=== PATIENT | female | born 1955 | race Caucasian/White ===

== ENCOUNTER → 2016-11-27 | Outpatient (CLI) | payer BC, OTHER ==
--- NOTE | 2016-11-27 16:07 | Diagnostic Imaging Report ---
EXAMINATION: DEXA scan. INDICATION: Osteopenia. TECHNIQUE: Bone mineral density estimated based on dual energy radiography over the lumbar spine and femoral necks, was performed. FINDINGS: The lumbar spine T-score is -0.6. This is 2.3% increased density measurement compared to 2015 exam. The left femoral neck T score is -1.4 and on the right is -1.0. This is 1.2% decreased density compared to 11/02/2014 exam. IMPRESSION: Osteopenia. Dictated by: Dictated on workstation # [id number]
--- NOTE | 2016-11-28 08:28 | Diagnostic Imaging Report ---
Bilateral screening mammogram 2D views with tomosynthesis The current study was also evaluated with a Computer Aided Detection (CAD) system. Indication: Screening. No current complaints stated on the questionnaire. COMPARISON: 11/02/14 FINDINGS: The breasts are composed of heterogeneously dense parenchyma which may decrease mammographic sensitivity. Allowing for technique and positional differences, no suspicious change is seen. IMPRESSION: Dense breasts with no definite change. ACR BI-RADS Category 2: Benign findings. Result letter will be mailed to the patient. Note: At least 10% of breast cancer is not imaged by mammography. Dictated by: Dictated on workstation # [id number]
== END ==
LOC: RAD 11:10
PROVIDERS: ATTEND Nurse Practitioner Family
DX: M85.89 Other specified disorders of bone density and structure, multiple sites (principal); Z12.31 Encounter for screening mammogram for malignant neoplasm of breast
CPT/HCPCS: 77067; 77080

== ENCOUNTER → 2017-04-16 | Outpatient (CLI) | payer OTHER ==
[2017-04-16 10:18] LABS: ABSOLUTE RETIC # 39 10e9/L (24-90); BASOPHILS # (AUTO) 0.1 10^3/uL (0.0-0.1); BASOPHILS % (AUTO) 2 % (0-10); EOSINOPHILS # (AUTO) 0.2 10^3/uL (0.0-0.3); EOSINOPHILS % (AUTO) 4 % (0-10); HEMATOCRIT 39 % (35-52); HEMOGLOBIN 12.9 G/DL (11.5-16.0); LYMPHOCYTES # (AUTO) 2.1 X 10^3 (1.0-4.0); LYMPHOCYTES % (AUTO) 46 % (12-44); MEAN CORPUSCULAR HEMOGLOBIN 31 PG (25-34); MEAN CORPUSCULAR HGB CONC 33 G/DL (32-36); MEAN CORPUSCULAR VOLUME 93 FL (80-99); MEAN PLATELET VOLUME 9.3 FL (7.4-10.4); MONOCYTES # (AUTO) 0.4 X 10^3 (0.0-1.0); MONOCYTES % (AUTO) 9 % (0-12); NEUTROPHILS # (AUTO) 1.8 X 10^3 (1.8-7.8); NEUTROPHILS % (AUTO) 40 % (42-75); PLATELET COUNT 218 10^3/uL (130-400); RED BLOOD COUNT 4.18 10^6/uL (4.35-5.85); RED CELL DISTRIBUTION WIDTH 12.9 % (10.0-14.5); RETICULOCYTE % 0.94 % (0.50-2.40); WHITE BLOOD COUNT 4.5 10^3/uL (4.3-11.0)
[2017-04-16 11:06] LABS: BAND NEUTROPHILS 0 %; LYMPHOCYTES % (MANUAL) 50 %; NEUTROPHILS % (MANUAL) 37 %
[2017-04-16 11:07] LABS: BASOPHILS % (MANUAL) 0 %; EOSINOPHILS % (MANUAL) 3 %; MONOCYTES % (MANUAL) 8 %; REACTIVE LYMPHOCYTES 2 %
[2017-04-16 11:08] LABS: ELLIPT/OVALOCYTES SLIGHT
== END ==
LOC: LAB 09:48
PROVIDERS: ATTEND Nurse Practitioner Family
DX: D72.819 Decreased white blood cell count, unspecified (principal)
CPT/HCPCS: 36415; 85007; 85027; 85045

== ENCOUNTER 2017-11-24 05:22 | Outpatient (CLI) | payer OTHER ==
[~2017-11-24] VITALS: Ht 167.6 cm; Wt 79.4 kg
== END 2017-11-24 15:50 | disposition home or self-care (01) ==
LOC: PREOP 05:22
PROVIDERS: ATTEND Internal Medicine
DX: Z01.818 Encounter for other preprocedural examination (principal); Z12.11 Encounter for screening for malignant neoplasm of colon

== ENCOUNTER → 2018-12-14 | Outpatient (CLI) | payer OTHER ==
--- NOTE | 2018-12-14 21:51 | Diagnostic Imaging Report ---
INDICATION: Screening TECHNIQUE: The current study was also evaluated with a Computer Aided Detection (CAD) system. 3-D Tomographic imaging was also performed. COMPARISONS: 12/10/2017, 11/27/2016 and 12/03/2014 FINDINGS: The fibroglandular tissues are heterogeneously dense bilaterally. Again seen is a nodular density in subareolar region of the right breast. The calcifications within this have increased in number and pleomorphicity when compared to the prior examination. There are a few other benign type calcifications. There is no other dominant mass or spiculated lesion. Skin, nipples and axillae are unremarkable. IMPRESSION: Category 0, further imaging needed needed. Nodular density in subareolar region of the left breast with calcifications which have increased in conspicuity when compared to the prior examination. Further evaluation with magnification compression views and, if warranted, ultrasound is recommended. ACR BI-RADS Category 0: Incomplete. (Needs additional imaging evaluation). Result letter will be mailed to the patient. Note: At least 10% of breast cancer is not imaged by mammography. Dictated by: Dictated on workstation # [id number]
== END ==
LOC: RAD 10:28
PROVIDERS: ATTEND Family Medicine
DX: Z12.31 Encounter for screening mammogram for malignant neoplasm of breast (principal)
CPT/HCPCS: 77067

== ENCOUNTER → 2018-12-23 | Outpatient (CLI) | payer OTHER ==
--- NOTE | 2018-12-23 13:56 | Diagnostic Imaging Report ---
INDICATION: Right breast nodule. FINDINGS: Sonographic interrogation of the retroareolar right breast was performed. There are 2 circumscribed hypoechoic nodules in the retroareolar right breast. One nodule measures approximately 7 mm x 8 mm. A second nodule adjacent to this is slightly smaller and measures 6 mm x 7 mm. This nodule does contain punctate calcifications and likely corresponds to the nodular density noted mammographically. No internal vascularity is present. No posterior acoustic shadowing is seen. IMPRESSION: BI-RADS Category 3. Circumscribed retroareolar nodules, as described, one of which contains internal calcifications and likely accounts for the mammographic nodule. These appear fairly benign and most likely represent fibroadenomas. Even so, followup right mammogram and right breast ultrasound in 6 months is recommended to confirm stability. Dictated by: Dictated on workstation # [id number]
--- NOTE | 2018-12-23 17:59 | Diagnostic Imaging Report ---
INDICATION: Right breast nodule with calcification. Patient presents for additional views. COMPARISON: Correlation is made with recent screening study from 12/14/2018 as well as prior mammograms dating back to 2013. EXAMINATION: Unilateral right 2D and 3D diagnostic mammography was performed including magnification CC and ML views as well as conventional 90 degree lateral view. FINDINGS: Additional views show persistent nodule in the retroareolar right breast with internal calcifications. In reviewing older mammograms this nodule appears to have been present dating back to 2013 but there is now more calcifications within the nodule. This may represent partially calcified cyst versus solid nodule. Further evaluation with ultrasound is recommended. No additional masses are seen. IMPRESSION: Partially calcified circumscribed nodule in retroareolar right breast. Further evaluation with ultrasound is recommended and will be performed today. ACR BI-RADS Category 0: Incomplete. (Needs additional imaging evaluation). Result letter will be mailed to the patient. Note: At least 10% of breast cancer is not imaged by mammography. Dictated by: Dictated on workstation # [id number]
== END ==
LOC: RAD 08:50
PROVIDERS: ATTEND Nurse Practitioner Family
DX: N63.10 Unspecified lump in the right breast, unspecified quadrant (principal)

== ENCOUNTER 2019-10-11 05:38 | Outpatient (RCR) | payer OTHER ==
[~2019-10-11] VITALS: Ht 157 cm; Wt 80.9 kg
[~2019-10-11 05:38] MED LIST: CHOL20003 PO; CYAN250010 PO; ESCI10TA PO; FLAX100031 PO; LEVO5TAB28 PO; MELA5CAP PO; MULT-1136 PO; VIT1CAPS44 PO
== END 2019-10-11 15:38 | disposition home or self-care (01) ==
LOC: PREOP 05:38
PROVIDERS: ATTEND Internal Medicine
DX: Z01.818 Encounter for other preprocedural examination (principal); Z11.59 Encounter for screening for other viral diseases
CPT/HCPCS: 87635

== ENCOUNTER 2019-10-14 08:33 | Day surgery (SDC) | payer OTHER ==
--- NOTE | 2019-09-30 07:52 | HISTORY AND PHYSICAL ---
DATE OF SERVICE: COLONOSCOPY HISTORY AND PHYSICAL HISTORY OF PRESENT ILLNESS: The patient is a 63-year-old white female referred for surveillance colonoscopy due to past history of colonic polyps. She had a serrated adenoma removed from the rectosigmoid junction nearly 2 years ago. At that time, she also had a hyperplastic polyp removed from the distal sigmoid colon and a hyperplastic polyp removed from the rectum. Since that time, she reports no change in bowel habit, no diarrhea or constipation. She has noted no bright red blood per rectum or melena and denies abdominal pain. PAST MEDICAL HISTORY: Significant for utilization of Voltaren gel for some mild arthritis symptoms as well as Lexapro for mild anxiety and depression. PAST SURGICAL HISTORY: She had an appendectomy at the age of 11 and has had 2 sections. FAMILY HISTORY: She is adopted and has no information on her biologic parents. 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 She has less than a 5-pack-year smoking history and quit 14 years ago. She reports occasional social alcohol intake. PHYSICAL EXAMINATION: GENERAL: Reveals a well-appearing white female in no acute distress. HEENT: Unremarkable. CHEST: Clear. CARDIOVASCULAR: Reveals a regular rate and rhythm without murmur, S3 or S4. ABDOMEN: Soft, supple without mass, organomegaly or tenderness. EXTREMITIES: Reveal no cyanosis, clubbing or edema. ASSESSMENT AND PLAN: The patient was set up for surveillance colonoscopy due to past history of colon polyps, most notably a serrated adenoma removed from the rectosigmoid junction. I thank you for the referral of this pleasant lady. Job ID: [id number] DocumentID: [id number] Dictated Date: 09/22/2019 18:13:36 Acupressure Therapist Date: 09/22/2019 18:51:02 Dictated By: JACOB YORK MD
[2019-10-14] VITALS (8 sets, daily range): BP systolic 108–133; BP diastolic 55–77
[~2019-10-14] VITALS: Ht 157 cm; Wt 80.9 kg
--- NOTE | 2019-10-14 08:15 | Pre-Op Note & Conscious Sedat ---
Pre-Operative Progress Note H&P Reviewed The H&P was reviewed, patient examined and no changes noted. Date H&P Reviewed: Oct 14, 2019 Time H&P Reviewed: 08:15 Conscious Sedation Pre-Proced ASA Score 2 For ASA 3 and 4: Consider anesthesia and medical clearance. Also, for patients with a history of failed moderate sedation consider anesthesia. Airway Lungs Heart ASA score ASA 1: a normal healthy patient ASA 2: a patient with a mild systemic disease (mid diabetes, controlled hypertension, obesity ASA 3: a patient with a severe systemic disease that limits activity (angina, COPD, prior Myocardial infarction) ASA 4: a patient with an incapacitating disease that is a constant threat to life (CHF, renal failure) ASA 5: a moribund patient not expected to survive 24 hrs. (ruptured aneurysm) ASA 6: a declared brain- patient whose organs are being harvested. For emergent operations, add the letter E after the classification Mallampati Classification Grade 2 Sedation Plan Analgesia, Amnesia, Plan communicated to team members, Discussed options with patient/fam, Discussed risks with patient/fam The patient is an appropriate candidate to undergo the planned procedure, sedation, and anesthesia. The patient immediately re-assessed prior to indication. JACOB YORK MD Oct 14, 2019 08:15
[2019-10-14] MEDS ORDERED: D5 LR IV SOLUTION 1,000 ML IV ONE (08:42)
[2019-10-14] MEDS ORDERED: D5 LR IV SOLUTION 1,000 ML IV STA (08:42)
--- OUTSIDE RECORDS SUMMARY | 2019-10-14 08:42 | XMS REPORT | CCD ---
Author Author Laquita Hoover Organization Shanti Hoover MD, [facility] Address [address] [place] [address] Phone Care Team Providers Care Apprentice Architect Name Role Phone PP Unavailable CCM Unavailable Summary Purpose Interface Exchange Insurance Providers Payer name Policy type / Coverage type Covered alliance party ID Effective Begin Date Effective End Date [place] [employer] [id number] 2018 Unknown Family history Adopted Diagnosis Age At Onset No Family Disease Entered N/A Social History Social History Element Codes Description Effective Dates Marital status Unknown M arried 09/30/2012 Number of children Unknown 2 09/30/2012 Employment Unknown Oscar [employer]auer employed via [employer] in [place] 09/30/[address]: 0493833 Quit less than 10 years ago 09/30/2012 Alcohol history Unknown occasionally drinks alcohol 09/30/2012 Has the patient ever used illegal drugs? Unknown Has never used illegal drugs 013 Allergies, Adverse Reactions, Alerts Substance Reaction Codes Entered Date Inactivated Date Status * NO KNOWN FOOD LATESHA RGIES Unknown 09/30/2012 No Inactive Date Active * NO KNOWN DRUG LATESHA RGIES Unknown 09/30/2012 No Inactive Date Active Past Medical History Illness Codes Condition Status Onset Date Resolved Date Other abnormal and i nconclusive findings on diagnostic imaging of breast ICD-9: 793.89 ICD-10: R92.8 Active 12/24/2018 Unknown Encounter for screen ing mammogram for malignant neoplasm of breast ICD-9: V76.12 ICD-10: Z12.31 Active 2017 Unknown Encounter for gyneco logical examination (general) (routine) without abnormal findings ICD-9: V72.31 ICD-10: Z01.419 Active 12/28/2012 Unknown Major depressive dis order, recurrent, mild ICD-9: 296.31 ICD-10: F33.0 Active 11/24/2018 Unknown Dysuria ICD-9: 788.1 ICD-10: R30.0 Active 11/12/2018 Unknown Acute recurrent maxi llary sinusitis ICD-9: 461.0 ICD-10: J01.01 Active 06/20/2015 Unknown Cough ICD-9: 786.2 ICD-10: R05 Active 03/12/2018 Unknown Other allergic rhinitis ICD-9: 477.8 ICD-10: J30.89 Active 04/30/2017 Unknown Cellulitis of left l ower limb ICD-9: 682.6 ICD-10: L03.116 Active 01/28/2018 Unknown Encounter for genera l adult medical examination without abnormal findings ICD-9: V70.0 ICD-10: Z00.00 Active 11/05/2016 Unknown Other acute sinusitis ICD-9: 461.8 ICD-10: J01.80 Active 04/30/2017 Unknown Allergic rhinitis du e to pollen ICD-9: 477.0 ICD-10: J30.1 Active 10/07/2015 Unknown Insect bite (nonveno mous), right knee, initial encounter ICD-9: 916.4 ICD-10: S80.261A Active 10/07/2015 Unknown Acute bronchitis, un specified ICD-9: 466.0 ICD-10: J20.9 Active 06/20/2015 Unknown Low back pain ICD-9: 724.2 ICD-10: M54.5 Active 06/14/2015 Unknown Sacroiliitis, not el sewhere classified ICD-9: 720.2 ICD-10: M46.1 Active 06/14/2015 Unknown Routine medical exam ICD-9: V70.0 Active 11/21/2013 Unknown DYSURIA ICD-9: 788.1 Active 01/18/2013 Unknow n Polyp at cervical os ICD-9: 622.7 Active 12/28/2012 Unknown Well woman exam with routine gynecological exam ICD-9: V72.31 Active 12/28/2012 Unknown Problems Condition Codes Effectiv e Dates Condition Status Other abnormal and i nconclusive findings on diagnostic imaging of breast ICD-9: 793.89 ICD-10: R92.8 12/24/2018 Active Encounter for screen ing mammogram for malignant neoplasm of breast ICD-9: V76.12 ICD-10: Z12.31 2017 Active Encounter for gyneco logical examination (general) (routine) without abnormal findings ICD-9: V72.31 ICD-10: Z01.419 12/28/2012 Active Major depressive dis order, recurrent, mild ICD-9: 296.31 ICD-10: F33.0 11/24/2018 Active Dysuria ICD-9: 788.1 ICD-10: R30.0 11/12/2018 Active Acute recurrent maxi llary sinusitis ICD-9: 461.0 ICD-10: J01.01 06/20/2015 Active Cough ICD-9: 786.2 ICD-10: R05 03/12/2018 Active Other allergic rhinitis ICD-9: 477.8 ICD-10: J30.89 04/30/2017 Active Cellulitis of left l ower limb ICD-9: 682.6 ICD-10: L03.116 01/28/2018 Active Encounter for genera l adult medical examination without abnormal findings ICD-9: V70.0 ICD-10: Z00.00 11/05/2016 Active Other acute sinusitis ICD-9: 461.8 ICD-10: J01.80 04/30/2017 Active Allergic rhinitis du e to pollen ICD-9: 477.0 ICD-10: J30.1 10/07/2015 Active Insect bite (nonveno mous), right knee, initial encounter ICD-9: 916.4 ICD-10: S80.261A 10/07/2015 Active Acute bronchitis, un specified ICD-9: 466.0 ICD-10: J20.9 06/20/2015 Active Low back pain ICD-9: 724.2 ICD-10: M54.5 06/14/2015 Active Sacroiliitis, not el sewhere classified ICD-9: 720.2 ICD-10: M46.1 06/14/2015 Active Routine medical exam ICD-9: V70.0 11/21/2013 Active DYSURIA ICD-9: 788.1 01/18/2013 Active Polyp at cervical os ICD-9: 622.7 12/28/2012 Active Well woman exam with routine gynecological exam ICD-9: V72.31 12/28/2012 Active Medications Medication Codes Instruc tions Start Date Stop Date Sta tus Fill Instructions escitalopram 10 mg t ablet RxNorm: 867407 1 Tablet(s) PO QHS 11/24/2018 06/21/2019 Active acyclovir 800 mg tablet RxNorm: 861774 1 Tablet(s) PO TID take at symptoms of c old sore, if no outbreak, take for 5 days, if breaks out, take for 10 days total 11/24/2018 02/01/2019 Ac tive Bactrim DS 800 mg-16 0 mg tablet RxNorm: 994523 1 Tablet(s) PO BID 11/16/2018 11/22/2018 Inactive dispense generic Bactrim DS 800 mg-16 0 mg tablet RxNorm: 863455 1 Tablet(s) PO BID 11/16/2018 11/15/2018 Inactive Keflex 500 mg capsule RxNorm: 793665 1 Capsule(s) PO TID 11/12/2018 11/15/2018 Inactive Augmentin 875 mg-125 mg tablet RxNorm: 833663 1 Tablet(s) PO BID 05/17/2018 05/23/2018 Inactive Kenalog 40 mg/mL guevara pension for injection RxNorm: 9685321 Milliliter(s) Inj 05/17/2018 05/17/2018 In active Augmentin 875 mg-125 mg tablet RxNorm: 831336 1 Tablet(s) PO BID 03/12/2018 03/18/2018 Inactive take a probioitic while on the abx Kenalog 40 mg/mL guevara pension for injection RxNorm: 6601922 1 Milliliter(s) Inj 03/12/2018 03/12/2018 In active doxycycline hyclate 100 mg capsule RxNorm: 3518112 1 Capsule(s) PO BID 01/28/2018 02/06/2018 In active dapsone 25 mg tablet RxNorm: 022061 2 Tablet(s) PO daily 01/28/2018 02/01/2018 Inactive diclofenac 50 mg-mis oprostol 200 mcg tablet,immed.and delayed release RxNorm: 455340 1 Tablet(s) PO BID 11/05/2017 11/23/2018 Inactive acyclovir 800 mg tablet RxNorm: 362947 1 Tablet(s) PO TID take at symptoms of c old sore, if no outbreak, take for 5 days, if breaks out, take for 10 days total 09/09/2017 10/08/2017 In active prednisone 10 mg tablet RxNorm: 780237 Tablet(s) PO 07/10/2017 11/23/2018 Inactive 6,5, 4,3,2,1 Zithromax Z-Dawson 250 mg tablet RxNorm: 711088 1 Tablet(s) PO UD 07/10/2017 07/14/2017 Inactive zpack Augmentin 875 mg-125 mg tablet RxNorm: 645647 1 Tablet(s) PO BID 05/29/2017 05/28/2017 Inactive Augmentin 875 mg-125 mg tablet RxNorm: 133374 1 Tablet(s) PO BID 05/29/2017 06/07/2017 Inactive Kenalog 40 mg/mL guevara pension for injection RxNorm: 1816980 1 Milliliter(s) Inj 04/30/2017 04/30/2017 In active Keflex 500 mg capsule RxNorm: 348025 1 Capsule(s) PO TID 04/30/2017 05/09/2017 Inactive Vitamin D3 5,000 uni t tablet RxNorm: 376605 1 Tablet(s) PO daily 12/17/2016 No Stop Date Active Jublia 10 % topical solution with applicator RxNorm: 9844280 1 Application TOP da marshall 12/12/2016 2016 Inactive Jublia 10 % topical solution with applicator RxNorm: 6261125 1 Application TOP da marshall 12/12/2016 11/23/2018 Inactive acyclovir 800 mg tablet RxNorm: 625447 1 Tablet(s) PO TID take at symptoms of c old sore, if no outbreak, take for 5 days, if breaks out, take for 10 days total 09/25/2016 10/24/2016 In active Kenalog 40 mg/mL guevara pension for injection RxNorm: 2020885 Milliliter(s) Inj 10/08/2015 10/08/2015 In active doxycycline hyclate 100 mg tablet RxNorm: 588595 1 Tablet(s) PO BID 10/08/2015 10/17/2015 Inactive cefdinir 300 mg capsule RxNorm: 346532 1 Capsule(s) PO BID 06/25/2015 07/01/2015 Inactive cefdinir 300 mg capsule RxNorm: 154788 1 Capsule(s) PO BID 06/25/2015 06/24/2015 Inactive ceftriaxone 500 mg s olution for injection RxNorm: 2543110 Inj 06/21/2015 06/21/2015 Inactive Kenalog 40 mg/mL guevara pension for injection RxNorm: 5585209 Milliliter(s) Inj 06/21/2015 06/21/2015 In active Zithromax Z-Dawson 250 mg tablet RxNorm: 020779 1 Tablet(s) PO UD 06/21/2015 06/25/2015 Inactive zpack acyclovir 800 mg tablet RxNorm: 378663 1 Tablet(s) PO TID take at symptoms of c old sore, if no outbreak, take for 5 days, if breaks out, take for 10 days total 10/31/2014 11/29/2014 In active Cipro 500 mg tablet RxNorm: 517570 1 Tablet(s) PO BID 01/18/2013 01/17/2013 Inactive Cipro 500 mg tablet RxNorm: 687603 1 Tablet(s) PO BID 01/18/2013 01/20/2013 Inactive Ocuvite oral RxNorm: 684538 oral No Start Date Active flaxseed oil oral RxNorm: 560760 oral No Start Date Active Calcium 600 + D(3) oral RxNorm: 379327 oral No Start Date Active Vitamin D3 Oral RxNorm: Oral No Start Date 12/16/2016 Inactive krill oil 1,000 mg-1 70 mg-50 mg-80 mg capsule RxNorm: 1 Capsule(s) PO daily No Start Date 11/23/2018 Inactive flaxseed oil Oral RxNorm: Oral No Start Date 11/04/2016 Inactive Medication Administered Medication Codes Instruc tions Start Date Status Kenalog 40 mg/mL suspension for injection RxNorm: 7027735 Milliliter 05/17/2018 No longer Active Kenalog 40 mg/mL suspension for injection RxNorm: 8374260 1Milliliter 03/12/2018 N o longer Active Kenalog 40 mg/mL suspension for injection RxNorm: 3344320 1Milliliter 04/30/2017 N o longer Active Kenalog 40 mg/mL suspension for injection RxNorm: 9379201 Milliliter 10/08/2015 No longer Active Kenalog 40 mg/mL suspension for injection RxNorm: 1767594 Milliliter 06/21/2015 No longer Active ceftriaxone 500 mg solution for injection RxNorm: 1088203 06/21/2015 No longer A ctive Immunizations Vaccine Codes Date Status Influenza CVX: 141 01/22 completed Influenza CVX: 141 02/17 completed Tetanus, Diptheria, Pertussis CVX: 05/20/2011 completed Tetanus/Diptheria CVX: 05/20/2011 completed Assessments Condition Codes Effectiv e Dates Other abnormal and inconclusive findings on diagnostic imaging of breast ICD-10: R92.8 ICD-9: 793.89 12/24/2018 Encounter for screening mammogram for ma lignant neoplasm of breast ICD-10: Z12.31 ICD-9: V76.12 12/15/2018 Encounter for gynecological examination (general) (routine) without abnormal findings ICD-10: Z01.419 ICD-9: V72.31 11/24/2018 Major depressive disorder, recurrent, mild ICD-10: F33.0 ICD-9: 296.31 11/24/2018 Dysuria ICD-10: R30.0 ICD-9: 788.1 11/12/2018 Cough ICD-10: R05 ICD-9: 786.2 05/17/2018 Acute recurrent maxillary sinusitis ICD-10: J01.01 ICD-9: 461.0 05/17/2018 Other allergic rhinitis ICD-10: J30. 89 ICD-9: 477.8 03/12/2018 Cellulitis of left lower limb ICD-10 : L03.116 ICD-9: 682.6 01/28/2018 Encounter for general adult medical exam ination without abnormal findings ICD-10: Z00.00 ICD-9: V70.0 11/05/2017 Other acute sinusitis ICD-10: J01.80 ICD-9: 461.8 07/10/2017 Insect bite (nonvenomous), right knee, initial encount er ICD- 10: S80.261A ICD-9: 916.4 10/08/2015 Allergic rhinitis due to pollen ICD- 10: J30.1 ICD-9: 477.0 10/08/2015 Acute bronchitis, unspecified ICD-10 : J20.9 ICD-9: 466.0 06/21/2015 Sacroiliitis, not elsewhere classified ICD-10: M46.1 ICD-9: 720.2 06/15/2015 Low back pain ICD-10: M54.5 ICD-9: 724.2 06/15/2015 Routine medical exam ICD-9: V70.0 10/31/2014 DYSURIA ICD-9: 788.1 04/2012 Polyp at cervical os ICD-9: 622.7 12/28/2012 Well woman exam with routine gynecological exam ICD-9: V72.31 12/28/2012 Reason For Visit Reason For Visit Effective Dates Notes well woman exam (40-65 years) 11/24/2018 dysuria 11/12/2018 sinus congestion 05/17/2018 sinus congestion 03/12/2018 arthropod bite 01/28/2018 joint complaint 11/05/2017 sinus congestion 07/10/2017 sinus congestion 04/30/2017 well woman exam (40-65 years) 11/05/2016 well woman exam (40-65 years) 11/01/2015 earache 10/08/2015 cough 06/21/2015 back pain 06/15/2015 well woman exam (40-65 years) 10/31/2014 ~generic 11/21/2013 foll ow up breast exam well woman exam (40-65 years) 12/28/2012 fatigue 09/30/2012 Results Observation Observation Code Item Item Code Result Date CULTURE, URINE M100 URIN E CULTURE See Note 11/15/2018 Cbc With Differential Ord2 WBC 7.35 K/ul 11/12/2018 Cbc With Differential Ord2 RBC 4.25 M/ul 11/12/2018 Cbc With Differential Ord2 HGB 13.1 g/dl 11/12/2018 Cbc With Differential Ord2 Neut% 69.1 % 11/12/2018 Cbc With Differential Ord2 HCT 40.9 % 11/12/2018 Cbc With Differential Ord2 Lymph% 21.1 % 11/12/2018 Cbc With Differential Ord2 MCV 96.2 fl 11/12/2018 Cbc With Differential Ord2 MCH 30.8 pg 11/12/2018 Cbc With Differential Ord2 Young% 8.0 % 11/12/2018 Cbc With Differential Ord2 MCHC 32.0 pg 11/12/2018 Cbc With Differential Ord2 Eos% 1.4 % 11/12/2018 Cbc With Differential Ord2 PLT 202 K/ul 11/12/2018 Cbc With Differential Ord2 Baso% 0.4 % 11/12/2018 Cbc With Differential Ord2 RDW 13.1 % 11/12/2018 Cbc With Differential Ord2 Neut ABS# 5.08 K/ul 11/12/2018 Cbc With Differential Ord2 Lymph ABS# 1.55 K/ul 11/12/2018 Cbc With Differential Ord2 Young ABS# 0.6 K/ul 11/12/2018 Cbc With Differential Ord2 Eos ABS# 0.1 K/ul 11/12/2018 Cbc With Differential Ord2 Baso ABS# 0.0 K/ul 11/12/2018 Tsh Ord6 TSH (3rd IS) 2.41 uIU/mL 11/12/2018 Lipid Ord30 CHOL 162 mg/dL 11/12/2018 Lipid Ord30 HDL 61.0 mg/dl 11/12/2018 Lipid Ord30 TRIG 84 mg/dL 11/12/2018 Lipid Ord30 LDL 84 mg/dL 11/12/2018 Lipid Ord30 C/HDL 2.7 Ratio 11/12/2018 Comp Metabolic Ivg170 NA 140 mEq/L 11/12/2018 Comp Metabolic Afa766 K 4.0 mEq/L 11/12/2018 Comp Metabolic Bxo534 CL 102 mEq/L 11/12/2018 Comp Metabolic Yoo459 CO2 31.0 mEq/L 11/12/2018 Comp Metabolic Irb666 AN ION GAP 11 11/12/2018 Comp Metabolic Iwq700 GL UCOSE 92 mg/dL 11/12/2018 Comp Metabolic Zfu493 Cr eat 0.7 mg/dL 11/12/2018 Comp Metabolic Jhv618 eG FR 98 ml/min/1.73m2 11/12 Comp Metabolic Fdb104 BUN 12 mg/dL 11/12/2018 Comp Metabolic Ptj385 B/ C Ratio 18.5 Ratio 11/12/2018 Comp Metabolic Iaj603 CA LCIUM 9.6 mg/dL 11/12/2018 Comp Metabolic Vly862 AL K PHOS 75 U/L 11/12/2018 Comp Metabolic Tcj693 T(SGOT) 16 U/L 11/12/2018 Comp Metabolic Vul831 AL T(SGPT) 16 U/L 11/12/2018 Comp Metabolic Tlh109 BI LI T 0.6 mg/dL 11/12/2018 Comp Metabolic Jzt723 AL BUMIN 4.3 g/dL 11/12/2018 Comp Metabolic Zfc415 TP RO 7.0 g/dL 11/12/2018 Comp Metabolic Uvh849 GL OB 2.7 g/dL 11/12/2018 Comp Metabolic Sen545 A/ G Ratio 1.6 Ratio 11/12/2018 Comp Metabolic Kyn042 Os mo 279 mOsmo 11/12/2018 Lipid Ord30 CHOL 161 mg/dL 11/02/2017 Lipid Ord30 HDL 62.0 mg/dl 11/02/2017 Lipid Ord30 TRIG 66 mg/dL 11/02/2017 Lipid Ord30 LDL 86 mg/dL 11/02/2017 Lipid Ord30 C/HDL 2.6 Ratio 11/02/2017 Tsh Ord6 TSH (3rd IS) 1.73 uIU/mL 11/02/2017 Cbc With Differential Ord2 WBC 3.71 K/ul 11/02/2017 Cbc With Differential Ord2 RBC 4.22 M/ul 11/02/2017 Cbc With Differential Ord2 HGB 13.2 g/dl 11/02/2017 Cbc With Differential Ord2 HCT 40.4 % 11/02/2017 Cbc With Differential Ord2 Neut% 39.6 % 11/02/2017 Cbc With Differential Ord2 MCV 95.7 fl 11/02/2017 Cbc With Differential Ord2 Lymph% 47.2 % 11/02/2017 Cbc With Differential Ord2 MCH 31.3 pg 11/02/2017 Cbc With Differential Ord2 Young% 8.9 % 11/02/2017 Cbc With Differential Ord2 MCHC 32.7 pg 11/02/2017 Cbc With Differential Ord2 Eos% 3.5 % 11/02/2017 Cbc With Differential Ord2 PLT 203 K/ul 11/02/2017 Cbc With Differential Ord2 Baso% 0.8 % 11/02/2017 Cbc With Differential Ord2 RDW 13.0 % 11/02/2017 Cbc With Differential Ord2 Neut ABS# 1.47 K/ul 11/02/2017 Cbc With Differential Ord2 Lymph ABS# 1.75 K/ul 11/02/2017 Cbc With Differential Ord2 Young ABS# 0.3 K/ul 11/02/2017 Cbc With Differential Ord2 Eos ABS# 0.1 K/ul 11/02/2017 Cbc With Differential Ord2 Baso ABS# 0.0 K/ul 11/02/2017 Comp Metabolic Qgs888 NA 141 mEq/L 11/02/2017 Comp Metabolic Wxe132 K 4.0 mEq/L 11/02/2017 Comp Metabolic Gfn013 CL 104 mEq/L 11/02/2017 Comp Metabolic Jxx341 CO2 29.0 mEq/L 11/02/2017 Comp Metabolic Oec937 AN ION GAP 12 11/02/2017 Comp Metabolic Oqj703 GL UCOSE 91 mg/dL 11/02/2017 Comp Metabolic Lsi988 Cr eat 0.7 mg/dL 11/02/2017 Comp Metabolic Pzg320 eG FR 94 ml/min/1.73m2 11/02 Comp Metabolic Cpx958 BUN 18 mg/dL 11/02/2017 Comp Metabolic Gvb218 B/ C Ratio 26.5 Ratio 11/02/2017 Comp Metabolic Ctf474 CA LCIUM 9.7 mg/dL 11/02/2017 Comp Metabolic Sws258 AL K PHOS 65 U/L 11/02/2017 Comp Metabolic Nzi855 T(SGOT) 16 U/L 11/02/2017 Comp Metabolic Pkf489 AL T(SGPT) 17 U/L 11/02/2017 Comp Metabolic Cqy301 BI LI T 0.4 mg/dL 11/02/2017 Comp Metabolic Nsp850 AL BUMIN 4.1 g/dL 11/02/2017 Comp Metabolic Blx045 TP RO 6.7 g/dL 11/02/2017 Comp Metabolic Xvz776 GL OB 2.6 g/dL 11/02/2017 Comp Metabolic Jkj387 A/ G Ratio 1.6 Ratio 11/02/2017 Comp Metabolic Tnk342 Os mo 283 mOsmo 11/02/2017 Tsh Ord6 hTSH II 2.02 uIU/mL 01/27/2017 Comp Metabolic Eos731 NA 141 mEq/L 01/27/2017 Comp Metabolic Dag715 K 4.2 mEq/L 01/27/2017 Comp Metabolic Tmj064 CL 103 mEq/L 01/27/2017 Comp Metabolic Lla801 CO2 31.0 mEq/L 01/27/2017 Comp Metabolic Qjt563 AN ION GAP 11 01/27/2017 Comp Metabolic Dyi349 GL UCOSE 90 mg/dL 01/27/2017 Comp Metabolic Rqf898 Cr eat 0.6 mg/dL 01/27/2017 Comp Metabolic Kku584 eG FR 101 ml/min/1.73m2 01/18 Comp Metabolic Uwo125 BUN 17 mg/dL 01/27/2017 Comp Metabolic Ohv239 B/ C Ratio 26.6 Ratio 01/27/2017 Comp Metabolic Ulm401 CA LCIUM 9.5 mg/dL 01/27/2017 Comp Metabolic Nxg790 AL K PHOS 73 U/L 01/27/2017 Comp Metabolic Ilo831 T(SGOT) 19 U/L 01/27/2017 Comp Metabolic Luk311 AL T(SGPT) 20 U/L 01/27/2017 Comp Metabolic Ktu064 BI LI T 0.5 mg/dL 01/27/2017 Comp Metabolic Pme960 AL BUMIN 4.3 g/dL 01/27/2017 Comp Metabolic Xxv577 TP RO 6.6 g/dL 01/27/2017 Comp Metabolic Srm205 GL OB 2.3 g/dL 01/27/2017 Comp Metabolic Giu741 A/ G Ratio 1.8 Ratio 01/27/2017 Comp Metabolic Eeu676 Os mo 282 mOsmo 01/27/2017 Lipid Ord30 CHOL 170 mg/dL 01/27/2017 Lipid Ord30 HDL 63.0 mg/dl 01/27/2017 Lipid Ord30 TRIG 57 mg/dL 01/27/2017 Lipid Ord30 LDL 96 mg/dL 01/27/2017 Lipid Ord30 C/HDL 2.7 Ratio 01/27/2017 Cbc With Differential Ord2 WBC 3.46 K/ul 01/27/2017 Cbc With Differential Ord2 RBC 4.21 M/ul 01/27/2017 Cbc With Differential Ord2 HGB 13.0 g/dl 01/27/2017 Cbc With Differential Ord2 HCT 39.4 % 01/27/2017 Cbc With Differential Ord2 Neut% 33.3 % 01/27/2017 Cbc With Differential Ord2 MCV 93.6 fl 01/27/2017 Cbc With Differential Ord2 Lymph% 49.7 % 01/27/2017 Cbc With Differential Ord2 MCH 30.9 pg 01/27/2017 Cbc With Differential Ord2 Young% 11.8 % 01/27/2017 Cbc With Differential Ord2 MCHC 33.0 pg 01/27/2017 Cbc With Differential Ord2 Eos% 4.0 % 01/27/2017 Cbc With Differential Ord2 PLT 211 K/ul 01/27/2017 Cbc With Differential Ord2 Baso% 1.2 % 01/27/2017 Cbc With Differential Ord2 RDW 13.3 % 01/27/2017 Cbc With Differential Ord2 Neut ABS# 1.15 K/ul 01/27/2017 Cbc With Differential Ord2 Lymph ABS# 1.72 K/ul 01/27/2017 Cbc With Differential Ord2 Young ABS# 0.4 K/ul 01/27/2017 Cbc With Differential Ord2 Eos ABS# 0.1 K/ul 01/27/2017 Cbc With Differential Ord2 Baso ABS# 0.0 K/ul 01/27/2017 Tsh Ord6 hTSH II 1.75 uIU/mL 01/22/2016 Lipid Ord30 CHOL 159 mg/dL 01/22/2016 Lipid Ord30 HDL 63.0 mg/dl 01/22/2016 Lipid Ord30 TRIG 55 mg/dL 01/22/2016 Lipid Ord30 LDL 85 mg/dL 01/22/2016 Lipid Ord30 C/HDL 2.5 Ratio 01/22/2016 Cbc With Differential Ord2 WBC 4.07 K/ul 01/22/2016 Cbc With Differential Ord2 RBC 4.30 M/ul 01/22/2016 Cbc With Differential Ord2 HGB 13.3 g/dl 01/22/2016 Cbc With Differential Ord2 HCT 40.6 % 01/22/2016 Cbc With Differential Ord2 Neut% 45.7 % 01/22/2016 Cbc With Differential Ord2 MCV 94.4 fl 01/22/2016 Cbc With Differential Ord2 Lymph% 40.8 % 01/22/2016 Cbc With Differential Ord2 MCH 30.9 pg 01/22/2016 Cbc With Differential Ord2 Young% 8.6 % 01/22/2016 Cbc With Differential Ord2 MCHC 32.8 pg 01/22/2016 Cbc With Differential Ord2 Eos% 3.4 % 01/22/2016 Cbc With Differential Ord2 PLT 224 K/ul 01/22/2016 Cbc With Differential Ord2 Baso% 1.5 % 01/22/2016 Cbc With Differential Ord2 RDW 13.3 % 01/22/2016 Cbc With Differential Ord2 Neut ABS# 1.86 K/ul 01/22/2016 Cbc With Differential Ord2 Lymph ABS# 1.66 K/ul 01/22/2016 Cbc With Differential Ord2 Young ABS# 0.4 K/ul 01/22/2016 Cbc With Differential Ord2 Eos ABS# 0.1 K/ul 01/22/2016 Cbc With Differential Ord2 Baso ABS# 0.1 K/ul 01/22/2016 Comp Metabolic Kkq788 NA 141 mEq/L 01/22/2016 Comp Metabolic Uds017 K 4.2 mEq/L 01/22/2016 Comp Metabolic Sbo775 CL 105 mEq/L 01/22/2016 Comp Metabolic Njl754 CO2 30.0 mEq/L 01/22/2016 Comp Metabolic Mdo168 AN ION GAP 10 01/22/2016 Comp Metabolic Ckc712 GL UCOSE 85 mg/dL 01/22/2016 Comp Metabolic Afu512 Cr eat 0.6 mg/dL 01/22/2016 Comp Metabolic Pna110 eG FR 109 ml/min/1.73m2 07/2015 Comp Metabolic Tuu850 BUN 14 mg/dL 01/22/2016 Comp Metabolic Cgs757 B/ C Ratio 23.3 Ratio 01/22/2016 Comp Metabolic Rdm015 CA LCIUM 9.1 mg/dL 01/22/2016 Comp Metabolic Exu292 AL K PHOS 69 U/L 01/22/2016 Comp Metabolic Pce630 T(SGOT) 16 U/L 01/22/2016 Comp Metabolic Pbj405 AL T(SGPT) 15 U/L 01/22/2016 Comp Metabolic Dke890 BI LI T 0.3 mg/dL 01/22/2016 Comp Metabolic Dci364 AL BUMIN 4.0 g/dL 01/22/2016 Comp Metabolic Gdh287 TP RO 6.8 g/dL 01/22/2016 Comp Metabolic Iqh434 GL OB 2.8 g/dL 01/22/2016 Comp Metabolic Wwr537 A/ G Ratio 1.5 Ratio 01/22/2016 Comp Metabolic Ilb280 Os mo 281 mOsmo 01/22/2016 Tsh Ord6 hTSH II 2.22 uIU/mL 01/17/2015 Lipid Ord30 CHOL 165 mg/dL 01/17/2015 Lipid Ord30 HDL 63.0 mg/dl 01/17/2015 Lipid Ord30 TRIG 75 mg/dL 01/17/2015 Lipid Ord30 LDL 87 mg/dL 01/17/2015 Lipid Ord30 C/HDL 2.6 Ratio 01/17/2015 Cbc With Differential Ord2 WBC 4.1 K/uL 01/17/2015 Cbc With Differential Ord2 LYM 1.8 K/uL 01/17/2015 Cbc With Differential Ord2 LYM% 43.4 % 01/17/2015 Cbc With Differential Ord2 NEUT/GRAN 2.0 K/uL 01/17/2015 Cbc With Differential Ord2 NEUT/GRAN % 48.8 % 01/17/2015 Cbc With Differential Ord2 MID 0.3 K/uL 01/17/2015 Cbc With Differential Ord2 MID% 7.8 % 01/17/2015 Cbc With Differential Ord2 RBC 4.39 M/uL 01/17/2015 Cbc With Differential Ord2 HGB 13.0 g/dL 01/17/2015 Cbc With Differential Ord2 HCT 42.1 % 01/17/2015 Cbc With Differential Ord2 MCV 96 fL 01/17/2015 Cbc With Differential Ord2 MCH 30 pg 01/17/2015 Cbc With Differential Ord2 MCHC 31 g/dL 01/17/2015 Cbc With Differential Ord2 PLT 210 K/uL 01/17/2015 Cbc With Differential Ord2 RDW 14.1 % 01/17/2015 Comp Metabolic Ghp746 NA 137 mEq/L 01/17/2015 Comp Metabolic Hpw955 K 4.1 mEq/L 01/17/2015 Comp Metabolic Deg068 CL 103 mEq/L 01/17/2015 Comp Metabolic Wfx409 CO2 35.0 mEq/L 01/17/2015 Comp Metabolic Kxj744 AN ION GAP 3 01/17/2015 Comp Metabolic Fjw550 GL UCOSE 88 mg/dL 01/17/2015 Comp Metabolic Gsy336 Cr eat 0.6 mg/dL 01/17/2015 Comp Metabolic Teo747 eG FR 107 ml/min/1.73m2 12/21 Comp Metabolic Kha859 BUN 14 mg/dL 01/17/2015 Comp Metabolic Zhi134 B/ C Ratio 23.0 Ratio 01/17/2015 Comp Metabolic Wsg472 CA LCIUM 9.4 mg/dL 01/17/2015 Comp Metabolic Duh291 AL K PHOS 71 U/L 01/17/2015 Comp Metabolic Nvh891 T(SGOT) 17 U/L 01/17/2015 Comp Metabolic Qet948 AL T(SGPT) 14 U/L 01/17/2015 Comp Metabolic Gny828 BI LI T 0.4 mg/dL 01/17/2015 Comp Metabolic Vxm805 AL BUMIN 4.3 g/dL 01/17/2015 Comp Metabolic Eaf066 TP RO 7.0 g/dL 01/17/2015 Comp Metabolic Fyz227 GL OB 2.7 g/dL 01/17/2015 Comp Metabolic Qkc686 A/ G Ratio 1.6 Ratio 01/17/2015 Comp Metabolic Nzy151 Os mo 274 mOsmo 01/17/2015 CHEM 14 2184649 AST 15 U/L 01/03/2014 CHEM 14 6131017 ALT 10 IU/L 01/03/2014 CHEM 14 4888621 BUN 12 MG/DL 01/03/2014 CHEM 14 0476281 ALBUMIN 4.4 GM/DL 01/03/2014 CHEM 14 [id number] CHLORIDE 105 MMOL/L 01/03/2014 CHEM 14 0218929 BILI TOT 0.5 MG/DL 01/03/2014 CHEM 14 8986585 ALK PHOS 69 U/L 01/03/2014 CHEM 14 [id number] SODIUM 140 MMOL/L 01/03/2014 CHEM 14 4200904 CREATINI NE 0.66 MG/DL 01/03/2014 CHEM 14 9174614 CALCIUM 9.3 MG/DL 01/03/2014 CHEM 14 2746923 POTASSIUM 3.8 MMOL/L 01/03/2014 CHEM 14 1766903 PROT TOT 7.3 GM/DL 01/03/2014 CHEM 14 7382523 GLUCOSE 89 MG/DL 01/03/2014 CHEM 14 1229023 BICARB 31 MMOL/L 01/03/2014 CHEM 14 1638196 ANION GAP 4 MEQ/L 01/03/2014 CBC 4434334 WBC 3.8 10e9/L 01/03/2014 CBC 0450994 RBC 4.16 10e12/L 01/03/2014 CBC 3227529 HGB 12.8 g/dL 01/03/2014 CBC 8649647 HCT DET 38.8 % 01/03/2014 CBC 4135276 MCV 93.3 fL 01/03/2014 CBC 0211893 MCH 30.8 pg 01/03/2014 CBC 3477549 MCHC 33.0 g/dL 01/03/2014 CBC 6552031 PLT 206 10e9/L 01/03/2014 CBC 8956873 MPV 10.1 fL 01/03/2014 CBC 4776085 CHRISTINA % 42.3 % 01/03/2014 CBC 2528152 LY % 44.0 % 01/03/2014 CBC [id number] MON % 9.5 % 01/03/2014 CBC [id number] EOS % 2.9 % 01/03/2014 CBC [id number] BASO % 1.3 % 01/03/2014 CBC [id number] RDW 12.8 % 01/03/2014 CBC [id number] ABS CHRISTINA 1.61 10e9/L 01/03/2014 CBC [id number] ABS LYMPH 1.67 10e9/L 01/03/2014 CBC [id number] ABS MONO 0.36 10e9/L 01/03/2014 CBC [id number] ABS EOS 0.11 10e9/L 01/03/2014 CBC [id number] ABS BASO 0.05 10e9/L 01/03/2014 CBC [id number] RDW-SD 42.3 fL 01/03/2014 TSH [id number] TSH 2.728 uIU/ML 01/03/2014 GFR CALC [id number] GFR AA >60 ML/MIN 01/03/2014 GFR CALC [id number] GFR NON -AA >60 ML/MIN 01/03/2014 GC/CHL PRB [id number] CHLM PROBE NEG 12/29/2012 GC/CHL PRB [id number] GC MS OBE NEG 12/29/2012 URINALYSIS NONAUTO W/O SCOPE 81258 Specific [place] 1.015 DateTime(Free Text in Aprima) URINALYSIS NONAUTO W/O SCOPE 28088 PH 6.5 DateTime(Free Luis Eduardo t in Apr) URINALYSIS NONAUTO W/O SCOPE 54207 GLUCOSE DateTime(Free Text i n Aprima) URINALYSIS NONAUTO W/O SCOPE 77451 Protein DateTime(Free Text i n Aprima) URINALYSIS NONAUTO W/O SCOPE 20767 Blood 3+ DateTime(Free Text in Aprima) URINALYSIS NONAUTO W/O SCOPE 13868 Bilirubin DateTime(Free Text i n ) URINALYSIS NONAUTO W/O SCOPE 08866 Ketones DateTime(Free Text i n Aprima) URINALYSIS NONAUTO W/O SCOPE 58449 Urobilinogen DateTime(Free Text in Aprima) URINALYSIS NONAUTO W/O SCOPE 30051 Nitrite + DateTime(Free Text in Aprima) URINALYSIS NONAUTO W/O SCOPE 11150 Leukocytes DateTime(Fr ee Text in ) Review of Systems System Result Effective Dates Constitutional No recent illness 11/24/2018 Constitutional No fatigue 11/24/2018 Constitutional No fever 11/24/2018 Eyes No blindness 2018 Eyes No vision change Ears/Nose/Throat/Neck No dental pain 11/24/2018 Ears/Nose/Throat/Neck No dizziness 11/24/2018 Ears/Nose/Throat/Neck No dysphagia 11/24/2018 Ears/Nose/Throat/Neck No headache 11/24/2018 Ears/Nose/Throat/Neck No hearing loss 11/24/2018 Ears/Nose/Throat/Neck No nasal allergies 11/24/2018 Ears/Nose/Throat/Neck No sore throat 11/24/2018 Ears/Nose/Throat/Neck No postnasal drip 11/24/2018 Ears/Nose/Throat/Neck No sinus congestion 11/24/2018 Cardiovascular No chest pain/pressure 11/24/2018 Cardiovascular No dyspnea 11/24/2018 Cardiovascular No edema 11/24/2018 Cardiovascular No exercise intolerance 11/24/2018 Cardiovascular No fatigue 11/24/2018 Cardiovascular No near-syncope/dizziness 11/24/2018 Respiratory No chest tightness 11/24/2018 Respiratory No cigarette smoking 11/24/2018 Respiratory No cough 10/2018 Respiratory No dyspnea 0 11/24/2018 Respiratory No pedal edema 11/24/2018 Respiratory No snoring 0 11/24/2018 Respiratory No wheezing 11/24/2018 Gastrointestinal No hemorrhoids 11/24/2018 Gastrointestinal No abdominal pain 11/24/2018 Gastrointestinal No constipation 11/24/2018 Gastrointestinal No diarrhea 11/24/2018 Gastrointestinal No gastroesophageal reflu x 11/24/2018 Gastrointestinal No melena 11/24/2018 Gastrointestinal No nausea 11/24/2018 Gastrointestinal No vomiting 11/24/2018 Genitourinary/Nephrology No dysuria 11/24/2018 Genitourinary/Nephrology No nocturia 11/24/2018 Genitourinary/Nephrology No urinary incontinence 11/24/2018 Musculoskeletal No stiffness 11/24/2018 Musculoskeletal No swelling 11/24/2018 Musculoskeletal No muscle weakness 11/24/2018 Musculoskeletal No myalgias 11/24/2018 Dermatologic No rash 10/2018 Dermatologic No scar 10/2018 Neurologic No dizziness 11/24/2018 Neurologic No headache 0 11/24/2018 Neurologic No neck pain 11/24/2018 Neurologic No syncope Psychiatric anxiety 0810/2018 Psychiatric depression 0 11/24/2018 Constitutional No recent illness 11/12/2018 Constitutional No chills 11/12/2018 Constitutional No diaphoresis 11/12/2018 Constitutional No fever 11/12/2018 Eyes No eye erythema Ears/Nose/Throat/Neck No nasal discharge 11/12/2018 Cardiovascular No chest pain/pressure 11/12/2018 Respiratory No cough Gastrointestinal No abdominal pain 11/12/2018 Genitourinary/Nephrology dysuria 11/12/2018 Genitourinary/Nephrology urinary urgency 11/12/2018 Genitourinary/Nephrology urinary frequency 11/12/2018 Neurologic No alteration of consciousness 11/12/2018 Neurologic No mental status change 11/12/2018 Constitutional recent illness 05/17/2018 Constitutional No anorexia 05/17/2018 Constitutional No night sweats 05/17/2018 Constitutional No chills 05/17/2018 Constitutional No diaphoresis 05/17/2018 Constitutional No fatigue 05/17/2018 Constitutional No fever 05/17/2018 Constitutional No insomnia 05/17/2018 Constitutional No malaise 05/17/2018 Constitutional No weight loss 05/17/2018 Constitutional No weight gain 05/17/2018 Eyes No eye discharge Eyes No eye erythema Ears/Nose/Throat/Neck nasal allergies 05/17/2018 Ears/Nose/Throat/Neck nasal discharge 05/17/2018 Ears/Nose/Throat/Neck headache 05/17/2018 Ears/Nose/Throat/Neck otalgia 05/17/2018 Ears/Nose/Throat/Neck sinus congestion 05/17/2018 Ears/Nose/Throat/Neck sore throat 05/17/2018 Cardiovascular No chest pain/pressure 05/17/2018 Cardiovascular No dyspnea 05/17/2018 Cardiovascular No edema 05/17/2018 Respiratory cough 2018 Gastrointestinal No vomiting 05/17/2018 Gastrointestinal No nausea 05/17/2018 Gastrointestinal No diarrhea 05/17/2018 Genitourinary/Nephrology No dysuria 05/17/2018 Musculoskeletal No joint complaint 05/17/2018 Dermatologic No rash Neurologic No alteration of consciousness 05/17/2018 Eyes No eye pain 018 Eyes No eye tearing 02/19 Eyes No eye discharge Ears/Nose/Throat/Neck facial pain 03/12/2018 Ears/Nose/Throat/Neck headache 03/12/2018 Ears/Nose/Throat/Neck postnasal drip 03/12/2018 Ears/Nose/Throat/Neck sinus congestion 03/12/2018 Ears/Nose/Throat/Neck No sore throat 03/12/2018 Respiratory cough 2017 Respiratory No chest congestion 03/12/2018 Respiratory productive sputum 03/12/2018 Constitutional fever Ears/Nose/Throat/Neck nasal discharge 03/12/2018 Ears/Nose/Throat/Neck No neck pain 03/12/2018 Ears/Nose/Throat/Neck No otalgia 03/12/2018 Constitutional recent illness 03/12/2018 Constitutional No chills 03/12/2018 Constitutional No diaphoresis 03/12/2018 Eyes No blindness 2017 Ears/Nose/Throat/Neck nasal allergies 03/12/2018 Cardiovascular No chest pain/pressure 03/12/2018 Cardiovascular No dyspnea 03/12/2018 Respiratory No dyspnea 1 05/12/2017 Gastrointestinal No abdominal pain 03/12/2018 Gastrointestinal No constipation 03/12/2018 Gastrointestinal No diarrhea 03/12/2018 Gastrointestinal No nausea 03/12/2018 Gastrointestinal No vomiting 03/12/2018 Dermatologic No rash Neurologic No alteration of consciousness 03/12/2018 Neurologic No mental status change 03/12/2018 Constitutional No recent illness 01/28/2018 Constitutional No chills 01/28/2018 Constitutional No diaphoresis 01/28/2018 Constitutional No fever 01/28/2018 Eyes No eye erythema 02/2018 Ears/Nose/Throat/Neck No nasal discharge 01/28/2018 Cardiovascular No chest pain/pressure 01/28/2018 Respiratory No dyspnea 1 Respiratory No cough 02/2018 Musculoskeletal No joint complaint 01/28/2018 Dermatologic sores 01/28 Neurologic No alteration of consciousness 01/28/2018 Neurologic No mental status change 01/28/2018 Constitutional No recent illness 11/05/2017 Constitutional No chills 11/05/2017 Constitutional No fatigue 11/05/2017 Constitutional No fever 11/05/2017 Constitutional No insomnia 11/05/2017 Constitutional No malaise 11/05/2017 Eyes No vision change Ears/Nose/Throat/Neck No dental pain 11/05/2017 Ears/Nose/Throat/Neck No dizziness 11/05/2017 Ears/Nose/Throat/Neck No dysphagia 11/05/2017 Ears/Nose/Throat/Neck No headache 11/05/2017 Ears/Nose/Throat/Neck No hearing loss 11/05/2017 Ears/Nose/Throat/Neck No nasal allergies 11/05/2017 Ears/Nose/Throat/Neck No sore throat 11/05/2017 Ears/Nose/Throat/Neck No postnasal drip 11/05/2017 Ears/Nose/Throat/Neck No sinus congestion 11/05/2017 Cardiovascular No chest pain/pressure 11/05/2017 Cardiovascular No dyspnea 11/05/2017 Cardiovascular No edema 11/05/2017 Cardiovascular No exercise intolerance 11/05/2017 Cardiovascular No fatigue 11/05/2017 Cardiovascular No near-syncope/dizziness 11/05/2017 Respiratory No chest tightness 11/05/2017 Respiratory No cough Respiratory No dyspnea 0 11/05/2017 Respiratory No pedal edema 11/05/2017 Gastrointestinal No abdominal pain 11/05/2017 Gastrointestinal No constipation 11/05/2017 Gastrointestinal No diarrhea 11/05/2017 Gastrointestinal No gastroesophageal reflu x 11/05/2017 Gastrointestinal No nausea 11/05/2017 Gastrointestinal No vomiting 11/05/2017 Genitourinary/Nephrology No dysuria 11/05/2017 Genitourinary/Nephrology No nocturia 11/05/2017 Genitourinary/Nephrology No urinary incontinence 11/05/2017 Musculoskeletal No stiffness 11/05/2017 Musculoskeletal No swelling 11/05/2017 Musculoskeletal No muscle weakness 11/05/2017 Musculoskeletal No myalgias 11/05/2017 Dermatologic No rash Dermatologic No sores Neurologic No dizziness 11/05/2017 Neurologic No headache 0 11/05/2017 Neurologic No neck pain 11/05/2017 Neurologic No syncope Psychiatric No anxiety 0 11/05/2017 Psychiatric No depression 11/05/2017 Constitutional recent illness 07/10/2017 Constitutional No chills 07/10/2017 Constitutional No diaphoresis 07/10/2017 Constitutional No fever 07/10/2017 Eyes No eye erythema Ears/Nose/Throat/Neck nasal allergies 07/10/2017 Ears/Nose/Throat/Neck nasal discharge 07/10/2017 Ears/Nose/Throat/Neck postnasal drip 07/10/2017 Ears/Nose/Throat/Neck sinus congestion 07/10/2017 Ears/Nose/Throat/Neck No sore throat 07/10/2017 Cardiovascular No chest pain/pressure 07/10/2017 Cardiovascular No dyspnea 07/10/2017 Respiratory No chest congestion 07/10/2017 Respiratory cough 2017 Respiratory No dyspnea 0 07/10/2017 Gastrointestinal No abdominal pain 07/10/2017 Gastrointestinal No constipation 07/10/2017 Gastrointestinal No diarrhea 07/10/2017 Gastrointestinal No nausea 07/10/2017 Gastrointestinal No vomiting 07/10/2017 Dermatologic No rash Neurologic No alteration of consciousness 07/10/2017 Neurologic No mental status change 07/10/2017 Constitutional recent illness 04/30/2017 Constitutional No chills 04/30/2017 Constitutional No diaphoresis 04/30/2017 Constitutional No fever 04/30/2017 Eyes No eye erythema 02/2018 Ears/Nose/Throat/Neck nasal allergies 04/30/2017 Ears/Nose/Throat/Neck nasal discharge 04/30/2017 Ears/Nose/Throat/Neck postnasal drip 04/30/2017 Ears/Nose/Throat/Neck sinus congestion 04/30/2017 Ears/Nose/Throat/Neck No sore throat 04/30/2017 Cardiovascular No chest pain/pressure 04/30/2017 Cardiovascular No dyspnea 04/30/2017 Respiratory No chest congestion 04/30/2017 Respiratory cough 2017 Respiratory No dyspnea 0 04/30/2017 Gastrointestinal No abdominal pain 04/30/2017 Gastrointestinal No constipation 04/30/2017 Gastrointestinal No diarrhea 04/30/2017 Gastrointestinal No nausea 04/30/2017 Gastrointestinal No vomiting 04/30/2017 Dermatologic No rash 02/2018 Neurologic No alteration of consciousness 04/30/2017 Neurologic No mental status change 04/30/2017 Constitutional No recent illness 11/05/2016 Constitutional No chills 11/05/2016 Constitutional No fatigue 11/05/2016 Constitutional No fever 11/05/2016 Constitutional No insomnia 11/05/2016 Constitutional No malaise 11/05/2016 Eyes No vision change Ears/Nose/Throat/Neck No dental pain 11/05/2016 Ears/Nose/Throat/Neck No dizziness 11/05/2016 Ears/Nose/Throat/Neck No dysphagia 11/05/2016 Ears/Nose/Throat/Neck No headache 11/05/2016 Ears/Nose/Throat/Neck No hearing loss 11/05/2016 Ears/Nose/Throat/Neck No nasal allergies 11/05/2016 Ears/Nose/Throat/Neck No sore throat 11/05/2016 Ears/Nose/Throat/Neck No postnasal drip 11/05/2016 Ears/Nose/Throat/Neck No sinus congestion 11/05/2016 Cardiovascular No chest pain/pressure 11/05/2016 Cardiovascular No dyspnea 11/05/2016 Cardiovascular No edema 11/05/2016 Cardiovascular No exercise intolerance 11/05/2016 Cardiovascular No fatigue 11/05/2016 Cardiovascular No near-syncope/dizziness 11/05/2016 Respiratory No chest tightness 11/05/2016 Respiratory No cough Respiratory No dyspnea 0 11/05/2016 Respiratory No pedal edema 11/05/2016 Gastrointestinal No abdominal pain 11/05/2016 Gastrointestinal No constipation 11/05/2016 Gastrointestinal No diarrhea 11/05/2016 Gastrointestinal No gastroesophageal reflu x 11/05/2016 Gastrointestinal No nausea 11/05/2016 Gastrointestinal No vomiting 11/05/2016 Genitourinary/Nephrology No dysuria 11/05/2016 Genitourinary/Nephrology No nocturia 11/05/2016 Genitourinary/Nephrology No urinary incontinence 11/05/2016 Musculoskeletal No stiffness 11/05/2016 Musculoskeletal No swelling 11/05/2016 Musculoskeletal No muscle weakness 11/05/2016 Musculoskeletal No myalgias 11/05/2016 Dermatologic No rash Dermatologic No sores Neurologic No dizziness 11/05/2016 Neurologic No headache 0 11/05/2016 Neurologic No neck pain 11/05/2016 Neurologic No syncope Psychiatric No anxiety 0 11/05/2016 Psychiatric No depression 11/05/2016 Constitutional No recent illness 11/01/2015 Constitutional No fatigue 11/01/2015 Constitutional No fever 11/01/2015 Eyes No blindness 2015 Eyes No vision change Ears/Nose/Throat/Neck No dental pain 11/01/2015 Ears/Nose/Throat/Neck No dizziness 11/01/2015 Ears/Nose/Throat/Neck No dysphagia 11/01/2015 Ears/Nose/Throat/Neck No headache 11/01/2015 Ears/Nose/Throat/Neck No hearing loss 11/01/2015 Ears/Nose/Throat/Neck No nasal allergies 11/01/2015 Ears/Nose/Throat/Neck No sore throat 11/01/2015 Ears/Nose/Throat/Neck No postnasal drip 11/01/2015 Ears/Nose/Throat/Neck No sinus congestion 11/01/2015 Cardiovascular No chest pain/pressure 11/01/2015 Cardiovascular No dyspnea 11/01/2015 Cardiovascular No edema 11/01/2015 Cardiovascular No exercise intolerance 11/01/2015 Cardiovascular No fatigue 11/01/2015 Cardiovascular No near-syncope/dizziness 11/01/2015 Respiratory No chest tightness 11/01/2015 Respiratory No cigarette smoking 11/01/2015 Respiratory No cough Respiratory No dyspnea 0 11/01/2015 Respiratory No pedal edema 11/01/2015 Respiratory No snoring 0 11/01/2015 Respiratory No wheezing 11/01/2015 Gastrointestinal No hemorrhoids 11/01/2015 Gastrointestinal No abdominal pain 11/01/2015 Gastrointestinal No constipation 11/01/2015 Gastrointestinal No diarrhea 11/01/2015 Gastrointestinal No gastroesophageal reflu x 11/01/2015 Gastrointestinal No melena 11/01/2015 Gastrointestinal No nausea 11/01/2015 Gastrointestinal No vomiting 11/01/2015 Genitourinary/Nephrology No dysuria 11/01/2015 Genitourinary/Nephrology No nocturia 11/01/2015 Genitourinary/Nephrology No urinary incontinence 11/01/2015 Musculoskeletal No stiffness 11/01/2015 Musculoskeletal No swelling 11/01/2015 Musculoskeletal No muscle weakness 11/01/2015 Musculoskeletal No myalgias 11/01/2015 Dermatologic No rash Dermatologic No scar Neurologic No dizziness 11/01/2015 Neurologic No headache 0 11/01/2015 Neurologic No neck pain 11/01/2015 Neurologic No syncope Psychiatric No anxiety 0 11/01/2015 Psychiatric No depression 11/01/2015 Constitutional No recent illness 10/08/2015 Constitutional No anorexia 10/08/2015 Constitutional No night sweats 10/08/2015 Constitutional No chills 10/08/2015 Constitutional No diaphoresis 10/08/2015 Constitutional No fatigue 10/08/2015 Constitutional No fever 10/08/2015 Constitutional No insomnia 10/08/2015 Constitutional No malaise 10/08/2015 Constitutional No weight loss 10/08/2015 Constitutional No weight gain 10/08/2015 Constitutional No obesity 10/08/2015 Ears/Nose/Throat/Neck otalgia 10/08/2015 Ears/Nose/Throat/Neck otitis media 10/08/2015 Ears/Nose/Throat/Neck No oral pain 10/08/2015 Ears/Nose/Throat/Neck postnasal drip 10/08/2015 Ears/Nose/Throat/Neck sinus congestion 10/08/2015 Ears/Nose/Throat/Neck nasal allergies 10/08/2015 Ears/Nose/Throat/Neck nasal discharge 10/08/2015 Ears/Nose/Throat/Neck headache 10/08/2015 Gastrointestinal No nausea 10/08/2015 Gastrointestinal No vomiting 10/08/2015 Gastrointestinal No abdominal pain 10/08/2015 Gastrointestinal No constipation 10/08/2015 Gastrointestinal No diarrhea 10/08/2015 Eyes No vision change Respiratory No chest congestion 10/08/2015 Respiratory cough 2015 Respiratory No cigarette smoking 10/08/2015 Respiratory No chest tightness 10/08/2015 Respiratory No dyspnea on exertion 10/08/2015 Respiratory No dyspnea 0 10/08/2015 Cardiovascular No chest pain/pressure 10/08/2015 Cardiovascular No dyspnea 10/08/2015 Cardiovascular No edema 10/08/2015 Genitourinary/Nephrology No dysuria 10/08/2015 Musculoskeletal joint complaint 10/08/2015 Musculoskeletal No myalgias 10/08/2015 Musculoskeletal No muscle weakness 10/08/2015 Dermatologic skin lesion 10/08/2015 Dermatologic No rash Dermatologic No sores Neurologic No alteration of consciousness 10/08/2015 Constitutional recent illness 06/21/2015 Constitutional No anorexia 06/21/2015 Constitutional No night sweats 06/21/2015 Constitutional No chills 06/21/2015 Constitutional No diaphoresis 06/21/2015 Constitutional fatigue 0 06/21/2015 Constitutional No fever 06/21/2015 Constitutional No insomnia 06/21/2015 Constitutional No malaise 06/21/2015 Constitutional No weight loss 06/21/2015 Constitutional No weight gain 06/21/2015 Eyes No eye discharge Eyes No eye erythema 06/2015 Ears/Nose/Throat/Neck No dizziness 06/21/2015 Ears/Nose/Throat/Neck headache 06/21/2015 Ears/Nose/Throat/Neck nasal discharge 06/21/2015 Ears/Nose/Throat/Neck No otalgia 06/21/2015 Ears/Nose/Throat/Neck sinus congestion 06/21/2015 Ears/Nose/Throat/Neck sore throat 06/21/2015 Cardiovascular No chest pain/pressure 06/21/2015 Respiratory No cough 06/2015 Respiratory chest tightness 06/21/2015 Respiratory No productive sputum 06/21/2015 Gastrointestinal No abdominal pain 06/21/2015 Genitourinary/Nephrology No dysuria 06/21/2015 Dermatologic No rash 06/2015 Musculoskeletal No joint complaint 06/21/2015 Constitutional No recent illness 06/15/2015 Constitutional No anorexia 06/15/2015 Constitutional No night sweats 06/15/2015 Constitutional No chills 06/15/2015 Constitutional No diaphoresis 06/15/2015 Constitutional No fatigue 06/15/2015 Constitutional No fever 06/15/2015 Constitutional No insomnia 06/15/2015 Constitutional No malaise 06/15/2015 Constitutional No weight loss 06/15/2015 Constitutional No weight gain 06/15/2015 Musculoskeletal back pain 06/15/2015 Musculoskeletal sciatica 06/15/2015 Constitutional No recent illness 10/31/2014 Constitutional No chills 10/31/2014 Constitutional No fatigue 10/31/2014 Constitutional No fever 10/31/2014 Constitutional No insomnia 10/31/2014 Constitutional No malaise 10/31/2014 Eyes No blindness 2014 Eyes No vision change Ears/Nose/Throat/Neck No dental pain 10/31/2014 Ears/Nose/Throat/Neck No dizziness 10/31/2014 Ears/Nose/Throat/Neck No dysphagia 10/31/2014 Ears/Nose/Throat/Neck No headache 10/31/2014 Ears/Nose/Throat/Neck No hearing loss 10/31/2014 Ears/Nose/Throat/Neck No nasal allergies 10/31/2014 Ears/Nose/Throat/Neck No sore throat 10/31/2014 Ears/Nose/Throat/Neck No postnasal drip 10/31/2014 Ears/Nose/Throat/Neck No sinus congestion 10/31/2014 Cardiovascular No chest pain/pressure 10/31/2014 Cardiovascular No dyspnea 10/31/2014 Cardiovascular No edema 10/31/2014 Cardiovascular No exercise intolerance 10/31/2014 Cardiovascular No fatigue 10/31/2014 Cardiovascular No near-syncope/dizziness 10/31/2014 Respiratory No chest tightness 10/31/2014 Respiratory No cigarette smoking 10/31/2014 Respiratory No cough Respiratory No dyspnea 0 10/31/2014 Respiratory No pedal edema 10/31/2014 Respiratory No snoring 0 10/31/2014 Respiratory No wheezing 10/31/2014 Gastrointestinal No hemorrhoids 10/31/2014 Gastrointestinal No abdominal pain 10/31/2014 Gastrointestinal No constipation 10/31/2014 Gastrointestinal No diarrhea 10/31/2014 Gastrointestinal No gastroesophageal reflu x 10/31/2014 Gastrointestinal No melena 10/31/2014 Gastrointestinal No nausea 10/31/2014 Gastrointestinal No vomiting 10/31/2014 Genitourinary/Nephrology No dysuria 10/31/2014 Genitourinary/Nephrology No nocturia 10/31/2014 Genitourinary/Nephrology No urinary incontinence 10/31/2014 Musculoskeletal No stiffness 10/31/2014 Musculoskeletal No swelling 10/31/2014 Musculoskeletal No muscle weakness 10/31/2014 Musculoskeletal No myalgias 10/31/2014 Dermatologic No rash Dermatologic No scar Neurologic No dizziness 10/31/2014 Neurologic No headache 0 10/31/2014 Neurologic No neck pain 10/31/2014 Neurologic No syncope Psychiatric No anxiety 0 10/31/2014 Psychiatric No depression 10/31/2014 Constitutional No recent illness 11/21/2013 Constitutional No chills 11/21/2013 Constitutional No fatigue 11/21/2013 Constitutional No fever 11/21/2013 Constitutional No insomnia 11/21/2013 Constitutional No malaise 11/21/2013 Cardiovascular No chest pain/pressure 11/21/2013 Cardiovascular No dyspnea 11/21/2013 Cardiovascular No edema 11/21/2013 Cardiovascular No exercise intolerance 11/21/2013 Cardiovascular No fatigue 11/21/2013 Cardiovascular No near-syncope/dizziness 11/21/2013 Respiratory No chest tightness 11/21/2013 Respiratory No cigarette smoking 11/21/2013 Respiratory No cough 07/2013 Respiratory No dyspnea 0 11/21/2013 Respiratory No pedal edema 11/21/2013 Respiratory No snoring 0 11/21/2013 Respiratory No wheezing 11/21/2013 Gastrointestinal No hemorrhoids 11/21/2013 Gastrointestinal No abdominal pain 11/21/2013 Gastrointestinal No constipation 11/21/2013 Gastrointestinal No diarrhea 11/21/2013 Gastrointestinal No gastroesophageal reflu x 11/21/2013 Gastrointestinal No melena 11/21/2013 Gastrointestinal No nausea 11/21/2013 Gastrointestinal No vomiting 11/21/2013 Genitourinary/Nephrology No dysuria 11/21/2013 Genitourinary/Nephrology No nocturia 11/21/2013 Genitourinary/Nephrology No urinary incontinence 11/21/2013 Musculoskeletal No stiffness 11/21/2013 Musculoskeletal No swelling 11/21/2013 Musculoskeletal No muscle weakness 11/21/2013 Musculoskeletal No myalgias 11/21/2013 Psychiatric No anxiety 0 11/21/2013 Psychiatric No depression 11/21/2013 Dermatologic No rash 07/2013 Dermatologic No scar 07/2013 Neurologic No dizziness 11/21/2013 Neurologic No headache 0 11/21/2013 Neurologic No neck pain 11/21/2013 Neurologic No syncope Eyes No blindness 2013 Eyes No vision change Ears/Nose/Throat/Neck No dental pain 11/21/2013 Ears/Nose/Throat/Neck No dizziness 11/21/2013 Ears/Nose/Throat/Neck No dysphagia 11/21/2013 Ears/Nose/Throat/Neck No headache 11/21/2013 Ears/Nose/Throat/Neck No hearing loss 11/21/2013 Ears/Nose/Throat/Neck No nasal allergies 11/21/2013 Ears/Nose/Throat/Neck No sore throat 11/21/2013 Ears/Nose/Throat/Neck No postnasal drip 11/21/2013 Ears/Nose/Throat/Neck No sinus congestion 11/21/2013 Eyes No blindness 2012 Eyes No vision change Ears/Nose/Throat/Neck No dental pain 12/28/2012 Ears/Nose/Throat/Neck No dizziness 12/28/2012 Ears/Nose/Throat/Neck No dysphagia 12/28/2012 Ears/Nose/Throat/Neck No headache 12/28/2012 Ears/Nose/Throat/Neck No hearing loss 12/28/2012 Ears/Nose/Throat/Neck No nasal allergies 12/28/2012 Ears/Nose/Throat/Neck No sore throat 12/28/2012 Ears/Nose/Throat/Neck No postnasal drip 12/28/2012 Ears/Nose/Throat/Neck No sinus congestion 12/28/2012 Cardiovascular No chest pain/pressure 12/28/2012 Cardiovascular No dyspnea 12/28/2012 Cardiovascular No edema 12/28/2012 Cardiovascular No exercise intolerance 12/28/2012 Cardiovascular No fatigue 12/28/2012 Cardiovascular No near-syncope/dizziness 12/28/2012 Respiratory No chest tightness 12/28/2012 Respiratory No cigarette smoking 12/28/2012 Respiratory No cough 01/2013 Respiratory No dyspnea 0 12/28/2012 Respiratory No pedal edema 12/28/2012 Respiratory No snoring 0 12/28/2012 Respiratory No wheezing 12/28/2012 Gastrointestinal No hemorrhoids 12/28/2012 Gastrointestinal No abdominal pain 12/28/2012 Gastrointestinal No constipation 12/28/2012 Gastrointestinal No diarrhea 12/28/2012 Gastrointestinal No gastroesophageal reflu x 12/28/2012 Gastrointestinal No melena 12/28/2012 Gastrointestinal No nausea 12/28/2012 Gastrointestinal No vomiting 12/28/2012 Genitourinary/Nephrology No dysuria 12/28/2012 Genitourinary/Nephrology No nocturia 12/28/2012 Genitourinary/Nephrology No urinary incontinence 12/28/2012 Musculoskeletal No stiffness 12/28/2012 Musculoskeletal No swelling 12/28/2012 Musculoskeletal No muscle weakness 12/28/2012 Musculoskeletal No myalgias 12/28/2012 Dermatologic No rash 01/2013 Dermatologic No scar 01/2013 Neurologic No dizziness 12/28/2012 Neurologic No headache 0 12/28/2012 Neurologic No neck pain 12/28/2012 Neurologic No syncope Psychiatric No anxiety 0 12/28/2012 Psychiatric No depression 12/28/2012 Constitutional No recent illness 12/28/2012 Constitutional No fatigue 12/28/2012 Constitutional No fever 12/28/2012 Eyes No blindness 2012 Eyes No vision change Ears/Nose/Throat/Neck No dental pain 09/30/2012 Ears/Nose/Throat/Neck No dizziness 09/30/2012 Ears/Nose/Throat/Neck No dysphagia 09/30/2012 Ears/Nose/Throat/Neck No headache 09/30/2012 Ears/Nose/Throat/Neck No hearing loss 09/30/2012 Ears/Nose/Throat/Neck No nasal allergies 09/30/2012 Ears/Nose/Throat/Neck No sore throat 09/30/2012 Ears/Nose/Throat/Neck No postnasal drip 09/30/2012 Ears/Nose/Throat/Neck No sinus congestion 09/30/2012 Cardiovascular No chest pain/pressure 09/30/2012 Cardiovascular No dyspnea 09/30/2012 Cardiovascular No edema 09/30/2012 Cardiovascular No exercise intolerance 09/30/2012 Cardiovascular No fatigue 09/30/2012 Cardiovascular No near-syncope/dizziness 09/30/2012 Respiratory No chest tightness 09/30/2012 Respiratory No cigarette smoking 09/30/2012 Respiratory No cough Respiratory No dyspnea 0 09/30/2012 Respiratory No pedal edema 09/30/2012 Respiratory No snoring 0 09/30/2012 Respiratory No wheezing 09/30/2012 Gastrointestinal No hemorrhoids 09/30/2012 Gastrointestinal No abdominal pain 09/30/2012 Gastrointestinal No constipation 09/30/2012 Gastrointestinal No diarrhea 09/30/2012 Gastrointestinal No gastroesophageal reflu x 09/30/2012 Gastrointestinal No melena 09/30/2012 Gastrointestinal No nausea 09/30/2012 Gastrointestinal No vomiting 09/30/2012 Genitourinary/Nephrology No dysuria 09/30/2012 Genitourinary/Nephrology No nocturia 09/30/2012 Genitourinary/Nephrology No urinary incontinence 09/30/2012 Musculoskeletal No stiffness 09/30/2012 Musculoskeletal No swelling 09/30/2012 Musculoskeletal No muscle weakness 09/30/2012 Musculoskeletal No myalgias 09/30/2012 Dermatologic No rash Dermatologic No scar Neurologic No dizziness 09/30/2012 Neurologic No headache 0 09/30/2012 Neurologic No neck pain 09/30/2012 Neurologic No syncope Psychiatric No anxiety 0 09/30/2012 Psychiatric No depression 09/30/2012 Physical Exam Exam Name System Name It em Name Status Result Effective Dates Notes Full Exam - General 1994 Constitutional general appearance Overall: well developed 11/24/2018 None Full Exam - General 1994 Constitutional general appearance Overall: in no acute distress 11/24/2018 None Full Exam - General 1994 Constitutional general appearance Overall: well nourished 11/24/2018 None Full Exam - General 1994 Eyes pupils and irises Overall: pupils equal, round, reactive to light and accomodation 11/24/2018 None Full Exam - General 1994 Ears/Nose/Throat otoscopic exam Overall: external auditory canals clear 11/24/2018 None Full Exam - General 1994 Ears/Nose/Throat otoscopic exam Overall: tympanic membranes clear 11/24/2018 None Full Exam - General 1994 Ears/Nose/Throat oral cavity/pharynx/larynx Overall: oral mucosa clear 11/24/2018 None Full Exam - General 1994 Ears/Nose/Throat oral cavity/pharynx/larynx Overall: oropharyngeal mucosa clear 11/24/2018 None Full Exam - General 1994 Ears/Nose/Throat oral cavity/pharynx/larynx Overall: no masses 11/24/2018 None Full Exam - General 1994 Neck thyroid Overall: normal size 10/2018 None Full Exam - General 1994 Neck thyroid Overall: normal consistency 11/24/2018 None Full Exam - General 1994 Neck thyroid Overall: nontender 11/24 None Full Exam - General 1994 Neck thyroid Overall: no mass lesions 11/24/2018 None Full Exam - General 1994 Respiratory auscultation Overall: breath sounds clear bilaterally 11/24/2018 None Full Exam - General 1994 Respiratory respiratory effort/rhythm Overall: no retractions 11/24/2018 None Full Exam - General 1994 Respiratory respiratory effort/rhythm Overall: normal rate 11/24/2018 None Full Exam - General 1994 Cardiovascular extremities Overall: no clubbing 11/24/2018 None Full Exam - General 1994 Cardiovascular auscultation of heart Overall: regular rate 11/24/2018 None Full Exam - General 1994 Cardiovascular auscultation of heart Overall: normal heart sounds 11/24/2018 None Full Exam - General 1994 Cardiovascular auscultation of heart Overall: no murmurs 11/24/2018 None Full Exam - General 1994 Chest/Breast breast and axillae palpation Overall: breasts non- tender 11/24/2018 None Full Exam - General 1994 Chest/Breast breast and axillae palpation Overall: axillae non- tender 11/24/2018 None Full Exam - General 1994 Chest/Breast breast and axillae palpation Overall: no nipple discharge 11/24/2018 None Full Exam - General 1994 Chest/Breast breast/chest inspection Overall: breasts to symmetric and without lesions 11/24/2018 None Full Exam - General 1994 Chest/Breast breast/chest inspection Overall: normal chest shape 11/24/2018 None Full Exam - General 1994 Abdomen abdominal exam Overall: no tenderness 11/24/2018 None Full Exam - General 1994 Abdomen abdominal exam Overall: normal bowel sounds 11/24/2018 None Full Exam - General 1994 Genitourinary uterus Overall: normal size 11/24/2018 None Full Exam - General 1994 Genitourinary cervix Inspection: friable 11/24/2018 None Full Exam - General 1994 Genitourinary labia and vagina Overall: normal hair distribution 11/24/2018 None Full Exam - General 1994 Genitourinary labia and vagina Overall: no lesions 11/24/2018 None Full Exam - General 1994 Genitourinary adnexa/parametria Overall: no tenderness 11/24/2018 None Full Exam - General 1994 Lymphatic neck nodes Overall: anterior cervical chain benign 11/24/2018 None Full Exam - General 1994 Lymphatic neck nodes Overall: posterior cervical chain benign 11/24/2018 None Full Exam - General 1994 Musculoskeletal head and neck Overall: head atraumatic 11/24/2018 None Full Exam - General 1994 Musculoskeletal head and neck Overall: cervical spine benign 11/24/2018 None Full Exam - General 1994 Neurologic cranial nerves Overall: crainial nerves 2 - 12 grossly intact 11/24/2018 None Full Exam - General 1994 Psychiatric orientation/consciousness Overall: oriented to person, place and time 11/24/2018 None Full Exam - General 1994 Psychiatric mood and affect Overall: normal mood and affect 11/24/2018 None Full Exam - General 1994 Psychiatric mood and affect Mood: happy 11/24/2018 None Full Exam - General 1994 Integument inspection of skin Overall: few scattered moles, no gross abnormalities 11/24/2018 None Full Exam - General 1994 Genitourinary cervix Overall: no discharge 11/24/2018 None Full Exam - General 1994 Genitourinary urethra Overall: no masses 11/24/2018 None Full Exam - General 1994 Genitourinary bladder Overall: no tenderness 11/24/2018 None Full Exam - General 1994 Cardiovascular extremities Other findings: varicose veins 11/24/2018 None Full Exam - General 1994 Cardiovascular extremities Other findings: spider veins 11/24/2018 None Full Exam - General 1994 Constitutional general appearance Overall: well developed 11/12/2018 None Full Exam - General 1994 Constitutional general appearance Overall: in no acute distress 11/12/2018 None Full Exam - General 1994 Constitutional general appearance Overall: well nourished 11/12/2018 None Full Exam - General 1994 Eyes conjunctiva/eyelids Overall: conjunctiva clear 11/12/2018 None Full Exam - General 1994 Eyes conjunctiva/eyelids Overall: cornea clear 11/12/2018 None Full Exam - General 1994 Eyes conjunctiva/eyelids Overall: eyelids normal 11/12/2018 None Full Exam - General 1994 Ears/Nose/Throat lips/teeth/gingiva Overall: benign lips 11/12/2018 None Full Exam - General 1994 Ears/Nose/Throat oral cavity/pharynx/larynx Overall: oral mucosa clear 11/12/2018 None Full Exam - General 1994 Respiratory respiratory effort/rhythm Overall: no retractions 11/12/2018 None Full Exam - General 1994 Respiratory respiratory effort/rhythm Overall: normal rate 11/12/2018 None Full Exam - General 1994 Musculoskeletal head and neck Overall: head atraumatic 11/12/2018 None Full Exam - General 1994 Neurologic cranial nerves Overall: crainial nerves 2 - 12 grossly intact 11/12/2018 None Full Exam - General 1994 Psychiatric orientation/consciousness Overall: oriented to person, place and time 11/12/2018 None Full Exam - General 1994 Psychiatric mood and affect Overall: normal mood and affect 11/12/2018 None Full Exam - ENT Constitutional general appearance Overall: well nourished 05/17/2018 None Full Exam - ENT Constitutional general appearance Overall: well developed 05/17/2018 None Full Exam - ENT Constitutional general appearance Overall: in no acute distress 05/17/2018 None Full Exam - ENT Ears/Nose/Throat otoscopic exam Overall: external auditory canals normal 05/17/2018 None Full Exam - ENT Ears/Nose/Throat otoscopic exam Left tympanic membrane: air-fluid le briana 05/17/2018 None Full Exam - ENT Ears/Nose/Throat otoscopic exam Right tympanic membrane: air-fluid level 05/17/2018 None Full Exam - ENT Ears/Nose/Throat nasal mucosa, septum, turbinates Drainage: clear 05/17/2018 None Full Exam - ENT Ears/Nose/Throat nasal mucosa, septum, turbinates Drainage: yellow 05/17/2018 None Full Exam - ENT Ears/Nose/Throat lips/teeth/gingiva Overall: benign lips 05/17/2018 None Full Exam - ENT Ears/Nose/Throat oropharynx Posterior Pharynx: clear post nasal drainage 05/17/2018 None Full Exam - ENT Face and Head palpation Left maxillary sinus: tender 05/17/2018 None Full Exam - ENT Face and Head palpation Right maxillary sinus: tender 05/17/2018 None Full Exam - ENT Respiratory inspection Overall: no retractions 05/17/2018 None Full Exam - ENT Respiratory inspection Overall: normal rate None Full Exam - ENT Respiratory auscultation Overall: breath sounds clear bilater ally 05/17/2018 None Full Exam - ENT Cardiovascular auscultation of heart Overall: regular rate 05/17/2018 None Full Exam - ENT Cardiovascular auscultation of heart Overall: normal heart sounds 05/17/2018 None Full Exam - ENT Lymphatic palpation of lymph nodes Overall: anterior cervical chain benign 05/17/2018 None Full Exam - ENT Lymphatic palpation of lymph nodes Overall: posterior cervical chain benign 05/17/2018 None Full Exam - ENT Neurologic mood and affect Overall: normal mood 05/17/2018 None Full Exam - ENT Neurologic mood and affect Overall: normal affect 05/17/2018 None Full Exam - ENT Neurologic orientation Overall: oriented to person, place a nd time 05/17/2018 None Full Exam - Cardiology Psychiatric orientation/consciousness Overall: oriented to person, place and time 05/17/2018 None Full Exam - Cardiology Integument inspection/palpation Overall: no rash, lesions 05/17/2018 None Full Exam - ENT Constitutional general appearance Overall: well nourished 03/12/2018 None Full Exam - ENT Constitutional general appearance Overall: well developed 03/12/2018 None Full Exam - ENT Constitutional general appearance Overall: in no acute distress 03/12/2018 None Full Exam - ENT Ears/Nose/Throat otoscopic exam Overall: external auditory canals normal 03/12/2018 None Full Exam - ENT Ears/Nose/Throat otoscopic exam Left tympanic membrane: air-fluid le briana 03/12/2018 None Full Exam - ENT Ears/Nose/Throat otoscopic exam Right tympanic membrane: air-fluid level 03/12/2018 None Full Exam - ENT Ears/Nose/Throat nasal mucosa, septum, turbinates Drainage: clear 03/12/2018 None Full Exam - ENT Ears/Nose/Throat nasal mucosa, septum, turbinates Drainage: yellow 03/12/2018 None Full Exam - ENT Ears/Nose/Throat lips/teeth/gingiva Overall: benign lips 03/12/2018 None Full Exam - ENT Ears/Nose/Throat oropharynx Posterior Pharynx: clear post nasal drainage 03/12/2018 None Full Exam - ENT Face and Head palpation Left maxillary sinus: tender 03/12/2018 None Full Exam - ENT Face and Head palpation Right maxillary sinus: tender 03/12/2018 None Full Exam - ENT Respiratory inspection Overall: no retractions 03/12/2018 None Full Exam - ENT Respiratory inspection Overall: normal rate None Full Exam - ENT Respiratory auscultation Overall: breath sounds clear bilater ally 03/12/2018 None Full Exam - ENT Cardiovascular auscultation of heart Overall: regular rate 03/12/2018 None Full Exam - ENT Cardiovascular auscultation of heart Overall: normal heart sounds 03/12/2018 None Full Exam - ENT Lymphatic palpation of lymph nodes Overall: anterior cervical chain benign 03/12/2018 None Full Exam - ENT Lymphatic palpation of lymph nodes Overall: posterior cervical chain benign 03/12/2018 None Full Exam - ENT Neurologic mood and affect Overall: normal mood 03/12/2018 None Full Exam - ENT Neurologic mood and affect Overall: normal affect 03/12/2018 None Full Exam - ENT Neurologic orientation Overall: oriented to person, place a nd time 03/12/2018 None Full Exam - ENT Integument inspection of skin Overall: no rash, lesions 03/12/2018 None Full Exam - Dermatology Constitutional general appearance Overall: well nourished 01/28/2018 None Full Exam - Dermatology Constitutional general appearance Overall: well developed 01/28/2018 None Full Exam - Dermatology Constitutional general appearance Overall: in no acute distress 01/28/2018 None Full Exam - Dermatology Eyes conjunctiva/eyelids Overall: normal eyelids 01/28/2018 None Full Exam - Dermatology Eyes conjunctiva/eyelids Overall: clear corneas 01/28/2018 None Full Exam - Dermatology Eyes conjunctiva/eyelids Overall: clear conjunctiva bilaterally 01/28/2018 None Full Exam - Dermatology Ears/Nose/Throat lips/teeth/gingiva Overall: benign lips 01/28/2018 None Full Exam - Dermatology Ears/Nose/Throat oropharynx Overall: clear oral mucosa 01/28/2018 None Full Exam - Dermatology Respiratory auscultation Overall: breath sounds clear bilaterally 01/28/2018 None Full Exam - Dermatology Respiratory respiratory effort/rhythm Overall: normal rate 01/28/2018 None Full Exam - Dermatology Respiratory respiratory effort/rhythm Overall: no retractions 01/28/2018 None Full Exam - Dermatology Musculoskeletal head and neck Overall: head atraumatic 01/28/2018 None Full Exam - Dermatology Musculoskeletal gait and station Overall: normal station 01/28/2018 None Full Exam - Dermatology Musculoskeletal gait and station Overall: normal gait 01/28/2018 None Full Exam - Dermatology Integument insp & palp - left lower extremity Color: erythematous 01/28/2018 to the left hip - with ulceration in the center - ulceration is approximately 0.5cm in diameter with minimal drainage noted - slight induration Full Exam - Dermatology Psychiatric orientation Overall: oriented to person, place and time 01/28/2018 None Full Exam - Dermatology Psychiatric mood and affect Overall: normal mood and affect 01/28/2018 None Full Exam - General 1994 Constitutional general appearance Development: well developed 11/05/2017 None Full Exam - General 1994 Constitutional general appearance Development: appears stated age 0711/05/2017 None Full Exam - General 1994 Constitutional general appearance Hygiene/Attention to Grooming: good hygiene 11/05/2017 None Full Exam - General 1994 Eyes conjunctiva/eyelids Overall: conjunctiva clear 11/05/2017 None Full Exam - General 1994 Eyes conjunctiva/eyelids Overall: cornea clear 11/05/2017 None Full Exam - General 1994 Eyes conjunctiva/eyelids Overall: eyelids normal 11/05/2017 None Full Exam - General 1994 Eyes pupils and irises Overall: pupils equal, round, reactive to light and accomodation 11/05/2017 None Full Exam - General 1994 Ears/Nose/Throat otoscopic exam Overall: external auditory canals clear 11/05/2017 None Full Exam - General 1994 Ears/Nose/Throat otoscopic exam Overall: tympanic membranes clear 11/05/2017 None Full Exam - General 1994 Ears/Nose/Throat lips/teeth/gingiva Overall: benign lips 11/05/2017 None Full Exam - General 1994 Ears/Nose/Throat lips/teeth/gingiva Overall: normal dentition 11/05/2017 None Full Exam - General 1994 Ears/Nose/Throat oral cavity/pharynx/larynx Overall: oral mucosa clear 11/05/2017 None Full Exam - General 1994 Ears/Nose/Throat oral cavity/pharynx/larynx Overall: oropharyngeal mucosa clear 11/05/2017 None Full Exam - General 1994 Ears/Nose/Throat oral cavity/pharynx/larynx Overall: hypopharynx benign 11/05/2017 None Full Exam - General 1994 Ears/Nose/Throat oral cavity/pharynx/larynx Overall: no masses 11/05/2017 None Full Exam - General 1994 Respiratory auscultation Overall: breath sounds clear bilaterally 11/05/2017 None Full Exam - General 1994 Respiratory respiratory effort/rhythm Overall: no retractions 11/05/2017 None Full Exam - General 1994 Respiratory respiratory effort/rhythm Overall: normal rate 11/05/2017 None Full Exam - General 1994 Cardiovascular extremities Overall: no clubbing 11/05/2017 None Full Exam - General 1994 Cardiovascular auscultation of heart Overall: regular rate 11/05/2017 None Full Exam - General 1994 Cardiovascular auscultation of heart Overall: normal heart sounds 11/05/2017 None Full Exam - General 1994 Abdomen abdominal exam Overall: no tenderness 11/05/2017 None Full Exam - General 1994 Abdomen abdominal exam Overall: normal bowel sounds 11/05/2017 None Full Exam - General 1994 Lymphatic neck nodes Overall: anterior cervical chain benign 11/05/2017 None Full Exam - General 1994 Lymphatic neck nodes Overall: posterior cervical chain benign 11/05/2017 None Full Exam - General 1994 Musculoskeletal spine, ribs and pelvis Overall: spine benign 11/05/2017 None Full Exam - General 1994 Musculoskeletal spine, ribs and pelvis Overall: sacroiliac joint benign 11/05/2017 None Full Exam - General 1994 Musculoskeletal spine, ribs and pelvis Overall: good posture 11/05/2017 None Full Exam - General 1994 Musculoskeletal head and neck Overall: head atraumatic 11/05/2017 None Full Exam - General 1994 Musculoskeletal head and neck Overall: cervical spine benign 11/05/2017 None Full Exam - General 1994 Integument inspection of skin Overall: few scattered moles, no gross abnormalities 11/05/2017 None Full Exam - General 1994 Neurologic deep tendon reflexes Overall: deep tendon reflexes intact 11/05/2017 None Full Exam - General 1994 Neurologic cranial nerves Overall: crainial nerves 2 - 12 grossly intact 11/05/2017 None Full Exam - General 1994 Psychiatric orientation/consciousness Overall: oriented to person, place and time 11/05/2017 None Full Exam - General 1994 Psychiatric mood and affect Overall: normal mood and affect 11/05/2017 None Full Exam - ENT Constitutional general appearance Overall: well nourished 07/10/2017 None Full Exam - ENT Constitutional general appearance Overall: well developed 07/10/2017 None Full Exam - ENT Constitutional general appearance Overall: in no acute distress 07/10/2017 None Full Exam - ENT Ears/Nose/Throat otoscopic exam Overall: external auditory canals normal 07/10/2017 None Full Exam - ENT Ears/Nose/Throat otoscopic exam Left tympanic membrane: air-fluid le briana 07/10/2017 None Full Exam - ENT Ears/Nose/Throat otoscopic exam Right tympanic membrane: air-fluid level 07/10/2017 None Full Exam - ENT Ears/Nose/Throat nasal mucosa, septum, turbinates Drainage: clear 07/10/2017 None Full Exam - ENT Ears/Nose/Throat nasal mucosa, septum, turbinates Drainage: yellow 07/10/2017 None Full Exam - ENT Ears/Nose/Throat lips/teeth/gingiva Overall: benign lips 07/10/2017 None Full Exam - ENT Ears/Nose/Throat oropharynx Posterior Pharynx: clear post nasal drainage 07/10/2017 None Full Exam - ENT Face and Head palpation Left maxillary sinus: tender 07/10/2017 None Full Exam - ENT Face and Head palpation Right maxillary sinus: tender 07/10/2017 None Full Exam - ENT Respiratory inspection Overall: no retractions 07/10/2017 None Full Exam - ENT Respiratory inspection Overall: normal rate None Full Exam - ENT Respiratory auscultation Overall: breath sounds clear bilater ally 07/10/2017 None Full Exam - ENT Cardiovascular auscultation of heart Overall: regular rate 07/10/2017 None Full Exam - ENT Cardiovascular auscultation of heart Overall: normal heart sounds 07/10/2017 None Full Exam - ENT Lymphatic palpation of lymph nodes Overall: anterior cervical chain benign 07/10/2017 None Full Exam - ENT Lymphatic palpation of lymph nodes Overall: posterior cervical chain benign 07/10/2017 None Full Exam - ENT Neurologic mood and affect Overall: normal mood 07/10/2017 None Full Exam - ENT Neurologic mood and affect Overall: normal affect 07/10/2017 None Full Exam - ENT Neurologic orientation Overall: oriented to person, place a nd time 07/10/2017 None Full Exam - ENT Constitutional general appearance Overall: well nourished 04/30/2017 None Full Exam - ENT Constitutional general appearance Overall: well developed 04/30/2017 None Full Exam - ENT Constitutional general appearance Overall: in no acute distress 04/30/2017 None Full Exam - ENT Ears/Nose/Throat otoscopic exam Overall: external auditory canals normal 04/30/2017 None Full Exam - ENT Ears/Nose/Throat otoscopic exam Left tympanic membrane: air-fluid le briana 04/30/2017 None Full Exam - ENT Ears/Nose/Throat otoscopic exam Right tympanic membrane: air-fluid level 04/30/2017 None Full Exam - ENT Ears/Nose/Throat nasal mucosa, septum, turbinates Drainage: clear 04/30/2017 None Full Exam - ENT Ears/Nose/Throat nasal mucosa, septum, turbinates Drainage: yellow 04/30/2017 None Full Exam - ENT Ears/Nose/Throat lips/teeth/gingiva Overall: benign lips 04/30/2017 None Full Exam - ENT Ears/Nose/Throat oropharynx Posterior Pharynx: clear post nasal drainage 04/30/2017 None Full Exam - ENT Face and Head palpation Left maxillary sinus: tender 04/30/2017 None Full Exam - ENT Face and Head palpation Right maxillary sinus: tender 04/30/2017 None Full Exam - ENT Respiratory inspection Overall: no retractions 04/30/2017 None Full Exam - ENT Respiratory inspection Overall: normal rate 02/2018 None Full Exam - ENT Respiratory auscultation Overall: breath sounds clear bilater ally 04/30/2017 None Full Exam - ENT Cardiovascular auscultation of heart Overall: regular rate 04/30/2017 None Full Exam - ENT Cardiovascular auscultation of heart Overall: normal heart sounds 04/30/2017 None Full Exam - ENT Lymphatic palpation of lymph nodes Overall: anterior cervical chain benign 04/30/2017 None Full Exam - ENT Lymphatic palpation of lymph nodes Overall: posterior cervical chain benign 04/30/2017 None Full Exam - ENT Neurologic mood and affect Overall: normal mood 04/30/2017 None Full Exam - ENT Neurologic mood and affect Overall: normal affect 04/30/2017 None Full Exam - ENT Neurologic orientation Overall: oriented to person, place a nd time 04/30/2017 None Full Exam - General 1994 Constitutional general appearance Development: well developed 11/05/2016 None Full Exam - General 1994 Constitutional general appearance Development: appears stated age 0711/05/2016 None Full Exam - General 1994 Constitutional general appearance Hygiene/Attention to Grooming: good hygiene 11/05/2016 None Full Exam - General 1994 Eyes conjunctiva/eyelids Overall: conjunctiva clear 11/05/2016 None Full Exam - General 1994 Eyes conjunctiva/eyelids Overall: cornea clear 11/05/2016 None Full Exam - General 1994 Eyes conjunctiva/eyelids Overall: eyelids normal 11/05/2016 None Full Exam - General 1994 Eyes pupils and irises Overall: pupils equal, round, reactive to light and accomodation 11/05/2016 None Full Exam - General 1994 Ears/Nose/Throat otoscopic exam Overall: external auditory canals clear 11/05/2016 None Full Exam - General 1994 Ears/Nose/Throat otoscopic exam Overall: tympanic membranes clear 11/05/2016 None Full Exam - General 1994 Ears/Nose/Throat lips/teeth/gingiva Overall: benign lips 11/05/2016 None Full Exam - General 1994 Ears/Nose/Throat lips/teeth/gingiva Overall: normal dentition 11/05/2016 None Full Exam - General 1994 Ears/Nose/Throat oral cavity/pharynx/larynx Overall: oral mucosa clear 11/05/2016 None Full Exam - General 1994 Ears/Nose/Throat oral cavity/pharynx/larynx Overall: oropharyngeal mucosa clear 11/05/2016 None Full Exam - General 1994 Ears/Nose/Throat oral cavity/pharynx/larynx Overall: hypopharynx benign 11/05/2016 None Full Exam - General 1994 Ears/Nose/Throat oral cavity/pharynx/larynx Overall: no masses 11/05/2016 None Full Exam - General 1994 Respiratory auscultation Overall: breath sounds clear bilaterally 11/05/2016 None Full Exam - General 1994 Respiratory respiratory effort/rhythm Overall: no retractions 11/05/2016 None Full Exam - General 1994 Respiratory respiratory effort/rhythm Overall: normal rate 11/05/2016 None Full Exam - General 1994 Cardiovascular extremities Overall: no clubbing 11/05/2016 None Full Exam - General 1994 Cardiovascular auscultation of heart Overall: regular rate 11/05/2016 None Full Exam - General 1994 Cardiovascular auscultation of heart Overall: normal heart sounds 11/05/2016 None Full Exam - General 1994 Abdomen abdominal exam Overall: no tenderness 11/05/2016 None Full Exam - General 1994 Abdomen abdominal exam Overall: normal bowel sounds 11/05/2016 None Full Exam - General 1994 Lymphatic neck nodes Overall: anterior cervical chain benign 11/05/2016 None Full Exam - General 1994 Lymphatic neck nodes Overall: posterior cervical chain benign 11/05/2016 None Full Exam - General 1994 Musculoskeletal spine, ribs and pelvis Overall: spine benign 11/05/2016 None Full Exam - General 1994 Musculoskeletal spine, ribs and pelvis Overall: sacroiliac joint benign 11/05/2016 None Full Exam - General 1994 Musculoskeletal spine, ribs and pelvis Overall: good posture 11/05/2016 None Full Exam - General 1994 Musculoskeletal head and neck Overall: head atraumatic 11/05/2016 None Full Exam - General 1994 Musculoskeletal head and neck Overall: cervical spine benign 11/05/2016 None Full Exam - General 1994 Integument inspection of skin Overall: few scattered moles, no gross abnormalities 11/05/2016 None Full Exam - General 1994 Neurologic deep tendon reflexes Overall: deep tendon reflexes intact 11/05/2016 None Full Exam - General 1994 Neurologic cranial nerves Overall: crainial nerves 2 - 12 grossly intact 11/05/2016 None Full Exam - General 1994 Psychiatric orientation/consciousness Overall: oriented to person, place and time 11/05/2016 None Full Exam - General 1994 Psychiatric mood and affect Overall: normal mood and affect 11/05/2016 None Full Exam - General 1994 Constitutional general appearance Overall: well developed 11/01/2015 None Full Exam - General 1994 Constitutional general appearance Overall: in no acute distress 11/01/2015 None Full Exam - General 1994 Constitutional general appearance Overall: well nourished 11/01/2015 None Full Exam - General 1994 Eyes pupils and irises Overall: pupils equal, round, reactive to light and accomodation 11/01/2015 None Full Exam - General 1994 Ears/Nose/Throat otoscopic exam Overall: external auditory canals clear 11/01/2015 None Full Exam - General 1994 Ears/Nose/Throat otoscopic exam Overall: tympanic membranes clear 11/01/2015 None Full Exam - General 1994 Ears/Nose/Throat oral cavity/pharynx/larynx Overall: oral mucosa clear 11/01/2015 None Full Exam - General 1994 Ears/Nose/Throat oral cavity/pharynx/larynx Overall: oropharyngeal mucosa clear 11/01/2015 None Full Exam - General 1994 Ears/Nose/Throat oral cavity/pharynx/larynx Overall: no masses 11/01/2015 None Full Exam - General 1994 Neck thyroid Overall: normal size None Full Exam - General 1994 Neck thyroid Overall: normal consistency 11/01/2015 None Full Exam - General 1994 Neck thyroid Overall: nontender 10/31 None Full Exam - General 1994 Neck thyroid Overall: no mass lesions 11/01/2015 None Full Exam - General 1994 Respiratory auscultation Overall: breath sounds clear bilaterally 11/01/2015 None Full Exam - General 1994 Respiratory respiratory effort/rhythm Overall: no retractions 11/01/2015 None Full Exam - General 1994 Respiratory respiratory effort/rhythm Overall: normal rate 11/01/2015 None Full Exam - General 1994 Cardiovascular extremities Overall: no clubbing 11/01/2015 None Full Exam - General 1994 Cardiovascular auscultation of heart Overall: regular rate 11/01/2015 None Full Exam - General 1994 Cardiovascular auscultation of heart Overall: normal heart sounds 11/01/2015 None Full Exam - General 1994 Cardiovascular auscultation of heart Overall: no murmurs 11/01/2015 None Full Exam - General 1994 Chest/Breast breast and axillae palpation Overall: breasts non- tender 11/01/2015 None Full Exam - General 1994 Chest/Breast breast and axillae palpation Overall: axillae non- tender 11/01/2015 None Full Exam - General 1994 Chest/Breast breast and axillae palpation Overall: no nipple discharge 11/01/2015 None Full Exam - General 1994 Chest/Breast breast/chest inspection Overall: breasts to symmetric and without lesions 11/01/2015 None Full Exam - General 1994 Chest/Breast breast/chest inspection Overall: normal chest shape 11/01/2015 None Full Exam - General 1994 Abdomen abdominal exam Overall: no tenderness 11/01/2015 None Full Exam - General 1994 Abdomen abdominal exam Overall: normal bowel sounds 11/01/2015 None Full Exam - General 1994 Genitourinary uterus Overall: normal size 11/01/2015 None Full Exam - General 1994 Genitourinary cervix Inspection: friable 11/01/2015 None Full Exam - General 1994 Genitourinary cervix Inspection: erythematous 11/01/2015 roughly 3 x 1 cm polyp fr om cervical os, and another lesion unable to be disassociated from the inferior aspect of cervix, friable, nabothian cysts along the edge of the cervix posteriorly/inferiorly Full Exam - General 1994 Genitourinary labia and vagina Overall: normal hair distribution 11/01/2015 None Full Exam - General 1994 Genitourinary labia and vagina Overall: no lesions 11/01/2015 None Full Exam - General 1994 Genitourinary adnexa/parametria Overall: no tenderness 11/01/2015 None Full Exam - General 1994 Lymphatic neck nodes Overall: anterior cervical chain benign 11/01/2015 None Full Exam - General 1994 Lymphatic neck nodes Overall: posterior cervical chain benign 11/01/2015 None Full Exam - General 1994 Musculoskeletal head and neck Overall: head atraumatic 11/01/2015 None Full Exam - General 1994 Musculoskeletal head and neck Overall: cervical spine benign 11/01/2015 None Full Exam - General 1994 Neurologic cranial nerves Overall: crainial nerves 2 - 12 grossly intact 11/01/2015 None Full Exam - General 1994 Psychiatric orientation/consciousness Overall: oriented to person, place and time 11/01/2015 None Full Exam - General 1994 Psychiatric mood and affect Overall: normal mood and affect 11/01/2015 None Full Exam - General 1994 Psychiatric mood and affect Mood: happy 11/01/2015 None Full Exam - General 1994 Constitutional general appearance Overall: well nourished 10/08/2015 None Full Exam - General 1994 Constitutional general appearance Overall: well developed 10/08/2015 None Full Exam - General 1994 Constitutional general appearance Overall: in no acute distress 10/08/2015 None Full Exam - General 1994 Cardiovascular extremities Overall: no clubbing 10/08/2015 None Full Exam - General 1994 Cardiovascular auscultation of heart Overall: regular rate 10/08/2015 None Full Exam - General 1994 Cardiovascular auscultation of heart Overall: normal heart sounds 10/08/2015 None Full Exam - General 1994 Cardiovascular auscultation of heart Overall: no murmurs 10/08/2015 None Full Exam - General 1994 Respiratory respiratory effort/rhythm Overall: normal rate 10/08/2015 None Full Exam - General 1994 Respiratory respiratory effort/rhythm Overall: no retractions 10/08/2015 None Full Exam - General 1994 Respiratory auscultation Overall: breath sounds clear bilaterally 10/08/2015 None Full Exam - General 1994 Ears/Nose/Throat oral cavity/pharynx/larynx Overall: oropharyngeal mucosa clear 10/08/2015 None Full Exam - General 1994 Ears/Nose/Throat oral cavity/pharynx/larynx Overall: no masses 10/08/2015 None Full Exam - General 1994 Ears/Nose/Throat oral cavity/pharynx/larynx Overall: oral mucosa clear 10/08/2015 None Full Exam - General 1994 Ears/Nose/Throat otoscopic exam Overall: external auditory canals clear 10/08/2015 None Full Exam - General 1994 Ears/Nose/Throat lips/teeth/gingiva Overall: benign gingiva 10/08/2015 None Full Exam - General 1994 Ears/Nose/Throat lips/teeth/gingiva Overall: no masses 10/08/2015 None Full Exam - General 1994 Ears/Nose/Throat lips/teeth/gingiva Overall: normal dentition 10/08/2015 None Full Exam - General 1994 Ears/Nose/Throat lips/teeth/gingiva Overall: benign lips 10/08/2015 None Full Exam - General 1994 Eyes pupils and irises Overall: pupils equal, round, reactive to light and accomodation 10/08/2015 None Full Exam - General 1994 Eyes conjunctiva/eyelids Overall: conjunctiva clear 10/08/2015 None Full Exam - General 1994 Eyes conjunctiva/eyelids Overall: eyelids normal 10/08/2015 None Full Exam - General 1994 Eyes conjunctiva/eyelids Overall: cornea clear 10/08/2015 None Full Exam - General 1994 Musculoskeletal gait and station Overall: normal station 10/08/2015 None Full Exam - General 1994 Musculoskeletal gait and station Overall: normal gait 10/08/2015 None Full Exam - General 1994 Psychiatric orientation/consciousness Overall: oriented to person, place and time 10/08/2015 None Full Exam - General 1994 Psychiatric mood and affect Overall: normal mood and affect 10/08/2015 None Full Exam - General 1994 Psychiatric appearance Overall: well-groomed, good eye contact 10/08/2015 None Full Exam - General 1994 Integument inspection of skin Rash/Lesions: papule 10/08/2015 tick bite site Full Exam - General 1994 Integument inspection of skin Pigmentation: erythematous 10/08/2015 None Full Exam - General 1994 Integument inspection of skin Location: right leg 10/08/2015 right knee Full Exam - General 1994 Ears/Nose/Throat otoscopic exam Tympanic membrane: air-fluid level 10/08/2015 None Full Exam - ENT Constitutional general appearance Overall: well nourished 06/21/2015 None Full Exam - ENT Constitutional general appearance Overall: well developed 06/21/2015 None Full Exam - ENT Constitutional general appearance Overall: in no acute distress 06/21/2015 None Full Exam - ENT Neurologic orientation Overall: oriented to person, place a nd time 06/21/2015 None Full Exam - ENT Lymphatic palpation of lymph nodes Overall: anterior cervical chain benign 06/21/2015 None Full Exam - ENT Lymphatic palpation of lymph nodes Overall: posterior cervical chain benign 06/21/2015 None Full Exam - ENT Cardiovascular auscultation of heart Overall: regular rate 06/21/2015 None Full Exam - ENT Cardiovascular auscultation of heart Overall: normal heart sounds 06/21/2015 None Full Exam - ENT Cardiovascular auscultation of heart Overall: no murmurs 06/21/2015 None Full Exam - ENT Respiratory auscultation Overall: breath sounds clear bilater ally 06/21/2015 None Full Exam - ENT Respiratory inspection Overall: no retractions 06/21/2015 None Full Exam - ENT Respiratory inspection Overall: normal rate 06/2015 None Full Exam - ENT Ears/Nose/Throat otoscopic exam Overall: external auditory canals normal 06/21/2015 None Full Exam - ENT Ears/Nose/Throat otoscopic exam Overall: tympanic membranes normal 06/21/2015 None Full Exam - ENT Ears/Nose/Throat oropharynx Overall: oral mucosa clear 06/21/2015 None Full Exam - General 1994 Constitutional general appearance Overall: well developed 06/15/2015 None Full Exam - General 1994 Constitutional general appearance Overall: in no acute distress 06/15/2015 None Full Exam - General 1994 Constitutional general appearance Overall: well nourished 06/15/2015 None Full Exam - General 1994 Psychiatric orientation/consciousness Overall: oriented to person, place and time 06/15/2015 None Full Exam - General 1994 Musculoskeletal spine, ribs and pelvis Overall: spine benign 06/15/2015 None Full Exam - General 1994 Musculoskeletal spine, ribs and pelvis Sacroiliac joints: tender left sacroiliac joint 06/15/2015 None Full Exam - General 1994 Constitutional general appearance Development: well developed 10/31/2014 None Full Exam - General 1994 Constitutional general appearance Development: appears stated age 0710/31/2014 None Full Exam - General 1994 Constitutional general appearance Hygiene/Attention to Grooming: good hygiene 10/31/2014 None Full Exam - General 1994 Eyes conjunctiva/eyelids Overall: conjunctiva clear 10/31/2014 None Full Exam - General 1994 Eyes conjunctiva/eyelids Overall: cornea clear 10/31/2014 None Full Exam - General 1994 Eyes conjunctiva/eyelids Overall: eyelids normal 10/31/2014 None Full Exam - General 1994 Eyes pupils and irises Overall: pupils equal, round, reactive to light and accomodation 10/31/2014 None Full Exam - General 1994 Ears/Nose/Throat otoscopic exam Overall: external auditory canals clear 10/31/2014 None Full Exam - General 1994 Ears/Nose/Throat otoscopic exam Overall: tympanic membranes clear 10/31/2014 None Full Exam - General 1994 Ears/Nose/Throat lips/teeth/gingiva Overall: benign lips 10/31/2014 None Full Exam - General 1994 Ears/Nose/Throat lips/teeth/gingiva Overall: normal dentition 10/31/2014 None Full Exam - General 1994 Ears/Nose/Throat oral cavity/pharynx/larynx Overall: oral mucosa clear 10/31/2014 None Full Exam - General 1994 Ears/Nose/Throat oral cavity/pharynx/larynx Overall: oropharyngeal mucosa clear 10/31/2014 None Full Exam - General 1994 Ears/Nose/Throat oral cavity/pharynx/larynx Overall: hypopharynx benign 10/31/2014 None Full Exam - General 1994 Ears/Nose/Throat oral cavity/pharynx/larynx Overall: no masses 10/31/2014 None Full Exam - General 1994 Respiratory auscultation Overall: breath sounds clear bilaterally 10/31/2014 None Full Exam - General 1994 Respiratory respiratory effort/rhythm Overall: no retractions 10/31/2014 None Full Exam - General 1994 Respiratory respiratory effort/rhythm Overall: normal rate 10/31/2014 None Full Exam - General 1994 Cardiovascular extremities Overall: no clubbing 10/31/2014 None Full Exam - General 1994 Cardiovascular auscultation of heart Overall: regular rate 10/31/2014 None Full Exam - General 1994 Cardiovascular auscultation of heart Overall: normal heart sounds 10/31/2014 None Full Exam - General 1994 Abdomen abdominal exam Overall: no tenderness 10/31/2014 None Full Exam - General 1994 Abdomen abdominal exam Overall: normal bowel sounds 10/31/2014 None Full Exam - General 1994 Integument inspection of skin Overall: few scattered moles, no gross abnormalities 10/31/2014 None Full Exam - General 1994 Neurologic deep tendon reflexes Overall: deep tendon reflexes intact 10/31/2014 None Full Exam - General 1994 Neurologic cranial nerves Overall: crainial nerves 2 - 12 grossly intact 10/31/2014 None Full Exam - General 1994 Psychiatric orientation/consciousness Overall: oriented to person, place and time 10/31/2014 None Full Exam - General 1994 Psychiatric mood and affect Overall: normal mood and affect 10/31/2014 None Full Exam - General 1994 Lymphatic neck nodes Overall: anterior cervical chain benign 10/31/2014 None Full Exam - General 1994 Lymphatic neck nodes Overall: posterior cervical chain benign 10/31/2014 None Full Exam - General 1994 Musculoskeletal head and neck Overall: cervical spine benign 10/31/2014 None Full Exam - General 1994 Musculoskeletal head and neck Overall: head atraumatic 10/31/2014 None Full Exam - General 1994 Musculoskeletal spine, ribs and pelvis Overall: good posture 10/31/2014 None Full Exam - General 1994 Musculoskeletal spine, ribs and pelvis Overall: sacroiliac joint benign 10/31/2014 None Full Exam - General 1994 Musculoskeletal spine, ribs and pelvis Overall: spine benign 10/31/2014 None Full Exam - General 1994 Constitutional general appearance Development: appears stated age 0811/21/2013 None Full Exam - General 1994 Constitutional general appearance Development: well developed 11/21/2013 None Full Exam - General 1994 Constitutional general appearance Hygiene/Attention to Grooming: good hygiene 11/21/2013 None Full Exam - General 1994 Eyes conjunctiva/eyelids Overall: conjunctiva clear 11/21/2013 None Full Exam - General 1994 Eyes conjunctiva/eyelids Overall: cornea clear 11/21/2013 None Full Exam - General 1994 Eyes conjunctiva/eyelids Overall: eyelids normal 11/21/2013 None Full Exam - General 1994 Eyes pupils and irises Overall: pupils equal, round, reactive to light and accomodation 11/21/2013 None Full Exam - General 1994 Ears/Nose/Throat otoscopic exam Overall: external auditory canals clear 11/21/2013 None Full Exam - General 1994 Ears/Nose/Throat otoscopic exam Overall: tympanic membranes clear 11/21/2013 None Full Exam - General 1994 Ears/Nose/Throat lips/teeth/gingiva Overall: benign lips 11/21/2013 None Full Exam - General 1994 Ears/Nose/Throat lips/teeth/gingiva Overall: normal dentition 11/21/2013 None Full Exam - General 1994 Ears/Nose/Throat oral cavity/pharynx/larynx Overall: hypopharynx benign 11/21/2013 None Full Exam - General 1994 Ears/Nose/Throat oral cavity/pharynx/larynx Overall: no masses 11/21/2013 None Full Exam - General 1994 Ears/Nose/Throat oral cavity/pharynx/larynx Overall: oral mucosa clear 11/21/2013 None Full Exam - General 1994 Ears/Nose/Throat oral cavity/pharynx/larynx Overall: oropharyngeal mucosa clear 11/21/2013 None Full Exam - General 1994 Respiratory auscultation Overall: breath sounds clear bilaterally 11/21/2013 None Full Exam - General 1994 Respiratory respiratory effort/rhythm Overall: no retractions 11/21/2013 None Full Exam - General 1994 Respiratory respiratory effort/rhythm Overall: normal rate 11/21/2013 None Full Exam - General 1994 Cardiovascular extremities Overall: no clubbing 11/21/2013 None Full Exam - General 1994 Cardiovascular auscultation of heart Overall: normal heart sounds 11/21/2013 None Full Exam - General 1994 Cardiovascular auscultation of heart Overall: regular rate 11/21/2013 None Full Exam - General 1995 Abdomen abdominal exam Overall: no tenderness 11/21/2013 None Full Exam - General 1995 Abdomen abdominal exam Overall: normal bowel sounds 11/21/2013 None Full Exam - General 1994 Integument inspection of skin Overall: few scattered moles, no gross abnormalities 11/21/2013 None Full Exam - General 1995 Neurologic deep tendon reflexes Overall: deep tendon reflexes intact 11/21/2013 None Full Exam - General 1994 Neurologic cranial nerves Overall: crainial nerves 2 - 12 grossly intact 11/21/2013 None Full Exam - General 1994 Psychiatric orientation/consciousness Overall: oriented to person, place and time 11/21/2013 None Full Exam - General 1994 Psychiatric mood and affect Overall: normal mood and affect 11/21/2013 None Full Exam - General 1995 Constitutional general appearance Overall: well developed 12/28/2012 None Full Exam - General 1994 Constitutional general appearance Overall: in no acute distress 12/28/2012 None Full Exam - General 1994 Constitutional general appearance Overall: well nourished 12/28/2012 None Full Exam - General 1994 Eyes pupils and irises Overall: pupils equal, round, reactive to light and accomodation 12/28/2012 None Full Exam - General 1995 Ears/Nose/Throat otoscopic exam Overall: external auditory canals clear 12/28/2012 None Full Exam - General 1995 Ears/Nose/Throat otoscopic exam Overall: tympanic membranes clear 12/28/2012 None Full Exam - General 1995 Ears/Nose/Throat oral cavity/pharynx/larynx Overall: oral mucosa clear 12/28/2012 None Full Exam - General 1995 Ears/Nose/Throat oral cavity/pharynx/larynx Overall: oropharyngeal mucosa clear 12/28/2012 None Full Exam - General 1995 Ears/Nose/Throat oral cavity/pharynx/larynx Overall: no masses 12/28/2012 None Full Exam - General 1994 Neck thyroid Overall: normal size 01/2013 None Full Exam - General 1994 Neck thyroid Overall: normal consistency 12/28/2012 None Full Exam - General 1994 Neck thyroid Overall: nontender 12/28 None Full Exam - General 1994 Neck thyroid Overall: no mass lesions 12/28/2012 None Full Exam - General 1994 Respiratory auscultation Overall: breath sounds clear bilaterally 12/28/2012 None Full Exam - General 1994 Respiratory respiratory effort/rhythm Overall: no retractions 12/28/2012 None Full Exam - General 1995 Respiratory respiratory effort/rhythm Overall: normal rate 12/28/2012 None Full Exam - General 1995 Cardiovascular extremities Overall: no clubbing 12/28/2012 None Full Exam - General 1995 Cardiovascular auscultation of heart Overall: regular rate 12/28/2012 None Full Exam - General 1995 Cardiovascular auscultation of heart Overall: normal heart sounds 12/28/2012 None Full Exam - General 1995 Cardiovascular auscultation of heart Overall: no murmurs 12/28/2012 None Full Exam - General 1995 Abdomen abdominal exam Overall: no tenderness 12/28/2012 None Full Exam - General 1995 Abdomen abdominal exam Overall: normal bowel sounds 12/28/2012 None Full Exam - General 1995 Lymphatic neck nodes Overall: anterior cervical chain benign 12/28/2012 None Full Exam - General 1995 Lymphatic neck nodes Overall: posterior cervical chain benign 12/28/2012 None Full Exam - General 1995 Musculoskeletal head and neck Overall: head atraumatic 12/28/2012 None Full Exam - General 1995 Musculoskeletal head and neck Overall: cervical spine benign 12/28/2012 None Full Exam - General 1994 Neurologic cranial nerves Overall: crainial nerves 2 - 12 grossly intact 12/28/2012 None Full Exam - General 1994 Psychiatric orientation/consciousness Overall: oriented to person, place and time 12/28/2012 None Full Exam - General 1995 Psychiatric mood and affect Overall: normal mood and affect 12/28/2012 None Full Exam - General 1995 Psychiatric mood and affect Mood: happy 12/28/2012 None Full Exam - General 1995 Chest/Breast breast and axillae palpation Overall: breasts non- tender 12/28/2012 None Full Exam - General 1995 Chest/Breast breast and axillae palpation Overall: axillae non- tender 12/28/2012 None Full Exam - General 1995 Chest/Breast breast and axillae palpation Overall: no nipple discharge 12/28/2012 None Full Exam - General 1994 Chest/Breast breast/chest inspection Overall: breasts to symmetric and without lesions 12/28/2012 None Full Exam - General 1994 Chest/Breast breast/chest inspection Overall: normal chest shape 12/28/2012 None Full Exam - General 1994 Genitourinary adnexa/parametria Overall: no tenderness 12/28/2012 None Full Exam - General 1994 Genitourinary labia and vagina Overall: normal hair distribution 12/28/2012 None Full Exam - General 1994 Genitourinary labia and vagina Overall: no lesions 12/28/2012 None Full Exam - General 1994 Genitourinary cervix Inspection: friable 12/28/2012 None Full Exam - General 1995 Genitourinary cervix Inspection: erythematous 12/28/2012 roughly 3 x 1 cm polyp fr om cervical os, and another lesion unable to be disassociated from the inferior aspect of cervix, friable, nabothian cysts along the edge of the cervix posteriorly/inferiorly Full Exam - General 1994 Genitourinary uterus Overall: normal size 12/28/2012 None Full Exam - General 1994 Eyes pupils and irises Overall: pupils equal, round, reactive to light and accomodation 09/30/2012 None Full Exam - General 1994 Constitutional general appearance Overall: well nourished 09/30/2012 None Full Exam - General 1994 Constitutional general appearance Overall: well developed 09/30/2012 None Full Exam - General 1994 Constitutional general appearance Overall: in no acute distress 09/30/2012 None Full Exam - General 1994 Ears/Nose/Throat oral cavity/pharynx/larynx Overall: oropharyngeal mucosa clear 09/30/2012 None Full Exam - General 1995 Ears/Nose/Throat oral cavity/pharynx/larynx Overall: no masses 09/30/2012 None Full Exam - General 1995 Ears/Nose/Throat oral cavity/pharynx/larynx Overall: oral mucosa clear 09/30/2012 None Full Exam - General 1995 Ears/Nose/Throat otoscopic exam Overall: tympanic membranes clear 09/30/2012 None Full Exam - General 1995 Ears/Nose/Throat otoscopic exam Overall: external auditory canals clear 09/30/2012 None Full Exam - General 1994 Neck thyroid Overall: nontender 09/30 None Full Exam - General 1994 Neck thyroid Overall: normal size None Full Exam - General 1994 Neck thyroid Overall: no mass lesions 09/30/2012 None Full Exam - General 1994 Neck thyroid Overall: normal consistency 09/30/2012 None Full Exam - General 1994 Respiratory respiratory effort/rhythm Overall: normal rate 09/30/2012 None Full Exam - General 1994 Respiratory respiratory effort/rhythm Overall: no retractions 09/30/2012 None Full Exam - General 1994 Respiratory auscultation Overall: breath sounds clear bilaterally 09/30/2012 None Full Exam - General 1994 Cardiovascular auscultation of heart Overall: regular rate 09/30/2012 None Full Exam - General 1994 Cardiovascular auscultation of heart Overall: normal heart sounds 09/30/2012 None Full Exam - General 1994 Cardiovascular auscultation of heart Overall: no murmurs 09/30/2012 None Full Exam - General 1994 Cardiovascular extremities Overall: no clubbing 09/30/2012 None Full Exam - General 1994 Abdomen abdominal exam Overall: no tenderness 09/30/2012 None Full Exam - General 1994 Abdomen abdominal exam Overall: normal bowel sounds 09/30/2012 None Full Exam - General 1994 Lymphatic neck nodes Overall: anterior cervical chain benign 09/30/2012 None Full Exam - General 1994 Lymphatic neck nodes Overall: posterior cervical chain benign 09/30/2012 None Full Exam - General 1994 Musculoskeletal head and neck Overall: cervical spine benign 09/30/2012 None Full Exam - General 1994 Musculoskeletal head and neck Overall: head atraumatic 09/30/2012 None Full Exam - General 1994 Neurologic cranial nerves Overall: crainial nerves 2 - 12 grossly intact 09/30/2012 None Full Exam - General 1994 Psychiatric mood and affect Mood: happy 09/30/2012 None Full Exam - General 1994 Psychiatric mood and affect Overall: normal mood and affect 09/30/2012 None Full Exam - General 1994 Psychiatric orientation/consciousness Overall: oriented to person, place and time 09/30/2012 None Procedures Procedure Codes Date URINALYSIS NONAUTO W /O SCOPE CPT-4: 74945 11/12/2018 TRIAMCINOLONE ACET I [place] NOS CPT-4: J3301 05/17/2018 TRIAMCINOLONE ACET I [place] NOS CPT-4: J3301 03/12/2018 THER/PROPH/DIAG INJ SC/IM CPT-4: 23116 04/30/2017 TRIAMCINOLONE ACET I [place] NOS CPT-4: J3301 04/30/2017 TRIAMCINOLONE ACET I [place] NOS CPT-4: J3301 10/08/2015 TRIAMCINOLONE ACET I [place] NOS CPT-4: J3301 06/21/2015 ROCEPHIN, PER 250 MG CPT-4: J0696 06/21/2015 URINALYSIS NONAUTO W /O SCOPE CPT-4: 89854 01/18/2013 Vital Signs Date Vital 11/24/2018 Blood Pressure 1: 124/74 Code: 8480-6 BMI: 30.0 Code: 67202-9 Heart Rate 1: 65 bpm Height: 5'4" SpO2: 98% Weight: 177 lbs 8 oz 05/17/2018 Blood Pressure 1: 132/72 Code: 8480-6 BMI: 31.1 Code: 58563-6 Heart Rate 1: 82 bpm Height: 5'4" SpO2: 95% Weight: 184 lbs 03/12/2018 Blood Pressure 1: 140/80 Code: 8480-6 BMI: 31.3 Code: 00062-1 Heart Rate 1: 75 bpm Height: 5'4" SpO2: 98% Weight: 185 lbs 01/28/2018 Blood Pressure 1: 145/80 Code: 8480-6 BMI: 31.1 Code: 12044-9 Heart Rate 1: 73 bpm Height: 5'4" SpO2: 95% Weight: 184 lbs 11/05/2017 Blood Pressure 1: 140/82 Code: 8480-6 Blood Pressure 2: 130/78 Code: 8480-6 BMI: 30.6 Code: 31702-5 Heart Rate 1: 64 bpm Height: 5'4" SpO2: 97% Weight: 180 lbs 14 o z 07/10/2017 Blood Pressure 1: 124/72 Code: 8480-6 Heart Rate 1: 73 bpm Height: 5'4" SpO2: 99% Weight: 04/30/2017 Blood Pressure 1: 142/86 Code: 8480-6 BMI: 30.4 Code: 94167-1 Heart Rate 1: 57 bpm Height: 5'4" SpO2: 98% Temperature: 36.8 (C ) / 98.3 (F) Weight: 180 lbs 11/05/2016 Blood Pressure 1: 130/80 Code: 8480-6 BMI: 31.1 Code: 67301-0 Heart Rate 1: 68 bpm Height: 5'4" SpO2: 95% Weight: 184 lbs 11/01/2015 Blood Pressure 1: 124/76 Code: 8480-6 BMI: 30.1 Code: 77760-0 Heart Rate 1: 58 bpm Height: 5'4" SpO2: 97% Weight: 178 lbs 10/08/2015 Blood Pressure 1: 120/82 Code: 8480-6 BMI: 31.1 Code: 72675-6 Heart Rate 1: 71 bpm Height: 5'4" SpO2: 98% Weight: 184 lbs 06/21/2015 Blood Pressure 1: 142/90 Code: 8480-6 BMI: 23.0 Code: 85183-3 Heart Rate 1: 72 bpm Height: 5'4" SpO2: 92% Temperature: 36.6 (C ) / 97.8 (F) Weight: 136 lbs 06/15/2015 Blood Pressure 1: 138/72 Code: 8480-6 BMI: 23.0 Code: 42624-2 Heart Rate 1: 83 bpm Height: 5'4" SpO2: 96% Weight: 136 lbs 10/31/2014 Blood Pressure 1: 138/72 Code: 8480-6 BMI: 30.4 Code: 31633-0 Heart Rate 1: 69 bpm Height: 5'4" SpO2: 96% Weight: 180 lbs 11/21/2013 Blood Pressure 1: 128/82 Code: 8480-6 BMI: 29.4 Code: 27392-0 Heart Rate 1: 64 bpm Height: 5'4" Weight: 174 lbs 12/28/2012 Blood Pressure 1: 130/88 Code: 8480-6 BMI: 30.3 Code: 29787-0 Heart Rate 1: 60 bpm Height: 5'5" Weight: 182 lbs 09/30/2012 Blood Pressure 1: 126/78 Code: 8480-6 BMI: 30.1 Code: 53990-1 Heart Rate 1: 72 bpm Height: 5'5" Weight: 181 lbs Functional Status No Functional Status data History of Present Illness Symptom Name Status Resu lt Effective Date Notes Pap Smear last normal performed on 11-01-2015 11/24/2018 None Lifestyle regular seat belt use 11/24/2018 None Lifestyle normal sleep patterns 11/24/2018 None Lifestyle normal amoun t of stress 11/24/2018 None Nutrition and Exercise overweight 11/24/2018 None Nutrition and Exercise moderate exercise 11/24/2018 None Sexual Activity experi ences sexual satisfaction 11/24/2018 None Sexual Activity is mon ogamous 11/24/2018 None Health Guidance self-b reast exam 11/24/2018 None Health Guidance regula r exercise 11/24/2018 None Health Guidance colono scopy/sigmoidoscopy 11/24/2018 last done in 2018 Quality acute 11/12/2018 None Onset and Resolution s udden in onset 11/12/2018 None Onset of Symptom 1 day s ago 11/12/2018 None Pertinent Findings Den ies fever 11/12/2018 None Onset and Resolution s udden in onset 05/17/2018 None Onset of Symptom 5 day s ago 05/17/2018 None Pertinent Findings cough 05/17/2018 None Pertinent Findings dec reased energy level 05/17/2018 None Pertinent Findings Den ies fever 05/17/2018 None Severity moderate 05/17/2018 None Frequency of Episodes increasing 05/17/2018 None Significant Medical Conditions allergic rhinitis 05/17/2018 None Triggers no known asso ciated factors 05/17/2018 None Location on both sides 05/17/2018 None Quality acute 05/17/2018 None sinus congestion Onset and Resolution sudden in onset 03/12/2018 None sinus congestion Onset of Symptom 5 days ago 03/12/2018 None earache Location both ea rs 03/12/2018 None earache Onset and Resolution sudden in onset 03/12/2018 None earache Onset of Symptom 5 days ago 03/12/2018 None earache Frequency of Episodes daily 03/12/2018 None arthropod bite Location on the left leg 01/28/2018 None arthropod bite Quality a cute 01/28/2018 None arthropod bite Onset of Symptom 1 weeks ago 01/28/2018 None arthropod bite Frequency of Episodes daily 01/28/2018 None sexual dysfunction Quality pelvic pain 11/05/2017 painful intercourse post menopausal. sexual dysfunction Onset and Resolution ongoing 11/05/2017 None sexual dysfunction Pertinent Findings Denies pelvic pain 11/05/2017 None joint complaint Quality constant 11/05/2017 None joint complaint Onset and Resolution ongoing 11/05/2017 None joint complaint Onset of Symptom _ years ago 11/05/2017 None joint complaint Pertinent Findings Denies weight change 11/05/2017 None joint complaint Pertinent Findings Denies muscle swelling 11/05/2017 None joint complaint Location diffusely 11/05/2017 bilateral hands. sinus congestion Location frontal sinuses 07/10/2017 None sinus congestion Quality fullness 07/10/2017 None sinus congestion Onset and Resolution sudden in onset 07/10/2017 None sinus congestion Onset of Symptom 1 weeks ago 07/10/2017 None sinus congestion Frequency of Episodes daily 07/10/2017 None sinus congestion Pertinent Findings cough 07/10/2017 None sinus congestion Triggers no known associated factors 07/10/2017 None sinus congestion Onset of Symptom 11 days ago 04/30/2017 None sinus congestion Onset and Resolution sudden in onset 04/30/2017 None sinus congestion Frequency of Episodes daily 04/30/2017 None sinus congestion Triggers no known associated factors 04/30/2017 None sinus congestion Pertinent Findings cough 04/30/2017 None sinus congestion Pertinent Findings facial pain 04/30/2017 None sinus congestion Pertinent Findings Denies fever 04/30/2017 None sinus congestion Location on both sides 04/30/2017 None sinus congestion Quality acute 04/30/2017 None well woman exam (40-65 years) Lifestyle regular seatbelt use 11/05/2016 None well woman exam (40-65 years) Lifestyle satisfactory work experience 11/05/2016 None well woman exam (40-65 years) Lifestyle normal sleep patterns 11/05/2016 None well woman exam (40-65 years) Lifestyle normal amount of stress 11/05/2016 None well woman exam (40-65 years) Contro l none 11/05/2016 None well woman exam (40-65 years) Nutrit ion and Exercise normal weight 11/05/2016 None well woman exam (40-65 years) Nutrit ion and Exercise balanced nutrition 11/05/2016 None well woman exam (40-65 years) Nutrit ion and Exercise regular diet 11/05/2016 None well woman exam (40-65 years) Obstet rical History 2 total pregnancies 11/05/2016 None well woman exam (40-65 years) Obstet rical History _ full term 11/05/2016 None well woman exam (40-65 years) Health Guidance self-breast exam 11/05/2016 None well woman exam (40-65 years) Sexual Activity experiences sexual satisfaction 11/05/2016 None well woman exam (40-65 years) Sexual Activity is monogamous 11/05/2016 None well woman exam (40-65 years) Pap Smear last normal performed on 12-28-12 11/01/2015 None well woman exam (40-65 years) Pap Smear normal results 11/01/2015 None well woman exam (40-65 years) 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 Complaints menopausal symptoms 11/01/2015 None well woman exam (40-65 years) Contro l none 11/01/2015 None well woman exam (40-65 years) Nutrit ion and Exercise normal weight 11/01/2015 None well woman exam (40-65 years) Nutrit ion and Exercise balanced nutrition 11/01/2015 None well woman exam (40-65 years) Nutrit ion and Exercise regular diet 11/01/2015 None well woman exam (40-65 years) Obstet rical History 2 total pregnancies 11/01/2015 None well woman exam (40-65 years) Obstet rical History _ full term 11/01/2015 None well woman exam (40-65 years) Lifestyle regular seatbelt use 11/01/2015 None well woman exam (40-65 years) Lifestyle satisfactory work experience 11/01/2015 None well woman exam (40-65 years) Lifestyle normal sleep patterns 11/01/2015 None well woman exam (40-65 years) Lifestyle normal amount of stress 11/01/2015 None well woman exam (40-65 years) Health Guidance self-breast exam 11/01/2015 None well woman exam (40-65 years) Sexual Activity experiences sexual satisfaction 11/01/2015 None well woman exam (40-65 years) Sexual Activity is monogamous 11/01/2015 None earache Location left ear 10/08/2015 None earache Onset and Resolution ongoing 10/08/2015 None earache Onset of Symptom 30 months ago 10/08/2015 None rash Quality aching 10/08/2015 None rash Color red 10/08/2015 None rash Onset of Symptom 1 week ago 10/08/2015 None rash Pertinent Findings Denies pain 10/08/2015 None rash Pertinent Findings Denies itching 10/08/2015 None cough Location in the melinda ng 06/21/2015 None cough Location in the th roat 06/21/2015 None cough Quality acute 06/21/2015 None cough Onset and Resolution ongoing 06/21/2015 None cough Onset of Symptom 5 days ago 06/21/2015 None cough Frequency of Episodes increasing 06/21/2015 None cough Limitation on Activities does not limit activities 06/21/2015 None cough Triggers no known associated factors 06/21/2015 None cough Alleviating Factors OTC medications 06/21/2015 None cough Pertinent Findings Denies chest discomfort 06/21/2015 None cough Pertinent Findings Denies dyspnea 06/21/2015 None cough Pertinent Findings Denies fever 06/21/2015 None back pain Location lumba r-sacral spine 06/15/2015 None back pain Quality consta nt 06/15/2015 None back pain Quality aching 06/15/2015 None back pain Quality radiat ing 06/15/2015 None back pain Onset and Resolution sudden in onset 06/15/2015 None back pain Onset of Symptom 1 weeks ago 06/15/2015 None back pain Frequency of Episodes daily 06/15/2015 None back pain Mechanism of injury unknown 06/15/2015 None back pain Radiating down left leg 06/15/2015 None well woman exam (40-65 years) Health Guidance self-breast exam 10/31/2014 None well woman exam (40-65 years) Pap Smear last normal performed on __-__-__ 10/31/2014 None well woman exam (40-65 years) 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 Complaints menopausal symptoms 10/31/2014 None well woman exam (40-65 years) Lifestyle no history of physical abuse 10/31/2014 None well woman exam (40-65 years) Lifestyle no history of sexual abuse 10/31/2014 None well woman exam (40-65 years) Lifestyle regular seatbelt use 10/31/2014 None well woman exam (40-65 years) Lifestyle family supportive of relationship 10/31/2014 None well woman exam (40-65 years) Lifestyle satisfactory work experience 10/31/2014 None well woman exam (40-65 years) Lifestyle normal sleep patterns 10/31/2014 None well woman exam (40-65 years) Nutrit ion and Exercise normal weight 10/31/2014 None well woman exam (40-65 years) Nutrit ion and Exercise minimal exercise 10/31/2014 None well woman exam (40-65 years) Sexual Activity experiences sexual satisfaction 10/31/2014 None well woman exam (40-65 years) Sexual Activity is monogamous 10/31/2014 None ~generic Quality chronic 11/21/2013 None ~generic Severity mild 11/21/2013 None ~generic Pertinent Findings Denies fever 11/21/2013 None well woman exam (40-65 years) Pap Smear normal results 12/28/2012 pt states that it has been between 8-10 years since her last pelvic exam, was told that she did not need to have yearly exams. well woman exam (40-65 years) Menstr ual History post menopausal bleeding 12/28/2012 pt states that she has been spotting off and on for the past month, she had not had cycles previous to the spotting well woman exam (40-65 years) Lifestyle no history of physical abuse 12/28/2012 None well woman exam (40-65 years) Lifestyle regular seatbelt use 12/28/2012 None well woman exam (40-65 years) Lifestyle satisfactory work experience 12/28/2012 None well woman exam (40-65 years) Lifestyle normal sleep patterns 12/28/2012 None well woman exam (40-65 years) Lifestyle normal amount of stress 12/28/2012 None well woman exam (40-65 years) Lifestyle satisfactory marriage/partner relationship 12/28/2012 None well woman exam (40-65 years) Contro l menopause 12/28/2012 None well woman exam (40-65 years) Nutrit ion and Exercise normal weight 12/28/2012 None well woman exam (40-65 years) Nutrit ion and Exercise minimal exercise 12/28/2012 None well woman exam (40-65 years) Nutrit ion and Exercise balanced nutrition 12/28/2012 None well woman exam (40-65 years) Health Guidance self-breast exam 12/28/2012 None well woman exam (40-65 years) Health Guidance regular exercise 12/28/2012 None well woman exam (40-65 years) Sexual Activity is monogamous 12/28/2012 None well woman exam (40-65 years) Sexual Activity experiences sexual satisfaction 12/28/2012 None fatigue Limitation on Activities does not limit activities 09/30/2012 None fatigue Triggers no know n associated factors 09/30/2012 None fatigue Quality intermit tent 09/30/2012 None fatigue Pertinent Findings Denies back pain 09/30/2012 None fatigue Pertinent Findings Denies depressed mood 09/30/2012 None fatigue Pertinent Findings Denies dizziness 09/30/2012 None fatigue Pertinent Findings Denies dyspnea 09/30/2012 None Advance Directives No Advance Directive data Encounters Encounter Performer Loca tion Codes Date ([id number]) PREV VISIT E ST AGE 40-64 Diagnosis: Encounter for gynecological examination (general) (routine) without abnormal findings[ICD10: Z01.419] [facility] CPT-4: 69225 11/24/2018 [id number] EST. PATIENT, LEVEL II Diagnosis: Dysuria[ICD10: R30.0] [facility] CPT-4: 97252 11/12/2018 ([id number]) 98685 EST. P ATIENT, LEVEL III Diagnosis: Acute recurrent maxillary sinusitis[ICD10: J01.01] Diagnosis: Cough[ICD10: R05] [facility] CPT-4: 81537 05/17/2018 ([id number]) 33488 EST. P ATIENT, LEVEL III Diagnosis: Acute recurrent maxillary sinusitis[ICD10: J01.01] Diagnosis: Other allergic rhinitis[ICD10: J30.89] Diagnosis: Cough[ICD10: R05] Criselda Hoover MD, [facility] CPT-4: 99834 03/12/2018 73471 EST. PATIENT, LEVEL III Diagnosis: Cellulitis of left lower limb[ICD10: L03.116] Minoo Hoover MD, [facility] CPT-4: 03980 01/28/2018 ([id number]) PREV VISIT E AGE 40-64 Diagnosis: Encounter for general adult medical examination without abnormal findings[ICD10: Z00.00] Shanti Hoover MD, [facility] CPT-4: 99305 11/05/2017 13894 EST. PATIENT, LEVEL IV Diagnosis: Other acute sinusitis[ICD10: J01.80] Diagnosis: Other allergic rhinitis[ICD10: J30.89] Minoo Hoover MD, [facility] CPT-4: 80617 07/10/2017 63849 EST. PATIENT, LEVEL IV Diagnosis: Other acute sinusitis[ICD10: J01.80] Diagnosis: Other allergic rhinitis[ICD10: J30.89] Minoo Hoover MD, [facility] CPT-4: 09306 04/30/2017 ([id number]) PREV VISIT E AGE 40-64 Diagnosis: Encounter for general adult medical examination without abnormal findings[ICD10: Z00.00] Shanti Hoover MD, [facility] CPT-4: 00397 11/05/2016 ([id number]) PREV VISIT E AGE 40-64 Diagnosis: Encounter for gynecological examination (general) (routine) without abnormal findings[ICD10: Z01.419] Shanti Hoover MD, [facility] CPT-4: 68248 11/01/2015 ([id number]) 07462 EST. P ATIENT, LEVEL III Diagnosis: Insect bite (nonvenomous), right knee, initial encounter[ICD10: S80.261A] Diagnosis: Allergic rhinitis due to pollen[ICD10: J30.1] Criselda Hoover MD, [facility] CPT-4: 08037 10/08/2015 ([id number]) 75442 EST. P ATIENT, LEVEL III Diagnosis: Acute recurrent maxillary sinusitis[ICD10: J01.01] Diagnosis: Acute bronchitis, unspecified[ICD10: J20.9] Criselda Hoover MD, [facility] CPT-4: 67072 06/21/2015 ([id number]) 34137 EST. P ATIENT, LEVEL III Diagnosis: Low back pain[ICD10: M54.5] Diagnosis: Sacroiliitis, not elsewhere classified[ICD10: M46.1] [facility] CPT-4: 86948 06/15/2015 ([id number]) PREV VISIT E AGE 40-64 Diagnosis: Routine medical exam[ICD9: V70.0] [facility] CPT-4: 48444 10/31/2014 ([id number]) PREV VISIT E AGE 40-64 Diagnosis: Routine medical exam[ICD9: V70.0] [facility] CPT-4: 89018 11/21/2013 ([id number]) 41186 EST. P ATIENT, LEVEL III Diagnosis: Well woman exam with routine gynecological exam[ICD9: V72.31] Diagnosis: Polyp at cervical os[ICD9: 622.7] [facility] CPT-4: 37367 12/28/2012 ([id number]) OFFICE/OUTPA TIENT VISIT NEW Diagnosis: Routine medical exam[ICD9: V70.0] Shanti Hoover MD, [facility] CPT-4: 99541 09/30/2012 Plan of Care Planned Activity Notes C odes Status Date Patient Education: Patient Medication Summary Completed 12/24/2018 Care Plan: Unilateral DIAGNOSTICMAMMOGRAPHYDIGITAL LOINC : 14096-2 Pending 12/24/2018 Patient Education: Patient Medication Summary Completed 12/15/2018 Visit Plan: Well Adult Female - exa m completed. Pap and breast exam completed. Pt will be called with results of her testing. She was advised to continue with yearly annual exams. Safe sex practices discussed jessica marley office visit today. Call if any abnormal gynecologic issues during the next year, otherwise, RTC yearly or prn. Varicose veins - discussed with pt - recommended that she needs to wear compression socks 11/24/2018 Appointment: Shanti Hoover WPtel: [facility] Well Woman 11/24/2018 Patient Education: Patient Medication Summary Completed 11/24/2018 Patient Education: Depression Completed 11/24/2018 Visit Plan: UTI - pt with positive urinalysis - culture sent if appropriate. Antibiotic electronically prescribed to pt's pharmacy of choice. Pt to call if symptoms do not improve. 11/12/2018 Appointment: Minoo Joshua WPtel: [facility]5 [facility] (30 min) Complex 11/12/2018 Patient Education: Patient Medication Summary Completed 11/12/2018 Care Plan: Urine Culture Pending 11/12/2018 Visit Plan: Sinusitis - Pt has acut e infection - pain in face, maxillary region, Pt informed to use decongestant, RX given to patient, sinus rinses also recommended. Call if symptoms do not show improvement. 05/17/2018 Appointment: Criselda Anderson WPtel: [facility]5 [facility] (30 min) Complex 05/17/2018 Patient Education: Patient Medication Summary Completed 05/17/2018 Visit Plan: Sinusitis - Pt has acut e infection - pain in face, maxillary region, Pt informed to use decongestant, RX given to patient, sinus rinses also recommended. Call if symptoms do not show improvement. 03/12/2018 Appointment: Criselda Anderson WPtel: [facility]5 [phone] (15 min) Moderate 03/12/2018 Patient Education: Patient Medication Summary Completed 03/12/2018 Visit Plan: Cellulitis - continue w ith oral antibiotics as previously directed, return to clinic as previously directed, call for acute change in symptoms, worsening redness, warmth, discharge. 01/28/2018 Visit Plan: Cellulitis - continue w ith oral antibiotics as previously directed, return to clinic as previously directed, call for acute change in symptoms, worsening redness, warmth, discharge. 01/28/2018 Appointment: Minoo Joshua WPtel: [phone] [facility] (15 min) Moderate 01/28/2018 Patient Education: Patient Medication Summary Completed 01/28/2018 Patient Education: Patient Medication Summary Completed 2017 Visit Plan: Well Adult - pt was cou nseled about diet, exercise, and encouraged to follow a heart healthy diet and increase activity level. The patient was instructed to RTC yearly for well adult exams and PRN for acute illnesses. The pt was also instructed to have yearly labs for check of cholesterol, thyroid, chem panel, CBC, and renal functioning. Hand pain - recommended patient to use muscle rub to joints RX for arthrotec. 11/05/2017 Visit Plan: Well Adult - pt was cou nseled about diet, exercise, and encouraged to follow a heart healthy diet and increase activity level. The patient was instructed to RTC yearly for well adult exams and PRN for acute illnesses. The pt was also instructed to have yearly labs for check of cholesterol, thyroid, chem panel, CBC, and renal functioning. Hand pain - recommended patient to use muscle rub to joints RX for arthrotec. 11/05/2017 Appointment: Shanti Hoover WPtel: [phone] [phone] (15 min) Moderate 11/05/2017 Patient Education: Patient Medication Summary Completed 11/05/2017 Visit Plan: Sinusitis - Pt has acut e infection - pain in face, maxillary region, Pt informed to use decongestant, RX given to patient, sinus rinses also recommended. Call if symptoms do not show improvement. Allerg ies - chronic - recommended pt to use allergy medication as prescribed. Pt has been counseled as to the appropriate use of the medication. Pt to call if allergy symptoms are not controlled with the medication. If using nasal spray, instructions as follows: Nasal spray- use twice daily, one spray per nostril twice daily, after 30 minutes, rinse out nose with saline spray.. Use opposite hand per nostril to spray in the nasal steroid allergy spray. 07/10/2017 Appointment: Minoo Joshua WPtel: [phone] [facility] (15 min) Moderate 07/10/2017 Patient Education: Patient Medication Summary Completed 07/10/2017 Visit Plan: Sinusitis - Pt has acut e infection - pain in face, maxillary region, Pt informed to use decongestant, RX given to patient, sinus rinses also recommended. Call if symptoms do not show improvement. Allerg ies - chronic - recommended pt to use allergy medication as prescribed. Pt has been counseled as to the appropriate use of the medication. Pt to call if allergy symptoms are not controlled with the medication. If using nasal spray, instructions as follows: Nasal spray- use twice daily, one spray per nostril twice daily, after 30 minutes, rinse out nose with saline spray.. Use opposite hand per nostril to spray in the nasal steroid allergy spray. 04/30/2017 Appointment: Minoo Joshua WPtel: [address] [place] [address] (15 min) Moderate 04/30/2017 Patient Education: Patient Medication Summary Completed 04/30/2017 Visit Plan: Well Adult - pt was cou nseled about diet, exercise, and encouraged to follow a heart healthy diet and increase activity level. The patient was instructed to RTC yearly for well adult exams and PRN for acute illnesses. The pt was also instructed to have yearly labs for check of cholesterol, thyroid, chem panel, CBC, and renal functioning. 11/05/2016 Appointment: Shanti Hoover WPtel: [address] [place] [address] Physical 11/05/2016 Patient Education: Patient Medication Summary Completed 11/05/2016 Patient Education: Obesity Completed 11/05/2016 Appointment: Shanti Hoover WPtel: [address] [place] [address] Well Woman 01/02/2016 Visit Plan: Well Adult Female - exa m completed. Pap and breast exam completed. Pt will be called with results of her testing. She was advised to continue with yearly annual exams. Safe sex practices discussed jessica marley office visit today. Call if any abnormal gynecologic issues during the next year, otherwise, RTC yearly or prn. 11/01/2015 Patient Education: Patient Medication Summary Completed 11/01/2015 Patient Education: Obesity Completed 11/01/2015 Care Plan: PAP Pending 11/01/2015 Visit Plan: Tick Bite - pt given sc ript for treatment of infected tick bite, call for symptoms of worsening infection or nonhealing. Allergies - chronic - recommended pt to use allergy medication as prescribed. Pt has been counseled as to the appropriate use of the medication. Pt to call if allergy symptoms are not controlled with the medication. If using nasal spray, instructions as follows: Nasal spray- use twice daily, one spray per nostril twice daily, after 30 minutes, rinse out nose with saline spray.. Use opposite hand per nostril to spray in the nasal steroid allergy spray. Kenalog injection today in the office. 10/08/2015 Appointment: Criselda Anderson WPtel: [address] [phone] (15 min) Moderate 10/08/2015 Patient Education: Patient Medication Summary Completed 10/08/2015 Patient Education: Obesity Completed 10/08/2015 Visit Plan: Sinusitis - Pt has acut e infection - pain in face, maxillary region, Pt informed to use decongestant, RX given to patient, sinus rinses also recommended. Call if symptoms do not show improvement. 06/21/2015 Appointment: Criselda Anderson WPtel: [address] [phone] (10 min) Simple 06/21/2015 Patient Education: Patient Medication Summary Completed 06/21/2015 Visit Plan: Sacroiliitis-injection today in the office- back exercises discussed with the patient, pt to continue with anti-inflammatories and exercises as directed. Pt is to call if the symptoms do not improve or if they worsen. 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 The patient was instructed to RTC yearly for well adult exams and PRN for acute illnesses. The pt was also instructed to have yearly labs for check of cholesterol, thyroid, chem panel, CBC, and renal functioning. 10/31/2014 Appointment: Shanti Hoover WPtel: [phone] [id number] Physical 10/31/2014 Patient Education: Patient Medication Summary Completed 10/31/2014 Visit Plan: Well Adult - pt was cou nseled about diet, exercise, and encouraged to follow a heart healthy diet and increase activity level. The patient was instructed to RTC yearly for well adult exams and PRN for acute illnesses. The pt was also instructed to have yearly labs for check of cholesterol, thyroid, chem panel, CBC, and renal functioning. 11/21/2013 Appointment: Shanti Hoover WPtel: [address] [place], [place] [phone] Well Woman 11/21/2013 Patient Education: Patient Medication Summary Completed 11/21/2013 Appointment: Shanti Hoover WPtel: [address] [place], [place] [id number] Lab Draw 01/18/2013 Patient Education: Patient Medication Summary Completed 01/18/2013 Visit Plan: Well Adult Female - exa m completed. Pap and gc/chlamydia and breast exam completed. Pt will be called with results of her testing. She was advised to continue with yearly annual exams. Pt referred to Dr Bolivar Sun for further evaluation of the large cervical polyp. 12/28/2012 Appointment: Shanti Hoover WPtel: [address] [place] [address] Well Woman 12/28/2012 Patient Education: Patient Medication Summary Completed 12/28/2012 Visit Plan: recommended well woman exam and labs. recommended starting multivitamin improved sleep hygeine 09/30/2012 Appointment: Shanti Hoover WPtel: [address] [place], [place] [id number] [place] New Patient 09/30/2012 Patient Education: Patient Medication Summary Completed 09/30/2012 Instructions Comment . Well Adult - pt wa s counseled about diet, exercise, and encouraged to follow a heart healthy diet and increase activity level. The patient was instructed to RTC yearly for well adult exams and PRN for acute illnesses. The pt was also instructed to have yearly labs for check of cholesterol, thyroid, chem panel, CBC, and renal functioning. Hand pain - recommended patient to use muscle rub to joints RX for arthrotec. . Tick Bite - pt giv en script for treatment of infected tick bite, call for symptoms of worsening infection or nonhealing. Allergies - chronic - recommended pt to use allergy medication as prescribed. Pt has been counseled as to the appropriate use of the medication. Pt to call if allergy symptoms are not controlled with the medication. If using nasal spray, instructions as follows: Nasal spray- use twice daily, one spray per nostril twice daily, after 30 minutes, rinse out nose with saline spray.. Use opposite hand per nostril to spray in the nasal steroid allergy spray. Kenalog injection today in the office. . Cellulitis - kelli nue with oral antibiotics as previously directed, return to clinic as previously directed, call for acute change in symptoms, worsening redness, warmth, discharge. . Well Adult - pt wa s counseled about diet, exercise, and encouraged to follow a heart healthy diet and increase activity level. The patient was instructed to RTC yearly for well adult exams and PRN for acute illnesses. The pt was also instructed to have yearly labs for check of cholesterol, thyroid, chem panel, CBC, and renal functioning. . Well Adult Female - exam completed. Pap and gc/chlamydia and breast exam completed. Pt will be called with results of her testing. She was advised to continue with yearly annual exams. Pt referred to Dr. Sun for further evaluation of the large cervical polyp. . Cellulitis - kelli nue with oral antibiotics as previously directed, return to clinic as previously directed, call for acute change in symptoms, worsening redness, warmth, discharge. extended release shukri atonin - 5mg and 10mg. Well Adult - pt was counseled about diet, exercise, and encouraged to follow a heart healthy diet and increase activity level. The patient was instructed to RTC yearly for well adult exams and PRN for acute illnesses. The pt was also instructed to have yearly labs for check of cholesterol, thyroid, chem panel, CBC, and renal functioning. . Well Adult - pt wa s counseled about diet, exercise, and encouraged to follow a heart healthy diet and increase activity level. The patient was instructed to RTC yearly for well adult exams and PRN for acute illnesses. The pt was also instructed to have yearly labs for check of cholesterol, thyroid, chem panel, CBC, and renal functioning. . recommended well w marilyn exam and labs. recommended starting multivitamin improved sleep hygeine KENALOG . Sinusitis - Pt has acute infection - pain in face, maxillary region, Pt informed to use decongestant, RX given to patient, sinus rinses also recommended. Call if symptoms do not show improvement. . Sinusitis - Pt has acute infection - pain in face, maxillary region, Pt informed to use decongestant, RX given to patient, sinus rinses also recommended. Call if symptoms do not show improvement. . Well Adult - pt wa s counseled about diet, exercise, and encouraged to follow a heart healthy diet and increase activity level. The patient was instructed to RTC yearly for well adult exams and PRN for acute illnesses. The pt was also instructed to have yearly labs for check of cholesterol, thyroid, chem panel, CBC, and renal functioning. Hand pain - recommended patient to use muscle rub to joints RX for arthrotec. . UTI - pt with posi tive urinalysis - culture sent if appropriate. Antibiotic electronically prescribed to pt's pharmacy of choice. Pt to call if symptoms do not improve. vital sox. Well Adul t Female - exam completed. Pap and breast exam completed. Pt will be called with results of her testing. She was advised to continue with yearly annual exams. Safe sex practices discussed during office visit today. Call if any abnormal gynecologic issues during the next year, otherwise, RTC yearly or prn. Varicose veins - discussed with pt - recommended that she needs to wear compression socks . Well Adult Female - exam completed. Pap and breast exam completed. Pt will be called with results of her testing. She was advised to continue with yearly annual exams. Safe sex practices discussed during office visit today. Call if any abnormal gynecologic issues during the next year, otherwise, RTC yearly or prn. . Sacroiliitis-injec tion today in the office- back exercises discussed with the patient, pt to continue with anti-inflammatories and exercises as directed. Pt is to call if the symptoms do not improve or if they worsen. . Sinusitis - Pt has acute infection - pain in face, maxillary region, Pt informed to use decongestant, RX given to patient, sinus rinses also recommended. Call if symptoms do not show improvement. Allergies - chronic - recommended pt to use allergy medication as prescribed. Pt has been counseled as to the appropriate use of the medication. Pt to call if allergy symptoms are not controlled with the medication. If using nasal spray, instructions as follows: Nasal spray- use twice daily, one spray per nostril twice daily, after 30 minutes, rinse out nose with saline spray.. Use opposite hand per nostril to spray in the nasal steroid allergy spray. kenalog . Sinusitis - Pt has acute infection - p ain in face, maxillary region, Pt informed to use decongestant, RX given to patient, sinus rinses also recommended. Call if symptoms do not show improvement. . Sinusitis - Pt has acute infection - pain in face, maxillary region, Pt informed to use decongestant, RX given to patient, sinus rinses also recommended. Call if symptoms do not show improvement. Allergies - chronic - recommended pt to use allergy medication as prescribed. Pt has been counseled as to the appropriate use of the medication. Pt to call if allergy symptoms are not controlled with the medication. If using nasal spray, instructions as follows: Nasal spray- use twice daily, one spray per nostril twice daily, after 30 minutes, rinse out nose with saline spray.. Use opposite hand per nostril to spray in the nasal steroid allergy spray.
--- OUTSIDE RECORDS SUMMARY | 2019-10-14 08:43 | XMS REPORT | CCD ---
Author Author Laquita Hoover Organization Shanti Hoover MD, [facility] Address [address] [place] [address] Phone Care Team Providers Care Cloth Folder Machine Name Role Phone PP Unavailable CCM Unavailable Summary Purpose Interface Exchange Insurance Providers Payer name Policy type / Coverage type Covered libertarian ID Effective Begin Date Effective End Date [employer] e [id number] 2018 Unknown Family history Adopted Diagnosis Age At Onset No Family Disease Entered N/A Social History Social History Element Codes Description Effective Dates Marital status Unknown M arried 09/30/2012 Number of children Unknown 2 09/30/2012 Employment Unknown Oscar bauer employed via [employer] in [place] 09/30/[address]: 0548253 Quit less than 10 years ago 09/30/2012 [...] Codes Condition Status Onset Date Resolved Date Encounter for screen ing mammogram for malignant [...] Condition Codes Effectiv e Dates Condition Status Encounter for screen ing mammogram for malignant [...] Instructions escitalopram 10 mg t ablet RxNorm: 526755 1 Tablet(s) PO QHS 11/24/2018 06/21/2019 Active acyclovir 800 mg tablet RxNorm: 959859 1 Tablet(s) PO TID take at symptoms of c old sore, if no outbreak, take for 5 days, if breaks out, take for 10 days total 11/24/2018 02/01/2019 Ac tive Bactrim DS 800 mg-16 0 mg tablet RxNorm: 370052 1 Tablet(s) PO BID 11/16/2018 11/22/2018 Inactive dispense generic Bactrim DS 800 mg-16 0 mg tablet RxNorm: 458243 1 Tablet(s) PO BID 11/16/2018 11/15/2018 Inactive Keflex 500 mg capsule RxNorm: 803232 1 Capsule(s) PO TID 11/12/2018 11/15/2018 Inactive Augmentin 875 mg-125 mg tablet RxNorm: 801968 1 Tablet(s) PO BID 05/17/2018 05/23/2018 Inactive Kenalog 40 mg/mL guevara pension for injection RxNorm: 7747441 Milliliter(s) Inj 05/17/2018 05/17/2018 In active Augmentin 875 mg-125 mg tablet RxNorm: 454883 1 Tablet(s) PO BID 03/12/2018 03/18/2018 Inactive take a probioitic while on the abx Kenalog 40 mg/mL guevara pension for injection RxNorm: 9942586 1 Milliliter(s) Inj 03/12/2018 03/12/2018 In active doxycycline hyclate 100 mg capsule RxNorm: 6265999 1 Capsule(s) PO BID 01/28/2018 02/06/2018 In active dapsone 25 mg tablet RxNorm: 335041 2 Tablet(s) PO daily 01/28/2018 02/01/2018 Inactive diclofenac 50 mg-mis oprostol 200 mcg tablet,immed.and delayed release RxNorm: 098878 1 Tablet(s) PO BID 11/05/2017 11/23/2018 Inactive acyclovir 800 mg tablet RxNorm: 191135 1 Tablet(s) PO TID take at symptoms of c old sore, if no outbreak, take for 5 days, if breaks out, take for 10 days total 09/09/2017 10/08/2017 In active prednisone 10 mg tablet RxNorm: 766526 Tablet(s) PO 07/10/2017 11/23/2018 Inactive 6,5, 4,3,2,1 Zithromax Z-Dawson 250 mg tablet RxNorm: 004418 1 Tablet(s) PO UD 07/10/2017 07/14/2017 Inactive zpack Augmentin 875 mg-125 mg tablet RxNorm: 340428 1 Tablet(s) PO BID 05/29/2017 05/28/2017 Inactive Augmentin 875 mg-125 mg tablet RxNorm: 463017 1 Tablet(s) PO BID 05/29/2017 06/07/2017 Inactive Kenalog 40 mg/mL guevara pension for injection RxNorm: 8431378 1 Milliliter(s) Inj 04/30/2017 04/30/2017 In active Keflex 500 mg capsule RxNorm: 920286 1 Capsule(s) PO TID 04/30/2017 05/09/2017 Inactive Vitamin D3 5,000 uni t tablet RxNorm: 749124 1 Tablet(s) PO daily 12/17/2016 No Stop Date Active Jublia 10 % topical solution with applicator RxNorm: 3186747 1 Application TOP da marshall 12/12/2016 2016 Inactive Jublia 10 % topical solution with applicator RxNorm: 2164378 1 Application TOP da marshall 12/12/2016 11/23/2018 Inactive acyclovir 800 mg tablet RxNorm: 195290 1 Tablet(s) PO TID take at symptoms of c old sore, if no outbreak, take for 5 days, if breaks out, take for 10 days total 09/25/2016 10/24/2016 In active Kenalog 40 mg/mL guevara pension for injection RxNorm: 2574067 Milliliter(s) Inj 10/08/2015 10/08/2015 In active doxycycline hyclate 100 mg tablet RxNorm: 850040 1 Tablet(s) PO BID 10/08/2015 10/17/2015 Inactive cefdinir 300 mg capsule RxNorm: 396303 1 Capsule(s) PO BID 06/25/2015 07/01/2015 Inactive cefdinir 300 mg capsule RxNorm: 033898 1 Capsule(s) PO BID 06/25/2015 06/24/2015 Inactive ceftriaxone 500 mg s olution for injection RxNorm: 8551543 Inj 06/21/2015 06/21/2015 Inactive Kenalog 40 mg/mL guevara pension for injection RxNorm: 8239732 Milliliter(s) Inj 06/21/2015 06/21/2015 In active Zithromax Z-Dawson 250 mg tablet RxNorm: 834748 1 Tablet(s) PO UD 06/21/2015 06/25/2015 Inactive lupe acyclovir 800 mg tablet RxNorm: 424114 1 Tablet(s) PO TID take at symptoms of c old sore, if no outbreak, take for 5 days, if breaks out, take for 10 days total 10/31/2014 11/29/2014 In active Cipro 500 mg tablet RxNorm: 914465 1 Tablet(s) PO BID 01/18/2013 01/17/2013 Inactive Cipro 500 mg tablet RxNorm: 322398 1 Tablet(s) PO BID 01/18/2013 01/20/2013 Inactive Ocuvite oral RxNorm: 061103 oral No Start Date Active flaxseed oil oral RxNorm: 108606 oral No Start Date Active Calcium 600 + D(3) oral RxNorm: 285729 oral No Start Date Active Vitamin D3 Oral RxNorm: Oral No Start Date 12/16/2016 Inactive krill oil 1,000 mg-1 70 mg-50 mg-80 mg capsule RxNorm: 1 Capsule(s) PO daily No Start Date 11/23/2018 Inactive flaxseed oil Oral RxNorm: Oral No Start Date 11/04/2016 Inactive Medication Administered Medication Codes Instruc tions Start Date Status Kenalog 40 mg/mL suspension for injection RxNorm: 7175108 Milliliter 05/17/2018 No longer Active Kenalog 40 mg/mL suspension for injection RxNorm: 6943293 1Milliliter 03/12/2018 N o longer Active Kenalog 40 mg/mL suspension for injection RxNorm: 7363743 1Milliliter 04/30/2017 N o longer Active Kenalog 40 mg/mL suspension for injection RxNorm: 6521719 Milliliter 10/08/2015 No longer Active Kenalog 40 mg/mL suspension for injection RxNorm: 6064217 Milliliter 06/21/2015 No longer Active ceftriaxone 500 mg solution for injection RxNorm: 8745032 06/21/2015 No longer A ctive Immunizations Vaccine Codes Date Status Influenza CVX: 141 01/22 completed Influenza CVX: 141 02/17 completed Tetanus, Diptheria, Pertussis CVX: 05/20/2011 completed Tetanus/Diptheria CVX: 05/20/2011 completed Assessments Condition Codes Effectiv e Dates Encounter for screening mammogram for ma lignant [...] 30.8 pg 11/12/2018 Cbc With Differential Ord2 [place]% 8.0 % 11/12/2018 Cbc With Differential Ord2 [...] 1.55 K/ul 11/12/2018 Cbc With Differential Ord2 [place] ABS# 0.6 K/ul 11/12/2018 Cbc With Differential Ord2 Eos ABS# 0.1 K/ul 11/12/2018 Cbc With Differential Ord2 Baso ABS# 0.0 K/ul 11/12/2018 Tsh Ord6 TSH (3rd IS) 2.41 uIU/mL 11/12/2018 Lipid Ord30 CHOL 162 mg/dL 11/12/2018 Lipid Ord30 HDL 61.0 mg/dl 11/12/2018 Lipid Ord30 TRIG 84 mg/dL 11/12/2018 Lipid Ord30 LDL 84 mg/dL 11/12/2018 Lipid Ord30 C/HDL 2.7 Ratio 11/12/2018 Comp Metabolic Ybb393 NA 140 mEq/L 11/12/2018 Comp Metabolic Kry152 K 4.0 mEq/L 11/12/2018 Comp Metabolic Iel905 CL 102 mEq/L 11/12/2018 Comp Metabolic Rbl187 CO2 31.0 mEq/L 11/12/2018 Comp Metabolic Anx738 AN ION GAP 11 11/12/2018 Comp Metabolic Rpi247 GL UCOSE 92 mg/dL 11/12/2018 Comp Metabolic Khi435 Cr eat 0.7 mg/dL 11/12/2018 Comp Metabolic Fvo077 eG FR 98 ml/min/1.73m2 11/12 Comp Metabolic Uda681 BUN 12 mg/dL 11/12/2018 Comp Metabolic Qkv816 B/ C Ratio 18.5 Ratio 11/12/2018 Comp Metabolic Pss650 CA LCIUM 9.6 mg/dL 11/12/2018 Comp Metabolic Pjz420 AL K PHOS 75 U/L 11/12/2018 Comp Metabolic Mvk514 T(SGOT) 16 U/L 11/12/2018 Comp Metabolic Ypw393 AL T(SGPT) 16 U/L 11/12/2018 Comp Metabolic Mpr242 BI LI T 0.6 mg/dL 11/12/2018 Comp Metabolic Lbw133 AL BUMIN 4.3 g/dL 11/12/2018 Comp Metabolic Vin490 TP RO 7.0 g/dL 11/12/2018 Comp Metabolic Dbl122 GL OB 2.7 g/dL 11/12/2018 Comp Metabolic Qru346 A/ G Ratio 1.6 Ratio 11/12/2018 Comp Metabolic Nyz817 Os mo 279 mOsmo 11/12/2018 Lipid Ord30 [...] 31.3 pg 11/02/2017 Cbc With Differential Ord2 [place]% 8.9 % 11/02/2017 Cbc With Differential Ord2 [...] 1.75 K/ul 11/02/2017 Cbc With Differential Ord2 [place] ABS# 0.3 K/ul 11/02/2017 Cbc With Differential Ord2 Eos ABS# 0.1 K/ul 11/02/2017 Cbc With Differential Ord2 Baso ABS# 0.0 K/ul 11/02/2017 Comp Metabolic Goq219 NA 141 mEq/L 11/02/2017 Comp Metabolic Iba259 K 4.0 mEq/L 11/02/2017 Comp Metabolic Wno490 CL 104 mEq/L 11/02/2017 Comp Metabolic Ian840 CO2 29.0 mEq/L 11/02/2017 Comp Metabolic Ghb337 AN ION GAP 12 11/02/2017 Comp Metabolic Ejo605 GL UCOSE 91 mg/dL 11/02/2017 Comp Metabolic Dim696 Cr eat 0.7 mg/dL 11/02/2017 Comp Metabolic Sdp323 eG FR 94 ml/min/1.73m2 11/02 Comp Metabolic Pdm700 BUN 18 mg/dL 11/02/2017 Comp Metabolic Kdc964 B/ C Ratio 26.5 Ratio 11/02/2017 Comp Metabolic Njo150 CA LCIUM 9.7 mg/dL 11/02/2017 Comp Metabolic Wzx983 AL K PHOS 65 U/L 11/02/2017 Comp Metabolic Qzr639 T(SGOT) 16 U/L 11/02/2017 Comp Metabolic Goe617 AL T(SGPT) 17 U/L 11/02/2017 Comp Metabolic Vdh454 BI LI T 0.4 mg/dL 11/02/2017 Comp Metabolic Ysy039 AL BUMIN 4.1 g/dL 11/02/2017 Comp Metabolic Tae552 TP RO 6.7 g/dL 11/02/2017 Comp Metabolic Frd284 GL OB 2.6 g/dL 11/02/2017 Comp Metabolic Eck646 A/ G Ratio 1.6 Ratio 11/02/2017 Comp Metabolic Tdh211 Os mo 283 mOsmo 11/02/2017 Tsh Ord6 hTSH II 2.02 uIU/mL 01/27/2017 Comp Metabolic Zhq145 NA 141 mEq/L 01/27/2017 Comp Metabolic Omx190 K 4.2 mEq/L 01/27/2017 Comp Metabolic Cpo483 CL 103 mEq/L 01/27/2017 Comp Metabolic Adn534 CO2 31.0 mEq/L 01/27/2017 Comp Metabolic Wtg733 AN ION GAP 11 01/27/2017 Comp Metabolic Mru429 GL UCOSE 90 mg/dL 01/27/2017 Comp Metabolic Nqs079 Cr eat 0.6 mg/dL 01/27/2017 Comp Metabolic Yvt263 eG FR 101 ml/min/1.73m2 01/18 Comp Metabolic Rwa377 BUN 17 mg/dL 01/27/2017 Comp Metabolic Jmc926 B/ C Ratio 26.6 Ratio 01/27/2017 Comp Metabolic Jmg710 CA LCIUM 9.5 mg/dL 01/27/2017 Comp Metabolic Fsc185 AL K PHOS 73 U/L 01/27/2017 Comp Metabolic Moo515 T(SGOT) 19 U/L 01/27/2017 Comp Metabolic Zpo906 AL T(SGPT) 20 U/L 01/27/2017 Comp Metabolic Emt897 BI LI T 0.5 mg/dL 01/27/2017 Comp Metabolic Cse968 AL BUMIN 4.3 g/dL 01/27/2017 Comp Metabolic Kot458 TP RO 6.6 g/dL 01/27/2017 Comp Metabolic Igx618 GL OB 2.3 g/dL 01/27/2017 Comp Metabolic Tlv224 A/ G Ratio 1.8 Ratio 01/27/2017 Comp Metabolic Frn447 Os mo 282 mOsmo 01/27/2017 Lipid Ord30 [...] 30.9 pg 01/27/2017 Cbc With Differential Ord2 [place]% 11.8 % 01/27/2017 Cbc With Differential Ord2 [...] 1.72 K/ul 01/27/2017 Cbc With Differential Ord2 [place] ABS# 0.4 K/ul 01/27/2017 Cbc With Differential [...] 30.9 pg 01/22/2016 Cbc With Differential Ord2 [place]% 8.6 % 01/22/2016 Cbc With Differential Ord2 [...] 1.66 K/ul 01/22/2016 Cbc With Differential Ord2 [place] ABS# 0.4 K/ul 01/22/2016 Cbc With Differential Ord2 Eos ABS# 0.1 K/ul 01/22/2016 Cbc With Differential Ord2 Baso ABS# 0.1 K/ul 01/22/2016 Comp Metabolic Jiw915 NA 141 mEq/L 01/22/2016 Comp Metabolic Qxr555 K 4.2 mEq/L 01/22/2016 Comp Metabolic Xxw906 CL 105 mEq/L 01/22/2016 Comp Metabolic Vjf353 CO2 30.0 mEq/L 01/22/2016 Comp Metabolic Vwr741 AN ION GAP 10 01/22/2016 Comp Metabolic Eli111 GL UCOSE 85 mg/dL 01/22/2016 Comp Metabolic Plh001 Cr eat 0.6 mg/dL 01/22/2016 Comp Metabolic Erm807 eG FR 109 ml/min/1.73m2 07/2015 Comp Metabolic Lng263 BUN 14 mg/dL 01/22/2016 Comp Metabolic Rwn527 B/ C Ratio 23.3 Ratio 01/22/2016 Comp Metabolic Ejp061 CA LCIUM 9.1 mg/dL 01/22/2016 Comp Metabolic Umt916 AL K PHOS 69 U/L 01/22/2016 Comp Metabolic Xjd144 T(SGOT) 16 U/L 01/22/2016 Comp Metabolic Coy428 AL T(SGPT) 15 U/L 01/22/2016 Comp Metabolic Nqo443 BI LI T 0.3 mg/dL 01/22/2016 Comp Metabolic Rbs156 AL BUMIN 4.0 g/dL 01/22/2016 Comp Metabolic Hkg264 TP RO 6.8 g/dL 01/22/2016 Comp Metabolic Dkp701 GL OB 2.8 g/dL 01/22/2016 Comp Metabolic Jgj342 A/ G Ratio 1.5 Ratio 01/22/2016 Comp Metabolic Ppu703 Os mo 281 mOsmo 01/22/2016 Tsh Ord6 [...] Ord2 RDW 14.1 % 01/17/2015 Comp Metabolic Cnf927 NA 137 mEq/L 01/17/2015 Comp Metabolic Thq798 K 4.1 mEq/L 01/17/2015 Comp Metabolic Blc379 CL 103 mEq/L 01/17/2015 Comp Metabolic Zsa862 CO2 35.0 mEq/L 01/17/2015 Comp Metabolic Gdq902 AN ION GAP 3 01/17/2015 Comp Metabolic Rsg006 GL UCOSE 88 mg/dL 01/17/2015 Comp Metabolic Pvg799 Cr eat 0.6 mg/dL 01/17/2015 Comp Metabolic Wcl237 eG FR 107 ml/min/1.73m2 12/21 Comp Metabolic Qda763 BUN 14 mg/dL 01/17/2015 Comp Metabolic Yvr527 B/ C Ratio 23.0 Ratio 01/17/2015 Comp Metabolic Dvz811 CA LCIUM 9.4 mg/dL 01/17/2015 Comp Metabolic Bub054 AL K PHOS 71 U/L 01/17/2015 Comp Metabolic Xhv945 T(SGOT) 17 U/L 01/17/2015 Comp Metabolic Jod461 AL T(SGPT) 14 U/L 01/17/2015 Comp Metabolic Kgv198 BI LI T 0.4 mg/dL 01/17/2015 Comp Metabolic Jyk541 AL BUMIN 4.3 g/dL 01/17/2015 Comp Metabolic Vqh367 TP RO 7.0 g/dL 01/17/2015 Comp Metabolic Hif097 GL OB 2.7 g/dL 01/17/2015 Comp Metabolic Ywl367 A/ G Ratio 1.6 Ratio 01/17/2015 Comp Metabolic Ekk177 Os mo 274 mOsmo 01/17/2015 CHEM 14 4465837 AST 15 U/L 01/03/2014 CHEM 14 7713038 ALT 10 IU/L 01/03/2014 CHEM 14 6619739 BUN 12 MG/DL 01/03/2014 CHEM 14 1660597 ALBUMIN 4.4 GM/DL 01/03/2014 CHEM 14 0434405 CHLORIDE 105 MMOL/L 01/03/2014 CHEM 14 6213609 BILI TOT 0.5 MG/DL 01/03/2014 CHEM 14 7891570 ALK PHOS 69 U/L 01/03/2014 CHEM 14 4406119 SODIUM 140 MMOL/L 01/03/2014 CHEM 14 8938559 CREATINI NE 0.66 MG/DL 01/03/2014 CHEM 14 4294293 CALCIUM 9.3 MG/DL 01/03/2014 CHEM 14 8500575 POTASSIUM 3.8 MMOL/L 01/03/2014 CHEM 14 3231435 PROT TOT 7.3 GM/DL 01/03/2014 CHEM 14 3765565 GLUCOSE 89 MG/DL 01/03/2014 CHEM 14 4267243 BICARB 31 MMOL/L 01/03/2014 CHEM 14 3654391 ANION GAP 4 MEQ/L 01/03/2014 CBC 2633448 WBC 3.8 10e9/L 01/03/2014 CBC 1282369 RBC 4.16 10e12/L 01/03/2014 CBC 2976261 HGB 12.8 g/dL 01/03/2014 CBC 6809248 HCT DET 38.8 % 01/03/2014 CBC 2921581 MCV 93.3 fL 01/03/2014 CBC 2882906 MCH 30.8 pg 01/03/2014 CBC 6269454 MCHC 33.0 g/dL 01/03/2014 CBC 2375715 PLT 206 10e9/L 01/03/2014 CBC 4412879 MPV 10.1 fL 01/03/2014 CBC 7163017 CHRISTINA % 42.3 % 01/03/2014 CBC 4239217 LY % 44.0 % 01/03/2014 CBC 6484489 MON % 9.5 % 01/03/2014 CBC 6834574 EOS % 2.9 % 01/03/2014 CBC 4035577 BASO % 1.3 % 01/03/2014 CBC 7459120 RDW 12.8 % 01/03/2014 CBC 9594763 ABS CHRISTINA 1.61 10e9/L 01/03/2014 CBC 1301461 ABS LYMPH 1.67 10e9/L 01/03/2014 CBC 3224582 ABS MONO 0.36 10e9/L 01/03/2014 CBC 4567020 ABS EOS 0.11 10e9/L 01/03/2014 CBC 4898250 ABS BASO 0.05 10e9/L 01/03/2014 CBC 0342730 RDW-SD 42.3 fL 01/03/2014 TSH 3834789 TSH 2.728 uIU/ML 01/03/2014 GFR CALC 7192510 GFR AA >60 ML/MIN 01/03/2014 GFR CALC 9658908 GFR NON -AA >60 ML/MIN 01/03/2014 GC/CHL PRB 8819960 CHLM PROBE NEG 12/29/2012 GC/CHL PRB 9045485 GC VT OBE NEG 12/29/2012 URINALYSIS NONAUTO W/O SCOPE 40769 Specific [place] 1.015 DateTime(Free Text in Aprima) URINALYSIS NONAUTO W/O SCOPE 85114 PH 6.5 DateTime(Free Luis Eduardo t in ) URINALYSIS NONAUTO W/O SCOPE 04950 GLUCOSE DateTime(Free Text i n Aprima) URINALYSIS NONAUTO W/O SCOPE 66485 Protein DateTime(Free Text i n Aprima) URINALYSIS NONAUTO W/O SCOPE 83373 Blood 3+ DateTime(Free Text in Aprima) URINALYSIS NONAUTO W/O SCOPE 53985 Bilirubin DateTime(Free Text i n Aprima) URINALYSIS NONAUTO W/O SCOPE 62215 Ketones DateTime(Free Text i n Aprima) URINALYSIS NONAUTO W/O SCOPE 48207 Urobilinogen DateTime(Free Text in Aprima) URINALYSIS NONAUTO W/O SCOPE 45894 Nitrite + DateTime(Free Text in Julima) URINALYSIS NONAUTO W/O SCOPE 75125 Leukocytes DateTime(Fr ee Text in ) Review [...] pain 11/24/2018 Neurologic No syncope Psychiatric anxiety 08/0 10/2018 Psychiatric depression 0 11/24/2018 Constitutional No recent [...] abnormalities 11/24/2018 None Full Exam - General 1995 Genitourinary cervix Overall: no discharge 11/24/2018 None Full Exam - General 1994 Genitourinary urethra Overall: no masses 11/24/2018 None Full Exam - General 1994 Genitourinary bladder Overall: no tenderness 11/24/2018 None Full Exam - General 1995 Cardiovascular extremities Other findings: varicose veins 11/24/2018 None Full Exam - General 1995 Cardiovascular extremities Other findings: spider veins 11/24/2018 [...] clear 11/21/2013 None Full Exam - General 1995 Ears/Nose/Throat [...] 11/21/2013 None Full Exam - General 1994 Abdomen abdominal exam Overall: no tenderness 11/21/2013 None Full Exam - General 1994 Abdomen abdominal exam Overall: normal bowel sounds 11/21/2013 None Full Exam - General 1994 Integument inspection of skin Overall: few scattered moles, no gross abnormalities 11/21/2013 None Full Exam - General 1994 [...] developed 12/28/2012 None Full Exam - General 1995 Constitutional general appearance Overall: in no acute distress 12/28/2012 None Full Exam - General 1995 Constitutional general appearance Overall: well nourished 12/28/2012 [...] retractions 12/28/2012 None Full Exam - General 1994 Respiratory respiratory effort/rhythm Overall: normal rate 12/28/2012 None Full Exam - General 1994 Cardiovascular extremities Overall: no clubbing 12/28/2012 None Full Exam - General 1994 Cardiovascular auscultation of heart Overall: regular rate 12/28/2012 None Full Exam - General 1994 Cardiovascular auscultation of heart Overall: normal heart sounds 12/28/2012 None Full Exam - General 1994 Cardiovascular auscultation of heart Overall: no murmurs 12/28/2012 None Full Exam - General 1994 Abdomen abdominal exam Overall: no tenderness 12/28/2012 None Full Exam - General 1994 Abdomen abdominal exam Overall: normal bowel sounds 12/28/2012 None Full Exam - General 1994 Lymphatic neck nodes Overall: anterior cervical chain benign 12/28/2012 None Full Exam - General 1995 Lymphatic neck nodes Overall: posterior cervical chain benign 12/28/2012 None Full Exam - General 1995 Musculoskeletal head and neck Overall: head atraumatic 12/28/2012 None Full Exam - General 1994 Musculoskeletal head and neck Overall: cervical spine benign 12/28/2012 None Full Exam - General 1994 Neurologic cranial nerves Overall: crainial nerves 2 - 12 grossly intact 12/28/2012 None Full Exam - General 1994 Psychiatric orientation/consciousness Overall: oriented to person, place and time 12/28/2012 None Full Exam - General 1994 Psychiatric mood and affect Overall: normal mood and affect 12/28/2012 None Full Exam - General 1994 Psychiatric mood and affect Mood: happy 12/28/2012 None Full Exam - General 1994 Chest/Breast breast and axillae palpation Overall: breasts non- tender 12/28/2012 None Full Exam - General 1994 Chest/Breast breast and axillae palpation Overall: axillae non- tender 12/28/2012 None Full Exam - General 1994 [...] friable 12/28/2012 None Full Exam - General 1994 Genitourinary cervix Inspection: erythematous 12/28/2012 roughly 3 [...] distress 09/30/2012 None Full Exam - General 1995 [...] Date URINALYSIS NONAUTO W /O SCOPE CPT-4: 77242 11/12/2018 TRIAMCINOLONE ACET I [place] NOS CPT-4: J3301 05/17/2018 TRIAMCINOLONE ACET I [place] NOS CPT-4: J3301 03/12/2018 THER/PROPH/DIAG INJ SC/IM CPT-4: 41973 04/30/2017 TRIAMCINOLONE ACET I [place] NOS CPT-4: J3301 04/30/2017 TRIAMCINOLONE ACET I [place] NOS CPT-4: J3301 10/08/2015 TRIAMCINOLONE ACET I [place] NOS CPT-4: J3301 06/21/2015 ROCEPHIN, PER 250 MG CPT-4: J0696 06/21/2015 URINALYSIS NONAUTO W /O SCOPE CPT-4: 89870 01/18/2013 Vital Signs Date Vital 11/24/2018 Blood Pressure 1: 124/74 Code: 8480-6 BMI: 30.0 Code: 48726-9 Heart Rate 1: 65 bpm Height: 5'4" SpO2: 98% Weight: 177 lbs 8 oz 05/17/2018 Blood Pressure 1: 132/72 Code: 8480-6 BMI: 31.1 Code: 27025-5 Heart Rate 1: 82 bpm Height: 5'4" SpO2: 95% Weight: 184 lbs 03/12/2018 Blood Pressure 1: 140/80 Code: 8480-6 BMI: 31.3 Code: 00120-5 Heart Rate 1: 75 bpm Height: 5'4" SpO2: 98% Weight: 185 lbs 01/28/2018 Blood Pressure 1: 145/80 Code: 8480-6 BMI: 31.1 Code: 92997-3 Heart Rate 1: 73 bpm Height: 5'4" SpO2: 95% Weight: 184 lbs 11/05/2017 Blood Pressure 1: 140/82 Code: 8480-6 Blood Pressure 2: 130/78 Code: 8480-6 BMI: 30.6 Code: 65078-7 Heart Rate 1: 64 bpm Height: 5'4" SpO2: 97% Weight: 180 lbs 14 o z 07/10/2017 Blood Pressure 1: 124/72 Code: 8480-6 Heart Rate 1: 73 bpm Height: 5'4" SpO2: 99% Weight: 04/30/2017 Blood Pressure 1: 142/86 Code: 8480-6 BMI: 30.4 Code: 96324-0 Heart Rate 1: 57 bpm Height: 5'4" SpO2: 98% Temperature: 36.8 (C ) / 98.3 (F) Weight: 180 lbs 11/05/2016 Blood Pressure 1: 130/80 Code: 8480-6 BMI: 31.1 Code: 44809-6 Heart Rate 1: 68 bpm Height: 5'4" SpO2: 95% Weight: 184 lbs 11/01/2015 Blood Pressure 1: 124/76 Code: 8480-6 BMI: 30.1 Code: 24464-0 Heart Rate 1: 58 bpm Height: 5'4" SpO2: 97% Weight: 178 lbs 10/08/2015 Blood Pressure 1: 120/82 Code: 8480-6 BMI: 31.1 Code: 38880-9 Heart Rate 1: 71 bpm Height: 5'4" SpO2: 98% Weight: 184 lbs 06/21/2015 Blood Pressure 1: 142/90 Code: 8480-6 BMI: 23.0 Code: 93909-8 Heart Rate 1: 72 bpm Height: 5'4" SpO2: 92% Temperature: 36.6 (C ) / 97.8 (F) Weight: 136 lbs 06/15/2015 Blood Pressure 1: 138/72 Code: 8480-6 BMI: 23.0 Code: 23980-9 Heart Rate 1: 83 bpm Height: 5'4" SpO2: 96% Weight: 136 lbs 10/31/2014 Blood Pressure 1: 138/72 Code: 8480-6 BMI: 30.4 Code: 55893-8 Heart Rate 1: 69 bpm Height: 5'4" SpO2: 96% Weight: 180 lbs 11/21/2013 Blood Pressure 1: 128/82 Code: 8480-6 BMI: 29.4 Code: 70201-8 Heart Rate 1: 64 bpm Height: 5'4" Weight: 174 lbs 12/28/2012 Blood Pressure 1: 130/88 Code: 8480-6 BMI: 30.3 Code: 14265-9 Heart Rate 1: 60 bpm Height: 5'5" Weight: 182 lbs 09/30/2012 Blood Pressure 1: 126/78 Code: 8480-6 BMI: 30.1 Code: 90389-7 Heart Rate 1: 72 bpm Height: 5'5" [...] None well woman 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 PATIENT, LEVEL II Diagnosis: Dysuria[ICD10: R30.0] [facility] CPT-4: 18442 11/12/2018 ([id number]) 23075 EST. P ATIENT, LEVEL III Diagnosis: Acute recurrent maxillary sinusitis[ICD10: J01.01] Diagnosis: Cough[ICD10: R05] [facility] CPT-4: 04061 05/17/2018 ([id number]) 45711 EST. P ATIENT, LEVEL III Diagnosis: Acute recurrent maxillary sinusitis[ICD10: J01.01] Diagnosis: Other allergic rhinitis[ICD10: J30.89] Diagnosis: Cough[ICD10: R05] [facility] CPT-4: 02995 03/12/2018 [id number] EST. PATIENT, LEVEL III Diagnosis: Cellulitis of left lower limb[ICD10: L03.116] [facility] CPT-4: 35403 01/28/2018 ([id number]) PREV VISIT E AGE 40-64 Diagnosis: Encounter for general adult medical examination without abnormal findings[ICD10: Z00.00] Shanti Hoover MD, [facility] CPT-4: 35881 11/05/2017 [id number] EST. PATIENT, LEVEL IV Diagnosis: Other acute sinusitis[ICD10: J01.80] Diagnosis: Other allergic rhinitis[ICD10: J30.89] Minoo Hoover MD, [facility] CPT-4: 44167 07/10/2017 [id number] EST. PATIENT, LEVEL IV Diagnosis: Other acute sinusitis[ICD10: J01.80] Diagnosis: Other allergic rhinitis[ICD10: J30.89] Minoo Hoover MD, [facility] CPT-4: 25754 04/30/2017 ([id number]) PREV VISIT E AGE 40-64 Diagnosis: Encounter for general adult medical examination without abnormal findings[ICD10: Z00.00] Shanti Hoover MD, [facility] CPT-4: 84120 11/05/2016 ([id number]) PREV VISIT E AGE 40-64 Diagnosis: Encounter for gynecological examination (general) (routine) without abnormal findings[ICD10: Z01.419] Shanti Hoover MD, [facility] CPT-4: 21372 11/01/2015 ([id number]) 31551 EST. P ATIENT, LEVEL III Diagnosis: Insect bite (nonvenomous), right knee, initial encounter[ICD10: S80.261A] Diagnosis: Allergic rhinitis due to pollen[ICD10: J30.1] Criselda Hoover MD, [facility] CPT-4: 79428 10/08/2015 ([id number]) [id number] EST. P ATIENT, LEVEL III Diagnosis: Acute recurrent maxillary sinusitis[ICD10: J01.01] Diagnosis: Acute bronchitis, unspecified[ICD10: J20.9] [facility] CPT-4: 78061 06/21/2015 ([id number]) 18015 EST. P ATIENT, LEVEL III Diagnosis: Low back pain[ICD10: M54.5] Diagnosis: Sacroiliitis, not elsewhere classified[ICD10: M46.1] Criselda Hoover MD, [facility] CPT-4: 86184 06/15/2015 ([id number]) PREV VISIT E ST AGE 40-64 Diagnosis: Routine medical exam[ICD9: V70.0] [facility] CPT-4: 46960 10/31/2014 ([id number]) PREV VISIT E ST AGE 40-64 Diagnosis: Routine medical exam[ICD9: V70.0] Shanti Hoover MD, [facility] CPT-4: 05020 11/21/2013 ([id number]) [id number] EST. 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 Antibiotic electronically prescribed to pt's pharmacy of choice. Pt to call if symptoms do not improve. 11/12/2018 Appointment: Minoo Joshua WPtel: [phone] [phone] (30 min) Complex 11/12/2018 Patient Education: Patient Medication Summary Completed 11/12/2018 Care Plan: Urine Culture Pending 11/12/2018 Visit Plan: Sinusitis - Pt has acut e infection - pain in face, maxillary region, Pt informed to use decongestant, RX given to patient, sinus rinses also recommended. Call if symptoms do not show improvement. 05/17/2018 Appointment: Criselda Anderson WPtel: [phone] [phone] (30 min) Complex 05/17/2018 Patient Education: Patient Medication Summary Completed 05/17/2018 Visit Plan: Sinusitis - Pt has acut e infection - pain in face, maxillary region, Pt informed to use decongestant, RX given to patient, sinus rinses also recommended. Call if symptoms do not show improvement. 03/12/2018 Appointment: Criselda Anderson WPtel: [phone] [phone] (15 min) Moderate 03/12/2018 Patient Education: [...] warmth, discharge. 01/28/2018 Appointment: Minoo Joshua WPtel: [facility]5 [facility] (15 min) Moderate 01/28/2018 Patient Education: [...] for arthrotec. 11/05/2017 Appointment: Shanti Hoover WPtel: [phone] [facility] (15 min) Moderate 11/05/2017 Patient Education: Patient [...] allergy spray. 07/10/2017 Appointment: Minoo Joshua WPtel: [facility]4 [facility] (15 min) Moderate 07/10/2017 Patient Education: [...] allergy spray. 04/30/2017 Appointment: Minoo Joshua WPtel: [phone] [facility] (15 min) Moderate 04/30/2017 Patient Education: Patient [...] renal functioning. 11/05/2016 Appointment: Shanti Hoover WPtel: [facility] Physical 11/05/2016 Patient Education: Patient Medication Summary Completed 11/05/2016 Patient Education: Obesity Completed 11/05/2016 Appointment: Shanti Hoover WPtel: [facility] Well Woman 01/02/2016 Visit Plan: Well Adult [...] the office. 10/08/2015 Appointment: Criselda Anderson WPtel: [phone] (15 min) Moderate 10/08/2015 Patient Education: Patient Medication Summary Completed 10/08/2015 Patient Education: Obesity Completed 10/08/2015 Visit Plan: Sinusitis - Pt has acut e infection - pain in face, maxillary region, Pt informed to use decongestant, RX given to patient, sinus rinses also recommended. Call if symptoms do not show improvement. 06/21/2015 Appointment: Criselda Anderson WPtel: [phone] (10 min) Simple 06/21/2015 Patient Education: [...] Completed 06/15/2015 Care Plan: SCREENINGMAMMOGRAPHYDIGITAL LOINC : 61084-7 Ordered 11/19/2014 Visit Plan: Well Adult - [...] renal functioning. 10/31/2014 Appointment: Sh[facility] Hoover [facility]Ptel[facility] [facility] 10/31/2014 Patient Education: Patient Medication Summary [...] renal functioning. 11/21/2013 [facility]ment: [phone] [facility] 11/21/2013 Patient Education: Patient Medication Summary Completed 11/21/2013 Appointment: Shanti Hoover WPtel: [phone] [facility] Lab Draw 01/18/2013 Patient Education: Patient Medication Summary Completed 01/18/2013 Visit Plan: Well Adult Female - exa m completed. Pap and gc/chlamydia and breast exam completed. Pt will be called with results of her testing. She was advised to continue with yearly annual exams. Pt referred to Dr Bolivar Sun for further evaluation of the large cervical polyp. 12/28/2012 Appointment: Shanti Hoover WPtel: [facility] Well Woman 12/28/2012 Patient Education: Patient Medication Summary Completed 12/28/2012 Visit Plan: recommended well woman exam and labs. recommended starting multivitamin improved sleep hygeine 09/30/2012 Appointment: Shanti Hoover WPtel[facility] New Patient 09/30/2012 Patient Education: Patient Medication [...] rub to joints RX for arthrotec. . Well Adult - pt wa s [...] rub to joints RX for arthrotec. . Sinusitis - Pt has acute infection - pain in face, maxillary region, Pt informed to use decongestant, RX given to patient, sinus rinses also recommended. Call if symptoms do not show improvement. KENALOG . Sinusitis - Pt has acute infection - pain in face, maxillary region, Pt informed to use decongestant, RX given to patient, sinus rinses also recommended. Call if symptoms do not show improvement. . recommended well w marilyn exam and labs. recommended starting multivitamin improved sleep hygeine . Tick Bite - pt giv en [...] Kenalog injection today in the office. . Well Adult - pt wa s counseled about diet, exercise, and encouraged to follow a heart healthy diet and increase activity level. The patient was instructed to RTC yearly for well adult exams and PRN for acute illnesses. The pt was also instructed to have yearly labs for check of cholesterol, thyroid, chem panel, CBC, and renal functioning. extended release shukri atonin - 5mg and [...] chem panel, CBC, and renal functioning. . Cellulitis - kelli nue with oral antibiotics as previously directed, return to clinic as previously directed, call for acute change in symptoms, worsening redness, warmth, discharge. . Cellulitis - kelli nue with oral antibiotics as previously directed, return to clinic as previously directed, call for acute change in symptoms, worsening redness, warmth, discharge. . Well Adult Female - exam completed. Pap and gc/chlamydia and breast exam completed. Pt will be called with results of her testing. She was advised to continue with yearly annual exams. Pt referred to Dr. Sun for further evaluation of the large cervical polyp. . Sinusitis - Pt has acute infection [...] spray in the nasal steroid allergy spray. . Sacroiliitis-injec tion today in the office- back exercises discussed with the patient, pt to continue with anti-inflammatories and exercises as directed. Pt is to call if the symptoms do not improve or if they worsen. . Well Adult Female - exam completed. Pap and breast exam completed. Pt will be called with results of her testing. She was advised to continue with yearly annual exams. Safe sex practices discussed during office visit today. Call if any abnormal gynecologic issues during the next year, otherwise, RTC yearly or prn. vital sox. Well Adul t Female - [...] to wear compression socks . Well Adult - pt wa s counseled about diet, exercise, and encouraged to follow a heart healthy diet and increase activity level. The patient was instructed to RTC yearly for well adult exams and PRN for acute illnesses. The pt was also instructed to have yearly labs for check of cholesterol, thyroid, chem panel, CBC, and renal functioning. . UTI - pt with posi tive urinalysis - culture sent if appropriate. Antibiotic electronically prescribed to pt's pharmacy of choice. Pt to call if symptoms do not improve.
--- OUTSIDE RECORDS SUMMARY | 2019-10-14 08:44 | XMS REPORT | CCD ---
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 Role Phone PP Unavailable CCM Unavailable Summary Purpose Interface Exchange Insurance Providers Payer name Policy type / Coverage type Covered libertarian ID Effective Begin Date Effective End Date [place] [employer] [id number] 2018 Unknown Family history Adopted Diagnosis Age At Onset No Family Disease Entered N/A Social History Social History Element Codes Description Effective Dates Marital status Unknown M arried 09/30/2012 Number of children Unknown 2 09/30/2012 Employment Unknown Oscar bauer employed via [employer] in [employer] 09/30/[address]: 3146981 Quit less than 10 years ago 09/30/2012 [...] Status Onset Date Resolved Date Encounter for gyneco logical examination (general) (routine) [...] ICD-10: L03.116 Active 01/28/2018 Unknown Encounter for screen ing mammogram for malignant neoplasm of breast ICD-9: V76.12 ICD-10: Z12.31 Active 2017 Unknown Encounter for genera l adult medical [...] Effectiv e Dates Condition Status Encounter for gyneco logical examination (general) (routine) [...] 682.6 ICD-10: L03.116 01/28/2018 Active Encounter for screen ing mammogram for malignant neoplasm of breast ICD-9: V76.12 ICD-10: Z12.31 2017 Active Encounter for genera l adult medical [...] Instructions escitalopram 10 mg t ablet RxNorm: 101951 1 Tablet(s) PO QHS 11/24/2018 06/21/2019 Active acyclovir 800 mg tablet RxNorm: 653353 1 Tablet(s) PO TID take at symptoms of c old sore, if no outbreak, take for 5 days, if breaks out, take for 10 days total 11/24/2018 02/01/2019 Ac tive Bactrim DS 800 mg-16 0 mg tablet RxNorm: 003971 1 Tablet(s) PO BID 11/16/2018 11/22/2018 Inactive dispense generic Bactrim DS 800 mg-16 0 mg tablet RxNorm: 798171 1 Tablet(s) PO BID 11/16/2018 11/15/2018 Inactive Keflex 500 mg capsule RxNorm: 752030 1 Capsule(s) PO TID 11/12/2018 11/15/2018 Inactive Augmentin 875 mg-125 mg tablet RxNorm: 770024 1 Tablet(s) PO BID 05/17/2018 05/23/2018 Inactive Kenalog 40 mg/mL gue[employer]a pension for injection RxNorm: 0014137 Milliliter(s) Inj 05/17/2018 05/17/2018 In active Augmentin 875 mg-125 mg tablet RxNorm: 291789 1 Tablet(s) PO BID 03/12/2018 03/18/2018 Inactive take a probioitic while on the abx Kenalog 40 mg/mL gue[employer] pension for injection RxNorm: 0726099 1 Milliliter(s) Inj 03/12/2018 03/12/2018 In active doxycycline hyclate 100 mg capsule RxNorm: 3297245 1 Capsule(s) PO BID 01/28/2018 02/06/2018 In active dapsone 25 mg tablet RxNorm: 710831 2 Tablet(s) PO daily 01/28/2018 02/01/2018 Inactive diclofenac 50 mg-mis oprostol 200 mcg tablet,immed.and delayed release RxNorm: 989554 1 Tablet(s) PO BID 11/05/2017 11/23/2018 Inactive acyclovir 800 mg tablet RxNorm: 991198 1 Tablet(s) PO TID take at symptoms of c old sore, if no outbreak, take for 5 days, if breaks out, take for 10 days total 09/09/2017 10/08/2017 In active prednisone 10 mg tablet RxNorm: 943070 Tablet(s) PO 07/10/2017 11/23/2018 Inactive 6,5, 4,3,2,1 Zithromax Z-Dawson 250 mg tablet RxNorm: 070759 1 Tablet(s) PO UD 07/10/2017 07/14/2017 Inactive zpack Augmentin 875 mg-125 mg tablet RxNorm: 308624 1 Tablet(s) PO BID 05/29/2017 05/28/2017 Inactive Augmentin 875 mg-125 mg tablet RxNorm: 876296 1 Tablet(s) PO BID 05/29/2017 06/07/2017 Inactive Kenalog 40 mg/mL gue[employer]a pension for injection RxNorm: 0719884 1 Milliliter(s) Inj 04/30/2017 04/30/2017 In active Keflex 500 mg capsule RxNorm: 640372 1 Capsule(s) PO TID 04/30/2017 05/09/2017 Inactive Vitamin D3 5,000 uni t tablet RxNorm: 673448 1 Tablet(s) PO daily 12/17/2016 No Stop Date Active Jublia 10 % topical solution with applicator RxNorm: 5341498 1 Application TOP da marshall 12/12/2016 2016 Inactive Jublia 10 % topical solution with applicator RxNorm: 0121722 1 Application TOP da marshall 12/12/2016 11/23/2018 Inactive acyclovir 800 mg tablet RxNorm: 821355 1 Tablet(s) PO TID take at symptoms of c old sore, if no outbreak, take for 5 days, if breaks out, take for 10 days total 09/25/2016 10/24/2016 In active Kenalog 40 mg/mL gue[employer]a pension for injection RxNorm: 0331229 Milliliter(s) Inj 10/08/2015 10/08/2015 In active doxycycline hyclate 100 mg tablet RxNorm: 793103 1 Tablet(s) PO BID 10/08/2015 10/17/2015 Inactive cefdinir 300 mg capsule RxNorm: 900717 1 Capsule(s) PO BID 06/25/2015 07/01/2015 Inactive cefdinir 300 mg capsule RxNorm: 534317 1 Capsule(s) PO BID 06/25/2015 06/24/2015 Inactive ceftriaxone 500 mg s olution for injection RxNorm: 3592624 Inj 06/21/2015 06/21/2015 Inactive Kenalog 40 mg/mL gue[employer]a pension for injection RxNorm: 9857930 Milliliter(s) Inj 06/21/2015 06/21/2015 In active Zithromax Z-Dawson 250 mg tablet RxNorm: 624401 1 Tablet(s) PO UD 06/21/2015 06/25/2015 Inactive lupe acyclovir 800 mg tablet RxNorm: 665351 1 Tablet(s) PO TID take at symptoms of c old sore, if no outbreak, take for 5 days, if breaks out, take for 10 days total 10/31/2014 11/29/2014 In active Cipro 500 mg tablet RxNorm: 353692 1 Tablet(s) PO BID 01/18/2013 01/17/2013 Inactive Cipro 500 mg tablet RxNorm: 234575 1 Tablet(s) PO BID 01/18/2013 01/20/2013 Inactive Ocuvite oral RxNorm: 749626 oral No Start Date Active flaxseed oil oral RxNorm: 852237 oral No Start Date Active Calcium 600 + D(3) oral RxNorm: 094985 oral No Start Date Active Vitamin D3 Oral RxNorm: Oral No Start Date 12/16/2016 Inactive krill oil 1,000 mg-1 70 mg-50 mg-80 mg capsule RxNorm: 1 Capsule(s) PO daily No Start Date 11/23/2018 Inactive flaxseed oil Oral RxNorm: Oral No Start Date 11/04/2016 Inactive Medication Administered Medication Codes Instruc tions Start Date Status Kenalog 40 mg/mL suspension for injection RxNorm: 7271936 Milliliter 05/17/2018 No longer Active Kenalog 40 mg/mL suspension for injection RxNorm: 0513033 1Milliliter 03/12/2018 N o longer Active Kenalog 40 mg/mL suspension for injection RxNorm: 1736635 1Milliliter 04/30/2017 N o longer Active Kenalog 40 mg/mL suspension for injection RxNorm: 6430102 Milliliter 10/08/2015 No longer Active Kenalog 40 mg/mL suspension for injection RxNorm: 0128489 Milliliter 06/21/2015 No longer Active ceftriaxone 500 mg solution for injection RxNorm: 0719884 06/21/2015 No longer A ctive Immunizations Vaccine Codes Date Status Influenza CVX: 141 01/22 completed Influenza CVX: 141 02/17 completed Tetanus, Diptheria, Pertussis CVX: 113 05/20/2011 completed Tetanus/Diptheria CVX: 113 05/20/2011 completed Assessments Condition Codes Effectiv e Dates Encounter for gynecological examination (general) (routine) without [...] : L03.116 ICD-9: 682.6 01/28/2018 Encounter for screening mammogram for ma lignant neoplasm of breast ICD-10: Z12.31 ICD-9: V76.12 2017 Encounter for general adult medical exam ination [...] 30.8 pg 11/12/2018 Cbc With Differential Ord2 [place]% 8.0 % 11/12/2018 Cbc With Differential Ord2 [...] 1.55 K/ul 11/12/2018 Cbc With Differential Ord2 [place] ABS# 0.6 K/ul 11/12/2018 Cbc With Differential Ord2 Eos ABS# 0.1 K/ul 11/12/2018 Cbc With Differential Ord2 Baso ABS# 0.0 K/ul 11/12/2018 Tsh Ord6 TSH (3rd IS) 2.41 uIU/mL 11/12/2018 Lipid Ord30 CHOL 162 mg/dL 11/12/2018 Lipid Ord30 HDL 61.0 mg/dl 11/12/2018 Lipid Ord30 TRIG 84 mg/dL 11/12/2018 Lipid Ord30 LDL 84 mg/dL 11/12/2018 Lipid Ord30 C/HDL 2.7 Ratio 11/12/2018 Comp Metabolic Chp201 NA 140 mEq/L 11/12/2018 Comp Metabolic Usq309 K 4.0 mEq/L 11/12/2018 Comp Metabolic Oms246 CL 102 mEq/L 11/12/2018 Comp Metabolic Zxn724 CO2 31.0 mEq/L 11/12/2018 Comp Metabolic Roq136 AN ION GAP 11 11/12/2018 Comp Metabolic Ssu919 GL UCOSE 92 mg/dL 11/12/2018 Comp Metabolic Ilm507 Cr eat 0.7 mg/dL 11/12/2018 Comp Metabolic Myw782 eG FR 98 ml/min/1.73m2 11/12 Comp Metabolic Aeg621 BUN 12 mg/dL 11/12/2018 Comp Metabolic Nft308 B/ C Ratio 18.5 Ratio 11/12/2018 Comp Metabolic Jii878 CA LCIUM 9.6 mg/dL 11/12/2018 Comp Metabolic Vau963 AL K PHOS 75 U/L 11/12/2018 Comp Metabolic Dqu994 T(SGOT) 16 U/L 11/12/2018 Comp Metabolic Cbe139 AL T(SGPT) 16 U/L 11/12/2018 Comp Metabolic Kvc888 BI LI T 0.6 mg/dL 11/12/2018 Comp Metabolic Wge533 AL BUMIN 4.3 g/dL 11/12/2018 Comp Metabolic Ezz408 TP RO 7.0 g/dL 11/12/2018 Comp Metabolic Sga401 GL OB 2.7 g/dL 11/12/2018 Comp Metabolic Zml769 A/ G Ratio 1.6 Ratio 11/12/2018 Comp Metabolic Amf648 Os mo 279 mOsmo 11/12/2018 Lipid Ord30 [...] 31.3 pg 11/02/2017 Cbc With Differential Ord2 [place]% 8.9 % 11/02/2017 Cbc With Differential Ord2 [...] 1.75 K/ul 11/02/2017 Cbc With Differential Ord2 [place] ABS# 0.3 K/ul 11/02/2017 Cbc With Differential Ord2 Eos ABS# 0.1 K/ul 11/02/2017 Cbc With Differential Ord2 Baso ABS# 0.0 K/ul 11/02/2017 Comp Metabolic Pey524 NA 141 mEq/L 11/02/2017 Comp Metabolic Usv817 K 4.0 mEq/L 11/02/2017 Comp Metabolic Dsq939 CL 104 mEq/L 11/02/2017 Comp Metabolic Ybx621 CO2 29.0 mEq/L 11/02/2017 Comp Metabolic Det761 AN ION GAP 12 11/02/2017 Comp Metabolic Myf169 GL UCOSE 91 mg/dL 11/02/2017 Comp Metabolic Sef936 Cr eat 0.7 mg/dL 11/02/2017 Comp Metabolic Olk173 eG FR 94 ml/min/1.73m2 11/02 Comp Metabolic Leh799 BUN 18 mg/dL 11/02/2017 Comp Metabolic Lxa458 B/ C Ratio 26.5 Ratio 11/02/2017 Comp Metabolic Edj681 CA LCIUM 9.7 mg/dL 11/02/2017 Comp Metabolic Evp091 AL K PHOS 65 U/L 11/02/2017 Comp Metabolic Ese806 T(SGOT) 16 U/L 11/02/2017 Comp Metabolic Szp263 AL T(SGPT) 17 U/L 11/02/2017 Comp Metabolic Dff472 BI LI T 0.4 mg/dL 11/02/2017 Comp Metabolic Uyq778 AL BUMIN 4.1 g/dL 11/02/2017 Comp Metabolic Vpy213 TP RO 6.7 g/dL 11/02/2017 Comp Metabolic Emv827 GL OB 2.6 g/dL 11/02/2017 Comp Metabolic Kaw801 A/ G Ratio 1.6 Ratio 11/02/2017 Comp Metabolic Mxq623 Os mo 283 mOsmo 11/02/2017 Tsh Ord6 hTSH II 2.02 uIU/mL 01/27/2017 Comp Metabolic Hpn763 NA 141 mEq/L 01/27/2017 Comp Metabolic Quz248 K 4.2 mEq/L 01/27/2017 Comp Metabolic Pig706 CL 103 mEq/L 01/27/2017 Comp Metabolic Mxf090 CO2 31.0 mEq/L 01/27/2017 Comp Metabolic Lod615 AN ION GAP 11 01/27/2017 Comp Metabolic Yxw767 GL UCOSE 90 mg/dL 01/27/2017 Comp Metabolic Osw258 Cr eat 0.6 mg/dL 01/27/2017 Comp Metabolic Ofa769 eG FR 101 ml/min/1.73m2 01/18 Comp Metabolic Xih461 BUN 17 mg/dL 01/27/2017 Comp Metabolic Qej533 B/ C Ratio 26.6 Ratio 01/27/2017 Comp Metabolic Tji364 CA LCIUM 9.5 mg/dL 01/27/2017 Comp Metabolic Nts701 AL K PHOS 73 U/L 01/27/2017 Comp Metabolic Zuq052 T(SGOT) 19 U/L 01/27/2017 Comp Metabolic Exx331 AL T(SGPT) 20 U/L 01/27/2017 Comp Metabolic Whb187 BI LI T 0.5 mg/dL 01/27/2017 Comp Metabolic Yjk457 AL BUMIN 4.3 g/dL 01/27/2017 Comp Metabolic Kyl821 TP RO 6.6 g/dL 01/27/2017 Comp Metabolic Gul796 GL OB 2.3 g/dL 01/27/2017 Comp Metabolic Xdf709 A/ G Ratio 1.8 Ratio 01/27/2017 Comp Metabolic Sjl399 Os mo 282 mOsmo 01/27/2017 Lipid Ord30 [...] 30.9 pg 01/27/2017 Cbc With Differential Ord2 [place]% 11.8 % 01/27/2017 Cbc With Differential Ord2 [...] 1.72 K/ul 01/27/2017 Cbc With Differential Ord2 [place] ABS# 0.4 K/ul 01/27/2017 Cbc With Differential [...] 30.9 pg 01/22/2016 Cbc With Differential Ord2 [place]% 8.6 % 01/22/2016 Cbc With Differential Ord2 [...] 1.66 K/ul 01/22/2016 Cbc With Differential Ord2 [place] ABS# 0.4 K/ul 01/22/2016 Cbc With Differential Ord2 Eos ABS# 0.1 K/ul 01/22/2016 Cbc With Differential Ord2 Baso ABS# 0.1 K/ul 01/22/2016 Comp Metabolic Igw576 NA 141 mEq/L 01/22/2016 Comp Metabolic Piz092 K 4.2 mEq/L 01/22/2016 Comp Metabolic Ygb393 CL 105 mEq/L 01/22/2016 Comp Metabolic Oqd110 CO2 30.0 mEq/L 01/22/2016 Comp Metabolic Ega143 AN ION GAP 10 01/22/2016 Comp Metabolic Ene661 GL UCOSE 85 mg/dL 01/22/2016 Comp Metabolic Tkh983 Cr eat 0.6 mg/dL 01/22/2016 Comp Metabolic Afe442 eG FR 109 ml/min/1.73m2 07/2015 Comp Metabolic Out499 BUN 14 mg/dL 01/22/2016 Comp Metabolic Jqv277 B/ C Ratio 23.3 Ratio 01/22/2016 Comp Metabolic Ybk300 CA LCIUM 9.1 mg/dL 01/22/2016 Comp Metabolic Kxv411 AL K PHOS 69 U/L 01/22/2016 Comp Metabolic Orx657 T(SGOT) 16 U/L 01/22/2016 Comp Metabolic Ysx663 AL T(SGPT) 15 U/L 01/22/2016 Comp Metabolic Vqx028 BI LI T 0.3 mg/dL 01/22/2016 Comp Metabolic Lox082 AL BUMIN 4.0 g/dL 01/22/2016 Comp Metabolic Cez421 TP RO 6.8 g/dL 01/22/2016 Comp Metabolic Pof029 GL OB 2.8 g/dL 01/22/2016 Comp Metabolic Ywy778 A/ G Ratio 1.5 Ratio 01/22/2016 Comp Metabolic Zws836 Os mo 281 mOsmo 01/22/2016 Tsh Ord6 [...] Ord2 RDW 14.1 % 01/17/2015 Comp Metabolic Xfe931 NA 137 mEq/L 01/17/2015 Comp Metabolic Yfz236 K 4.1 mEq/L 01/17/2015 Comp Metabolic Mnu651 CL 103 mEq/L 01/17/2015 Comp Metabolic Adm483 CO2 35.0 mEq/L 01/17/2015 Comp Metabolic Ect592 AN ION GAP 3 01/17/2015 Comp Metabolic Oks563 GL UCOSE 88 mg/dL 01/17/2015 Comp Metabolic Xym553 Cr eat 0.6 mg/dL 01/17/2015 Comp Metabolic Srm820 eG FR 107 ml/min/1.73m2 12/21 Comp Metabolic Vda781 BUN 14 mg/dL 01/17/2015 Comp Metabolic Mnb062 B/ C Ratio 23.0 Ratio 01/17/2015 Comp Metabolic Els533 CA LCIUM 9.4 mg/dL 01/17/2015 Comp Metabolic Jzb176 AL K PHOS 71 U/L 01/17/2015 Comp Metabolic Pbq753 T(SGOT) 17 U/L 01/17/2015 Comp Metabolic Vhb581 AL T(SGPT) 14 U/L 01/17/2015 Comp Metabolic Kaq476 BI LI T 0.4 mg/dL 01/17/2015 Comp Metabolic Pkb505 AL BUMIN 4.3 g/dL 01/17/2015 Comp Metabolic Ytf842 TP RO 7.0 g/dL 01/17/2015 Comp Metabolic Kki593 GL OB 2.7 g/dL 01/17/2015 Comp Metabolic Ghu786 A/ G Ratio 1.6 Ratio 01/17/2015 Comp Metabolic Uer945 Os mo 274 mOsmo 01/17/2015 CHEM 14 4337057 AST 15 U/L 01/03/2014 CHEM 14 8758814 ALT 10 IU/L 01/03/2014 CHEM 14 7321972 BUN 12 MG/DL 01/03/2014 CHEM 14 1231890 ALBUMIN 4.4 GM/DL 01/03/2014 CHEM 14 3207160 CHLORIDE 105 MMOL/L 01/03/2014 CHEM 14 2387206 BILI TOT 0.5 MG/DL 01/03/2014 CHEM 14 5940141 ALK PHOS 69 U/L 01/03/2014 CHEM 14 1025735 SODIUM 140 MMOL/L 01/03/2014 CHEM 14 3496258 CREATINI NE 0.66 MG/DL 01/03/2014 CHEM 14 4847214 CALCIUM 9.3 MG/DL 01/03/2014 CHEM 14 8455332 POTASSIUM 3.8 MMOL/L 01/03/2014 CHEM 14 3878800 PROT TOT 7.3 GM/DL 01/03/2014 CHEM 14 0630032 GLUCOSE 89 MG/DL 01/03/2014 CHEM 14 6235947 BICARB 31 MMOL/L 01/03/2014 CHEM 14 2966842 ANION GAP 4 MEQ/L 01/03/2014 CBC 2000668 WBC 3.8 10e9/L 01/03/2014 CBC 1240630 RBC 4.16 10e12/L 01/03/2014 CBC 7869478 HGB 12.8 g/dL 01/03/2014 CBC 9546171 HCT DET 38.8 % 01/03/2014 CBC 7707217 MCV 93.3 fL 01/03/2014 CBC 8223553 MCH 30.8 pg 01/03/2014 CBC 0437803 MCHC 33.0 g/dL 01/03/2014 CBC 5879565 PLT 206 10e9/L 01/03/2014 CBC 9126394 MPV 10.1 fL 01/03/2014 CBC 5502857 CHRISTINA % 42.3 % 01/03/2014 CBC 2071834 LY % 44.0 % 01/03/2014 CBC 1717033 MON % 9.5 % 01/03/2014 CBC 7518647 EOS % 2.9 % 01/03/2014 CBC 9024772 BASO % 1.3 % 01/03/2014 CBC 5135101 RDW 12.8 % 01/03/2014 CBC 1884960 ABS CHRISTINA 1.61 10e9/L 01/03/2014 CBC 9961834 ABS LYMPH 1.67 10e9/L 01/03/2014 CBC 4639733 ABS MONO 0.36 10e9/L 01/03/2014 CBC 9655171 ABS EOS 0.11 10e9/L 01/03/2014 CBC 0452149 ABS BASO 0.05 10e9/L 01/03/2014 CBC 5012623 RDW-SD 42.3 fL 01/03/2014 TSH 7915810 TSH 2.728 uIU/ML 01/03/2014 GFR CALC 5204989 GFR AA >60 ML/MIN 01/03/2014 GFR CALC 8822074 GFR NON -AA >60 ML/MIN 01/03/2014 GC/CHL PRB 5368624 CHLM PROBE NEG 12/29/2012 GC/CHL PRB 0167625 GC TX OBE NEG 12/29/2012 URINALYSIS NONAUTO W/O SCOPE 16316 Specific [place] 1.015 DateTime(Free Text in Aprima) URINALYSIS NONAUTO W/O SCOPE 51767 PH 6.5 DateTime(Free Luis Eduardo t in ) URINALYSIS NONAUTO W/O SCOPE 79521 GLUCOSE DateTime(Free Text i n Aprima) URINALYSIS NONAUTO W/O SCOPE 64727 Protein DateTime(Free Text i n Aprima) URINALYSIS NONAUTO W/O SCOPE 52128 Blood 3+ DateTime(Free Text in Aprima) URINALYSIS NONAUTO W/O SCOPE 77243 Bilirubin DateTime(Free Text i n Aprima) URINALYSIS NONAUTO W/O SCOPE 25338 Ketones DateTime(Free Text i n Aprima) URINALYSIS NONAUTO W/O SCOPE 51229 Urobilinogen DateTime(Free Text in Aprima) URINALYSIS NONAUTO W/O SCOPE 48586 Nitrite + DateTime(Free Text in Julima) URINALYSIS NONAUTO W/O SCOPE 59671 Leukocytes DateTime(Fr ee Text in ) Review [...] Date URINALYSIS NONAUTO W /O SCOPE CPT-4: 27185 11/12/2018 TRIAMCINOLONE ACET I [place] NOS CPT-4: J3301 05/17/2018 TRIAMCINOLONE ACET I [place] NOS CPT-4: J3301 03/12/2018 THER/PROPH/DIAG INJ SC/IM CPT-4: 98589 04/30/2017 TRIAMCINOLONE ACET I [place] NOS CPT-4: J3301 04/30/2017 TRIAMCINOLONE ACET I [place] NOS CPT-4: J3301 10/08/2015 TRIAMCINOLONE ACET I [place] NOS CPT-4: J3301 06/21/2015 ROCEPHIN, PER 250 MG CPT-4: J0696 06/21/2015 URINALYSIS NONAUTO W /O SCOPE CPT-4: 77465 01/18/2013 Vital Signs Date Vital 11/24/2018 Blood Pressure 1: 124/74 Code: 8480-6 BMI: 30.0 Code: 37427-4 Heart Rate 1: 65 bpm Height: 5'4" SpO2: 98% Weight: 177 lbs 8 oz 05/17/2018 Blood Pressure 1: 132/72 Code: 8480-6 BMI: 31.1 Code: 67069-0 Heart Rate 1: 82 bpm Height: 5'4" SpO2: 95% Weight: 184 lbs 03/12/2018 Blood Pressure 1: 140/80 Code: 8480-6 BMI: 31.3 Code: 00115-0 Heart Rate 1: 75 bpm Height: 5'4" SpO2: 98% Weight: 185 lbs 01/28/2018 Blood Pressure 1: 145/80 Code: 8480-6 BMI: 31.1 Code: 59834-1 Heart Rate 1: 73 bpm Height: 5'4" SpO2: 95% Weight: 184 lbs 11/05/2017 Blood Pressure 1: 140/82 Code: 8480-6 Blood Pressure 2: 130/78 Code: 8480-6 BMI: 30.6 Code: 12510-2 Heart Rate 1: 64 bpm Height: 5'4" SpO2: 97% Weight: 180 lbs 14 o z 07/10/2017 Blood Pressure 1: 124/72 Code: 8480-6 Heart Rate 1: 73 bpm Height: 5'4" SpO2: 99% Weight: 04/30/2017 Blood Pressure 1: 142/86 Code: 8480-6 BMI: 30.4 Code: 46165-0 Heart Rate 1: 57 bpm Height: 5'4" SpO2: 98% Temperature: 36.8 (C ) / 98.3 (F) Weight: 180 lbs 11/05/2016 Blood Pressure 1: 130/80 Code: 8480-6 BMI: 31.1 Code: 11039-1 Heart Rate 1: 68 bpm Height: 5'4" SpO2: 95% Weight: 184 lbs 11/01/2015 Blood Pressure 1: 124/76 Code: 8480-6 BMI: 30.1 Code: 86828-4 Heart Rate 1: 58 bpm Height: 5'4" SpO2: 97% Weight: 178 lbs 10/08/2015 Blood Pressure 1: 120/82 Code: 8480-6 BMI: 31.1 Code: 34072-0 Heart Rate 1: 71 bpm Height: 5'4" SpO2: 98% Weight: 184 lbs 06/21/2015 Blood Pressure 1: 142/90 Code: 8480-6 BMI: 23.0 Code: 32696-3 Heart Rate 1: 72 bpm Height: 5'4" SpO2: 92% Temperature: 36.6 (C ) / 97.8 (F) Weight: 136 lbs 06/15/2015 Blood Pressure 1: 138/72 Code: 8480-6 BMI: 23.0 Code: 45943-2 Heart Rate 1: 83 bpm Height: 5'4" SpO2: 96% Weight: 136 lbs 10/31/2014 Blood Pressure 1: 138/72 Code: 8480-6 BMI: 30.4 Code: 06220-6 Heart Rate 1: 69 bpm Height: 5'4" SpO2: 96% Weight: 180 lbs 11/21/2013 Blood Pressure 1: 128/82 Code: 8480-6 BMI: 29.4 Code: 58421-5 Heart Rate 1: 64 bpm Height: 5'4" Weight: 174 lbs 12/28/2012 Blood Pressure 1: 130/88 Code: 8480-6 BMI: 30.3 Code: 21160-0 Heart Rate 1: 60 bpm Height: 5'5" Weight: 182 lbs 09/30/2012 Blood Pressure 1: 126/78 Code: 8480-6 BMI: 30.1 Code: 89976-7 Heart Rate 1: 72 bpm Height: 5'5" [...] None well woman exam (40-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 PATIENT, LEVEL II Diagnosis: Dysuria[ICD10: R30.0] [facility] CPT-4: 49336 11/12/2018 ([id number]) 92856 EST. P ATIENT, LEVEL III Diagnosis: Acute recurrent maxillary sinusitis[ICD10: J01.01] Diagnosis: Cough[ICD10: R05] [facility] CPT-4: 64412 05/17/2018 ([id number]) 63581 EST. P ATIENT, LEVEL III Diagnosis: Acute recurrent maxillary sinusitis[ICD10: J01.01] Diagnosis: Other allergic rhinitis[ICD10: J30.89] Diagnosis: Cough[ICD10: R05] [facility] CPT-4: 35471 03/12/2018 [id number] EST. PATIENT, LEVEL III Diagnosis: Cellulitis of left lower limb[ICD10: L03.116] [facility] CPT-4: 79276 01/28/2018 ([id number]) PREV VISIT E AGE 40-64 Diagnosis: Encounter for general adult medical examination without abnormal findings[ICD10: Z00.00] Shanti Hoover MD, [facility] CPT-4: 93719 11/05/2017 [id number] EST. PATIENT, LEVEL IV Diagnosis: Other acute sinusitis[ICD10: J01.80] Diagnosis: Other allergic rhinitis[ICD10: J30.89] Minoo Hoover MD, [facility] CPT-4: 79719 07/10/2017 [id number] EST. PATIENT, LEVEL IV Diagnosis: Other acute sinusitis[ICD10: J01.80] Diagnosis: Other allergic rhinitis[ICD10: J30.89] Minoo Hoover MD, [facility] CPT-4: 77267 04/30/2017 ([id number]) PREV VISIT E AGE 40-64 Diagnosis: Encounter for general adult medical examination without abnormal findings[ICD10: Z00.00] Shanti Hoover MD, [facility] CPT-4: 40345 11/05/2016 ([id number]) PREV VISIT E AGE 40-64 Diagnosis: Encounter for gynecological examination (general) (routine) without abnormal findings[ICD10: Z01.419] Shanti Hoover MD, [facility] CPT-4: 43810 11/01/2015 ([id number]) 29885 EST. P ATIENT, LEVEL III Diagnosis: Insect bite (nonvenomous), right knee, initial encounter[ICD10: S80.261A] Diagnosis: Allergic rhinitis due to pollen[ICD10: J30.1] Criselda Hoover MD, [facility] CPT-4: 53096 10/08/2015 ([id number]) 90563 EST. P ATIENT, LEVEL III Diagnosis: Acute recurrent maxillary sinusitis[ICD10: J01.01] Diagnosis: Acute bronchitis, unspecified[ICD10: J20.9] [facility] CPT-4: 85310 06/21/2015 ([id number]) 88744 EST. P ATIENT, LEVEL III Diagnosis: Low back pain[ICD10: M54.5] Diagnosis: Sacroiliitis, not elsewhere classified[ICD10: M46.1] Criselda Hoover MD, [facility] CPT-4: 00561 06/15/2015 ([id number]) PREV VISIT E ST AGE 40-64 Diagnosis: Routine medical exam[ICD9: V70.0] [facility] CPT-4: 74227 10/31/2014 ([id number]) PREV VISIT E ST AGE 40-64 Diagnosis: Routine medical exam[ICD9: V70.0] Shanti Hoover MD, [facility] CPT-4: 38108 11/21/2013 ([id number]) 37215 EST. P ATIENT, LEVEL III Diagnosis: Well woman exam with routine gynecological exam[ICD9: V72.31] Diagnosis: Polyp at cervical os[ICD9: 622.7] [facility] CPT-4: 90115 12/28/2012 ([id number]) OFFICE/OUTPA TIENT VISIT NEW Diagnosis: Routine medical exam[ICD9: V70.0] Shanti Hoover MD, [facility] CPT-4: 29195 09/30/2012 Plan of Care Planned Activity Notes C odes Status Date Visit Plan: Well Adult Female - exa [...] she needs to wear compression socks 11/24/2018 Patient Education: Patient Medication Summary Completed 11/24/2018 Patient Education: Depression Completed 11/24/2018 Care Plan: PAP 2 Pending 11/24/2018 Visit Plan: UTI - pt with positive urinalysis - culture sent if appropriate. Antibiotic electronically prescribed to pt's pharmacy of choice. Pt to call if symptoms do not improve. 11/12/2018 Appointment: Minoo Joshua WPtel: [address] [place], [place] [phone] (30 min) Complex 11/12/2018 Patient Education: Patient Medication Summary Completed 11/12/2018 Care Plan: Urine Culture Pending 11/12/2018 Visit Plan: Sinusitis - Pt has acut e infection - pain in face, maxillary region, Pt informed to use decongestant, RX given to patient, sinus rinses also recommended. Call if symptoms do not show improvement. 05/17/2018 Appointment: Criselda Anderson WPtel: [phone] (30 min) Complex 05/17/2018 Patient Education: Patient Medication Summary Completed 05/17/2018 Visit Plan: Sinusitis - Pt has acut e infection - pain in face, maxillary region, Pt informed to use decongestant, RX given to patient, sinus rinses also recommended. Call if symptoms do not show improvement. 03/12/2018 Appointment: Criselda Anderson WPtel: [facility] [place] [phone] (15 min) Moderate 03/12/2018 Patient Education: Patient [...] warmth, discharge. 01/28/2018 Appointment: Minoo Joshua WPtel: [facility] (15 min) Moderate 01/28/2018 Patient Education: Patient [...] for arthrotec. 11/05/2017 Appointment: Shanti Hoover WPtel: [facility] (15 min) Moderate 11/05/2017 Patient Education: Patient [...] allergy spray. 07/10/2017 Appointment: Minoo Joshua WPtel: [facility] [address] (15 min) Moderate 07/10/2017 Patient Education: Patient [...] allergy spray. 04/30/2017 Appointment: Minoo Joshua WPtel: [facility]1 [id number] (15 min) Moderate 04/30/2017 Patient Education: Patient [...] renal functioning. 11/05/2016 Appointment: Shanti Hoover WPtel: [facility]8 [facility] Physical 11/05/2016 Patient Education: Patient Medication Summary Completed 11/05/2016 Patient Education: Obesity Completed 11/05/2016 Appointment: Shanti Hoover WPtel: [facility] [address] Well Woman 01/02/2016 Visit Plan: Well Adult [...] the office. 10/08/2015 Appointment: Criselda Anderson WPtel: [phone] (15 min) Moderate 10/08/2015 Patient Education: Patient Medication Summary Completed 10/08/2015 Patient Education: Obesity Completed 10/08/2015 Visit Plan: Sinusitis - Pt has acut e infection - pain in face, maxillary region, Pt informed to use decongestant, RX given to patient, sinus rinses also recommended. Call if symptoms do not show improvement. 06/21/2015 Appointment: Criselda Anderson WPtel: [facility]3 [phone] [place] [address] (10 min) Simple 06/21/2015 Patient Education: Patient Medication Summary Completed 06/21/2015 Visit Plan: Sacroiliitis-injection today in the office- back exercises discussed with the patient, pt to continue with anti-inflammatories and exercises as directed. Pt is to call if the symptoms do not improve or if they worsen. 06/15/2015 Appointment: (30 min) Complex 06/15/2015 Patient Education: Patient Medication Summary Completed 06/15/2015 Care Plan: [employer] : [id number] Ordered 11/19/2014 Visit Plan: Well Adult - [...] renal functioning. 10/31/2014 Appointment: Shanti Hoover WPtel: [address] [place], [place] [id number] Physical 10/31/2014 Patient Education: Patient Medication Summary [...] renal functioning. 11/21/2013 Appointment: Shanti Hoover WPtel: [facility] Well Woman 11/21/2013 Patient Education: Patient Medication Summary Completed 11/21/2013 [facility]ment[phone] [facility] 01/18/2013 Patient Education: Patient Medication Summary Completed 01/18/2013 Visit Plan: Well Adult Female - exa m completed. Pap and gc/chlamydia and breast exam completed. Pt will be called with results of her testing. She was advised to continue with yearly annual exams. Pt referred to Dr Bolivar Sun for further evaluation of the large cervical polyp. 12/28/2012 Appointment: Shanti Hoover WPtel: [phone] [id number] Well Woman 12/28/2012 Patient Education: Patient Medication Summary Completed 12/28/2012 Visit Plan: recommended well woman exam and labs. recommended starting multivitamin improved sleep hygeine 09/30/2012 Appointment: Shanti Hoover WPtel: [phone] [facility] New Patient 09/30/2012 Patient Education: Patient Medication [...]
[2019-10-14] MEDS ORDERED: MIDAZOLAM 5 MG/5 ML (VERSED) VIAL IV PRN (08:45)
[2019-10-14] MEDS ORDERED: LIDOCAINE JELLY 2% 6 ML SYRINGE MM PRN (08:45)
[2019-10-14] MEDS ORDERED: fentaNYL INJECTION 100 MCG/2 ML AMP IVP ONE (08:45)
--- OUTSIDE RECORDS SUMMARY | 2019-10-14 08:45 | XMS REPORT | CCD ---
Author Author Laquita Hoover Organization Shanti Hoover MD, [facility] Address [address] [place] [address] Phone Care Team Providers Care General Internist And Physician Leader Name Role Phone PP Unavailable CCM Unavailable Summary Purpose Interface Exchange Insurance Providers Payer name Policy type / Coverage type Covered alliance party ID Effective Begin Date Effective End Date [employer] RenewData Insuranc e [id number] Unknown Family history Adopted Diagnosis Age At Onset No Family Disease Entered N/A Social History Social History Element Codes Description Effective Dates Marital status Unknown M arried 09/30/2012 Number of children Unknown 2 09/30/2012 Employment Unknown Oscar bauer employed via [employer] in [place] 09/30/[address]: 4527685 Quit less than 10 years ago 09/30/2012 [...] Codes Condition Status Onset Date Resolved Date Dysuria ICD-9: 788.1 ICD-10: R30.0 Active 11/12/2018 [...] ICD-9: 461.8 ICD-10: J01.80 Active 04/30/2017 Unknown Encounter for gyneco logical examination (general) (routine) without abnormal findings ICD-9: V72.31 ICD-10: Z01.419 Active 12/28/2012 Unknown Allergic rhinitis du e to pollen [...] Condition Codes Effectiv e Dates Condition Status Dysuria ICD-9: 788.1 ICD-10: R30.0 11/12/2018 Active [...] sinusitis ICD-9: 461.8 ICD-10: J01.80 04/30/2017 Active Encounter for gyneco logical examination (general) (routine) without abnormal findings ICD-9: V72.31 ICD-10: Z01.419 12/28/2012 Active Allergic rhinitis du e to pollen [...] Date Stop Date Sta tus Fill Instructions Bactrim DS 800 mg-16 0 mg tablet RxNorm: 121955 1 Tablet(s) PO BID 11/16/2018 11/22/2018 Active dispense generic Bactrim DS 800 mg-16 0 mg tablet RxNorm: 449984 1 Tablet(s) PO BID 11/16/2018 11/15/2018 Inactive Keflex 500 mg capsule RxNorm: 481510 1 Capsule(s) PO TID 11/12/2018 11/15/2018 Inactive Augmentin 875 mg-125 mg tablet RxNorm: 412747 1 Tablet(s) PO BID 05/17/2018 05/23/2018 Inactive Kenalog 40 mg/mL guevara pension for injection RxNorm: 8263936 Milliliter(s) Inj 05/17/2018 05/17/2018 In active Augmentin 875 mg-125 mg tablet RxNorm: 415975 1 Tablet(s) PO BID 03/12/2018 03/18/2018 Inactive take a probioitic while on the abx Kenalog 40 mg/mL guevara pension for injection RxNorm: 2265553 1 Milliliter(s) Inj 03/12/2018 03/12/2018 In active doxycycline hyclate 100 mg capsule RxNorm: 8119455 1 Capsule(s) PO BID 01/28/2018 02/06/2018 In active dapsone 25 mg tablet RxNorm: 908578 2 Tablet(s) PO daily 01/28/2018 02/01/2018 Inactive diclofenac 50 mg-mis oprostol 200 mcg tablet,immed.and delayed release RxNorm: 254320 1 Tablet(s) PO BID 11/05/2017 03/04/2018 Inactive acyclovir 800 mg tablet RxNorm: 255442 1 Tablet(s) PO TID take at symptoms of c old sore, if no outbreak, take for 5 days, if breaks out, take for 10 days total 09/09/2017 10/08/2017 In active prednisone 10 mg tablet RxNorm: 971546 Tablet(s) PO 07/10/2017 No Stop Date Active 6,5, 4,3,2,1 Zithromax Z-Dawson 250 mg tablet RxNorm: 998220 1 Tablet(s) PO UD 07/10/2017 07/14/2017 Inactive zpack Augmentin 875 mg-125 mg tablet RxNorm: 039226 1 Tablet(s) PO BID 05/29/2017 05/28/2017 Inactive Augmentin 875 mg-125 mg tablet RxNorm: 158787 1 Tablet(s) PO BID 05/29/2017 06/07/2017 Inactive Kenalog 40 mg/mL guevara pension for injection RxNorm: 8536109 1 Milliliter(s) Inj 04/30/2017 04/30/2017 In active Keflex 500 mg capsule RxNorm: 043158 1 Capsule(s) PO TID 04/30/2017 05/09/2017 Inactive Vitamin D3 5,000 uni t tablet RxNorm: 146526 1 Tablet(s) PO daily 12/17/2016 No Stop Date Active Jublia 10 % topical solution with applicator RxNorm: 1034346 1 Application TOP da marshall 12/12/2016 06/09/2017 Inactive Jublia 10 % topical solution with applicator RxNorm: 5428408 1 Application TOP da marshall 12/12/2016 2016 Inactive acyclovir 800 mg tablet RxNorm: 632099 1 Tablet(s) PO TID take at symptoms of c old sore, if no outbreak, take for 5 days, if breaks out, take for 10 days total 09/25/2016 10/24/2016 In active Kenalog 40 mg/mL guevara pension for injection RxNorm: 9880300 Milliliter(s) Inj 10/08/2015 10/08/2015 In active doxycycline hyclate 100 mg tablet RxNorm: 312846 1 Tablet(s) PO BID 10/08/2015 10/17/2015 Inactive cefdinir 300 mg capsule RxNorm: 345699 1 Capsule(s) PO BID 06/25/2015 07/01/2015 Inactive cefdinir 300 mg capsule RxNorm: 496904 1 Capsule(s) PO BID 06/25/2015 06/24/2015 Inactive ceftriaxone 500 mg s olution for injection RxNorm: 8907350 Inj 06/21/2015 06/21/2015 Inactive Kenalog 40 mg/mL guevara pension for injection RxNorm: 7760837 Milliliter(s) Inj 06/21/2015 06/21/2015 In active Zithromax Z-Dawson 250 mg tablet RxNorm: 211058 1 Tablet(s) PO UD 06/21/2015 06/25/2015 Inactive zpack acyclovir 800 mg tablet RxNorm: 518362 1 Tablet(s) PO TID take at symptoms of c old sore, if no outbreak, take for 5 days, if breaks out, take for 10 days total 10/31/2014 11/29/2014 In active Cipro 500 mg tablet RxNorm: 217915 1 Tablet(s) PO BID 01/18/2013 01/17/2013 Inactive Cipro 500 mg tablet RxNorm: 936238 1 Tablet(s) PO BID 01/18/2013 01/20/2013 Inactive Ocuvite oral RxNorm: 832627 oral No Start Date Active krill oil 1,000 mg-1 70 mg-50 mg-80 mg capsule RxNorm: 1 Capsule(s) PO daily No Start Date Active Calcium 600 + D(3) oral RxNorm: 994451 oral No Start Date Active Vitamin D3 Oral RxNorm: Oral No Start Date 12/16/2016 Inactive flaxseed oil Oral RxNorm: Oral No Start Date 11/04/2016 Inactive Medication Administered Medication Codes Instruc tions Start Date Status Kenalog 40 mg/mL suspension for injection RxNorm: 1583071 Milliliter 05/17/2018 No longer Active Kenalog 40 mg/mL suspension for injection RxNorm: 3961515 1Milliliter 03/12/2018 N o longer Active Kenalog 40 mg/mL suspension for injection RxNorm: 1495673 1Milliliter 04/30/2017 N o longer Active Kenalog 40 mg/mL suspension for injection RxNorm: 7241587 Milliliter 10/08/2015 No longer Active Kenalog 40 mg/mL suspension for injection RxNorm: 9207397 Milliliter 06/21/2015 No longer Active ceftriaxone 500 mg solution for injection RxNorm: 5308895 06/21/2015 No longer A ctive Immunizations Vaccine Codes Date Status Influenza CVX: 141 01/22 completed Influenza CVX: 141 02/17 completed Tetanus, Diptheria, Pertussis CVX: 113 05/20/2011 completed Tetanus/Diptheria CVX: 113 05/20/2011 completed Assessments Condition Codes Effectiv e Dates Dysuria ICD-10: R30.0 ICD-9: 788.1 11/12/2018 Cough [...] acute sinusitis ICD-10: J01.80 ICD-9: 461.8 07/10/2017 Encounter for gynecological examination (general) (routine) without abnormal findings ICD-10: Z01.419 ICD-9: V72.31 11/01/2015 Insect bite (nonvenomous), right knee, initial encount [...] Visit Reason For Visit Effective Dates Notes dysuria 11/12/2018 sinus congestion 05/17/2018 sinus congestion [...] 30.8 pg 11/12/2018 Cbc With Differential Ord2 [place]% 8.0 % 11/12/2018 Cbc With Differential Ord2 [...] 1.55 K/ul 11/12/2018 Cbc With Differential Ord2 [place] ABS# 0.6 K/ul 11/12/2018 Cbc With Differential Ord2 Eos ABS# 0.1 K/ul 11/12/2018 Cbc With Differential Ord2 Baso ABS# 0.0 K/ul 11/12/2018 Tsh Ord6 TSH (3rd IS) 2.41 uIU/mL 11/12/2018 Lipid Ord30 CHOL 162 mg/dL 11/12/2018 Lipid Ord30 HDL 61.0 mg/dl 11/12/2018 Lipid Ord30 TRIG 84 mg/dL 11/12/2018 Lipid Ord30 LDL 84 mg/dL 11/12/2018 Lipid Ord30 C/HDL 2.7 Ratio 11/12/2018 Comp Metabolic Ett501 NA 140 mEq/L 11/12/2018 Comp Metabolic Uws621 K 4.0 mEq/L 11/12/2018 Comp Metabolic Vhk461 CL 102 mEq/L 11/12/2018 Comp Metabolic Ijm861 CO2 31.0 mEq/L 11/12/2018 Comp Metabolic Ccy625 AN ION GAP 11 11/12/2018 Comp Metabolic Gge763 GL UCOSE 92 mg/dL 11/12/2018 Comp Metabolic Guf703 Cr eat 0.7 mg/dL 11/12/2018 Comp Metabolic Xjq117 eG FR 98 ml/min/1.73m2 11/12 Comp Metabolic Vqd745 BUN 12 mg/dL 11/12/2018 Comp Metabolic Jjx806 B/ C Ratio 18.5 Ratio 11/12/2018 Comp Metabolic Qfm165 CA LCIUM 9.6 mg/dL 11/12/2018 Comp Metabolic Zvj235 AL K PHOS 75 U/L 11/12/2018 Comp Metabolic Hqb272 T(SGOT) 16 U/L 11/12/2018 Comp Metabolic Pno915 AL T(SGPT) 16 U/L 11/12/2018 Comp Metabolic Vli999 BI LI T 0.6 mg/dL 11/12/2018 Comp Metabolic Zkj200 AL BUMIN 4.3 g/dL 11/12/2018 Comp Metabolic Vhr446 TP RO 7.0 g/dL 11/12/2018 Comp Metabolic Teh892 GL OB 2.7 g/dL 11/12/2018 Comp Metabolic Xit832 A/ G Ratio 1.6 Ratio 11/12/2018 Comp Metabolic Lgz132 Os mo 279 mOsmo 11/12/2018 Lipid Ord30 [...] 31.3 pg 11/02/2017 Cbc With Differential Ord2 [place]% 8.9 % 11/02/2017 Cbc With Differential Ord2 [...] 1.75 K/ul 11/02/2017 Cbc With Differential Ord2 [place] ABS# 0.3 K/ul 11/02/2017 Cbc With Differential Ord2 Eos ABS# 0.1 K/ul 11/02/2017 Cbc With Differential Ord2 Baso ABS# 0.0 K/ul 11/02/2017 Comp Metabolic Xtd339 NA 141 mEq/L 11/02/2017 Comp Metabolic Yqg643 K 4.0 mEq/L 11/02/2017 Comp Metabolic Uqi733 CL 104 mEq/L 11/02/2017 Comp Metabolic Hbl839 CO2 29.0 mEq/L 11/02/2017 Comp Metabolic Fkw077 AN ION GAP 12 11/02/2017 Comp Metabolic Kzx995 GL UCOSE 91 mg/dL 11/02/2017 Comp Metabolic Dkl039 Cr eat 0.7 mg/dL 11/02/2017 Comp Metabolic Qcv570 eG FR 94 ml/min/1.73m2 11/02 Comp Metabolic Cxl909 BUN 18 mg/dL 11/02/2017 Comp Metabolic Xch510 B/ C Ratio 26.5 Ratio 11/02/2017 Comp Metabolic Ufc907 CA LCIUM 9.7 mg/dL 11/02/2017 Comp Metabolic Ucd223 AL K PHOS 65 U/L 11/02/2017 Comp Metabolic Rfl109 T(SGOT) 16 U/L 11/02/2017 Comp Metabolic Atq379 AL T(SGPT) 17 U/L 11/02/2017 Comp Metabolic Vmb416 BI LI T 0.4 mg/dL 11/02/2017 Comp Metabolic Hke541 AL BUMIN 4.1 g/dL 11/02/2017 Comp Metabolic Hcm028 TP RO 6.7 g/dL 11/02/2017 Comp Metabolic Xlv368 GL OB 2.6 g/dL 11/02/2017 Comp Metabolic Ywn324 A/ G Ratio 1.6 Ratio 11/02/2017 Comp Metabolic Nbe272 Os mo 283 mOsmo 11/02/2017 Tsh Ord6 hTSH II 2.02 uIU/mL 01/27/2017 Comp Metabolic Uch248 NA 141 mEq/L 01/27/2017 Comp Metabolic Lcq588 K 4.2 mEq/L 01/27/2017 Comp Metabolic Zvq973 CL 103 mEq/L 01/27/2017 Comp Metabolic Aep931 CO2 31.0 mEq/L 01/27/2017 Comp Metabolic Xae453 AN ION GAP 11 01/27/2017 Comp Metabolic Qwj874 GL UCOSE 90 mg/dL 01/27/2017 Comp Metabolic Hbe587 Cr eat 0.6 mg/dL 01/27/2017 Comp Metabolic Goe714 eG FR 101 ml/min/1.73m2 01/18 Comp Metabolic Qjr902 BUN 17 mg/dL 01/27/2017 Comp Metabolic Hzj508 B/ C Ratio 26.6 Ratio 01/27/2017 Comp Metabolic Hyx303 CA LCIUM 9.5 mg/dL 01/27/2017 Comp Metabolic Htr246 AL K PHOS 73 U/L 01/27/2017 Comp Metabolic Uif766 T(SGOT) 19 U/L 01/27/2017 Comp Metabolic Qmd374 AL T(SGPT) 20 U/L 01/27/2017 Comp Metabolic Lah310 BI LI T 0.5 mg/dL 01/27/2017 Comp Metabolic Sul442 AL BUMIN 4.3 g/dL 01/27/2017 Comp Metabolic Gwf816 TP RO 6.6 g/dL 01/27/2017 Comp Metabolic Hna494 GL OB 2.3 g/dL 01/27/2017 Comp Metabolic Vlz507 A/ G Ratio 1.8 Ratio 01/27/2017 Comp Metabolic Phl209 Os mo 282 mOsmo 01/27/2017 Lipid Ord30 [...] 30.9 pg 01/27/2017 Cbc With Differential Ord2 [place]% 11.8 % 01/27/2017 Cbc With Differential Ord2 [...] 1.72 K/ul 01/27/2017 Cbc With Differential Ord2 [place] ABS# 0.4 K/ul 01/27/2017 Cbc With Differential [...] 30.9 pg 01/22/2016 Cbc With Differential Ord2 [place]% 8.6 % 01/22/2016 Cbc With Differential Ord2 [...] 1.66 K/ul 01/22/2016 Cbc With Differential Ord2 [place] ABS# 0.4 K/ul 01/22/2016 Cbc With Differential Ord2 Eos ABS# 0.1 K/ul 01/22/2016 Cbc With Differential Ord2 Baso ABS# 0.1 K/ul 01/22/2016 Comp Metabolic Ddl663 NA 141 mEq/L 01/22/2016 Comp Metabolic Cos605 K 4.2 mEq/L 01/22/2016 Comp Metabolic Piy001 CL 105 mEq/L 01/22/2016 Comp Metabolic Ina931 CO2 30.0 mEq/L 01/22/2016 Comp Metabolic Bvu658 AN ION GAP 10 01/22/2016 Comp Metabolic Twm941 GL UCOSE 85 mg/dL 01/22/2016 Comp Metabolic Fne668 Cr eat 0.6 mg/dL 01/22/2016 Comp Metabolic Czr555 eG FR 109 ml/min/1.73m2 07/2015 Comp Metabolic Tzq999 BUN 14 mg/dL 01/22/2016 Comp Metabolic Asm132 B/ C Ratio 23.3 Ratio 01/22/2016 Comp Metabolic Dtg195 CA LCIUM 9.1 mg/dL 01/22/2016 Comp Metabolic Esi386 AL K PHOS 69 U/L 01/22/2016 Comp Metabolic Ubh659 T(SGOT) 16 U/L 01/22/2016 Comp Metabolic Bwc527 AL T(SGPT) 15 U/L 01/22/2016 Comp Metabolic Wyh163 BI LI T 0.3 mg/dL 01/22/2016 Comp Metabolic Dzo196 AL BUMIN 4.0 g/dL 01/22/2016 Comp Metabolic Aye102 TP RO 6.8 g/dL 01/22/2016 Comp Metabolic Aoq688 GL OB 2.8 g/dL 01/22/2016 Comp Metabolic Dzx478 A/ G Ratio 1.5 Ratio 01/22/2016 Comp Metabolic Pni264 Os mo 281 mOsmo 01/22/2016 Tsh Ord6 [...] Ord2 RDW 14.1 % 01/17/2015 Comp Metabolic Pzj506 NA 137 mEq/L 01/17/2015 Comp Metabolic Xjs691 K 4.1 mEq/L 01/17/2015 Comp Metabolic Bmm574 CL 103 mEq/L 01/17/2015 Comp Metabolic Ign510 CO2 35.0 mEq/L 01/17/2015 Comp Metabolic Iwp681 AN ION GAP 3 01/17/2015 Comp Metabolic Qzq404 GL UCOSE 88 mg/dL 01/17/2015 Comp Metabolic Ttu257 Cr eat 0.6 mg/dL 01/17/2015 Comp Metabolic Ecn408 eG FR 107 ml/min/1.73m2 12/21 Comp Metabolic Grr480 BUN 14 mg/dL 01/17/2015 Comp Metabolic Uzg172 B/ C Ratio 23.0 Ratio 01/17/2015 Comp Metabolic Wiy483 CA LCIUM 9.4 mg/dL 01/17/2015 Comp Metabolic Yym203 AL K PHOS 71 U/L 01/17/2015 Comp Metabolic Pwq625 T(SGOT) 17 U/L 01/17/2015 Comp Metabolic Tdq343 AL T(SGPT) 14 U/L 01/17/2015 Comp Metabolic Gkn036 BI LI T 0.4 mg/dL 01/17/2015 Comp Metabolic Tfp528 AL BUMIN 4.3 g/dL 01/17/2015 Comp Metabolic Xnq493 TP RO 7.0 g/dL 01/17/2015 Comp Metabolic Twr660 GL OB 2.7 g/dL 01/17/2015 Comp Metabolic Jas709 A/ G Ratio 1.6 Ratio 01/17/2015 Comp Metabolic Omq251 Os mo 274 mOsmo 01/17/2015 CHEM 14 8989606 AST 15 U/L 01/03/2014 CHEM 14 2337271 ALT 10 IU/L 01/03/2014 CHEM 14 0861512 BUN 12 MG/DL 01/03/2014 CHEM 14 7263668 ALBUMIN 4.4 GM/DL 01/03/2014 CHEM 14 5559415 CHLORIDE 105 MMOL/L 01/03/2014 CHEM 14 1657475 BILI TOT 0.5 MG/DL 01/03/2014 CHEM 14 6546523 ALK PHOS 69 U/L 01/03/2014 CHEM 14 9871851 SODIUM 140 MMOL/L 01/03/2014 CHEM 14 8197966 CREATINI NE 0.66 MG/DL 01/03/2014 CHEM 14 7634556 CALCIUM 9.3 MG/DL 01/03/2014 CHEM 14 9461671 POTASSIUM 3.8 MMOL/L 01/03/2014 CHEM 14 5747823 PROT TOT 7.3 GM/DL 01/03/2014 CHEM 14 8600115 GLUCOSE 89 MG/DL 01/03/2014 CHEM 14 9044924 BICARB 31 MMOL/L 01/03/2014 CHEM 14 6531674 ANION GAP 4 MEQ/L 01/03/2014 CBC 7237949 WBC 3.8 10e9/L 01/03/2014 CBC 9158491 RBC 4.16 10e12/L 01/03/2014 CBC 1331583 HGB 12.8 g/dL 01/03/2014 CBC 7577218 HCT DET 38.8 % 01/03/2014 CBC 0072738 MCV 93.3 fL 01/03/2014 CBC 1461468 MCH 30.8 pg 01/03/2014 CBC 2591521 MCHC 33.0 g/dL 01/03/2014 CBC 2652623 PLT 206 10e9/L 01/03/2014 CBC 0150073 MPV 10.1 fL 01/03/2014 CBC 4283711 CHRISTINA % 42.3 % 01/03/2014 CBC 8445887 LY % 44.0 % 01/03/2014 CBC 7985660 MON % 9.5 % 01/03/2014 CBC 6374036 EOS % 2.9 % 01/03/2014 CBC 8888017 BASO % 1.3 % 01/03/2014 CBC 6975492 RDW 12.8 % 01/03/2014 CBC 0199612 ABS CHRISTINA 1.61 10e9/L 01/03/2014 CBC 3582166 ABS LYMPH 1.67 10e9/L 01/03/2014 CBC 9960007 ABS MONO 0.36 10e9/L 01/03/2014 CBC 8605240 ABS EOS 0.11 10e9/L 01/03/2014 CBC 6451141 ABS BASO 0.05 10e9/L 01/03/2014 CBC 5417530 RDW-SD 42.3 fL 01/03/2014 TSH 6258974 TSH 2.728 uIU/ML 01/03/2014 GFR CALC 7292642 GFR AA >60 ML/MIN 01/03/2014 GFR CALC 6704494 GFR NON -AA >60 ML/MIN 01/03/2014 GC/CHL PRB 0229954 CHLM PROBE NEG 12/29/2012 GC/CHL PRB 9841056 GC ND OBE NEG 12/29/2012 URINALYSIS NONAUTO W/O SCOPE 13829 Specific [place] 1.015 DateTime(Free Text in Aprima) URINALYSIS NONAUTO W/O SCOPE 09796 PH 6.5 DateTime(Free Luis Eduardo t in Julima) URINALYSIS NONAUTO W/O SCOPE 56765 GLUCOSE DateTime(Free Text i n Aprima) URINALYSIS NONAUTO W/O SCOPE 12463 Protein DateTime(Free Text i n Aprima) URINALYSIS NONAUTO W/O SCOPE 72993 Blood 3+ DateTime(Free Text in Aprima) URINALYSIS NONAUTO W/O SCOPE 35092 Bilirubin DateTime(Free Text i n Aprima) URINALYSIS NONAUTO W/O SCOPE 92672 Ketones DateTime(Free Text i n Aprima) URINALYSIS NONAUTO W/O SCOPE 41804 Urobilinogen DateTime(Free Text in Aprima) URINALYSIS NONAUTO W/O SCOPE 55696 Nitrite + DateTime(Free Text in Aprima) URINALYSIS NONAUTO W/O SCOPE 09896 Leukocytes DateTime(Fr ee Text in Aprima) Review of Systems System Result Effective Dates Constitutional No recent illness 11/12/2018 Constitutional No [...] affect 11/21/2013 None Full Exam - General 1994 Constitutional general appearance Overall: well developed 12/28/2012 None Full Exam - General 1994 Constitutional general appearance Overall: in no acute distress 12/28/2012 None Full Exam - General 1994 Constitutional general appearance Overall: well nourished 12/28/2012 None Full Exam - General 1994 Eyes pupils and irises Overall: pupils equal, round, reactive to light and accomodation 12/28/2012 None Full Exam - General 1994 Ears/Nose/Throat otoscopic exam Overall: external auditory canals clear 12/28/2012 None Full Exam - General 1994 Ears/Nose/Throat otoscopic exam Overall: tympanic membranes clear 12/28/2012 None Full Exam - General 1994 Ears/Nose/Throat oral cavity/pharynx/larynx Overall: oral mucosa clear 12/28/2012 None Full Exam - General 1994 Ears/Nose/Throat oral cavity/pharynx/larynx Overall: oropharyngeal mucosa clear 12/28/2012 None Full Exam - General 1995 Ears/Nose/Throat oral cavity/pharynx/larynx Overall: no masses 12/28/2012 None Full Exam - General 1995 Neck thyroid Overall: normal size 01/2013 None Full Exam - General 1995 Neck thyroid Overall: normal consistency 12/28/2012 None Full Exam - General 1995 Neck thyroid Overall: nontender 12/28 None Full Exam - General 1995 Neck thyroid Overall: no mass lesions 12/28/2012 None Full Exam - General 1995 Respiratory auscultation Overall: breath sounds clear bilaterally 12/28/2012 None Full Exam - General 1995 Respiratory respiratory effort/rhythm Overall: no retractions 12/28/2012 [...] discharge 12/28/2012 None Full Exam - General 1995 Chest/Breast breast/chest inspection Overall: breasts to symmetric and without lesions 12/28/2012 None Full Exam - General 1995 Chest/Breast breast/chest inspection Overall: normal chest shape 12/28/2012 None Full Exam - General 1995 Genitourinary adnexa/parametria Overall: no tenderness 12/28/2012 None Full Exam - General 1995 Genitourinary labia and vagina Overall: normal hair distribution 12/28/2012 None Full Exam - General 1995 Genitourinary labia and vagina Overall: no lesions 12/28/2012 None Full Exam - General 1995 Genitourinary cervix Inspection: friable 12/28/2012 None Full [...] nontender 09/30 None Full Exam - General 1995 Neck thyroid Overall: normal size None Full [...] Date URINALYSIS NONAUTO W /O SCOPE CPT-4: 58534 11/12/2018 TRIAMCINOLONE ACET I [place] NOS CPT-4: J3301 05/17/2018 TRIAMCINOLONE ACET I [place] NOS CPT-4: J3301 03/12/2018 THER/PROPH/DIAG INJ SC/IM CPT-4: 35451 04/30/2017 TRIAMCINOLONE ACET I [place] NOS CPT-4: J3301 04/30/2017 TRIAMCINOLONE ACET I [place] NOS CPT-4: J3301 10/08/2015 TRIAMCINOLONE ACET I [place] NOS CPT-4: J3301 06/21/2015 ROCEPHIN, PER 250 MG CPT-4: J0696 06/21/2015 URINALYSIS NONAUTO W /O SCOPE CPT-4: 08872 01/18/2013 Vital Signs Date Vital 05/17/2018 Blood Pressure 1: 132/72 Code: 8480-6 BMI: 31.1 Code: 62879-0 Heart Rate 1: 82 bpm Height: 5'4" SpO2: 95% Weight: 184 lbs 03/12/2018 Blood Pressure 1: 140/80 Code: 8480-6 BMI: 31.3 Code: 60578-8 Heart Rate 1: 75 bpm Height: 5'4" SpO2: 98% Weight: 185 lbs 01/28/2018 Blood Pressure 1: 145/80 Code: 8480-6 BMI: 31.1 Code: 20031-5 Heart Rate 1: 73 bpm Height: 5'4" SpO2: 95% Weight: 184 lbs 11/05/2017 Blood Pressure 1: 140/82 Code: 8480-6 Blood Pressure 2: 130/78 Code: 8480-6 BMI: 30.6 Code: 34919-5 Heart Rate 1: 64 bpm Height: 5'4" SpO2: 97% Weight: 180 lbs 14 o z 07/10/2017 Blood Pressure 1: 124/72 Code: 8480-6 Heart Rate 1: 73 bpm Height: 5'4" SpO2: 99% Weight: 04/30/2017 Blood Pressure 1: 142/86 Code: 8480-6 BMI: 30.4 Code: 64365-3 Heart Rate 1: 57 bpm Height: 5'4" SpO2: 98% Temperature: 36.8 (C ) / 98.3 (F) Weight: 180 lbs 11/05/2016 Blood Pressure 1: 130/80 Code: 8480-6 BMI: 31.1 Code: 07884-0 Heart Rate 1: 68 bpm Height: 5'4" SpO2: 95% Weight: 184 lbs 11/01/2015 Blood Pressure 1: 124/76 Code: 8480-6 BMI: 30.1 Code: 99386-7 Heart Rate 1: 58 bpm Height: 5'4" SpO2: 97% Weight: 178 lbs 10/08/2015 Blood Pressure 1: 120/82 Code: 8480-6 BMI: 31.1 Code: 69000-7 Heart Rate 1: 71 bpm Height: 5'4" SpO2: 98% Weight: 184 lbs 06/21/2015 Blood Pressure 1: 142/90 Code: 8480-6 BMI: 23.0 Code: 92540-8 Heart Rate 1: 72 bpm Height: 5'4" SpO2: 92% Temperature: 36.6 (C ) / 97.8 (F) Weight: 136 lbs 06/15/2015 Blood Pressure 1: 138/72 Code: 8480-6 BMI: 23.0 Code: 52621-0 Heart Rate 1: 83 bpm Height: 5'4" SpO2: 96% Weight: 136 lbs 10/31/2014 Blood Pressure 1: 138/72 Code: 8480-6 BMI: 30.4 Code: 88832-0 Heart Rate 1: 69 bpm Height: 5'4" SpO2: 96% Weight: 180 lbs 11/21/2013 Blood Pressure 1: 128/82 Code: 8480-6 BMI: 29.4 Code: 09701-9 Heart Rate 1: 64 bpm Height: 5'4" Weight: 174 lbs 12/28/2012 Blood Pressure 1: 130/88 Code: 8480-6 BMI: 30.3 Code: 36400-6 Heart Rate 1: 60 bpm Height: 5'5" Weight: 182 lbs 09/30/2012 Blood Pressure 1: 126/78 Code: 8480-6 BMI: 30.1 Code: 02503-6 Heart Rate 1: 72 bpm Height: 5'5" Weight: 181 lbs Functional Status No Functional Status data History of Present Illness Symptom Name Status Resu lt Effective Date Notes Quality acute 11/12/2018 None Onset and Resolution [...] None well woman exam (40-65 years) 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 PATIENT, LEVEL II Diagnosis: Dysuria[ICD10: R30.0] [facility] CPT-4: 88600 11/12/2018 ([id number]) 21208 EST. P ATIENT, LEVEL III Diagnosis: Acute recurrent maxillary sinusitis[ICD10: J01.01] Diagnosis: Cough[ICD10: R05] Criselda Hoover MD, [facility] CPT-4: 67862 05/17/2018 ([id number]) 50762 EST. P ATIENT, LEVEL III Diagnosis: Acute recurrent maxillary sinusitis[ICD10: J01.01] Diagnosis: Other allergic rhinitis[ICD10: J30.89] Diagnosis: Cough[ICD10: R05] [facility] CPT-4: 35790 03/12/2018 29455 EST. PATIENT, LEVEL III Diagnosis: Cellulitis of left lower limb[ICD10: L03.116] [facility] CPT-4: 82744 01/28/2018 ([id number]) PREV VISIT E AGE 40-64 Diagnosis: Encounter for general adult medical examination without abnormal findings[ICD10: Z00.00] Shanti Hoover MD, [facility] CPT-4: 17496 11/05/2017 83316 EST. PATIENT, LEVEL IV Diagnosis: Other acute sinusitis[ICD10: J01.80] Diagnosis: Other allergic rhinitis[ICD10: J30.89] Minoo Hoover MD, [facility] CPT-4: 36373 07/10/2017 92981 EST. PATIENT, LEVEL IV Diagnosis: Other acute sinusitis[ICD10: J01.80] Diagnosis: Other allergic rhinitis[ICD10: J30.89] Minoo Hoover MD, [facility] CPT-4: 10773 04/30/2017 ([id number]) PREV VISIT E AGE 40-64 Diagnosis: Encounter for general adult medical examination without abnormal findings[ICD10: Z00.00] Shanti Hoover MD, [facility] CPT-4: 15104 11/05/2016 ([id number]) PREV VISIT E AGE 40-64 Diagnosis: Encounter for gynecological examination (general) (routine) without abnormal findings[ICD10: Z01.419] Shanti Hoover MD, [facility] CPT-4: 91502 11/01/2015 ([id number]) 86524 EST. P ATIENT, LEVEL III Diagnosis: Insect bite (nonvenomous), right knee, initial encounter[ICD10: S80.261A] Diagnosis: Allergic rhinitis due to pollen[ICD10: J30.1] [facility] CPT-4: 66222 10/08/2015 ([id number]) [id number] EST. P ATIENT, LEVEL III Diagnosis: Acute recurrent maxillary sinusitis[ICD10: J01.01] Diagnosis: Acute bronchitis, unspecified[ICD10: J20.9] [facility] CPT-4: 65379 06/21/2015 ([id number]) [id number] EST. P ATIENT, LEVEL III Diagnosis: Low back pain[ICD10: M54.5] Diagnosis: Sacroiliitis, not elsewhere classified[ICD10: M46.1] [facility] CPT-4: 78395 06/15/2015 ([id number]) PREV VISIT E ST AGE 40-64 Diagnosis: Routine medical exam[ICD9: V70.0] [facility] CPT-4: 29093 10/31/2014 ([id number]) PREV VISIT E ST AGE 40-64 Diagnosis: Routine medical exam[ICD9: V70.0] [facility] CPT-4: 15891 11/21/2013 ([id number]) [id number] EST. P ATIENT, LEVEL III Diagnosis: Well woman exam with routine gynecological exam[ICD9: V72.31] Diagnosis: Polyp at cervical os[ICD9: 622.7] [facility] CPT-4: 39943 12/28/2012 ([id number]) OFFICE/OUTPA TIENT VISIT NEW Diagnosis: Routine medical exam[ICD9: V70.0] [facility] CPT-4: 41294 09/30/2012 Plan of Care Planned Activity Notes C odes Status Date Visit Plan: UTI - pt with positive urinalysis - culture sent if appropriate. Antibiotic electronically prescribed to pt's pharmacy of choice. Pt to call if symptoms do not improve. 11/12/2018 Appointment: Minoo Joshua WPtel: [facility] (30 min) Complex 11/12/2018 Patient Education: Patient Medication Summary Completed 11/12/2018 Care Plan: Urine Culture Pending 11/12/2018 Visit Plan: Sinusitis - Pt has acut e infection - pain in face, maxillary region, Pt informed to use decongestant, RX given to patient, sinus rinses also recommended. Call if symptoms do not show improvement. 05/17/2018 Appointment: Criselda Anderson WPtel: [phone] (30 min) Complex 05/17/2018 Patient Education: Patient Medication Summary Completed 05/17/2018 Visit Plan: Sinusitis - Pt has acut e infection - pain in face, maxillary region, Pt informed to use decongestant, RX given to patient, sinus rinses also recommended. Call if symptoms do not show improvement. 03/12/2018 Appointment: Criselda Anderson WPtel: [address] [phone] [place] (15 min) Moderate 03/12/2018 Patient Education: Patient [...] warmth, discharge. 01/28/2018 Appointment: Minoo Joshua WPtel: [address] [facility] (15 min) Moderate 01/28/2018 Patient Education: [...] arthrotec. 11/05/2017 Appointment: Shanti Hoover WPtel: [address] [facility] (15 min) Moderate 11/05/2017 Patient Education: Patient [...] allergy spray. 07/10/2017 Appointment: Minoo Joshua WPtel: [facility] [address] (15 min) Moderate 07/10/2017 Patient Education: [...] allergy spray. 04/30/2017 Appointment: Minoo Joshua WPtel: [address] [place] [address] (15 min) Moderate 04/30/2017 Patient Education: Patient [...] renal functioning. 11/05/2016 Appointment: Shanti Hoover WPtel: [facility] [address] Physical 11/05/2016 Patient Education: Patient Medication Summary Completed 11/05/2016 Patient Education: Obesity Completed 11/05/2016 Appointment: Shanti Hoover WPtel: [facility] Well Woman 01/02/2016 Visit Plan: Well Adult [...] the office. 10/08/2015 Appointment: Criselda Anderson WPtel: [phone] (15 min) Moderate 10/08/2015 Patient Education: Patient Medication Summary Completed 10/08/2015 Patient Education: Obesity Completed 10/08/2015 Visit Plan: Sinusitis - Pt has acut e infection - pain in face, maxillary region, Pt informed to use decongestant, RX given to patient, sinus rinses also recommended. Call if symptoms do not show improvement. 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 10/31/2014 Appointment: Shanti Hoover WPtel: [address] [place], [place] [phone] Physical 10/31/2014 Patient Education: Patient Medication Summary [...] renal functioning. 11/21/2013 Appointment: Shanti Hoover WPtel: [address] [place], [place] [phone] Well Woman 11/21/2013 Patient Education: Patient Medication Summary Completed 11/21/2013 Appointment: Shanti Hoover WPtel: [address] [place], [place] [phone] [place] Lab Draw 01/18/2013 Patient Education: Patient Medication Summary Completed 01/18/2013 Visit Plan: Well Adult Female - exa m completed. Pap and gc/chlamydia and breast exam completed. Pt will be called with results of her testing. She was advised to continue with yearly annual exams. Pt referred to Dr Bolivar Sun for further evaluation of the large cervical polyp. 12/28/2012 Appointment: Shanti Hoover WPtel: [address] [place] [address] Well Woman 12/28/2012 Patient Education: Patient Medication Summary Completed 12/28/2012 Visit Plan: recommended well woman exam and labs. recommended starting multivitamin improved sleep hygeine 09/30/2012 [facility]ment[facility] [place] New Patient 09/30/2012 Patient Education: Patient [...] worsening redness, warmth, discharge. . Cellulitis - kelil nue with oral antibiotics as previously directed, [...] year, otherwise, RTC yearly or prn. . Well Adult - pt wa s [...]
--- OUTSIDE RECORDS SUMMARY | 2019-10-14 08:46 | XMS REPORT | CCD ---
Author Author Laquita Hoover Organization Shanti Hoover MD, [facility] Address [address] [place] [address] Phone Care Team Providers Care Marketing Financial Analyst Name Role Phone PP Unavailable CCM Unavailable Summary Purpose Interface Exchange Insurance Providers Payer name Policy type / Coverage type Covered green party ID Effective Begin Date Effective End Date [place] appweevr Insuranc e [id number] Unknown Family history Adopted Diagnosis Age At Onset No Family Disease Entered N/A Social History Social History Element Codes Description Effective Dates Marital status Unknown M arried 09/30/2012 Number of children Unknown 2 09/30/2012 Employment Unknown Oscar bauer employed via [employer] in [place] 09/30/[address]: 6853641 Quit less than 10 years ago 09/30/2012 [...] DS 800 mg-16 0 mg tablet RxNorm: 531562 1 Tablet(s) PO BID 11/16/2018 11/22/2018 Active dispense generic Bactrim DS 800 mg-16 0 mg tablet RxNorm: 110629 1 Tablet(s) PO BID 11/16/2018 11/15/2018 Inactive Keflex 500 mg capsule RxNorm: 416559 1 Capsule(s) PO TID 11/12/2018 11/15/2018 Inactive Augmentin 875 mg-125 mg tablet RxNorm: 188272 1 Tablet(s) PO BID 05/17/2018 05/23/2018 Inactive Kenalog 40 mg/mL guevara pension for injection RxNorm: 2381688 Milliliter(s) Inj 05/17/2018 05/17/2018 In active Augmentin 875 mg-125 mg tablet RxNorm: 000180 1 Tablet(s) PO BID 03/12/2018 03/18/2018 Inactive take a probioitic while on the abx Kenalog 40 mg/mL guevara pension for injection RxNorm: 5566408 1 Milliliter(s) Inj 03/12/2018 03/12/2018 In active doxycycline hyclate 100 mg capsule RxNorm: 0696589 1 Capsule(s) PO BID 01/28/2018 02/06/2018 In active dapsone 25 mg tablet RxNorm: 399347 2 Tablet(s) PO daily 01/28/2018 02/01/2018 Inactive diclofenac 50 mg-mis oprostol 200 mcg tablet,immed.and delayed release RxNorm: 853449 1 Tablet(s) PO BID 11/05/2017 03/04/2018 Inactive acyclovir 800 mg tablet RxNorm: 703386 1 Tablet(s) PO TID take at symptoms of c old sore, if no outbreak, take for 5 days, if breaks out, take for 10 days total 09/09/2017 10/08/2017 In active prednisone 10 mg tablet RxNorm: 165044 Tablet(s) PO 07/10/2017 No Stop Date Active 6,5, 4,3,2,1 Zithromax Z-Dawson 250 mg tablet RxNorm: 940330 1 Tablet(s) PO UD 07/10/2017 07/14/2017 Inactive zpack Augmentin 875 mg-125 mg tablet RxNorm: 283046 1 Tablet(s) PO BID 05/29/2017 05/28/2017 Inactive Augmentin 875 mg-125 mg tablet RxNorm: 826813 1 Tablet(s) PO BID 05/29/2017 06/07/2017 Inactive Kenalog 40 mg/mL guevara pension for injection RxNorm: 9493242 1 Milliliter(s) Inj 04/30/2017 04/30/2017 In active Keflex 500 mg capsule RxNorm: 759052 1 Capsule(s) PO TID 04/30/2017 05/09/2017 Inactive Vitamin D3 5,000 uni t tablet RxNorm: 220052 1 Tablet(s) PO daily 12/17/2016 No Stop Date Active Jublia 10 % topical solution with applicator RxNorm: 3831636 1 Application TOP da marshall 12/12/2016 06/09/2017 Inactive Jublia 10 % topical solution with applicator RxNorm: 6097460 1 Application TOP da marshall 12/12/2016 2016 Inactive acyclovir 800 mg tablet RxNorm: 031249 1 Tablet(s) PO TID take at symptoms of c old sore, if no outbreak, take for 5 days, if breaks out, take for 10 days total 09/25/2016 10/24/2016 In active Kenalog 40 mg/mL guevara pension for injection RxNorm: 9484911 Milliliter(s) Inj 10/08/2015 10/08/2015 In active doxycycline hyclate 100 mg tablet RxNorm: 811894 1 Tablet(s) PO BID 10/08/2015 10/17/2015 Inactive cefdinir 300 mg capsule RxNorm: 741267 1 Capsule(s) PO BID 06/25/2015 07/01/2015 Inactive cefdinir 300 mg capsule RxNorm: 905114 1 Capsule(s) PO BID 06/25/2015 06/24/2015 Inactive ceftriaxone 500 mg s olution for injection RxNorm: 5541893 Inj 06/21/2015 06/21/2015 Inactive Kenalog 40 mg/mL guevara pension for injection RxNorm: 8063499 Milliliter(s) Inj 06/21/2015 06/21/2015 In active Zithromax Z-Dawson 250 mg tablet RxNorm: 483543 1 Tablet(s) PO UD 06/21/2015 06/25/2015 Inactive zpack acyclovir 800 mg tablet RxNorm: 582128 1 Tablet(s) PO TID take at symptoms of c old sore, if no outbreak, take for 5 days, if breaks out, take for 10 days total 10/31/2014 11/29/2014 In active Cipro 500 mg tablet RxNorm: 940453 1 Tablet(s) PO BID 01/18/2013 01/17/2013 Inactive Cipro 500 mg tablet RxNorm: 450417 1 Tablet(s) PO BID 01/18/2013 01/20/2013 Inactive Ocuvite oral RxNorm: 306515 oral No Start Date Active krill oil 1,000 mg-1 70 mg-50 mg-80 mg capsule RxNorm: 1 Capsule(s) PO daily No Start Date Active Calcium 600 + D(3) oral RxNorm: 915580 oral No Start Date Active Vitamin D3 Oral RxNorm: Oral No Start Date 12/16/2016 Inactive flaxseed oil Oral RxNorm: Oral No Start Date 11/04/2016 Inactive Medication Administered Medication Codes Instruc tions Start Date Status Kenalog 40 mg/mL suspension for injection RxNorm: 7672458 Milliliter 05/17/2018 No longer Active Kenalog 40 mg/mL suspension for injection RxNorm: 6380287 1Milliliter 03/12/2018 N o longer Active Kenalog 40 mg/mL suspension for injection RxNorm: 3124900 1Milliliter 04/30/2017 N o longer Active Kenalog 40 mg/mL suspension for injection RxNorm: 7188374 Milliliter 10/08/2015 No longer Active Kenalog 40 mg/mL suspension for injection RxNorm: 9235897 Milliliter 06/21/2015 No longer Active ceftriaxone 500 mg solution for injection RxNorm: 3676032 06/21/2015 No longer A ctive Immunizations Vaccine [...] 96.2 fl 11/12/2018 Cbc With Differential Ord2 [place]% 8.0 % 11/12/2018 Cbc With Differential Ord2 MCH 30.8 pg 11/12/2018 Cbc With Differential Ord2 Eos% 1.4 % 11/12/2018 Cbc With Differential Ord2 MCHC 32.0 pg 11/12/2018 Cbc With Differential Ord2 Baso% 0.4 % 11/12/2018 Cbc With Differential Ord2 PLT 202 K/ul 11/12/2018 Cbc With Differential Ord2 RDW 13.1 % 11/12/2018 Cbc With Differential Ord2 Neut ABS# 5.08 K/ul 11/12/2018 Cbc With Differential Ord2 Lymph ABS# 1.55 K/ul 11/12/2018 Cbc With Differential Ord2 [place] ABS# 0.6 K/ul 11/12/2018 Cbc With Differential Ord2 Eos ABS# 0.1 K/ul 11/12/2018 Cbc With Differential Ord2 Baso ABS# 0.0 K/ul 11/12/2018 Tsh Ord6 TSH (3rd IS) 2.41 uIU/mL 11/12/2018 Lipid Ord30 CHOL 162 mg/dL 11/12/2018 Lipid Ord30 HDL 61.0 mg/dl 11/12/2018 Lipid Ord30 TRIG 84 mg/dL 11/12/2018 Lipid Ord30 LDL 84 mg/dL 11/12/2018 Lipid Ord30 C/HDL 2.7 Ratio 11/12/2018 Comp Metabolic Epk246 NA 140 mEq/L 11/12/2018 Comp Metabolic Sqk334 K 4.0 mEq/L 11/12/2018 Comp Metabolic Sti730 CL 102 mEq/L 11/12/2018 Comp Metabolic Yuy365 CO2 31.0 mEq/L 11/12/2018 Comp Metabolic Uev536 AN ION GAP 11 11/12/2018 Comp Metabolic Rxl780 GL UCOSE 92 mg/dL 11/12/2018 Comp Metabolic Irm034 Cr eat 0.7 mg/dL 11/12/2018 Comp Metabolic Zvk443 eG FR 98 ml/min/1.73m2 11/12 Comp Metabolic Dfm060 BUN 12 mg/dL 11/12/2018 Comp Metabolic Ujf534 B/ C Ratio 18.5 Ratio 11/12/2018 Comp Metabolic Fke537 CA LCIUM 9.6 mg/dL 11/12/2018 Comp Metabolic Lsy592 AL K PHOS 75 U/L 11/12/2018 Comp Metabolic Klo356 T(SGOT) 16 U/L 11/12/2018 Comp Metabolic Ivb422 AL T(SGPT) 16 U/L 11/12/2018 Comp Metabolic Eai974 BI LI T 0.6 mg/dL 11/12/2018 Comp Metabolic Kvj250 AL BUMIN 4.3 g/dL 11/12/2018 Comp Metabolic Dsi292 TP RO 7.0 g/dL 11/12/2018 Comp Metabolic Wsa125 GL OB 2.7 g/dL 11/12/2018 Comp Metabolic Dnc895 A/ G Ratio 1.6 Ratio 11/12/2018 Comp Metabolic Bqn237 Os mo 279 mOsmo 11/12/2018 Lipid Ord30 [...] 31.3 pg 11/02/2017 Cbc With Differential Ord2 [place]% 8.9 % 11/02/2017 Cbc With Differential Ord2 [...] 1.75 K/ul 11/02/2017 Cbc With Differential Ord2 [place] ABS# 0.3 K/ul 11/02/2017 Cbc With Differential Ord2 Eos ABS# 0.1 K/ul 11/02/2017 Cbc With Differential Ord2 Baso ABS# 0.0 K/ul 11/02/2017 Comp Metabolic Emo115 NA 141 mEq/L 11/02/2017 Comp Metabolic Hgu658 K 4.0 mEq/L 11/02/2017 Comp Metabolic Gjv240 CL 104 mEq/L 11/02/2017 Comp Metabolic Byh675 CO2 29.0 mEq/L 11/02/2017 Comp Metabolic Ate612 AN ION GAP 12 11/02/2017 Comp Metabolic Ogr912 GL UCOSE 91 mg/dL 11/02/2017 Comp Metabolic Yuh044 Cr eat 0.7 mg/dL 11/02/2017 Comp Metabolic Jhr574 eG FR 94 ml/min/1.73m2 11/02 Comp Metabolic Htb714 BUN 18 mg/dL 11/02/2017 Comp Metabolic Nyx556 B/ C Ratio 26.5 Ratio 11/02/2017 Comp Metabolic Rqb329 CA LCIUM 9.7 mg/dL 11/02/2017 Comp Metabolic Jdm722 AL K PHOS 65 U/L 11/02/2017 Comp Metabolic Swj322 T(SGOT) 16 U/L 11/02/2017 Comp Metabolic Quf555 AL T(SGPT) 17 U/L 11/02/2017 Comp Metabolic Kqv175 BI LI T 0.4 mg/dL 11/02/2017 Comp Metabolic Xhv568 AL BUMIN 4.1 g/dL 11/02/2017 Comp Metabolic Rwk766 TP RO 6.7 g/dL 11/02/2017 Comp Metabolic Rxd102 GL OB 2.6 g/dL 11/02/2017 Comp Metabolic Cko219 A/ G Ratio 1.6 Ratio 11/02/2017 Comp Metabolic Pxh219 Os mo 283 mOsmo 11/02/2017 Tsh Ord6 hTSH II 2.02 uIU/mL 01/27/2017 Comp Metabolic Ltg007 NA 141 mEq/L 01/27/2017 Comp Metabolic Lmx014 K 4.2 mEq/L 01/27/2017 Comp Metabolic Meg943 CL 103 mEq/L 01/27/2017 Comp Metabolic Gry249 CO2 31.0 mEq/L 01/27/2017 Comp Metabolic Sqg569 AN ION GAP 11 01/27/2017 Comp Metabolic Zpg574 GL UCOSE 90 mg/dL 01/27/2017 Comp Metabolic Hlz831 Cr eat 0.6 mg/dL 01/27/2017 Comp Metabolic Eld500 eG FR 101 ml/min/1.73m2 01/18 Comp Metabolic Wzk173 BUN 17 mg/dL 01/27/2017 Comp Metabolic Dof577 B/ C Ratio 26.6 Ratio 01/27/2017 Comp Metabolic Ifv544 CA LCIUM 9.5 mg/dL 01/27/2017 Comp Metabolic Egi969 AL K PHOS 73 U/L 01/27/2017 Comp Metabolic Azn241 T(SGOT) 19 U/L 01/27/2017 Comp Metabolic Wvl967 AL T(SGPT) 20 U/L 01/27/2017 Comp Metabolic Onw151 BI LI T 0.5 mg/dL 01/27/2017 Comp Metabolic Ebl153 AL BUMIN 4.3 g/dL 01/27/2017 Comp Metabolic Pdr455 TP RO 6.6 g/dL 01/27/2017 Comp Metabolic Kek759 GL OB 2.3 g/dL 01/27/2017 Comp Metabolic Gdq811 A/ G Ratio 1.8 Ratio 01/27/2017 Comp Metabolic Fxq039 Os mo 282 mOsmo 01/27/2017 Lipid Ord30 [...] 30.9 pg 01/27/2017 Cbc With Differential Ord2 [place]% 11.8 % 01/27/2017 Cbc With Differential Ord2 [...] 1.72 K/ul 01/27/2017 Cbc With Differential Ord2 [place] ABS# 0.4 K/ul 01/27/2017 Cbc With Differential [...] 30.9 pg 01/22/2016 Cbc With Differential Ord2 [place]% 8.6 % 01/22/2016 Cbc With Differential Ord2 [...] 1.66 K/ul 01/22/2016 Cbc With Differential Ord2 [place] ABS# 0.4 K/ul 01/22/2016 Cbc With Differential Ord2 Eos ABS# 0.1 K/ul 01/22/2016 Cbc With Differential Ord2 Baso ABS# 0.1 K/ul 01/22/2016 Comp Metabolic Aef377 NA 141 mEq/L 01/22/2016 Comp Metabolic Kse568 K 4.2 mEq/L 01/22/2016 Comp Metabolic Yfb964 CL 105 mEq/L 01/22/2016 Comp Metabolic Qhq262 CO2 30.0 mEq/L 01/22/2016 Comp Metabolic Kua264 AN ION GAP 10 01/22/2016 Comp Metabolic Dtx705 GL UCOSE 85 mg/dL 01/22/2016 Comp Metabolic Vuf132 Cr eat 0.6 mg/dL 01/22/2016 Comp Metabolic Lgh951 eG FR 109 ml/min/1.73m2 07/2015 Comp Metabolic Acq269 BUN 14 mg/dL 01/22/2016 Comp Metabolic Fzf557 B/ C Ratio 23.3 Ratio 01/22/2016 Comp Metabolic Jhg860 CA LCIUM 9.1 mg/dL 01/22/2016 Comp Metabolic Mik952 AL K PHOS 69 U/L 01/22/2016 Comp Metabolic Qrq289 T(SGOT) 16 U/L 01/22/2016 Comp Metabolic Iqz632 AL T(SGPT) 15 U/L 01/22/2016 Comp Metabolic Nuw614 BI LI T 0.3 mg/dL 01/22/2016 Comp Metabolic Xss224 AL BUMIN 4.0 g/dL 01/22/2016 Comp Metabolic Zki418 TP RO 6.8 g/dL 01/22/2016 Comp Metabolic Jga224 GL OB 2.8 g/dL 01/22/2016 Comp Metabolic Nvp017 A/ G Ratio 1.5 Ratio 01/22/2016 Comp Metabolic Vxg077 Os mo 281 mOsmo 01/22/2016 Tsh Ord6 [...] Ord2 RDW 14.1 % 01/17/2015 Comp Metabolic Aqj818 NA 137 mEq/L 01/17/2015 Comp Metabolic Qyg790 K 4.1 mEq/L 01/17/2015 Comp Metabolic Kor036 CL 103 mEq/L 01/17/2015 Comp Metabolic Tsf682 CO2 35.0 mEq/L 01/17/2015 Comp Metabolic Zgq291 AN ION GAP 3 01/17/2015 Comp Metabolic Zfb073 GL UCOSE 88 mg/dL 01/17/2015 Comp Metabolic Xdu977 Cr eat 0.6 mg/dL 01/17/2015 Comp Metabolic Yew171 eG FR 107 ml/min/1.73m2 12/21 Comp Metabolic Whq459 BUN 14 mg/dL 01/17/2015 Comp Metabolic Xir009 B/ C Ratio 23.0 Ratio 01/17/2015 Comp Metabolic Grt044 CA LCIUM 9.4 mg/dL 01/17/2015 Comp Metabolic Dod179 AL K PHOS 71 U/L 01/17/2015 Comp Metabolic Owb997 T(SGOT) 17 U/L 01/17/2015 Comp Metabolic Qdc366 AL T(SGPT) 14 U/L 01/17/2015 Comp Metabolic Olk566 BI LI T 0.4 mg/dL 01/17/2015 Comp Metabolic Ugm580 AL BUMIN 4.3 g/dL 01/17/2015 Comp Metabolic Quw018 TP RO 7.0 g/dL 01/17/2015 Comp Metabolic Qtz138 GL OB 2.7 g/dL 01/17/2015 Comp Metabolic Dmx417 A/ G Ratio 1.6 Ratio 01/17/2015 Comp Metabolic Rdd872 Os mo 274 mOsmo 01/17/2015 CHEM 14 8404958 AST 15 U/L 01/03/2014 CHEM 14 7932101 ALT 10 IU/L 01/03/2014 CHEM 14 2502570 BUN 12 MG/DL 01/03/2014 CHEM 14 7040148 ALBUMIN 4.4 GM/DL 01/03/2014 CHEM 14 5716451 CHLORIDE 105 MMOL/L 01/03/2014 CHEM 14 3059507 BILI TOT 0.5 MG/DL 01/03/2014 CHEM 14 4792842 ALK PHOS 69 U/L 01/03/2014 CHEM 14 6143805 SODIUM 140 MMOL/L 01/03/2014 CHEM 14 0087419 CREATINI NE 0.66 MG/DL 01/03/2014 CHEM 14 1475061 CALCIUM 9.3 MG/DL 01/03/2014 CHEM 14 0752086 POTASSIUM 3.8 MMOL/L 01/03/2014 CHEM 14 6112052 PROT TOT 7.3 GM/DL 01/03/2014 CHEM 14 5854897 GLUCOSE 89 MG/DL 01/03/2014 CHEM 14 1394567 BICARB 31 MMOL/L 01/03/2014 CHEM 14 3434352 ANION GAP 4 MEQ/L 01/03/2014 CBC 5013372 WBC 3.8 10e9/L 01/03/2014 CBC 9451473 RBC 4.16 10e12/L 01/03/2014 CBC 5758823 HGB 12.8 g/dL 01/03/2014 CBC 1662886 HCT DET 38.8 % 01/03/2014 CBC 6442394 MCV 93.3 fL 01/03/2014 CBC 0229446 MCH 30.8 pg 01/03/2014 CBC 0247259 MCHC 33.0 g/dL 01/03/2014 CBC 1738026 PLT 206 10e9/L 01/03/2014 CBC 5286082 MPV 10.1 fL 01/03/2014 CBC 1719001 CHRISTINA % 42.3 % 01/03/2014 CBC 7228440 LY % 44.0 % 01/03/2014 CBC 6415276 MON % 9.5 % 01/03/2014 CBC 8569997 EOS % 2.9 % 01/03/2014 CBC 7757087 BASO % 1.3 % 01/03/2014 CBC 5196333 RDW 12.8 % 01/03/2014 CBC 8496373 ABS CHRISTINA 1.61 10e9/L 01/03/2014 CBC 8561406 ABS LYMPH 1.67 10e9/L 01/03/2014 CBC 3420914 ABS MONO 0.36 10e9/L 01/03/2014 CBC 5491579 ABS EOS 0.11 10e9/L 01/03/2014 CBC 2969965 ABS BASO 0.05 10e9/L 01/03/2014 CBC 5783238 RDW-SD 42.3 fL 01/03/2014 TSH 7598333 TSH 2.728 uIU/ML 01/03/2014 GFR CALC 1209595 GFR AA >60 ML/MIN 01/03/2014 GFR CALC 3073536 GFR NON -AA >60 ML/MIN 01/03/2014 GC/CHL PRB 4153524 CHLM PROBE NEG 12/29/2012 GC/CHL PRB 9651137 GC RI OBE NEG 12/29/2012 URINALYSIS NONAUTO W/O SCOPE 02513 Specific [place] 1.015 DateTime(Free Text in Aprima) URINALYSIS NONAUTO W/O SCOPE 21611 PH 6.5 DateTime(Free Luis Eduardo t in Julima) URINALYSIS NONAUTO W/O SCOPE 32582 GLUCOSE DateTime(Free Text i n Aprima) URINALYSIS NONAUTO W/O SCOPE 34940 Protein DateTime(Free Text i n Aprima) URINALYSIS NONAUTO W/O SCOPE 16839 Blood 3+ DateTime(Free Text in Aprima) URINALYSIS NONAUTO W/O SCOPE 54994 Bilirubin DateTime(Free Text i n Aprima) URINALYSIS NONAUTO W/O SCOPE 04921 Ketones DateTime(Free Text i n Aprima) URINALYSIS NONAUTO W/O SCOPE 07453 Urobilinogen DateTime(Free Text in Aprima) URINALYSIS NONAUTO W/O SCOPE 75996 Nitrite + DateTime(Free Text in Aprima) URINALYSIS NONAUTO W/O SCOPE 69319 Leukocytes DateTime(Fr ee Text in Aprima) Review [...] Date URINALYSIS NONAUTO W /O SCOPE CPT-4: 95263 11/12/2018 TRIAMCINOLONE ACET I [place] NOS CPT-4: J3301 05/17/2018 TRIAMCINOLONE ACET I [place] NOS CPT-4: J3301 03/12/2018 THER/PROPH/DIAG INJ SC/IM CPT-4: 32701 04/30/2017 TRIAMCINOLONE ACET I [place] NOS CPT-4: J3301 04/30/2017 TRIAMCINOLONE ACET I [place] NOS CPT-4: J3301 10/08/2015 TRIAMCINOLONE ACET I [place] NOS CPT-4: J3301 06/21/2015 ROCEPHIN, PER 250 MG CPT-4: J0696 06/21/2015 URINALYSIS NONAUTO W /O SCOPE CPT-4: 85768 01/18/2013 Vital Signs Date Vital 05/17/2018 Blood Pressure 1: 132/72 Code: 8480-6 BMI: 31.1 Code: 93953-1 Heart Rate 1: 82 bpm Height: 5'4" SpO2: 95% Weight: 184 lbs 03/12/2018 Blood Pressure 1: 140/80 Code: 8480-6 BMI: 31.3 Code: 95090-1 Heart Rate 1: 75 bpm Height: 5'4" SpO2: 98% Weight: 185 lbs 01/28/2018 Blood Pressure 1: 145/80 Code: 8480-6 BMI: 31.1 Code: 59439-5 Heart Rate 1: 73 bpm Height: 5'4" SpO2: 95% Weight: 184 lbs 11/05/2017 Blood Pressure 1: 140/82 Code: 8480-6 Blood Pressure 2: 130/78 Code: 8480-6 BMI: 30.6 Code: 55393-7 Heart Rate 1: 64 bpm Height: 5'4" SpO2: 97% Weight: 180 lbs 14 o z 07/10/2017 Blood Pressure 1: 124/72 Code: 8480-6 Heart Rate 1: 73 bpm Height: 5'4" SpO2: 99% Weight: 04/30/2017 Blood Pressure 1: 142/86 Code: 8480-6 BMI: 30.4 Code: 39178-1 Heart Rate 1: 57 bpm Height: 5'4" SpO2: 98% Temperature: 36.8 (C ) / 98.3 (F) Weight: 180 lbs 11/05/2016 Blood Pressure 1: 130/80 Code: 8480-6 BMI: 31.1 Code: 23920-1 Heart Rate 1: 68 bpm Height: 5'4" SpO2: 95% Weight: 184 lbs 11/01/2015 Blood Pressure 1: 124/76 Code: 8480-6 BMI: 30.1 Code: 41411-0 Heart Rate 1: 58 bpm Height: 5'4" SpO2: 97% Weight: 178 lbs 10/08/2015 Blood Pressure 1: 120/82 Code: 8480-6 BMI: 31.1 Code: 93499-6 Heart Rate 1: 71 bpm Height: 5'4" SpO2: 98% Weight: 184 lbs 06/21/2015 Blood Pressure 1: 142/90 Code: 8480-6 BMI: 23.0 Code: 24907-6 Heart Rate 1: 72 bpm Height: 5'4" SpO2: 92% Temperature: 36.6 (C ) / 97.8 (F) Weight: 136 lbs 06/15/2015 Blood Pressure 1: 138/72 Code: 8480-6 BMI: 23.0 Code: 02961-5 Heart Rate 1: 83 bpm Height: 5'4" SpO2: 96% Weight: 136 lbs 10/31/2014 Blood Pressure 1: 138/72 Code: 8480-6 BMI: 30.4 Code: 25249-7 Heart Rate 1: 69 bpm Height: 5'4" SpO2: 96% Weight: 180 lbs 11/21/2013 Blood Pressure 1: 128/82 Code: 8480-6 BMI: 29.4 Code: 65839-6 Heart Rate 1: 64 bpm Height: 5'4" Weight: 174 lbs 12/28/2012 Blood Pressure 1: 130/88 Code: 8480-6 BMI: 30.3 Code: 15918-9 Heart Rate 1: 60 bpm Height: 5'5" Weight: 182 lbs 09/30/2012 Blood Pressure 1: 126/78 Code: 8480-6 BMI: 30.1 Code: 74271-5 Heart Rate 1: 72 bpm Height: 5'5" [...] None well woman exam (40-65 years) 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 PATIENT, LEVEL II Diagnosis: Dysuria[ICD10: R30.0] [facility] CPT-4: 00904 11/12/2018 ([id number]) 27921 EST. P ATIENT, LEVEL III Diagnosis: Acute recurrent maxillary sinusitis[ICD10: J01.01] Diagnosis: Cough[ICD10: R05] Criselda Hoover MD, [facility] CPT-4: 55960 05/17/2018 ([id number]) 93909 EST. P ATIENT, LEVEL III Diagnosis: Acute recurrent maxillary sinusitis[ICD10: J01.01] Diagnosis: Other allergic rhinitis[ICD10: J30.89] Diagnosis: Cough[ICD10: R05] [facility] CPT-4: 61820 03/12/2018 16330 EST. PATIENT, LEVEL III Diagnosis: Cellulitis of left lower limb[ICD10: L03.116] [facility] CPT-4: 74898 01/28/2018 ([id number]) PREV VISIT E AGE 40-64 Diagnosis: Encounter for general adult medical examination without abnormal findings[ICD10: Z00.00] Shanti Hoover MD, [facility] CPT-4: 56688 11/05/2017 22741 EST. PATIENT, LEVEL IV Diagnosis: Other acute sinusitis[ICD10: J01.80] Diagnosis: Other allergic rhinitis[ICD10: J30.89] Minoo Hoover MD, [facility] CPT-4: 13068 07/10/2017 63655 EST. PATIENT, LEVEL IV Diagnosis: Other acute sinusitis[ICD10: J01.80] Diagnosis: Other allergic rhinitis[ICD10: J30.89] Minoo Hoover MD, [facility] CPT-4: 19242 04/30/2017 ([id number]) PREV VISIT E AGE 40-64 Diagnosis: Encounter for general adult medical examination without abnormal findings[ICD10: Z00.00] Shanti Hoover MD, [facility] CPT-4: 08376 11/05/2016 ([id number]) PREV VISIT E AGE 40-64 Diagnosis: Encounter for gynecological examination (general) (routine) without abnormal findings[ICD10: Z01.419] Shanti Hoover MD, [facility] CPT-4: 09691 11/01/2015 ([id number]) 43660 EST. P ATIENT, LEVEL III Diagnosis: Insect bite (nonvenomous), right knee, initial encounter[ICD10: S80.261A] Diagnosis: Allergic rhinitis due to pollen[ICD10: J30.1] [facility] CPT-4: 27763 10/08/2015 ([id number]) 77250 EST. P ATIENT, LEVEL III Diagnosis: Acute recurrent maxillary sinusitis[ICD10: J01.01] Diagnosis: Acute bronchitis, unspecified[ICD10: J20.9] [facility] CPT-4: 88524 06/21/2015 ([id number]) 57063 EST. P ATIENT, LEVEL III Diagnosis: Low back pain[ICD10: M54.5] Diagnosis: Sacroiliitis, not elsewhere classified[ICD10: M46.1] [facility] CPT-4: 92336 06/15/2015 ([id number]) PREV VISIT E ST AGE 40-64 Diagnosis: Routine medical exam[ICD9: V70.0] [facility] CPT-4: 54099 10/31/2014 ([id number]) PREV VISIT E ST AGE 40-64 Diagnosis: Routine medical exam[ICD9: V70.0] [facility] CPT-4: 41474 11/21/2013 ([id number]) 43346 EST. P ATIENT, LEVEL III Diagnosis: Well woman exam with routine gynecological exam[ICD9: V72.31] Diagnosis: Polyp at cervical os[ICD9: 622.7] [facility] CPT-4: 84283 12/28/2012 ([id number]) OFFICE/OUTPA TIENT VISIT NEW Diagnosis: Routine medical exam[ICD9: V70.0] [facility] CPT-4: 00646 09/30/2012 Plan of Care Planned Activity Notes C odes Status Date Visit Plan: UTI - pt with positive urinalysis - culture sent if appropriate. Antibiotic electronically prescribed to pt's pharmacy of choice. Pt to call if symptoms do not improve. 11/12/2018 Appointment: Minoo Joshua WPtel: [facility] (30 min) Complex 11/12/2018 Patient Education: Patient Medication Summary Completed 11/12/2018 Care Plan: Urine Culture Pending 11/12/2018 Visit Plan: Sinusitis - Pt has acut e infection - pain in face, maxillary region, Pt informed to use decongestant, RX given to patient, sinus rinses also recommended. Call if symptoms do not show improvement. 05/17/2018 Appointment: Criselda Anderson WPtel: [phone] (30 min) Complex 05/17/2018 Patient Education: Patient Medication Summary Completed 05/17/2018 Visit Plan: Sinusitis - Pt has acut e infection - pain in face, maxillary region, Pt informed to use decongestant, RX given to patient, sinus rinses also recommended. Call if symptoms do not show improvement. 03/12/2018 Appointment: Criselda Anderson WPtel: [phone] [phone] [place] (15 min) Moderate 03/12/2018 Patient [...] warmth, discharge. 01/28/2018 Appointment: Minoo Joshua WPtel: [phone] [facility] (15 min) Moderate 01/28/2018 Patient Education: [...] for arthrotec. 11/05/2017 Appointment: Shanti Hoover WPtel: [phone] [facility] (15 min) Moderate 11/05/2017 Patient Education: Patient [...] allergy spray. 07/10/2017 Appointment: Minoo Joshua WPtel: [facility] [address] (15 min) Moderate 07/10/2017 Patient Education: [...] allergy spray. 04/30/2017 Appointment: Minoo Joshua WPtel: [address] [place] [address] (15 min) Moderate 04/30/2017 Patient Education: Patient [...] panel, CBC, and renal functioning. 11/05/2016 Appointment: Shatni Hoover WPtel: [facility] [address] Physical 11/05/2016 Patient Education: Patient Medication Summary Completed 11/05/2016 Patient Education: Obesity Completed 11/05/2016 Appointment: Shanti Hoover WPtel: [id number] Well Woman 01/02/2016 Visit Plan: Well Adult [...] the office. 10/08/2015 Appointment: Criselda Anderson WPtel: [phone] (15 min) Moderate 10/08/2015 Patient Education: Patient Medication Summary Completed 10/08/2015 Patient Education: Obesity Completed 10/08/2015 Visit Plan: Sinusitis - Pt has acut e infection - pain in face, maxillary region, Pt informed to use decongestant, RX given to patient, sinus rinses also recommended. Call if symptoms do not show improvement. 06/21/2015 Appointment: Criselda Anderson WPtel: [phone] (10 min) Simple 06/21/2015 Patient Education: [...] Completed 06/15/2015 Care Plan: SCREENINGMAMMOGRAPHYDIGITAL LOINC : 14486-2 Ordered 11/19/2014 Visit Plan: Well Adult - [...] renal functioning. 10/31/2014 Appointment: Shanti Hoover WPtel: [address] [place], [place] [phone] Physical 10/31/2014 Patient Education: Patient Medication Summary [...] renal functioning. 11/21/2013 Appointment: Shanti Hoover WPtel: [address] [place], [place] [phone] Well Woman 11/21/2013 Patient Education: Patient Medication Summary Completed 11/21/2013 Appointment: Shanti Hoover WPtel: [address] [place], [place] [phone] US Lab Draw 01/18/2013 Patient Education: Patient [...] cervical polyp. 12/28/2012 Appointment: Shanti Hoover WPtel: [address] [place] [place] [address] Well Woman 12/28/2012 Patient Education: Patient Medication Summary Completed 12/28/2012 Visit Plan: recommended well woman exam and labs. recommended starting multivitamin improved sleep hygeine 09/30/2012 Appointment: Shanti Hoover [phone] [id number] [place] New Patient 09/30/2012 Patient Education: Patient Medication Summary Completed 09/30/2012 Instructions Comment . Well Adult Female - exam completed. [...] chem panel, CBC, and renal functioning. . Tick Bite - pt giv en [...] Kenalog injection today in the office. . recommended well w marilyn exam and [...] to call if symptoms do not improve. . Well Adult - pt wa s [...]
--- OUTSIDE RECORDS SUMMARY | 2019-10-14 08:47 | XMS REPORT | CCD ---
Author Author Laquita Hoover Organization Shanti Hoover MD, [facility] Address [address] [place] [address] Phone Care Team Providers Care Material Loader Name Role Phone PP Unavailable CCM Unavailable Summary Purpose Interface Exchange Insurance Providers Payer name Policy type / Coverage type Covered republican ID Effective Begin Date Effective End Date [employer] e [id number] Unknown Family history Adopted Diagnosis Age At Onset No Family Disease Entered N/A Social History Social History Element Codes Description Effective Dates Marital status Unknown M arried 09/30/2012 Number of children Unknown 2 09/30/2012 Employment Unknown Oscar bauer employed via [employer] in [employer] 09/30/[address]: 2116580 Quit less than 10 years ago 09/30/2012 [...] Date Stop Date Sta tus Fill Instructions Keflex 500 mg capsule RxNorm: 855811 1 Capsule(s) PO TID 11/12/2018 11/21/2018 Active Augmentin 875 mg-125 mg tablet RxNorm: 539205 1 Tablet(s) PO BID 05/17/2018 05/23/2018 Inactive Kenalog 40 mg/mL gue[employer] pension for injection RxNorm: 6068219 Milliliter(s) Inj 05/17/2018 05/17/2018 In active Augmentin 875 mg-125 mg tablet RxNorm: 221807 1 Tablet(s) PO BID 03/12/2018 03/18/2018 Inactive take a probioitic while on the abx Kenalog 40 mg/mL gue[employer] pension for injection RxNorm: 1327737 1 Milliliter(s) Inj 03/12/2018 03/12/2018 In active doxycycline hyclate 100 mg capsule RxNorm: 0915846 1 Capsule(s) PO BID 01/28/2018 02/06/2018 In active dapsone 25 mg tablet RxNorm: 260138 2 Tablet(s) PO daily 01/28/2018 02/01/2018 Inactive diclofenac 50 mg-mis oprostol 200 mcg tablet,immed.and delayed release RxNorm: 152583 1 Tablet(s) PO BID 11/05/2017 03/04/2018 Inactive acyclovir 800 mg tablet RxNorm: 744107 1 Tablet(s) PO TID take at symptoms of c old sore, if no outbreak, take for 5 days, if breaks out, take for 10 days total 09/09/2017 10/08/2017 In active prednisone 10 mg tablet RxNorm: 113809 Tablet(s) PO 07/10/2017 No Stop Date Active 6,5, 4,3,2,1 Zithromax Z-Dawson 250 mg tablet RxNorm: 902483 1 Tablet(s) PO UD 07/10/2017 07/14/2017 Inactive zpack Augmentin 875 mg-125 mg tablet RxNorm: 314512 1 Tablet(s) PO BID 05/29/2017 05/28/2017 Inactive Augmentin 875 mg-125 mg tablet RxNorm: 668347 1 Tablet(s) PO BID 05/29/2017 06/07/2017 Inactive Kenalog 40 mg/mL gue[employer]a pension for injection RxNorm: 1215949 1 Milliliter(s) Inj 04/30/2017 04/30/2017 In active Keflex 500 mg capsule RxNorm: 947602 1 Capsule(s) PO TID 04/30/2017 05/09/2017 Inactive Vitamin D3 5,000 uni t tablet RxNorm: 361278 1 Tablet(s) PO daily 12/17/2016 No Stop Date Active Jublia 10 % topical solution with applicator RxNorm: 7885523 1 Application TOP da marshall 12/12/2016 06/09/2017 Inactive Jublia 10 % topical solution with applicator RxNorm: 5612435 1 Application TOP da marshall 12/12/2016 2016 Inactive acyclovir 800 mg tablet RxNorm: 177441 1 Tablet(s) PO TID take at symptoms of c old sore, if no outbreak, take for 5 days, if breaks out, take for 10 days total 09/25/2016 10/24/2016 In active Kenalog 40 mg/mL gue[employer]a pension for injection RxNorm: 7678581 Milliliter(s) Inj 10/08/2015 10/08/2015 In active doxycycline hyclate 100 mg tablet RxNorm: 734181 1 Tablet(s) PO BID 10/08/2015 10/17/2015 Inactive cefdinir 300 mg capsule RxNorm: 104429 1 Capsule(s) PO BID 06/25/2015 07/01/2015 Inactive cefdinir 300 mg capsule RxNorm: 873249 1 Capsule(s) PO BID 06/25/2015 06/24/2015 Inactive ceftriaxone 500 mg s olution for injection RxNorm: 0767978 Inj 06/21/2015 06/21/2015 Inactive Kenalog 40 mg/mL gue[employer]a pension for injection RxNorm: 4369374 Milliliter(s) Inj 06/21/2015 06/21/2015 In active Zithromax Z-Dawson 250 mg tablet RxNorm: 664762 1 Tablet(s) PO UD 06/21/2015 06/25/2015 Inactive zpack acyclovir 800 mg tablet RxNorm: 619644 1 Tablet(s) PO TID take at symptoms of c old sore, if no outbreak, take for 5 days, if breaks out, take for 10 days total 10/31/2014 11/29/2014 In active Cipro 500 mg tablet RxNorm: 094048 1 Tablet(s) PO BID 01/18/2013 01/17/2013 Inactive Cipro 500 mg tablet RxNorm: 536625 1 Tablet(s) PO BID 01/18/2013 01/20/2013 Inactive Ocuvite oral RxNorm: 553644 oral No Start Date Active krill oil 1,000 mg-1 70 mg-50 mg-80 mg capsule RxNorm: 1 Capsule(s) PO daily No Start Date Active Calcium 600 + D(3) oral RxNorm: 478802 oral No Start Date Active Vitamin D3 Oral RxNorm: Oral No Start Date 12/16/2016 Inactive flaxseed oil Oral RxNorm: Oral No Start Date 11/04/2016 Inactive Medication Administered Medication Codes Instruc tions Start Date Status Kenalog 40 mg/mL suspension for injection RxNorm: 1485069 Milliliter 05/17/2018 No longer Active Kenalog 40 mg/mL suspension for injection RxNorm: 2119202 1Milliliter 03/12/2018 N o longer Active Kenalog 40 mg/mL suspension for injection RxNorm: 9065350 1Milliliter 04/30/2017 N o longer Active Kenalog 40 mg/mL suspension for injection RxNorm: 3022439 Milliliter 10/08/2015 No longer Active Kenalog 40 mg/mL suspension for injection RxNorm: 0793908 Milliliter 06/21/2015 No longer Active ceftriaxone 500 mg solution for injection RxNorm: 8926938 06/21/2015 No longer A ctive Immunizations Vaccine [...] Observation Code Item Item Code Result Date Lipid Ord30 CHOL 161 mg/dL 11/02/2017 Lipid [...] 31.3 pg 11/02/2017 Cbc With Differential Ord2 Morgan% 8.9 % 11/02/2017 Cbc With Differential Ord2 [...] 1.75 K/ul 11/02/2017 Cbc With Differential Ord2 Morgan ABS# 0.3 K/ul 11/02/2017 Cbc With Differential Ord2 Eos ABS# 0.1 K/ul 11/02/2017 Cbc With Differential Ord2 Baso ABS# 0.0 K/ul 11/02/2017 Comp Metabolic Kog226 NA 141 mEq/L 11/02/2017 Comp Metabolic Wzz750 K 4.0 mEq/L 11/02/2017 Comp Metabolic Fsd989 CL 104 mEq/L 11/02/2017 Comp Metabolic Bae888 CO2 29.0 mEq/L 11/02/2017 Comp Metabolic Bem399 AN ION GAP 12 11/02/2017 Comp Metabolic Mjk726 GL UCOSE 91 mg/dL 11/02/2017 Comp Metabolic Jyw206 Cr eat 0.7 mg/dL 11/02/2017 Comp Metabolic Mbu427 eG FR 94 ml/min/1.73m2 11/02 Comp Metabolic Xdw848 BUN 18 mg/dL 11/02/2017 Comp Metabolic Axq011 B/ C Ratio 26.5 Ratio 11/02/2017 Comp Metabolic Mke322 CA LCIUM 9.7 mg/dL 11/02/2017 Comp Metabolic Ouq676 AL K PHOS 65 U/L 11/02/2017 Comp Metabolic Sfk469 T(SGOT) 16 U/L 11/02/2017 Comp Metabolic Eaa724 AL T(SGPT) 17 U/L 11/02/2017 Comp Metabolic Nrh388 BI LI T 0.4 mg/dL 11/02/2017 Comp Metabolic Uww093 AL BUMIN 4.1 g/dL 11/02/2017 Comp Metabolic Fyi406 TP RO 6.7 g/dL 11/02/2017 Comp Metabolic Qqt139 GL OB 2.6 g/dL 11/02/2017 Comp Metabolic Yxv704 A/ G Ratio 1.6 Ratio 11/02/2017 Comp Metabolic Kwq721 Os mo 283 mOsmo 11/02/2017 Tsh Ord6 hTSH II 2.02 uIU/mL 01/27/2017 Comp Metabolic Fhn598 NA 141 mEq/L 01/27/2017 Comp Metabolic Icu769 K 4.2 mEq/L 01/27/2017 Comp Metabolic Nbu854 CL 103 mEq/L 01/27/2017 Comp Metabolic Qwn156 CO2 31.0 mEq/L 01/27/2017 Comp Metabolic Huc753 AN ION GAP 11 01/27/2017 Comp Metabolic Bwx195 GL UCOSE 90 mg/dL 01/27/2017 Comp Metabolic Pnn472 Cr eat 0.6 mg/dL 01/27/2017 Comp Metabolic Wuf101 eG FR 101 ml/min/1.73m2 01/18 Comp Metabolic Rpq423 BUN 17 mg/dL 01/27/2017 Comp Metabolic Rby004 B/ C Ratio 26.6 Ratio 01/27/2017 Comp Metabolic Zcn207 CA LCIUM 9.5 mg/dL 01/27/2017 Comp Metabolic Nci042 AL K PHOS 73 U/L 01/27/2017 Comp Metabolic Nhj540 T(SGOT) 19 U/L 01/27/2017 Comp Metabolic Nja445 AL T(SGPT) 20 U/L 01/27/2017 Comp Metabolic Ytu003 BI LI T 0.5 mg/dL 01/27/2017 Comp Metabolic Ipl019 AL BUMIN 4.3 g/dL 01/27/2017 Comp Metabolic Hwa004 TP RO 6.6 g/dL 01/27/2017 Comp Metabolic Gop361 GL OB 2.3 g/dL 01/27/2017 Comp Metabolic Ifn629 A/ G Ratio 1.8 Ratio 01/27/2017 Comp Metabolic Zfq311 Os mo 282 mOsmo 01/27/2017 Lipid Ord30 [...] 30.9 pg 01/27/2017 Cbc With Differential Ord2 Morgan% 11.8 % 01/27/2017 Cbc With Differential Ord2 [...] 1.72 K/ul 01/27/2017 Cbc With Differential Ord2 Morgan ABS# 0.4 K/ul 01/27/2017 Cbc With Differential [...] 30.9 pg 01/22/2016 Cbc With Differential Ord2 Morgan% 8.6 % 01/22/2016 Cbc With Differential Ord2 [...] 1.66 K/ul 01/22/2016 Cbc With Differential Ord2 Morgan ABS# 0.4 K/ul 01/22/2016 Cbc With Differential Ord2 Eos ABS# 0.1 K/ul 01/22/2016 Cbc With Differential Ord2 Baso ABS# 0.1 K/ul 01/22/2016 Comp Metabolic Sfa925 NA 141 mEq/L 01/22/2016 Comp Metabolic Trs157 K 4.2 mEq/L 01/22/2016 Comp Metabolic Wbf918 CL 105 mEq/L 01/22/2016 Comp Metabolic Hob750 CO2 30.0 mEq/L 01/22/2016 Comp Metabolic Edg023 AN ION GAP 10 01/22/2016 Comp Metabolic Qqn619 GL UCOSE 85 mg/dL 01/22/2016 Comp Metabolic Hdi791 Cr eat 0.6 mg/dL 01/22/2016 Comp Metabolic Ter859 eG FR 109 ml/min/1.73m2 07/2015 Comp Metabolic Oke772 BUN 14 mg/dL 01/22/2016 Comp Metabolic Ipc793 B/ C Ratio 23.3 Ratio 01/22/2016 Comp Metabolic Boa194 CA LCIUM 9.1 mg/dL 01/22/2016 Comp Metabolic Wcr488 AL K PHOS 69 U/L 01/22/2016 Comp Metabolic Zjp162 T(SGOT) 16 U/L 01/22/2016 Comp Metabolic Jjt173 AL T(SGPT) 15 U/L 01/22/2016 Comp Metabolic Vkk967 BI LI T 0.3 mg/dL 01/22/2016 Comp Metabolic Abp349 AL BUMIN 4.0 g/dL 01/22/2016 Comp Metabolic Hzk594 TP RO 6.8 g/dL 01/22/2016 Comp Metabolic Jtb106 GL OB 2.8 g/dL 01/22/2016 Comp Metabolic Aur731 A/ G Ratio 1.5 Ratio 01/22/2016 Comp Metabolic Bya149 Os mo 281 mOsmo 01/22/2016 Tsh Ord6 [...] Ord2 RDW 14.1 % 01/17/2015 Comp Metabolic Fnh087 NA 137 mEq/L 01/17/2015 Comp Metabolic Tpu594 K 4.1 mEq/L 01/17/2015 Comp Metabolic Iha297 CL 103 mEq/L 01/17/2015 Comp Metabolic Sbr451 CO2 35.0 mEq/L 01/17/2015 Comp Metabolic Hbo547 AN ION GAP 3 01/17/2015 Comp Metabolic Cfr079 GL UCOSE 88 mg/dL 01/17/2015 Comp Metabolic Tbe557 Cr eat 0.6 mg/dL 01/17/2015 Comp Metabolic Hfj094 eG FR 107 ml/min/1.73m2 12/21 Comp Metabolic Nxv688 BUN 14 mg/dL 01/17/2015 Comp Metabolic Xxo294 B/ C Ratio 23.0 Ratio 01/17/2015 Comp Metabolic Dxa004 CA LCIUM 9.4 mg/dL 01/17/2015 Comp Metabolic Iob189 AL K PHOS 71 U/L 01/17/2015 Comp Metabolic Xiv504 T(SGOT) 17 U/L 01/17/2015 Comp Metabolic Uqy782 AL T(SGPT) 14 U/L 01/17/2015 Comp Metabolic Qof979 BI LI T 0.4 mg/dL 01/17/2015 Comp Metabolic Gum868 AL BUMIN 4.3 g/dL 01/17/2015 Comp Metabolic Fou448 TP RO 7.0 g/dL 01/17/2015 Comp Metabolic Dzy286 GL OB 2.7 g/dL 01/17/2015 Comp Metabolic Jom219 A/ G Ratio 1.6 Ratio 01/17/2015 Comp Metabolic Yvb700 Os mo 274 mOsmo 01/17/2015 CHEM 14 6306781 AST 15 U/L 01/03/2014 CHEM 14 0531667 ALT 10 IU/L 01/03/2014 CHEM 14 0037610 BUN 12 MG/DL 01/03/2014 CHEM 14 8724448 ALBUMIN 4.4 GM/DL 01/03/2014 CHEM 14 8173977 CHLORIDE 105 MMOL/L 01/03/2014 CHEM 14 7881110 BILI TOT 0.5 MG/DL 01/03/2014 CHEM 14 3667869 ALK PHOS 69 U/L 01/03/2014 CHEM 14 3196720 SODIUM 140 MMOL/L 01/03/2014 CHEM 14 4061939 CREATINI NE 0.66 MG/DL 01/03/2014 CHEM 14 2639088 CALCIUM 9.3 MG/DL 01/03/2014 CHEM 14 1856321 POTASSIUM 3.8 MMOL/L 01/03/2014 CHEM 14 4917295 PROT TOT 7.3 GM/DL 01/03/2014 CHEM 14 5024107 GLUCOSE 89 MG/DL 01/03/2014 CHEM 14 7903161 BICARB 31 MMOL/L 01/03/2014 CHEM 14 2907051 ANION GAP 4 MEQ/L 01/03/2014 CBC 8358285 WBC 3.8 10e9/L 01/03/2014 CBC 4559778 RBC 4.16 10e12/L 01/03/2014 CBC 8745047 HGB 12.8 g/dL 01/03/2014 CBC 7438484 HCT DET 38.8 % 01/03/2014 CBC 8828459 MCV 93.3 fL 01/03/2014 CBC 7563017 MCH 30.8 pg 01/03/2014 CBC 8877088 MCHC 33.0 g/dL 01/03/2014 CBC 1672108 PLT 206 10e9/L 01/03/2014 CBC 9082227 MPV 10.1 fL 01/03/2014 CBC 3247144 CHRISTINA % 42.3 % 01/03/2014 CBC 1639263 LY % 44.0 % 01/03/2014 CBC 4588023 MON % 9.5 % 01/03/2014 CBC 9187126 EOS % 2.9 % 01/03/2014 CBC 8944407 BASO % 1.3 % 01/03/2014 CBC 5649740 RDW 12.8 % 01/03/2014 CBC 8039111 ABS CHRISTINA 1.61 10e9/L 01/03/2014 CBC 2127909 ABS LYMPH 1.67 10e9/L 01/03/2014 CBC 2293121 ABS MONO 0.36 10e9/L 01/03/2014 CBC 2400200 ABS EOS 0.11 10e9/L 01/03/2014 CBC 4168228 ABS BASO 0.05 10e9/L 01/03/2014 CBC 2735603 RDW-SD 42.3 fL 01/03/2014 TSH 1573152 TSH 2.728 uIU/ML 01/03/2014 GFR CALC 4631612 GFR AA >60 ML/MIN 01/03/2014 GFR CALC 8368694 GFR NON -AA >60 ML/MIN 01/03/2014 GC/CHL PRB 6119002 CHLM PROBE NEG 12/29/2012 GC/CHL PRB 8478350 GC SC OBE NEG 12/29/2012 URINALYSIS NONAUTO W/O SCOPE 32137 Specific [place] 1.015 DateTime(Free Text in Aprima) URINALYSIS NONAUTO W/O SCOPE 30864 PH 6.5 DateTime(Free Luis Eduardo t in Apr) URINALYSIS NONAUTO W/O SCOPE 87025 GLUCOSE DateTime(Free Text i n Aprima) URINALYSIS NONAUTO W/O SCOPE 18104 Protein DateTime(Free Text i n Apr) URINALYSIS NONAUTO W/O SCOPE 85050 Blood 3+ DateTime(Free Text in ) URINALYSIS NONAUTO W/O SCOPE 16842 Bilirubin DateTime(Free Text i n ) URINALYSIS NONAUTO W/O SCOPE 43534 Ketones DateTime(Free Text i n Apr) URINALYSIS NONAUTO W/O SCOPE 68550 Urobilinogen DateTime(Free Text in Apr) URINALYSIS NONAUTO W/O SCOPE 82911 Nitrite + DateTime(Free Text in Apr) URINALYSIS NONAUTO W/O SCOPE 09833 Leukocytes DateTime(Fr ee Text in ) Review [...] nourished 11/12/2018 None Full Exam - General 1995 Eyes conjunctiva/eyelids Overall: conjunctiva clear 11/12/2018 None [...] 12/28/2012 None Full Exam - General 1995 Neurologic cranial nerves Overall: crainial nerves 2 - 12 grossly intact 12/28/2012 None Full Exam - General 1995 Psychiatric orientation/consciousness Overall: oriented to person, place [...] 1994 Ears/Nose/Throat oral cavity/pharynx/larynx Overall: no masses 09/30/2012 None Full Exam - General 1994 [...] Date URINALYSIS NONAUTO W /O SCOPE CPT-4: 40770 11/12/2018 TRIAMCINOLONE ACET I [place] NOS CPT-4: J3301 05/17/2018 TRIAMCINOLONE ACET I [place] NOS CPT-4: J3301 03/12/2018 THER/PROPH/DIAG INJ SC/IM CPT-4: 08978 04/30/2017 TRIAMCINOLONE ACET I [place] NOS CPT-4: J3301 04/30/2017 TRIAMCINOLONE ACET I [place] NOS CPT-4: J3301 10/08/2015 TRIAMCINOLONE ACET I [place] NOS CPT-4: J3301 06/21/2015 ROCEPHIN, PER 250 MG CPT-4: J0696 06/21/2015 URINALYSIS NONAUTO W /O SCOPE CPT-4: 58593 01/18/2013 Vital Signs Date Vital 05/17/2018 Blood Pressure 1: 132/72 Code: 8480-6 BMI: 31.1 Code: 01201-1 Heart Rate 1: 82 bpm Height: 5'4" SpO2: 95% Weight: 184 lbs 03/12/2018 Blood Pressure 1: 140/80 Code: 8480-6 BMI: 31.3 Code: 26188-4 Heart Rate 1: 75 bpm Height: 5'4" SpO2: 98% Weight: 185 lbs 01/28/2018 Blood Pressure 1: 145/80 Code: 8480-6 BMI: 31.1 Code: 88071-8 Heart Rate 1: 73 bpm Height: 5'4" SpO2: 95% Weight: 184 lbs 11/05/2017 Blood Pressure 1: 140/82 Code: 8480-6 Blood Pressure 2: 130/78 Code: 8480-6 BMI: 30.6 Code: 85008-3 Heart Rate 1: 64 bpm Height: 5'4" SpO2: 97% Weight: 180 lbs 14 o z 07/10/2017 Blood Pressure 1: 124/72 Code: 8480-6 Heart Rate 1: 73 bpm Height: 5'4" SpO2: 99% Weight: 04/30/2017 Blood Pressure 1: 142/86 Code: 8480-6 BMI: 30.4 Code: 74884-6 Heart Rate 1: 57 bpm Height: 5'4" SpO2: 98% Temperature: 36.8 (C ) / 98.3 (F) Weight: 180 lbs 11/05/2016 Blood Pressure 1: 130/80 Code: 8480-6 BMI: 31.1 Code: 05269-0 Heart Rate 1: 68 bpm Height: 5'4" SpO2: 95% Weight: 184 lbs 11/01/2015 Blood Pressure 1: 124/76 Code: 8480-6 BMI: 30.1 Code: 79941-8 Heart Rate 1: 58 bpm Height: 5'4" SpO2: 97% Weight: 178 lbs 10/08/2015 Blood Pressure 1: 120/82 Code: 8480-6 BMI: 31.1 Code: 12340-6 Heart Rate 1: 71 bpm Height: 5'4" SpO2: 98% Weight: 184 lbs 06/21/2015 Blood Pressure 1: 142/90 Code: 8480-6 BMI: 23.0 Code: 82464-0 Heart Rate 1: 72 bpm Height: 5'4" SpO2: 92% Temperature: 36.6 (C ) / 97.8 (F) Weight: 136 lbs 06/15/2015 Blood Pressure 1: 138/72 Code: 8480-6 BMI: 23.0 Code: 10102-6 Heart Rate 1: 83 bpm Height: 5'4" SpO2: 96% Weight: 136 lbs 10/31/2014 Blood Pressure 1: 138/72 Code: 8480-6 BMI: 30.4 Code: 04219-6 Heart Rate 1: 69 bpm Height: 5'4" SpO2: 96% Weight: 180 lbs 11/21/2013 Blood Pressure 1: 128/82 Code: 8480-6 BMI: 29.4 Code: 79122-1 Heart Rate 1: 64 bpm Height: 5'4" Weight: 174 lbs 12/28/2012 Blood Pressure 1: 130/88 Code: 8480-6 BMI: 30.3 Code: 68502-0 Heart Rate 1: 60 bpm Height: 5'5" Weight: 182 lbs 09/30/2012 Blood Pressure 1: 126/78 Code: 8480-6 BMI: 30.1 Code: 13720-5 Heart Rate 1: 72 bpm Height: 5'5" [...] None well woman exam (40-65 years) 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 PATIENT, LEVEL II Diagnosis: Dysuria[ICD10: R30.0] [facility] CPT-4: 10229 11/12/2018 [id number]) 30969 EST. P ATIENT, LEVEL III Diagnosis: Acute recurrent maxillary sinusitis[ICD10: J01.01] Diagnosis: Cough[ICD10: R05] Criselda Hoover MD, [facility] CPT-4: 26106 05/17/2018 ([id number]) 62497 EST. P ATIENT, LEVEL III Diagnosis: Acute recurrent maxillary sinusitis[ICD10: J01.01] Diagnosis: Other allergic rhinitis[ICD10: J30.89] Diagnosis: Cough[ICD10: R05] Criselda Hoover MD, [facility] CPT-4: 79460 03/12/2018 45572 EST. PATIENT, LEVEL III Diagnosis: Cellulitis of left lower limb[ICD10: L03.116] Minoo Hoover MD, [facility] CPT-4: 40063 01/28/2018 ([id number]) PREV VISIT E AGE 40-64 Diagnosis: Encounter for general adult medical examination without abnormal findings[ICD10: Z00.00] Shanti Hoover MD, [facility] CPT-4: 31942 11/05/2017 56342 EST. PATIENT, LEVEL IV Diagnosis: Other acute sinusitis[ICD10: J01.80] Diagnosis: Other allergic rhinitis[ICD10: J30.89] Minoo Hoover MD, [facility] CPT-4: 38676 07/10/2017 96754 EST. PATIENT, LEVEL IV Diagnosis: Other acute sinusitis[ICD10: J01.80] Diagnosis: Other allergic rhinitis[ICD10: J30.89] Minoo Hoover MD, [facility] CPT-4: 89944 04/30/2017 ([id number]) PREV VISIT E AGE 40-64 Diagnosis: Encounter for general adult medical examination without abnormal findings[ICD10: Z00.00] [facility] CPT-4: 24062 11/05/2016 ([id number]) PREV VISIT E AGE 40-64 Diagnosis: Encounter for gynecological examination (general) (routine) without abnormal findings[ICD10: Z01.419] [facility] CPT-4: 97060 11/01/2015 ([id number]) 40586 EST. P ATIENT, LEVEL III Diagnosis: Insect bite (nonvenomous), right knee, initial encounter[ICD10: S80.261A] Diagnosis: Allergic rhinitis due to pollen[ICD10: J30.1] Criselda Hoover MD, [facility] CPT-4: 77068 10/08/2015 ([id number]) 00395 EST. P ATIENT, LEVEL III Diagnosis: Acute recurrent maxillary sinusitis[ICD10: J01.01] Diagnosis: Acute bronchitis, unspecified[ICD10: J20.9] Criselda Hoover MD, [facility] CPT-4: 07426 06/21/2015 ([id number]) 71778 EST. P ATIENT, LEVEL III Diagnosis: Low back pain[ICD10: M54.5] Diagnosis: Sacroiliitis, not elsewhere classified[ICD10: M46.1] Criselda Hoover MD, [facility] CPT-4: 33165 06/15/2015 ([id number]) PREV VISIT E AGE 40-64 Diagnosis: Routine medical exam[ICD9: V70.0] Shanti Hoover MD, [facility] CPT-4: 11000 10/31/2014 ([id number]) PREV VISIT E AGE 40-64 Diagnosis: Routine medical exam[ICD9: V70.0] [facility] CPT-4: 69532 11/21/2013 ([id number]) 15045 EST. P ATIENT, LEVEL III Diagnosis: Well woman exam with routine gynecological exam[ICD9: V72.31] Diagnosis: Polyp at cervical os[ICD9: 622.7] [facility] CPT-4: 55899 12/28/2012 ([id number]) OFFICE/OUTPA TIENT VISIT NEW Diagnosis: Routine medical exam[ICD9: V70.0] [facility] CPT-4: 96422 09/30/2012 Plan of Care Planned Activity Notes C odes Status Date Visit Plan: UTI - pt with positive urinalysis - culture sent if appropriate. Antibiotic electronically prescribed to pt's pharmacy of choice. Pt to call if symptoms do not improve. 11/12/2018 Patient Education: Patient Medication Summary Completed 11/12/2018 Care Plan: Urine Culture Pending 11/12/2018 Care Plan: Cbc With Differential Pending 11/12/2018 Care Plan: Comp Metabolic Pending 11/12/2018 Care Plan: Tsh Pending 11/12/2018 Care Plan: Lipid Pending 11/12/2018 Visit Plan: Sinusitis - Pt has acut e infection - pain in face, maxillary region, Pt informed to use decongestant, RX given to patient, sinus rinses also recommended. Call if symptoms do not show improvement. 05/17/2018 Appointment: Criselda Anderson WPtel: [phone] [phone] (30 min) Complex 05/17/2018 Patient Education: Patient Medication Summary Completed 05/17/2018 Visit Plan: Sinusitis - Pt has acut e infection - pain in face, maxillary region, Pt informed to use decongestant, RX given to patient, sinus rinses also recommended. Call if symptoms do not show improvement. 03/12/2018 Appointment: Criselda Anderson WPtel: [phone] [phone] (15 min) Moderate 03/12/2018 Patient Education: [...] discharge. 01/28/2018 [phone] (15 min) Moderate 01/28/2018 Patient Education: Patient [...] for arthrotec. 11/05/2017 Appointment: Shanti Hoover WPtel: [address] [place] [address] (15 min) Moderate 11/05/2017 Patient Education: Patient [...] allergy spray. 07/10/2017 Appointment: Minoo Joshua WPtel: [address] [place] [address] (15 min) Moderate 07/10/2017 Patient Education: Patient [...] allergy spray. 04/30/2017 Appointment: Minoo Joshua WPtel: [facility] (15 min) Moderate 04/30/2017 Patient Education: [...] renal functioning. 11/05/2016 Appointment: Shanti Hoover WPtel: [address] [place], [place] [phone] Physical 11/05/2016 Patient Education: Patient Medication Summary Completed 11/05/2016 Patient Education: Obesity Completed 11/05/2016 Appointment: Shanti Hoover WPtel: [address] [place], [place] [phone] Well Woman 01/02/2016 Visit Plan: Well Adult [...] the office. 10/08/2015 Appointment: Criselda Anderson WPtel: [phone] (15 min) Moderate 10/08/2015 Patient Education: Patient Medication Summary Completed 10/08/2015 Patient Education: Obesity Completed 10/08/2015 Visit Plan: Sinusitis - Pt has acut e infection - pain in face, maxillary region, Pt informed to use decongestant, RX given to patient, sinus rinses also recommended. Call if symptoms do not show improvement. 06/21/2015 Appointment: Criselda Anderson WPtel: [phone] (10 min) Simple 06/21/2015 Patient Education: [...] Medication Summary Completed 06/15/2015 Care Plan: [facility] Ordered 11/19/2014 Visit Plan: Well Adult - [...] renal functioning. 10/31/2014 Appointment: Shanti Hoover WPtel: [facility]4 [facility] Physical 10/31/2014 Patient Education: Patient Medication Summary [...] renal functioning. 11/21/2013 Appointment: Shanti Hoover WPtel: [facility] Well Woman 11/21/2013 Patient Education: Patient Medication Summary Completed 11/21/2013 Appointment: Shanti Hoover WPtel: [phone] [facility] Lab Draw 01/18/2013 Patient Education: Patient Medication Summary Completed 01/18/2013 Visit Plan: Well Adult Female - exa m completed. Pap and gc/chlamydia and breast exam completed. Pt will be called with results of her testing. She was advised to continue with yearly annual exams. Pt referred to Dr Bolivar Sun for further evaluation of the large cervical polyp. 12/28/2012 Appointment: Shanti Hoover WPtel: [phone] [facility] Well Woman 12/28/2012 Patient Education: Patient Medication Summary Completed 12/28/2012 Visit Plan: recommended well woman exam and labs. recommended starting multivitamin improved sleep hygeine 09/30/2012 Appointment: Shanti Hoover WPtel: [facility] New Patient 09/30/2012 Patient Education: Patient Medication [...]
--- OUTSIDE RECORDS SUMMARY | 2019-10-14 08:48 | XMS REPORT | CCD ---
Author Author Laquita Hoover Organization Shanti Hoover MD, [facility] Address [address] [place] [address] Phone Care Team Providers Care Automated Teller Manager Name Role Phone PP Unavailable CCM Unavailable Summary Purpose Interface Exchange Insurance Providers Payer name Policy type / Coverage type Covered republican ID Effective Begin Date Effective End Date Blue Cross Blue [facility] e Cross/Blue Shield [id number] 2015 Un known Family history Adopted Diagnosis Age At Onset No Family Disease Entered N/A Social History Social History Element Codes Description Effective Dates Marital status Unknown M arried 09/30/2012 Number of children Unknown 2 09/30/2012 Employment Unknown 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 Unknown Has never used illegal drugs 013 Allergies, Adverse Reactions, Alerts Allergies, Adverse Reactions, Alerts data not found Past Medical History Illness Codes Condition Status Onset Date Resolved Date Encounter for racquel l adult medical examination without abnormal findings ICD-9: V70.0 ICD-10: Z00.00 Active 11/05/2016 Unknown Encounter for gyneco logical examination (general) (routine) without abnormal findings ICD-9: V72.31 ICD-10: Z01.419 Active 12/28/2012 Unknown Allergic rhinitis du e to pollen ICD-9: 477.0 ICD-10: J30.1 Active 10/07/2015 Unknown Insect bite (nonveno mous), right knee, initial encounter ICD-9: 916.4 ICD-10: S80.261A Active 10/07/2015 Unknown Acute bronchitis, un specified ICD-9: 466.0 ICD-10: J20.9 Active 06/20/2015 Unknown Acute recurrent maxi llary sinusitis ICD-9: 461.0 ICD-10: J01.01 Active 06/20/2015 Unknown Low back pain ICD-9: [...] Effectiv e Dates Condition Status Encounter for genera l adult medical examination without abnormal findings ICD-9: V70.0 ICD-10: Z00.00 11/05/2016 Active Encounter for gyneco logical examination (general) (routine) without abnormal findings ICD-9: V72.31 ICD-10: Z01.419 12/28/2012 Active Allergic rhinitis du e to pollen ICD-9: 477.0 ICD-10: J30.1 10/07/2015 Active Insect bite (nonveno mous), right knee, initial encounter ICD-9: 916.4 ICD-10: S80.261A 10/07/2015 Active Acute bronchitis, un specified ICD-9: 466.0 ICD-10: J20.9 06/20/2015 Active Acute recurrent maxi llary sinusitis ICD-9: 461.0 ICD-10: J01.01 06/20/2015 Active Low back pain ICD-9: 724.2 [...] Date Stop Date Sta tus Fill Instructions acyclovir 800 mg tablet RxNorm: 174146 1 Tablet(s) PO TID take at symptoms of c old sore, if no outbreak, take for 5 days, if breaks out, take for 10 days total 09/25/2016 10/24/2016 In active Kenalog 40 mg/mL guevara pension for injection RxNorm: 8216771 Milliliter(s) Inj 10/08/2015 10/08/2015 In active doxycycline hyclate 100 mg tablet RxNorm: 058952 1 Tablet(s) PO BID 10/08/2015 10/17/2015 Inactive cefdinir 300 mg capsule RxNorm: 885526 1 Capsule(s) PO BID 06/25/2015 07/01/2015 Inactive cefdinir 300 mg capsule RxNorm: 873499 1 Capsule(s) PO BID 06/25/2015 06/24/2015 Inactive ceftriaxone 500 mg s olution for injection RxNorm: 9002948 Inj 06/21/2015 06/21/2015 Inactive Kenalog 40 mg/mL guevara pension for injection RxNorm: 0276763 Milliliter(s) Inj 06/21/2015 06/21/2015 In active Zithromax Z-Dawson 250 mg tablet RxNorm: 885166 1 Tablet(s) PO UD 06/21/2015 06/25/2015 Inactive zpack acyclovir 800 mg tablet RxNorm: 968733 1 Tablet(s) PO TID take at symptoms of c old sore, if no outbreak, take for 5 days, if breaks out, take for 10 days total 10/31/2014 11/29/2014 In active Cipro 500 mg tablet RxNorm: 357613 1 Tablet(s) PO BID 01/18/2013 01/17/2013 Inactive Cipro 500 mg tablet RxNorm: 060025 1 Tablet(s) PO BID 01/18/2013 01/20/2013 Inactive Vitamin D3 Oral RxNorm: Oral No Start Date Active Ocuvite oral RxNorm: 125761 oral No Start Date Active krill oil 1,000 mg-1 70 mg-50 mg-80 mg capsule RxNorm: 1 Capsule(s) PO daily No Start Date Active flaxseed oil Oral RxNorm: Oral No Start Date 11/04/2016 Inactive Medication Administered Medication Codes Instruc tions Start Date Status Kenalog 40 mg/mL suspension for injection RxNorm: 8728049 Milliliter 10/08/2015 No longer Active Kenalog 40 mg/mL suspension for injection RxNorm: 5448019 Milliliter 06/21/2015 No longer Active ceftriaxone 500 mg solution for injection RxNorm: 3573208 06/21/2015 No longer A ctive Immunizations Vaccine Codes Date Status Influenza CVX: 141 02/17 completed Tetanus/Diptheria CVX: 113 05/20/2011 completed Assessments Condition Codes Effectiv e Dates Encounter for general adult medical exam ination without abnormal findings ICD-10: Z00.00 ICD-9: V70.0 11/05/2016 Encounter for gynecological examination (general) (routine) without abnormal findings ICD-10: Z01.419 ICD-9: V72.31 11/01/2015 Insect bite (nonvenomous), right knee, initial encount er ICD- 10: S80.261A ICD-9: 916.4 10/08/2015 Allergic rhinitis due to pollen ICD- 10: J30.1 ICD-9: 477.0 10/08/2015 Acute recurrent maxillary sinusitis ICD-10: J01.01 ICD-9: 461.0 06/21/2015 Acute bronchitis, unspecified ICD-10 : J20.9 ICD-9: [...] Dates Notes well woman exam (40-65 years) 11/05/2016 well woman exam (40-65 years) 11/01/2015 earache 10/08/2015 cough 06/21/2015 back pain 06/15/2015 well woman exam (40-65 years) 10/31/2014 ~generic 11/21/2013 foll ow up breast exam well woman exam (40-65 years) 12/28/2012 fatigue 09/30/2012 Results Observation Observation Code Item Item Code Result Date Tsh Ord6 hTSH II 1.75 uIU/mL 01/22/2016 [...] 13.3 g/dl 01/22/2016 Cbc With Differential Ord2 Neut% 45.7 % 01/22/2016 Cbc With Differential Ord2 HCT 40.6 % 01/22/2016 Cbc With Differential Ord2 MCV 94.4 fl 01/22/2016 Cbc With Differential Ord2 Lymph% 40.8 % 01/22/2016 Cbc With Differential Ord2 MCH 30.9 pg 01/22/2016 Cbc With Differential Ord2 [place]% 8.6 % 01/22/2016 Cbc With Differential Ord2 [...] 1.66 K/ul 01/22/2016 Cbc With Differential Ord2 [place] ABS# 0.4 K/ul 01/22/2016 Cbc With Differential Ord2 Eos ABS# 0.1 K/ul 01/22/2016 Cbc With Differential Ord2 Baso ABS# 0.1 K/ul 01/22/2016 Comp Metabolic Pkt428 NA 141 mEq/L 01/22/2016 Comp Metabolic Wbx364 K 4.2 mEq/L 01/22/2016 Comp Metabolic Jnm156 CL 105 mEq/L 01/22/2016 Comp Metabolic Mdq922 CO2 30.0 mEq/L 01/22/2016 Comp Metabolic Ybo413 AN ION GAP 10 01/22/2016 Comp Metabolic Vel226 GL UCOSE 85 mg/dL 01/22/2016 Comp Metabolic Qjg480 Cr eat 0.6 mg/dL 01/22/2016 Comp Metabolic Dbr987 eG FR 109 ml/min/1.73m2 07/2015 Comp Metabolic Ptt458 BUN 14 mg/dL 01/22/2016 Comp Metabolic Mnu857 B/ C Ratio 23.3 Ratio 01/22/2016 Comp Metabolic Xlg460 CA LCIUM 9.1 mg/dL 01/22/2016 Comp Metabolic Fdu294 AL K PHOS 69 U/L 01/22/2016 Comp Metabolic Csv195 T(SGOT) 16 U/L 01/22/2016 Comp Metabolic Fnw679 AL T(SGPT) 15 U/L 01/22/2016 Comp Metabolic Nln778 BI LI T 0.3 mg/dL 01/22/2016 Comp Metabolic Nls899 AL BUMIN 4.0 g/dL 01/22/2016 Comp Metabolic Iel317 TP RO 6.8 g/dL 01/22/2016 Comp Metabolic Abk048 GL OB 2.8 g/dL 01/22/2016 Comp Metabolic Pcv026 A/ G Ratio 1.5 Ratio 01/22/2016 Comp Metabolic Xwy594 Os mo 281 mOsmo 01/22/2016 Tsh Ord6 [...] Ord2 RDW 14.1 % 01/17/2015 Comp Metabolic Wsr692 NA 137 mEq/L 01/17/2015 Comp Metabolic Nis067 K 4.1 mEq/L 01/17/2015 Comp Metabolic Uqg297 CL 103 mEq/L 01/17/2015 Comp Metabolic Cva773 CO2 35.0 mEq/L 01/17/2015 Comp Metabolic Wnn883 AN ION GAP 3 01/17/2015 Comp Metabolic Etm709 GL UCOSE 88 mg/dL 01/17/2015 Comp Metabolic Gtw025 Cr eat 0.6 mg/dL 01/17/2015 Comp Metabolic Ndh526 eG FR 107 ml/min/1.73m2 12/21 Comp Metabolic Ool156 BUN 14 mg/dL 01/17/2015 Comp Metabolic Lvx889 B/ C Ratio 23.0 Ratio 01/17/2015 Comp Metabolic Vqk163 CA LCIUM 9.4 mg/dL 01/17/2015 Comp Metabolic Ols653 AL K PHOS 71 U/L 01/17/2015 Comp Metabolic Brj784 T(SGOT) 17 U/L 01/17/2015 Comp Metabolic Rzu358 AL T(SGPT) 14 U/L 01/17/2015 Comp Metabolic Olb963 BI LI T 0.4 mg/dL 01/17/2015 Comp Metabolic Nlg416 AL BUMIN 4.3 g/dL 01/17/2015 Comp Metabolic Qyh684 TP RO 7.0 g/dL 01/17/2015 Comp Metabolic Opd885 GL OB 2.7 g/dL 01/17/2015 Comp Metabolic Bff218 A/ G Ratio 1.6 Ratio 01/17/2015 Comp Metabolic Vuq279 Os mo 274 mOsmo 01/17/2015 CHEM 14 3895489 AST 15 U/L 01/03/2014 CHEM 14 0935721 ALT 10 IU/L 01/03/2014 CHEM 14 7579287 BUN 12 MG/DL 01/03/2014 CHEM 14 7177388 ALBUMIN 4.4 GM/DL 01/03/2014 CHEM 14 3905401 CHLORIDE 105 MMOL/L 01/03/2014 CHEM 14 6324185 BILI TOT 0.5 MG/DL 01/03/2014 CHEM 14 1117029 ALK PHOS 69 U/L 01/03/2014 CHEM 14 5273740 SODIUM 140 MMOL/L 01/03/2014 CHEM 14 0582184 CREATINI NE 0.66 MG/DL 01/03/2014 CHEM 14 4654551 CALCIUM 9.3 MG/DL 01/03/2014 CHEM 14 4316540 POTASSIUM 3.8 MMOL/L 01/03/2014 CHEM 14 2721032 PROT TOT 7.3 GM/DL 01/03/2014 CHEM 14 8732725 GLUCOSE 89 MG/DL 01/03/2014 CHEM 14 2955859 BICARB 31 MMOL/L 01/03/2014 CHEM 14 7055834 ANION GAP 4 MEQ/L 01/03/2014 CBC 1128260 WBC 3.8 10e9/L 01/03/2014 CBC 1935657 RBC 4.16 10e12/L 01/03/2014 CBC 2286593 HGB 12.8 g/dL 01/03/2014 CBC 1371752 HCT DET 38.8 % 01/03/2014 CBC 0613100 MCV 93.3 fL 01/03/2014 CBC 0407644 MCH 30.8 pg 01/03/2014 CBC 6148105 MCHC 33.0 g/dL 01/03/2014 CBC 4769990 PLT 206 10e9/L 01/03/2014 CBC 6341048 MPV 10.1 fL 01/03/2014 CBC 1369135 CHRISTINA % 42.3 % 01/03/2014 CBC 1880763 LY % 44.0 % 01/03/2014 CBC 3049584 MON % 9.5 % 01/03/2014 CBC 9846479 EOS % 2.9 % 01/03/2014 CBC 2416132 BASO % 1.3 % 01/03/2014 CBC 0093738 RDW 12.8 % 01/03/2014 CBC 8100838 ABS CHRISTINA 1.61 10e9/L 01/03/2014 CBC 8739277 ABS LYMPH 1.67 10e9/L 01/03/2014 CBC 2853051 ABS MONO 0.36 10e9/L 01/03/2014 CBC 9164891 ABS EOS 0.11 10e9/L 01/03/2014 CBC 8564271 ABS BASO 0.05 10e9/L 01/03/2014 CBC 5802748 RDW-SD 42.3 fL 01/03/2014 TSH 7494584 TSH 2.728 uIU/ML 01/03/2014 GFR CALC 7585818 GFR AA >60 ML/MIN 01/03/2014 GFR CALC 6131872 GFR NON -AA >60 ML/MIN 01/03/2014 GC/CHL PRB 4493353 CHLM PROBE NEG 12/29/2012 GC/CHL PRB 7497116 GC AZ OBE NEG 12/29/2012 URINALYSIS NONAUTO W/O SCOPE 20111 Specific [place] 1.015 DateTime(Free Text in Aprima) URINALYSIS NONAUTO W/O SCOPE 95640 PH 6.5 DateTime(Free Luis Eduardo t in Julima) URINALYSIS NONAUTO W/O SCOPE 93411 GLUCOSE DateTime(Free Text i n Julima) URINALYSIS NONAUTO W/O SCOPE 16502 Protein DateTime(Free Text i n Aprima) URINALYSIS NONAUTO W/O SCOPE 27746 Blood 3+ DateTime(Free Text in Julima) URINALYSIS NONAUTO W/O SCOPE 86888 Bilirubin DateTime(Free Text i n Aprima) URINALYSIS NONAUTO W/O SCOPE 52232 Ketones DateTime(Free Text i n Aprima) URINALYSIS NONAUTO W/O SCOPE 94563 Urobilinogen DateTime(Free Text in Aprima) URINALYSIS NONAUTO W/O SCOPE 26231 Nitrite + DateTime(Free Text in Julima) URINALYSIS NONAUTO W/O SCOPE 61260 Leukocytes DateTime(Fr ee Text in ) Review of Systems System Result Effective Dates Constitutional No recent illness 11/05/2016 Constitutional No [...] 1994 Ears/Nose/Throat oral cavity/pharynx/larynx Overall: no masses 12/28/2012 [...] time 09/30/2012 None Procedures Procedure Codes Date TRIAMCINOLONE ACET I [place] NOS CPT-4: S0245Gioegsl 10/08/2015 TRIAMCINOLONE ACET I [place] NOS CPT-4: D4860Ykctlzg 06/21/2015 ROCEPHIN, PER 250 MG CPT-4: G9891Lfvvrek 06/21/2015 URINALYSIS NONAUTO W /O SCOPE CPT-4: 83561Vaijnlt 01/18/2013 Vital Signs Date Vital 11/05/2016 Blood Pressure 1: 130/80 Code: 8480-6 BMI: 31.1 Code: 23638-3 Heart Rate 1: 68 bpm Height: 5'4" SpO2: 95% Weight: 184 lbs 11/01/2015 Blood Pressure 1: 124/76 Code: 8480-6 BMI: 30.1 Code: 70275-0 Heart Rate 1: 58 bpm Height: 5'4" SpO2: 97% Weight: 178 lbs 10/08/2015 Blood Pressure 1: 120/82 Code: 8480-6 BMI: 31.1 Code: 22066-0 Heart Rate 1: 71 bpm Height: 5'4" SpO2: 98% Weight: 184 lbs 06/21/2015 Blood Pressure 1: 142/90 Code: 8480-6 BMI: 23.0 Code: 47465-1 Heart Rate 1: 72 bpm Height: 5'4" SpO2: 92% Temperature: 36.6 (C ) / 97.8 (F) Weight: 136 lbs 06/15/2015 Blood Pressure 1: 138/72 Code: 8480-6 BMI: 23.0 Code: 94589-6 Heart Rate 1: 83 bpm Height: 5'4" SpO2: 96% Weight: 136 lbs 10/31/2014 Blood Pressure 1: 138/72 Code: 8480-6 BMI: 30.4 Code: 42490-8 Heart Rate 1: 69 bpm Height: 5'4" SpO2: 96% Weight: 180 lbs 11/21/2013 Blood Pressure 1: 128/82 Code: 8480-6 BMI: 29.4 Code: 94701-8 Heart Rate 1: 64 bpm Height: 5'4" Weight: 174 lbs 12/28/2012 Blood Pressure 1: 130/88 Code: 8480-6 BMI: 30.3 Code: 71752-9 Heart Rate 1: 60 bpm Height: 5'5" Weight: 182 lbs 09/30/2012 Blood Pressure 1: 126/78 Code: 8480-6 BMI: 30.1 Code: 61117-1 Heart Rate 1: 72 bpm Height: 5'5" Weight: 181 lbs Functional Status No Functional Status data History of Present Illness Symptom Name Status Resu lt Effective Date Notes well woman exam (40-65 years) Lifestyle regular [...] None well woman exam (40-65 years) Breast /[place] Complaints menopausal symptoms 11/01/2015 None well woman [...] None well woman exam (40-65 years) Breast /[place] Complaints menopausal symptoms 10/31/2014 None well woman [...] Encounters Encounter Performer Loca tion Codes Date (40982) PREV VISIT E ST AGE 40-64 Diagnosis: Encounter for general adult medical examination without abnormal findings[ICD10: Z00.00] [facility] CPT-4: 42406 11/05/2016 ([id number]) PREV VISIT E ST AGE 40-64 Diagnosis: Encounter for gynecological examination (general) (routine) without abnormal findings[ICD10: Z01.419] [facility] CPT-4: 03443 11/01/2015 ([id number]) 71036 EST. P ATIENT, LEVEL III Diagnosis: Insect bite (nonvenomous), right knee, initial encounter[ICD10: S80.261A] Diagnosis: Allergic rhinitis due to pollen[ICD10: J30.1] [facility] CPT-4: 68980 10/08/2015 ([id number]) 75071 EST. P ATIENT, LEVEL III Diagnosis: Acute recurrent maxillary sinusitis[ICD10: J01.01] Diagnosis: Acute bronchitis, unspecified[ICD10: J20.9] [facility] CPT-4: 23335 06/21/2015 ([id number]) 45396 EST. P ATIENT, LEVEL III Diagnosis: Low back pain[ICD10: M54.5] Diagnosis: Sacroiliitis, not elsewhere classified[ICD10: M46.1] Criselda Hoover MD, [facility] CPT-4: 19413 06/15/2015 ([id number]) PREV VISIT E ST AGE 40-64 Diagnosis: Routine medical exam[ICD9: V70.0] [facility] CPT-4: 61592 10/31/2014 ([id number]) PREV VISIT E AGE 40-64 Diagnosis: Routine medical exam[ICD9: V70.0] [facility] CPT-4: 18742 11/21/2013 ([id number]) 61784 EST. P ATIENT, LEVEL III Diagnosis: Well woman exam with routine gynecological exam[ICD9: V72.31] Diagnosis: Polyp at cervical os[ICD9: 622.7] Shanti Hoover MD, [facility] CPT-4: 57336 12/28/2012 ([id number]) OFFICE/OUTPA TIENT VISIT NEW Diagnosis: Routine medical exam[ICD9: V70.0] [facility] CPT-4: 52674 09/30/2012 Plan of Care Planned Activity Notes C odes Status Date Visit Plan: Well Adult - pt was counsele d about diet, exercise, and encouraged to follow a heart healthy diet and increase activity level. The patient was instructed to RTC yearly for well adult exams and PRN for acute illnesses. The pt was also instructed to have yearly labs for check of cholesterol, thyroid, chem panel, CBC, and renal functioning. 11/05/2016 Patient Education: Patient Medication Summary Completed 11/05/2016 Patient Education: Obesity Completed 11/05/2016 Appointment: Shanti Hoover WPtel: [address] [place], [place] [id number] Well Woman 01/02/2016 Care Plan: SCREENINGMAMMOGRAPHYDIGITAL LOINC : 97933-0 Pending 12/03/2015 Visit Plan: Well Adult Female - exam co mpleted. Pap and breast exam completed. Pt will [...] Visit Plan: Tick Bite - pt given script for treatment of infected tick bite, call for symptoms of worsening infection or nonhealing.Allergies - chronic - recommended pt to use allergy medication as prescribed. Pt has been counseled as to the appropriate use of the medication. Pt to call if allergy symptoms are not controlled with the medication.If using nasal spray, instructions as follows: Nasal spray- use twice daily, one spray per nostril twice daily, after 30 minutes, rinse out nose with saline spray.. Use opposite hand per nostril to spray in the nasal steroid allergy spray.Kenalog injection today in the office. 10/08/2015 Appointment: [facility] [phone] [phone] (15 min) Moderate 10/08/2015 Patient Education: Patient Medication Summary Completed 10/08/2015 Patient Education: Obesity Completed 10/08/2015 Visit Plan: Sinusitis - Pt has acute inf ection - pain in face, maxillary region, Pt informed to use decongestant, RX given to patient, sinus rinses also recommended. Call if symptoms do not show improvement. 06/21/2015 Appointment: Criselda Anderson WPtel: [phone] (10 min) Simple 06/21/2015 Patient Education: Patient Medication Summary Completed 06/21/2015 Visit Plan: Sacroiliitis-injection today in the office- back exercises discussed with the patient, pt to continue with anti-inflammatories and exercises as directed. Pt is to call if the symptoms do not improve or if they worsen. 2015 Appointment: (30 min) Complex 06/15/2015 Patient Education: Patient Medication Summary Completed 06/15/2015 Care Plan: SCREENINGMAMMOGRAPHYDIGITAL LOINC : 91392-4 Ordered 11/19/2014 Visit Plan: Well Adult - pt was counsele d about diet, exercise, and encouraged to follow a heart healthy diet and increase activity level. The patient was instructed to RTC yearly for well adult exams and PRN for acute illnesses. The pt was also instructed to have yearly labs for check of cholesterol, thyroid, chem panel, CBC, and renal functioning. 10/31/2014 Appointment: Shanti Hoover WPtel: [facility] Physical 10/31/2014 Patient Education: Patient Medication Summary Completed 10/31/2014 Visit Plan: Well Adult - pt was counsele d about diet, exercise, and encouraged to follow a heart healthy diet and increase activity level. The patient was instructed to RTC yearly for well adult exams and PRN for acute illnesses. The pt was also instructed to have yearly labs for check of cholesterol, thyroid, chem panel, CBC, and renal functioning. 11/21/2013 Appointment: Shanti Hoover WPtel: [address] [place], [place] [id number] Well Woman 11/21/2013 Patient Education: Patient Medication Summary Completed 11/21/2013 Appointment: Shanti Hoover WPtel: [facility] Lab Draw 01/18/2013 Patient Education: Patient Medication Summary Completed 01/18/2013 Visit Plan: Well Adult Female - exam co mpleted. Pap and gc/chlamydia and breast exam completed. Pt will be called with results of her testing. She was advised to continue with yearly annual exams. Pt referred to Dr. Sun for further evaluation of the large cervical polyp. 12/28/2012 Appointment: Shanti Hoover WPtel: [facility] Well Woman 12/28/2012 Patient Education: Patient Medication Summary Completed 12/28/2012 Visit Plan: recommended well woman exam and labs.recommended starting multivitaminimproved sleep hygeine 09/30/2012 Appointment: Shanti Hoover WPtel: [facility] New Patient 09/30/2012 Patient Education: Patient Medication Summary Completed 09/30/2012 Instructions Comment . Sinusitis - Pt has acute infection [...] evaluation of the large cervical polyp. . Sacroiliitis-injec tion today in the office- [...]
--- OUTSIDE RECORDS SUMMARY | 2019-10-14 08:49 | XMS REPORT | CCD ---
Author Author Laquita Hoover Organization Shanti Hoover MD, [facility] Address [address] [place] [address] Phone Care Team Providers Care Gerontology Aide Name Role Phone PP Unavailable CCM Unavailable Summary Purpose Interface Exchange Insurance Providers Payer name Policy type / Coverage type Covered republican ID Effective Begin Date Effective End Date Blue Cross 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/30/[address]: 0264788 Quit less than 10 years ago 09/30/2012 [...] Codes Instruc tions Start Date Stop Date Fill Instructions acyclovir 800 mg tablet RxNorm: 868711 1 Tablet(s) PO TID take at symptoms of c old sore, if no outbreak, take for 5 days, if breaks out, take for 10 days total 09/25/2016 10/24/2016 Ac tive Kenalog 40 mg/mL guevara pension for injection RxNorm: 5090498 Milliliter(s) Inj 10/08/2015 10/08/2015 In active doxycycline hyclate 100 mg tablet RxNorm: 038369 1 Tablet(s) PO BID 10/08/2015 10/17/2015 Inactive cefdinir 300 mg capsule RxNorm: 110605 1 Capsule(s) PO BID 06/25/2015 07/01/2015 Inactive cefdinir 300 mg capsule RxNorm: 571385 1 Capsule(s) PO BID 06/25/2015 06/24/2015 Inactive ceftriaxone 500 mg s olution for injection RxNorm: 1901869 Inj 06/21/2015 06/21/2015 Inactive Kenalog 40 mg/mL guevara pension for injection RxNorm: 7670565 Milliliter(s) Inj 06/21/2015 06/21/2015 In active Zithromax Z-Dawson 250 mg tablet RxNorm: 034345 1 Tablet(s) PO UD 06/21/2015 06/25/2015 Inactive zpack acyclovir 800 mg tablet RxNorm: 677567 1 Tablet(s) PO TID take at symptoms of c old sore, if no outbreak, take for 5 days, if breaks out, take for 10 days total 10/31/2014 11/29/2014 In active Cipro 500 mg tablet RxNorm: 451298 1 Tablet(s) PO BID 01/18/2013 01/17/2013 Inactive Cipro 500 mg tablet RxNorm: 278634 1 Tablet(s) PO BID 01/18/2013 01/20/2013 Inactive Vitamin D3 Oral RxNorm: Oral No Start Date Active Ocuvite oral RxNorm: 163736 oral No Start Date Active flaxseed oil Oral RxNorm: Oral No Start Date Active Medication Administered Medication Codes Instruc tions Start Date Status Kenalog 40 mg/mL suspension for injection RxNorm: 5805333 Milliliter 10/08/2015 No longer Active Kenalog 40 mg/mL suspension for injection RxNorm: 6237922 Milliliter 06/21/2015 No longer Active ceftriaxone 500 mg solution for injection RxNorm: 3403466 06/21/2015 No longer A ctive Immunizations Vaccine [...] Dates Notes well woman exam (40-65 years) 11/01/2015 earache [...] 30.9 pg 01/22/2016 Cbc With Differential Ord2 Dougherty% 8.6 % 01/22/2016 Cbc With Differential Ord2 [...] 1.66 K/ul 01/22/2016 Cbc With Differential Ord2 Dougherty ABS# 0.4 K/ul 01/22/2016 Cbc With Differential Ord2 Eos ABS# 0.1 K/ul 01/22/2016 Cbc With Differential Ord2 Baso ABS# 0.1 K/ul 01/22/2016 Comp Metabolic Eks643 NA 141 mEq/L 01/22/2016 Comp Metabolic Yzv012 K 4.2 mEq/L 01/22/2016 Comp Metabolic Pgr530 CL 105 mEq/L 01/22/2016 Comp Metabolic Uxa223 CO2 30.0 mEq/L 01/22/2016 Comp Metabolic Mpn991 AN ION GAP 10 01/22/2016 Comp Metabolic Ctd038 GL UCOSE 85 mg/dL 01/22/2016 Comp Metabolic Tcu676 Cr eat 0.6 mg/dL 01/22/2016 Comp Metabolic Gcv274 eG FR 109 ml/min/1.73m2 07/2015 Comp Metabolic Tbc150 BUN 14 mg/dL 01/22/2016 Comp Metabolic Pvp255 B/ C Ratio 23.3 Ratio 01/22/2016 Comp Metabolic Ugh412 CA LCIUM 9.1 mg/dL 01/22/2016 Comp Metabolic Wps693 AL K PHOS 69 U/L 01/22/2016 Comp Metabolic Ivf088 T(SGOT) 16 U/L 01/22/2016 Comp Metabolic Oae137 AL T(SGPT) 15 U/L 01/22/2016 Comp Metabolic Yyu076 BI LI T 0.3 mg/dL 01/22/2016 Comp Metabolic Ljq877 AL BUMIN 4.0 g/dL 01/22/2016 Comp Metabolic Zrm520 TP RO 6.8 g/dL 01/22/2016 Comp Metabolic Xte426 GL OB 2.8 g/dL 01/22/2016 Comp Metabolic Ipr902 A/ G Ratio 1.5 Ratio 01/22/2016 Comp Metabolic Nsj850 Os mo 281 mOsmo 01/22/2016 Tsh Ord6 [...] Ord2 RDW 14.1 % 01/17/2015 Comp Metabolic Xmg355 NA 137 mEq/L 01/17/2015 Comp Metabolic Iqe394 K 4.1 mEq/L 01/17/2015 Comp Metabolic Eil865 CL 103 mEq/L 01/17/2015 Comp Metabolic Fel311 CO2 35.0 mEq/L 01/17/2015 Comp Metabolic Ctp555 AN ION GAP 3 01/17/2015 Comp Metabolic Rsz141 GL UCOSE 88 mg/dL 01/17/2015 Comp Metabolic Ktc934 Cr eat 0.6 mg/dL 01/17/2015 Comp Metabolic Uhn670 eG FR 107 ml/min/1.73m2 12/21 Comp Metabolic Hrm860 BUN 14 mg/dL 01/17/2015 Comp Metabolic Cfo098 B/ C Ratio 23.0 Ratio 01/17/2015 Comp Metabolic Ihm125 CA LCIUM 9.4 mg/dL 01/17/2015 Comp Metabolic Mzh265 AL K PHOS 71 U/L 01/17/2015 Comp Metabolic Ypz257 T(SGOT) 17 U/L 01/17/2015 Comp Metabolic Cyg639 AL T(SGPT) 14 U/L 01/17/2015 Comp Metabolic Rve099 BI LI T 0.4 mg/dL 01/17/2015 Comp Metabolic Fyn844 AL BUMIN 4.3 g/dL 01/17/2015 Comp Metabolic Vhs536 TP RO 7.0 g/dL 01/17/2015 Comp Metabolic Dms787 GL OB 2.7 g/dL 01/17/2015 Comp Metabolic Sgq884 A/ G Ratio 1.6 Ratio 01/17/2015 Comp Metabolic Txm223 Os mo 274 mOsmo 01/17/2015 CHEM 14 4865304 AST 15 U/L 01/03/2014 CHEM 14 2076158 ALT 10 IU/L 01/03/2014 CHEM 14 8973303 BUN 12 MG/DL 01/03/2014 CHEM 14 9873003 ALBUMIN 4.4 GM/DL 01/03/2014 CHEM 14 6149663 CHLORIDE 105 MMOL/L 01/03/2014 CHEM 14 4992284 BILI TOT 0.5 MG/DL 01/03/2014 CHEM 14 4367171 ALK PHOS 69 U/L 01/03/2014 CHEM 14 9301615 SODIUM 140 MMOL/L 01/03/2014 CHEM 14 5402260 CREATINI NE 0.66 MG/DL 01/03/2014 CHEM 14 0117321 CALCIUM 9.3 MG/DL 01/03/2014 CHEM 14 3919031 POTASSIUM 3.8 MMOL/L 01/03/2014 CHEM 14 3569916 PROT TOT 7.3 GM/DL 01/03/2014 CHEM 14 1499672 GLUCOSE 89 MG/DL 01/03/2014 CHEM 14 0579066 BICARB 31 MMOL/L 01/03/2014 CHEM 14 8511765 ANION GAP 4 MEQ/L 01/03/2014 CBC 0147255 WBC 3.8 10e9/L 01/03/2014 CBC 9224759 RBC 4.16 10e12/L 01/03/2014 CBC 8993223 HGB 12.8 g/dL 01/03/2014 CBC 7307434 HCT DET 38.8 % 01/03/2014 CBC 6717628 MCV 93.3 fL 01/03/2014 CBC 6903849 MCH 30.8 pg 01/03/2014 CBC 3462284 MCHC 33.0 g/dL 01/03/2014 CBC 6138949 PLT 206 10e9/L 01/03/2014 CBC 2110968 MPV 10.1 fL 01/03/2014 CBC 9621954 CHRISTINA % 42.3 % 01/03/2014 CBC 9781869 LY % 44.0 % 01/03/2014 CBC 1803709 MON % 9.5 % 01/03/2014 CBC 0886802 EOS % 2.9 % 01/03/2014 CBC 0435884 BASO % 1.3 % 01/03/2014 CBC 0968265 RDW 12.8 % 01/03/2014 CBC 9820071 ABS CHRISTINA 1.61 10e9/L 01/03/2014 CBC 9641458 ABS LYMPH 1.67 10e9/L 01/03/2014 CBC 2620823 ABS MONO 0.36 10e9/L 01/03/2014 CBC 4705565 ABS EOS 0.11 10e9/L 01/03/2014 CBC 2891800 ABS BASO 0.05 10e9/L 01/03/2014 CBC 2343157 RDW-SD 42.3 fL 01/03/2014 TSH 5168055 TSH 2.728 uIU/ML 01/03/2014 GFR CALC 3592709 GFR AA >60 ML/MIN 01/03/2014 GFR CALC 6557332 GFR NON -AA >60 ML/MIN 01/03/2014 GC/CHL PRB 8090473 CHLM PROBE NEG 12/29/2012 GC/CHL PRB 2687011 GC CO OBE NEG 12/29/2012 URINALYSIS NONAUTO W/O SCOPE 03489 Specific Hitchcock 1.015 DateTime(Free Text in Aprima) URINALYSIS NONAUTO W/O SCOPE 60144 PH 6.5 DateTime(Free Luis Eduardo t in ) URINALYSIS NONAUTO W/O SCOPE 77769 GLUCOSE DateTime(Free Text i n Aprima) URINALYSIS NONAUTO W/O SCOPE 16877 Protein DateTime(Free Text i n Aprima) URINALYSIS NONAUTO W/O SCOPE 10473 Blood 3+ DateTime(Free Text in Aprima) URINALYSIS NONAUTO W/O SCOPE 99799 Bilirubin DateTime(Free Text i n ) URINALYSIS NONAUTO W/O SCOPE 88662 Ketones DateTime(Free Text i n Apr) URINALYSIS NONAUTO W/O SCOPE 36691 Urobilinogen DateTime(Free Text in Apr) URINALYSIS NONAUTO W/O SCOPE 01885 Nitrite + DateTime(Free Text in Apr) URINALYSIS NONAUTO W/O SCOPE 02972 Leukocytes DateTime(Fr ee Text in ) Review of Systems System Result Effective Dates Constitutional No recent illness 11/01/2015 Constitutional No [...] 09/30/2012 None Full Exam - General 1995 Neck thyroid Overall: nontender 09/30 None Full Exam - General 1994 Neck thyroid Overall: normal size None Full Exam - General 1994 Neck thyroid Overall: no mass lesions 09/30/2012 None Full Exam - General 1994 Neck thyroid Overall: normal consistency 09/30/2012 None Full Exam - General 1995 Respiratory respiratory effort/rhythm Overall: normal rate 09/30/2012 [...] Date TRIAMCINOLONE ACET I [place] NOS CPT-4: [id number] 10/08/2015 TRIAMCINOLONE ACET I [place] NOS CPT-4: [id number] 06/21/2015 ROCEPHIN, PER 250 MG CPT-4: W7192Jydovdn 06/21/2015 URINALYSIS NONAUTO W /O SCOPE CPT-4: 58027Pypnvwo 01/18/2013 Vital Signs Date Vital 11/01/2015 Blood Pressure 1: 124/76 Code: 8480-6 BMI: 30.1 Code: 29016-1 Heart Rate 1: 58 bpm Height: 5'4" SpO2: 97% Weight: 178 lbs 10/08/2015 Blood Pressure 1: 120/82 Code: 8480-6 BMI: 31.1 Code: 43988-1 Heart Rate 1: 71 bpm Height: 5'4" SpO2: 98% Weight: 184 lbs 06/21/2015 Blood Pressure 1: 142/90 Code: 8480-6 BMI: 23.0 Code: 25970-4 Heart Rate 1: 72 bpm Height: 5'4" SpO2: 92% Temperature: 36.6 (C ) / 97.8 (F) Weight: 136 lbs 06/15/2015 Blood Pressure 1: 138/72 Code: 8480-6 BMI: 23.0 Code: 25991-4 Heart Rate 1: 83 bpm Height: 5'4" SpO2: 96% Weight: 136 lbs 10/31/2014 Blood Pressure 1: 138/72 Code: 8480-6 BMI: 30.4 Code: 25947-7 Heart Rate 1: 69 bpm Height: 5'4" SpO2: 96% Weight: 180 lbs 11/21/2013 Blood Pressure 1: 128/82 Code: 8480-6 BMI: 29.4 Code: 60824-1 Heart Rate 1: 64 bpm Height: 5'4" Weight: 174 lbs 12/28/2012 Blood Pressure 1: 130/88 Code: 8480-6 BMI: 30.3 Code: 74938-3 Heart Rate 1: 60 bpm Height: 5'5" Weight: 182 lbs 09/30/2012 Blood Pressure 1: 126/78 Code: 8480-6 BMI: 30.1 Code: 89042-4 Heart Rate 1: 72 bpm Height: 5'5" Weight: 181 lbs Functional Status No Functional Status data History of Present Illness Symptom Name Status Resu lt Effective Date Notes well woman exam (40-65 years) Pap Smear last normal performed on 12-28-12 11/01/2015 None well woman exam (40-65 years) Pap Smear normal results 11/01/2015 None well woman exam (40-65 years) 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 P ATIENT, LEVEL III Diagnosis: Insect bite (nonvenomous), right knee, initial encounter[ICD10: S80.261A] Diagnosis: Allergic rhinitis due to pollen[ICD10: J30.1] [facility] CPT-4: 84516 10/08/2015 ([id number]) 64179 EST. P ATIENT, LEVEL III Diagnosis: Acute recurrent maxillary sinusitis[ICD10: J01.01] Diagnosis: Acute bronchitis, unspecified[ICD10: J20.9] [facility] CPT-4: 24734 06/21/2015 ([id number]) 76892 EST. P ATIENT, LEVEL III Diagnosis: Low back pain[ICD10: M54.5] Diagnosis: Sacroiliitis, not elsewhere classified[ICD10: M46.1] [facility] CPT-4: 30084 06/15/2015 ([id number]) PREV VISIT E ST AGE 40-64 Diagnosis: Routine medical exam[ICD9: V70.0] [facility] CPT-4: 94974 10/31/2014 ([id number]) PREV VISIT E ST AGE 40-64 Diagnosis: Routine medical exam[ICD9: V70.0] [facility] CPT-4: 00200 11/21/2013 ([id number]) 40926 EST. P ATIENT, LEVEL III Diagnosis: Well woman exam with routine gynecological exam[ICD9: V72.31] Diagnosis: Polyp at cervical os[ICD9: 622.7] [facility] CPT-4: 26790 12/28/2012 ([id number]) OFFICE/OUTPA TIENT VISIT NEW Diagnosis: Routine medical exam[ICD9: V70.0] [facility] CPT-4: 10406 09/30/2012 Plan of Care Planned Activity Notes C odes Status Date Appointment: Shanti Hoover WPtel: [address] [place], [place] [id number] Well Woman 01/02/2016 Care Plan: [facility] : 62408-2 Pending 12/03/2015 Visit Plan: Well Adult Female [...] the office. 10/08/2015 Appointment: Criselda Anderson WPtel: [facility] [address] (15 min) Moderate 10/08/2015 Patient Education: Patient Medication Summary Completed 10/08/2015 Patient Education: Obesity Completed 10/08/2015 Visit Plan: Sinusitis - Pt has acute inf ection - pain in face, maxillary region, Pt informed to use decongestant, RX given to patient, sinus rinses also recommended. Call if symptoms do not show improvement. 06/21/2015 Appointment: Criselda Anderson WPtel: [phone] (10 min) Simple 06/21/2015 Patient Education: Patient Medication Summary Completed 06/21/2015 Visit Plan: Sacroiliitis-injection today in the office- back exercises discussed with the patient, pt to continue with anti-inflammatories and exercises as directed. Pt is to call if the symptoms do not improve or if they worsen. 02/26/ 2016 Appointment: (30 min) Complex 06/15/2015 Patient Education: Patient Medication Summary Completed 06/15/2015 Care Plan: [facility] : 62836-5 Ordered 11/19/2014 Visit Plan: Well Adult - pt was counsele maria c about diet, exercise, and encouraged to follow a heart healthy diet and increase activity level. The patient was instructed to RTC yearly for well adult exams and PRN for acute illnesses. The pt was also instructed to have yearly labs for check of cholesterol, thyroid, chem panel, CBC, and renal functioning. 10/31/2014 Appointment: Shanti Hoover WPtel: [facility] [place] [phone] Physical 10/31/2014 Patient Education: Patient Medication Summary Completed 10/31/2014 Visit Plan: Well Adult - pt was counsele maria c about diet, exercise, and encouraged to follow a heart healthy diet and increase activity level. The patient was instructed to RTC yearly for well adult exams and PRN for acute illnesses. The pt was also instructed to have yearly labs for check of cholesterol, thyroid, chem panel, CBC, and renal functioning. 11/21/2013 Appointment: Shanti Hoover WPtel: [address] [place] [address] Well Woman 11/21/2013 Patient Education: Patient Medication Summary Completed 11/21/2013 Appointment: Shanti Hoover WPtel: [address] [place], [place] [phone] Lab Draw 01/18/2013 Patient Education: Patient Medication Summary Completed 01/18/2013 Visit Plan: Well Adult Female - exam co mpleted. Pap and gc/chlamydia and breast exam completed. Pt will be called with results of her testing. She was advised to continue with yearly annual exams. Pt referred to Dr. Sun for further evaluation of the large cervical polyp. 12/28/2012 Appointment: Shanti Hoover WPtel: [facility] [place] [phone] Well Woman 12/28/2012 Patient Education: Patient Medication Summary Completed 12/28/2012 Visit Plan: recommended well woman exam and labs.recommended starting multivitaminimproved sleep hygeine 09/30/2012 Appointment: [facility] [phone] [id number] [place] New Patient 09/30/2012 Patient Education: Patient [...]
--- OUTSIDE RECORDS SUMMARY | 2019-10-14 08:50 | XMS REPORT | CCD ---
Author Author Laquita Hoover Organization Shanti Hoover MD, 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 Name Role Phone PP Unavailable CCM Unavailable Summary Purpose Interface Exchange Insurance Providers Payer name Policy type / Coverage type Covered libertarian ID Effective Begin Date Effective End Date [employer] Advisor Insuranc e [id number] Unknown Family history Adopted Diagnosis Age At Onset No Family Disease Entered N/A Social History Social History Element Codes Description Effective Dates Marital status Unknown M arried 09/30/2012 Number of children Unknown 2 09/30/2012 Employment Unknown Oscar bauer employed via [employer] in [employer] 09/30/[address]: 5708880 Quit less than 10 years ago 09/30/2012 [...] Codes Condition Status Onset Date Resolved Date Acute recurrent maxi llary sinusitis ICD-9: 461.0 [...] Condition Codes Effectiv e Dates Condition Status Acute recurrent maxi llary sinusitis ICD-9: 461.0 [...] Date Stop Date Sta tus Fill Instructions Augmentin 875 mg-125 mg tablet RxNorm: 868009 1 Tablet(s) PO BID 05/17/2018 05/23/2018 Active Kenalog 40 mg/mL guevara pension for injection RxNorm: 4521130 Milliliter(s) Inj 05/17/2018 05/17/2018 In active Augmentin 875 mg-125 mg tablet RxNorm: 182297 1 Tablet(s) PO BID 03/12/2018 03/18/2018 Inactive take a probioitic while on the abx Kenalog 40 mg/mL guevara pension for injection RxNorm: 8776478 1 Milliliter(s) Inj 03/12/2018 03/12/2018 In active doxycycline hyclate 100 mg capsule RxNorm: 4304597 1 Capsule(s) PO BID 01/28/2018 02/06/2018 In active dapsone 25 mg tablet RxNorm: 782606 2 Tablet(s) PO daily 01/28/2018 02/01/2018 Inactive diclofenac 50 mg-mis oprostol 200 mcg tablet,immed.and delayed release RxNorm: 993373 1 Tablet(s) PO BID 11/05/2017 03/04/2018 Inactive acyclovir 800 mg tablet RxNorm: 890936 1 Tablet(s) PO TID take at symptoms of c old sore, if no outbreak, take for 5 days, if breaks out, take for 10 days total 09/09/2017 10/08/2017 In active prednisone 10 mg tablet RxNorm: 780432 Tablet(s) PO 07/10/2017 No Stop Date Active 6,5, 4,3,2,1 Zithromax Z-Dawson 250 mg tablet RxNorm: 388335 1 Tablet(s) PO UD 07/10/2017 07/14/2017 Inactive zpack Augmentin 875 mg-125 mg tablet RxNorm: 368192 1 Tablet(s) PO BID 05/29/2017 05/28/2017 Inactive Augmentin 875 mg-125 mg tablet RxNorm: 770834 1 Tablet(s) PO BID 05/29/2017 06/07/2017 Inactive Kenalog 40 mg/mL guevara pension for injection RxNorm: 6714937 1 Milliliter(s) Inj 04/30/2017 04/30/2017 In active Keflex 500 mg capsule RxNorm: 385453 1 Capsule(s) PO TID 04/30/2017 05/09/2017 Inactive Vitamin D3 5,000 uni t tablet RxNorm: 198803 1 Tablet(s) PO daily 12/17/2016 No Stop Date Active Jublia 10 % topical solution with applicator RxNorm: 8069492 1 Application TOP da marshall 12/12/2016 06/09/2017 Inactive Jublia 10 % topical solution with applicator RxNorm: 1534869 1 Application TOP da marshall 12/12/2016 2016 Inactive acyclovir 800 mg tablet RxNorm: 398135 1 Tablet(s) PO TID take at symptoms of c old sore, if no outbreak, take for 5 days, if breaks out, take for 10 days total 09/25/2016 10/24/2016 In active Kenalog 40 mg/mL guevara pension for injection RxNorm: 1843808 Milliliter(s) Inj 10/08/2015 10/08/2015 In active doxycycline hyclate 100 mg tablet RxNorm: 720178 1 Tablet(s) PO BID 10/08/2015 10/17/2015 Inactive cefdinir 300 mg capsule RxNorm: 948885 1 Capsule(s) PO BID 06/25/2015 07/01/2015 Inactive cefdinir 300 mg capsule RxNorm: 931892 1 Capsule(s) PO BID 06/25/2015 06/24/2015 Inactive ceftriaxone 500 mg s olution for injection RxNorm: 8423347 Inj 06/21/2015 06/21/2015 Inactive Kenalog 40 mg/mL guevara pension for injection RxNorm: 9350110 Milliliter(s) Inj 06/21/2015 06/21/2015 In active Zithromax Z-Dawson 250 mg tablet RxNorm: 960928 1 Tablet(s) PO UD 06/21/2015 06/25/2015 Inactive zpack acyclovir 800 mg tablet RxNorm: 789232 1 Tablet(s) PO TID take at symptoms of c old sore, if no outbreak, take for 5 days, if breaks out, take for 10 days total 10/31/2014 11/29/2014 In active Cipro 500 mg tablet RxNorm: 899962 1 Tablet(s) PO BID 01/18/2013 01/17/2013 Inactive Cipro 500 mg tablet RxNorm: 108454 1 Tablet(s) PO BID 01/18/2013 01/20/2013 Inactive Ocuvite oral RxNorm: 447969 oral No Start Date Active krill oil 1,000 mg-1 70 mg-50 mg-80 mg capsule RxNorm: 1 Capsule(s) PO daily No Start Date Active Calcium 600 + D(3) oral RxNorm: 277099 oral No Start Date Active Vitamin D3 Oral RxNorm: Oral No Start Date 12/16/2016 Inactive flaxseed oil Oral RxNorm: Oral No Start Date 11/04/2016 Inactive Medication Administered Medication Codes Instruc tions Start Date Status Kenalog 40 mg/mL suspension for injection RxNorm: 6995895 Milliliter 05/17/2018 Ac tive Kenalog 40 mg/mL suspension for injection RxNorm: 1916852 1Milliliter 03/12/2018 N o longer Active Kenalog 40 mg/mL suspension for injection RxNorm: 4189975 1Milliliter 04/30/2017 N o longer Active Kenalog 40 mg/mL suspension for injection RxNorm: 3221054 Milliliter 10/08/2015 No longer Active ceftriaxone 500 mg solution for injection RxNorm: 2147424 06/21/2015 No longer A ctive Kenalog 40 mg/mL suspension for injection RxNorm: 9936108 Milliliter 06/21/2015 No longer Active Immunizations Vaccine Codes Date Status Influenza CVX: 141 01/22 completed Influenza CVX: 141 02/17 completed Tetanus, Diptheria, Pertussis CVX: 113 05/20/2011 completed Tetanus/Diptheria CVX: 113 05/20/2011 completed Assessments Condition Codes Effectiv e Dates Cough ICD-10: R05 ICD-9: 786.2 05/17/2018 Acute [...] Visit Reason For Visit Effective Dates Notes sinus congestion 05/17/2018 sinus congestion 03/12/2018 arthropod [...] 13.2 g/dl 11/02/2017 Cbc With Differential Ord2 Neut% 39.6 % 11/02/2017 Cbc With Differential Ord2 HCT 40.4 % 11/02/2017 Cbc With Differential Ord2 Lymph% 47.2 % 11/02/2017 Cbc With Differential Ord2 MCV 95.7 fl 11/02/2017 Cbc With Differential Ord2 MCH 31.3 pg 11/02/2017 Cbc With Differential Ord2 [place]% 8.9 % 11/02/2017 Cbc With Differential Ord2 [...] 1.75 K/ul 11/02/2017 Cbc With Differential Ord2 [place] ABS# 0.3 K/ul 11/02/2017 Cbc With Differential Ord2 Eos ABS# 0.1 K/ul 11/02/2017 Cbc With Differential Ord2 Baso ABS# 0.0 K/ul 11/02/2017 Comp Metabolic Ffr887 NA 141 mEq/L 11/02/2017 Comp Metabolic Psr292 K 4.0 mEq/L 11/02/2017 Comp Metabolic Vvn839 CL 104 mEq/L 11/02/2017 Comp Metabolic Vvw123 CO2 29.0 mEq/L 11/02/2017 Comp Metabolic Dkv985 AN ION GAP 12 11/02/2017 Comp Metabolic Zgc834 GL UCOSE 91 mg/dL 11/02/2017 Comp Metabolic Lnp401 Cr eat 0.7 mg/dL 11/02/2017 Comp Metabolic Ggr213 eG FR 94 ml/min/1.73m2 11/02 Comp Metabolic Ryt801 BUN 18 mg/dL 11/02/2017 Comp Metabolic Ocl114 B/ C Ratio 26.5 Ratio 11/02/2017 Comp Metabolic Rmg941 CA LCIUM 9.7 mg/dL 11/02/2017 Comp Metabolic Lge506 AL K PHOS 65 U/L 11/02/2017 Comp Metabolic Dxa922 T(SGOT) 16 U/L 11/02/2017 Comp Metabolic Qos292 AL T(SGPT) 17 U/L 11/02/2017 Comp Metabolic Oia090 BI LI T 0.4 mg/dL 11/02/2017 Comp Metabolic Lgs135 AL BUMIN 4.1 g/dL 11/02/2017 Comp Metabolic Ssx032 TP RO 6.7 g/dL 11/02/2017 Comp Metabolic Kpt010 GL OB 2.6 g/dL 11/02/2017 Comp Metabolic Bxd525 A/ G Ratio 1.6 Ratio 11/02/2017 Comp Metabolic Wdt560 Os mo 283 mOsmo 11/02/2017 Tsh Ord6 hTSH II 2.02 uIU/mL 01/27/2017 Comp Metabolic Aui383 NA 141 mEq/L 01/27/2017 Comp Metabolic Wqh095 K 4.2 mEq/L 01/27/2017 Comp Metabolic Izi441 CL 103 mEq/L 01/27/2017 Comp Metabolic Dpl992 CO2 31.0 mEq/L 01/27/2017 Comp Metabolic Bxw090 AN ION GAP 11 01/27/2017 Comp Metabolic Qbh077 GL UCOSE 90 mg/dL 01/27/2017 Comp Metabolic Zza552 Cr eat 0.6 mg/dL 01/27/2017 Comp Metabolic Gsm093 eG FR 101 ml/min/1.73m2 01/18 Comp Metabolic Oin498 BUN 17 mg/dL 01/27/2017 Comp Metabolic Two502 B/ C Ratio 26.6 Ratio 01/27/2017 Comp Metabolic Nzl808 CA LCIUM 9.5 mg/dL 01/27/2017 Comp Metabolic Dow238 AL K PHOS 73 U/L 01/27/2017 Comp Metabolic Fys756 T(SGOT) 19 U/L 01/27/2017 Comp Metabolic Svg375 AL T(SGPT) 20 U/L 01/27/2017 Comp Metabolic Qxa563 BI LI T 0.5 mg/dL 01/27/2017 Comp Metabolic Ncw473 AL BUMIN 4.3 g/dL 01/27/2017 Comp Metabolic Lpt737 TP RO 6.6 g/dL 01/27/2017 Comp Metabolic Gjk104 GL OB 2.3 g/dL 01/27/2017 Comp Metabolic Vpi149 A/ G Ratio 1.8 Ratio 01/27/2017 Comp Metabolic Vng437 Os mo 282 mOsmo 01/27/2017 Lipid Ord30 [...] 30.9 pg 01/27/2017 Cbc With Differential Ord2 [place]% 11.8 % 01/27/2017 Cbc With Differential Ord2 [...] 1.72 K/ul 01/27/2017 Cbc With Differential Ord2 [place] ABS# 0.4 K/ul 01/27/2017 Cbc With Differential [...] 40.8 % 01/22/2016 Cbc With Differential Ord2 [place]% 8.6 % 01/22/2016 Cbc With Differential Ord2 MCH 30.9 pg 01/22/2016 Cbc With Differential Ord2 Eos% 3.4 % 01/22/2016 Cbc With Differential Ord2 MCHC 32.8 pg 01/22/2016 Cbc With Differential Ord2 PLT 224 K/ul 01/22/2016 Cbc With Differential Ord2 Baso% 1.5 % 01/22/2016 Cbc With Differential Ord2 Neut ABS# 1.86 K/ul 01/22/2016 Cbc With Differential Ord2 RDW 13.3 % 01/22/2016 Cbc With Differential Ord2 Lymph ABS# 1.66 K/ul 01/22/2016 Cbc With Differential Ord2 [place] ABS# 0.4 K/ul 01/22/2016 Cbc With Differential Ord2 Eos ABS# 0.1 K/ul 01/22/2016 Cbc With Differential Ord2 Baso ABS# 0.1 K/ul 01/22/2016 Comp Metabolic Umt846 NA 141 mEq/L 01/22/2016 Comp Metabolic Kpw547 K 4.2 mEq/L 01/22/2016 Comp Metabolic Sdu301 CL 105 mEq/L 01/22/2016 Comp Metabolic Dfd992 CO2 30.0 mEq/L 01/22/2016 Comp Metabolic Zrz024 AN ION GAP 10 01/22/2016 Comp Metabolic Ptb079 GL UCOSE 85 mg/dL 01/22/2016 Comp Metabolic Qyk107 Cr eat 0.6 mg/dL 01/22/2016 Comp Metabolic Obg088 eG FR 109 ml/min/1.73m2 07/2015 Comp Metabolic Fzu561 BUN 14 mg/dL 01/22/2016 Comp Metabolic Bwg102 B/ C Ratio 23.3 Ratio 01/22/2016 Comp Metabolic Nhk781 CA LCIUM 9.1 mg/dL 01/22/2016 Comp Metabolic Ccw842 AL K PHOS 69 U/L 01/22/2016 Comp Metabolic Cvg307 T(SGOT) 16 U/L 01/22/2016 Comp Metabolic Kem373 AL T(SGPT) 15 U/L 01/22/2016 Comp Metabolic Qop372 BI LI T 0.3 mg/dL 01/22/2016 Comp Metabolic Hjj222 AL BUMIN 4.0 g/dL 01/22/2016 Comp Metabolic Cqb674 TP RO 6.8 g/dL 01/22/2016 Comp Metabolic Jmd354 GL OB 2.8 g/dL 01/22/2016 Comp Metabolic Gkz527 A/ G Ratio 1.5 Ratio 01/22/2016 Comp Metabolic Dwh644 Os mo 281 mOsmo 01/22/2016 Tsh Ord6 [...] Ord2 RDW 14.1 % 01/17/2015 Comp Metabolic Gqe314 NA 137 mEq/L 01/17/2015 Comp Metabolic Lch760 K 4.1 mEq/L 01/17/2015 Comp Metabolic Nqy555 CL 103 mEq/L 01/17/2015 Comp Metabolic Syk616 CO2 35.0 mEq/L 01/17/2015 Comp Metabolic Ngw353 AN ION GAP 3 01/17/2015 Comp Metabolic Yce403 GL UCOSE 88 mg/dL 01/17/2015 Comp Metabolic Sho714 Cr eat 0.6 mg/dL 01/17/2015 Comp Metabolic Mdr625 eG FR 107 ml/min/1.73m2 12/21 Comp Metabolic Iua239 BUN 14 mg/dL 01/17/2015 Comp Metabolic Cot798 B/ C Ratio 23.0 Ratio 01/17/2015 Comp Metabolic Egk038 CA LCIUM 9.4 mg/dL 01/17/2015 Comp Metabolic Cdj107 AL K PHOS 71 U/L 01/17/2015 Comp Metabolic Pyy593 T(SGOT) 17 U/L 01/17/2015 Comp Metabolic Sob150 AL T(SGPT) 14 U/L 01/17/2015 Comp Metabolic Osb231 BI LI T 0.4 mg/dL 01/17/2015 Comp Metabolic Ufi841 AL BUMIN 4.3 g/dL 01/17/2015 Comp Metabolic Lxw096 TP RO 7.0 g/dL 01/17/2015 Comp Metabolic Rhm334 GL OB 2.7 g/dL 01/17/2015 Comp Metabolic Sst647 A/ G Ratio 1.6 Ratio 01/17/2015 Comp Metabolic Vok202 Os mo 274 mOsmo 01/17/2015 CHEM 14 1671313 AST 15 U/L 01/03/2014 CHEM 14 1794534 ALT 10 IU/L 01/03/2014 CHEM 14 3422033 BUN 12 MG/DL 01/03/2014 CHEM 14 6693827 ALBUMIN 4.4 GM/DL 01/03/2014 CHEM 14 6652381 CHLORIDE 105 MMOL/L 01/03/2014 CHEM 14 2250365 BILI TOT 0.5 MG/DL 01/03/2014 CHEM 14 1702162 ALK PHOS 69 U/L 01/03/2014 CHEM 14 0471798 SODIUM 140 MMOL/L 01/03/2014 CHEM 14 4953457 CREATINI NE 0.66 MG/DL 01/03/2014 CHEM 14 8158518 CALCIUM 9.3 MG/DL 01/03/2014 CHEM 14 8578556 POTASSIUM 3.8 MMOL/L 01/03/2014 CHEM 14 0442864 PROT TOT 7.3 GM/DL 01/03/2014 CHEM 14 6134453 GLUCOSE 89 MG/DL 01/03/2014 CHEM 14 0331339 BICARB 31 MMOL/L 01/03/2014 CHEM 14 0431022 ANION GAP 4 MEQ/L 01/03/2014 CBC 6601573 WBC 3.8 10e9/L 01/03/2014 CBC 4799206 RBC 4.16 10e12/L 01/03/2014 CBC 1660574 HGB 12.8 g/dL 01/03/2014 CBC 1154072 HCT DET 38.8 % 01/03/2014 CBC 5705743 MCV 93.3 fL 01/03/2014 CBC 5056331 MCH 30.8 pg 01/03/2014 CBC 8284080 MCHC 33.0 g/dL 01/03/2014 CBC 8569247 PLT 206 10e9/L 01/03/2014 CBC 2213504 MPV 10.1 fL 01/03/2014 CBC 8998611 CHRISTINA % 42.3 % 01/03/2014 CBC 6055274 LY % 44.0 % 01/03/2014 CBC 8962027 MON % 9.5 % 01/03/2014 CBC 0711694 EOS % 2.9 % 01/03/2014 CBC 3335950 BASO % 1.3 % 01/03/2014 CBC 0856965 RDW 12.8 % 01/03/2014 CBC 4574062 ABS CHRISTINA 1.61 10e9/L 01/03/2014 CBC 6246874 ABS LYMPH 1.67 10e9/L 01/03/2014 CBC 1603228 ABS MONO 0.36 10e9/L 01/03/2014 CBC 1685419 ABS EOS 0.11 10e9/L 01/03/2014 CBC 3588210 ABS BASO 0.05 10e9/L 01/03/2014 CBC 9347883 RDW-SD 42.3 fL 01/03/2014 TSH 4863750 TSH 2.728 uIU/ML 01/03/2014 GFR CALC 6664960 GFR AA >60 ML/MIN 01/03/2014 GFR CALC 4772485 GFR NON -AA >60 ML/MIN 01/03/2014 GC/CHL PRB 1039741 CHLM PROBE NEG 12/29/2012 GC/CHL PRB 5584700 GC AZ OBE NEG 12/29/2012 URINALYSIS NONAUTO W/O SCOPE 76360 Specific [place] 1.015 DateTime(Free Text in ) URINALYSIS NONAUTO W/O SCOPE 49457 PH 6.5 DateTime(Free Luis Eduardo t in ) URINALYSIS NONAUTO W/O SCOPE 30851 GLUCOSE DateTime(Free Text i n Apr) URINALYSIS NONAUTO W/O SCOPE 50150 Protein DateTime(Free Text i n Apr) URINALYSIS NONAUTO W/O SCOPE 34453 Blood 3+ DateTime(Free Text in Apr) URINALYSIS NONAUTO W/O SCOPE 83396 Bilirubin DateTime(Free Text i n Apr) URINALYSIS NONAUTO W/O SCOPE 14330 Ketones DateTime(Free Text i n Apr) URINALYSIS NONAUTO W/O SCOPE 52624 Urobilinogen DateTime(Free Text in ) URINALYSIS NONAUTO W/O SCOPE 41813 Nitrite + DateTime(Free Text in ) URINALYSIS NONAUTO W/O SCOPE 01074 Leukocytes DateTime(Fr ee Text in ) Review of Systems System Result Effective Dates Constitutional recent illness 05/17/2018 Constitutional No anorexia [...] Result Effective Dates Notes Full Exam - ENT Constitutional general appearance [...] masses 11/21/2013 None Full Exam - General 1995 [...] Date TRIAMCINOLONE ACET I [place] NOS CPT-4: J3301 05/17/2018 TRIAMCINOLONE ACET I [place] NOS CPT-4: J3301 03/12/2018 THER/PROPH/DIAG INJ SC/IM CPT-4: 53478 04/30/2017 TRIAMCINOLONE ACET I [place] NOS CPT-4: J3301 04/30/2017 TRIAMCINOLONE ACET I [place] NOS CPT-4: J3301 10/08/2015 TRIAMCINOLONE ACET I [place] NOS CPT-4: J3301 06/21/2015 ROCEPHIN, PER 250 MG CPT-4: J0696 06/21/2015 URINALYSIS NONAUTO W /O SCOPE CPT-4: 77585 01/18/2013 Vital Signs Date Vital 05/17/2018 Blood Pressure 1: 132/72 Code: 8480-6 BMI: 31.1 Code: 55424-9 Heart Rate 1: 82 bpm Height: 5'4" SpO2: 95% Weight: 184 lbs 03/12/2018 Blood Pressure 1: 140/80 Code: 8480-6 BMI: 31.3 Code: 26644-1 Heart Rate 1: 75 bpm Height: 5'4" SpO2: 98% Weight: 185 lbs 01/28/2018 Blood Pressure 1: 145/80 Code: 8480-6 BMI: 31.1 Code: 04749-8 Heart Rate 1: 73 bpm Height: 5'4" SpO2: 95% Weight: 184 lbs 11/05/2017 Blood Pressure 1: 140/82 Code: 8480-6 Blood Pressure 2: 130/78 Code: 8480-6 BMI: 30.6 Code: 13376-9 Heart Rate 1: 64 bpm Height: 5'4" SpO2: 97% Weight: 180 lbs 14 o z 07/10/2017 Blood Pressure 1: 124/72 Code: 8480-6 Heart Rate 1: 73 bpm Height: 5'4" SpO2: 99% Weight: 04/30/2017 Blood Pressure 1: 142/86 Code: 8480-6 BMI: 30.4 Code: 24166-7 Heart Rate 1: 57 bpm Height: 5'4" SpO2: 98% Temperature: 36.8 (C ) / 98.3 (F) Weight: 180 lbs 11/05/2016 Blood Pressure 1: 130/80 Code: 8480-6 BMI: 31.1 Code: 71766-7 Heart Rate 1: 68 bpm Height: 5'4" SpO2: 95% Weight: 184 lbs 11/01/2015 Blood Pressure 1: 124/76 Code: 8480-6 BMI: 30.1 Code: 35661-5 Heart Rate 1: 58 bpm Height: 5'4" SpO2: 97% Weight: 178 lbs 10/08/2015 Blood Pressure 1: 120/82 Code: 8480-6 BMI: 31.1 Code: 86793-6 Heart Rate 1: 71 bpm Height: 5'4" SpO2: 98% Weight: 184 lbs 06/21/2015 Blood Pressure 1: 142/90 Code: 8480-6 BMI: 23.0 Code: 06964-0 Heart Rate 1: 72 bpm Height: 5'4" SpO2: 92% Temperature: 36.6 (C ) / 97.8 (F) Weight: 136 lbs 06/15/2015 Blood Pressure 1: 138/72 Code: 8480-6 BMI: 23.0 Code: 20641-6 Heart Rate 1: 83 bpm Height: 5'4" SpO2: 96% Weight: 136 lbs 10/31/2014 Blood Pressure 1: 138/72 Code: 8480-6 BMI: 30.4 Code: 56141-7 Heart Rate 1: 69 bpm Height: 5'4" SpO2: 96% Weight: 180 lbs 11/21/2013 Blood Pressure 1: 128/82 Code: 8480-6 BMI: 29.4 Code: 66223-4 Heart Rate 1: 64 bpm Height: 5'4" Weight: 174 lbs 12/28/2012 Blood Pressure 1: 130/88 Code: 8480-6 BMI: 30.3 Code: 77106-3 Heart Rate 1: 60 bpm Height: 5'5" Weight: 182 lbs 09/30/2012 Blood Pressure 1: 126/78 Code: 8480-6 BMI: 30.1 Code: 18978-0 Heart Rate 1: 72 bpm Height: 5'5" Weight: 181 lbs Functional Status No Functional Status data History of Present Illness Symptom Name Status Resu lt Effective Date Notes Onset and Resolution s udden in onset [...] None well woman exam (40-65 years) 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 P ATIENT, LEVEL III Diagnosis: Acute recurrent maxillary sinusitis[ICD10: J01.01] Diagnosis: Cough[ICD10: R05] [facility] CPT-4: 03640 05/17/2018 ([id number] 90084 EST. P ATIENT, LEVEL III Diagnosis: Acute recurrent maxillary sinusitis[ICD10: J01.01] Diagnosis: Other allergic rhinitis[ICD10: J30.89] Diagnosis: Cough[ICD10: R05] [facility] CPT-4: 17225 03/12/2018 [id number] EST. PATIENT, LEVEL III Diagnosis: Cellulitis of left lower limb[ICD10: L03.116] [facility] CPT-4: 73646 01/28/2018 ([id number]) PREV VISIT E ST AGE 40-64 Diagnosis: Encounter for general adult medical examination without abnormal findings[ICD10: Z00.00] [facility] CPT-4: 14138 11/05/2017 [id number] EST. PATIENT, LEVEL IV Diagnosis: Other acute sinusitis[ICD10: J01.80] Diagnosis: Other allergic rhinitis[ICD10: J30.89] [facility] CPT-4: 77274 07/10/2017 26331 EST. PATIENT, LEVEL IV Diagnosis: Other acute sinusitis[ICD10: J01.80] Diagnosis: Other allergic rhinitis[ICD10: J30.89] [facility] CPT-4: 17879 04/30/2017 ([id number]) PREV VISIT E ST AGE 40-64 Diagnosis: Encounter for general adult medical examination without abnormal findings[ICD10: Z00.00] [facility] CPT-4: 36164 11/05/2016 ([id number]) PREV VISIT E ST AGE 40-64 Diagnosis: Encounter for gynecological examination (general) (routine) without abnormal findings[ICD10: Z01.419] [facility] CPT-4: 84673 11/01/2015 ([id number]) 07310 EST. P ATIENT, LEVEL III Diagnosis: Insect bite (nonvenomous), right knee, initial encounter[ICD10: S80.261A] Diagnosis: Allergic rhinitis due to pollen[ICD10: J30.1] [facility] CPT-4: 98337 10/08/2015 ([id number]) 11672 EST. P ATIENT, LEVEL III Diagnosis: Acute recurrent maxillary sinusitis[ICD10: J01.01] Diagnosis: Acute bronchitis, unspecified[ICD10: J20.9] [facility] CPT-4: 45402 06/21/2015 ([id number]) 51962 EST. P ATIENT, LEVEL III Diagnosis: Low back pain[ICD10: M54.5] Diagnosis: Sacroiliitis, not elsewhere classified[ICD10: M46.1] [facility] CPT-4: 11172 06/15/2015 ([id number]) PREV VISIT E ST AGE 40-64 Diagnosis: Routine medical exam[ICD9: V70.0] [facility] CPT-4: 30752 10/31/2014 ([id number]) PREV VISIT E ST AGE 40-64 Diagnosis: Routine medical exam[ICD9: V70.0] [facility] CPT-4: 59088 11/21/2013 ([id number]) 53635 EST. P ATIENT, LEVEL III Diagnosis: Well woman exam with routine gynecological exam[ICD9: V72.31] Diagnosis: Polyp at cervical os[ICD9: 622.7] [facility] CPT-4: 77672 12/28/2012 ([id number]) OFFICE/OUTPA TIENT VISIT NEW Diagnosis: Routine medical exam[ICD9: V70.0] [facility] CPT-4: 04552 09/30/2012 Plan of Care Planned Activity Notes C odes Status Date Visit Plan: Sinusitis - Pt has acut e infection - pain in face, maxillary region, Pt informed to use decongestant, RX given to patient, sinus rinses also recommended. Call if symptoms do not show improvement. 05/17/2018 Patient Education: Patient Medication Summary Completed 05/17/2018 Visit Plan: Sinusitis - Pt has acut e infection - pain in face, maxillary region, Pt informed to use decongestant, RX given to patient, sinus rinses also recommended. Call if symptoms do not show improvement. 03/12/2018 Appointment: Criselda Anderson WPtel: [address] [place], [place] [phone] (15 min) Moderate 03/12/2018 Patient Education: Patient [...] discharge. 01/28/2018 Appointment: Minoo Joshua WPtel: [phone] [facility] (15 min) Moderate 01/28/2018 Patient Education: [...] for arthrotec. 11/05/2017 Appointment: Shanti Hoover WPtel: [phone] [facility] (15 min) Moderate 11/05/2017 Patient Education: Patient [...] spray. 07/10/2017 Appointment: Minoo Joshua WPtel: [phone] [facility] (15 min) Moderate 07/10/2017 Patient Education: [...] allergy spray. 04/30/2017 Appointment: Minoo Joshua WPtel: [address] [place] [address] (15 min) Moderate 04/30/2017 Patient Education: Patient [...] renal functioning. 11/05/2016 Appointment: Shanti Hoover WPtel: [facility] Physical 11/05/2016 Patient Education: Patient Medication Summary Completed 11/05/2016 Patient Education: Obesity Completed 11/05/2016 Appointment: Shanti Hoover WPtel: [address] [place] [address] Well Woman 01/02/2016 Visit Plan: Well Adult [...] the office. 10/08/2015 Appointment[facility] Anderson [phone] (15 min) Moderate 10/08/2015 Patient Education: Patient Medication Summary Completed 10/08/2015 Patient Education: Obesity Completed 10/08/2015 Visit Plan: Sinusitis - Pt has acut e infection - pain in face, maxillary region, Pt informed to use decongestant, RX given to patient, sinus rinses also recommended. Call if symptoms do not show improvement. 06/21/2015 Appointment: [facility] Anderson [phone] (10 min) Simple 06/21/2015 Patient Education: Patient [...] Completed 06/15/2015 Care Plan: SCREENINGMAMMOGRAPHYDIGITAL LOINC : 83454-2 Ordered 11/19/2014 Visit Plan: Well Adult - [...] renal functioning. 10/31/2014 Appointment: Shanti Hoover WPtel: [facility] Physical 10/31/2014 Patient Education: Patient Medication Summary [...] renal functioning. 11/21/2013 Appointment: Shanti Hoover WPtel: [address] [place], [place] [phone] Well Woman 11/21/2013 Patient Education: Patient Medication Summary Completed 11/21/2013 Appointment: Shanti Hoover WPtel: [address] [place], [place] [phone] Lab Draw 01/18/2013 Patient Education: Patient Medication Summary Completed 01/18/2013 Visit Plan: Well Adult Female - exa m completed. Pap and gc/chlamydia and breast exam completed. Pt will be called with results of her testing. She was advised to continue with yearly annual exams. Pt referred to Dr Bolivar Sun for further evaluation of the large cervical polyp. 12/28/2012 Appointment: Shanti Hoover WPtel: [address] [place], [place] [phone] Well Woman 12/28/2012 Patient Education: Patient Medication Summary Completed 12/28/2012 Visit Plan: recommended well woman exam and labs. recommended starting multivitamin improved sleep hygeine 09/30/2012 Appointment: Shanti Hoover WPtel: [facility] [place] New Patient 09/30/2012 Patient Education: Patient [...]
--- OUTSIDE RECORDS SUMMARY | 2019-10-14 08:50 | XMS REPORT | CCD ---
Author Author Laquita Hoover Organization Shanti Hoover MD, [facility] Address [address] [place] [address] Phone Care Team Providers Care Green Chainer Name Role Phone PP Unavailable CCM Unavailable Summary Purpose Interface Exchange Insurance Providers Payer name Policy type / Coverage type Covered green party ID Effective Begin Date Effective End Date [place] [employer] e [id number] Unknown Family history Adopted Diagnosis Age At Onset No Family Disease Entered N/A Social History Social History Element Codes Description Effective Dates Marital status Unknown M arried 09/30/2012 Number of children Unknown 2 09/30/2012 Employment Unknown Oscar bauer employed via [employer] in [employer] 09/30/[address]: 6689757 Quit less than 10 years ago 09/30/2012 [...] Instructions Augmentin 875 mg-125 mg tablet RxNorm: 318798 1 Tablet(s) PO BID 05/17/2018 05/23/2018 Active Kenalog 40 mg/mL guevara pension for injection RxNorm: 6707071 Milliliter(s) Inj 05/17/2018 05/17/2018 In active Augmentin 875 mg-125 mg tablet RxNorm: 188388 1 Tablet(s) PO BID 03/12/2018 03/18/2018 Inactive take a probioitic while on the abx Kenalog 40 mg/mL guevara pension for injection RxNorm: 0541149 1 Milliliter(s) Inj 03/12/2018 03/12/2018 In active doxycycline hyclate 100 mg capsule RxNorm: 7604416 1 Capsule(s) PO BID 01/28/2018 02/06/2018 In active dapsone 25 mg tablet RxNorm: 008292 2 Tablet(s) PO daily 01/28/2018 02/01/2018 Inactive diclofenac 50 mg-mis oprostol 200 mcg tablet,immed.and delayed release RxNorm: 547313 1 Tablet(s) PO BID 11/05/2017 03/04/2018 Inactive acyclovir 800 mg tablet RxNorm: 047662 1 Tablet(s) PO TID take at symptoms of c old sore, if no outbreak, take for 5 days, if breaks out, take for 10 days total 09/09/2017 10/08/2017 In active prednisone 10 mg tablet RxNorm: 376082 Tablet(s) PO 07/10/2017 No Stop Date Active 6,5, 4,3,2,1 Zithromax Z-Dawson 250 mg tablet RxNorm: 820267 1 Tablet(s) PO UD 07/10/2017 07/14/2017 Inactive zpack Augmentin 875 mg-125 mg tablet RxNorm: 020928 1 Tablet(s) PO BID 05/29/2017 05/28/2017 Inactive Augmentin 875 mg-125 mg tablet RxNorm: 452977 1 Tablet(s) PO BID 05/29/2017 06/07/2017 Inactive Kenalog 40 mg/mL guevara pension for injection RxNorm: 1637453 1 Milliliter(s) Inj 04/30/2017 04/30/2017 In active Keflex 500 mg capsule RxNorm: 352190 1 Capsule(s) PO TID 04/30/2017 05/09/2017 Inactive Vitamin D3 5,000 uni t tablet RxNorm: 318314 1 Tablet(s) PO daily 12/17/2016 No Stop Date Active Jublia 10 % topical solution with applicator RxNorm: 3136447 1 Application TOP da marshall 12/12/2016 06/09/2017 Inactive Jublia 10 % topical solution with applicator RxNorm: 4791936 1 Application TOP da marshall 12/12/2016 2016 Inactive acyclovir 800 mg tablet RxNorm: 916363 1 Tablet(s) PO TID take at symptoms of c old sore, if no outbreak, take for 5 days, if breaks out, take for 10 days total 09/25/2016 10/24/2016 In active Kenalog 40 mg/mL guevara pension for injection RxNorm: 2505565 Milliliter(s) Inj 10/08/2015 10/08/2015 In active doxycycline hyclate 100 mg tablet RxNorm: 240192 1 Tablet(s) PO BID 10/08/2015 10/17/2015 Inactive cefdinir 300 mg capsule RxNorm: 158691 1 Capsule(s) PO BID 06/25/2015 07/01/2015 Inactive cefdinir 300 mg capsule RxNorm: 028069 1 Capsule(s) PO BID 06/25/2015 06/24/2015 Inactive ceftriaxone 500 mg s olution for injection RxNorm: 1748829 Inj 06/21/2015 06/21/2015 Inactive Kenalog 40 mg/mL guevara pension for injection RxNorm: 4771854 Milliliter(s) Inj 06/21/2015 06/21/2015 In active Zithromax Z-Dawson 250 mg tablet RxNorm: 269885 1 Tablet(s) PO UD 06/21/2015 06/25/2015 Inactive zpack acyclovir 800 mg tablet RxNorm: 161775 1 Tablet(s) PO TID take at symptoms of c old sore, if no outbreak, take for 5 days, if breaks out, take for 10 days total 10/31/2014 11/29/2014 In active Cipro 500 mg tablet RxNorm: 137371 1 Tablet(s) PO BID 01/18/2013 01/17/2013 Inactive Cipro 500 mg tablet RxNorm: 412442 1 Tablet(s) PO BID 01/18/2013 01/20/2013 Inactive Ocuvite oral RxNorm: 526986 oral No Start Date Active krill oil 1,000 mg-1 70 mg-50 mg-80 mg capsule RxNorm: 1 Capsule(s) PO daily No Start Date Active Calcium 600 + D(3) oral RxNorm: 606072 oral No Start Date Active Vitamin D3 Oral RxNorm: Oral No Start Date 12/16/2016 Inactive flaxseed oil Oral RxNorm: Oral No Start Date 11/04/2016 Inactive Medication Administered Medication Codes Instruc tions Start Date Status Kenalog 40 mg/mL suspension for injection RxNorm: 4518503 Milliliter 05/17/2018 Ac tive Kenalog 40 mg/mL suspension for injection RxNorm: 9872622 1Milliliter 03/12/2018 N o longer Active Kenalog 40 mg/mL suspension for injection RxNorm: 2965483 1Milliliter 04/30/2017 N o longer Active Kenalog 40 mg/mL suspension for injection RxNorm: 4234998 Milliliter 10/08/2015 No longer Active ceftriaxone 500 mg solution for injection RxNorm: 8245819 06/21/2015 No longer A ctive Kenalog 40 mg/mL suspension for injection RxNorm: 6226721 Milliliter 06/21/2015 No longer Active Immunizations Vaccine [...] 31.3 pg 11/02/2017 Cbc With Differential Ord2 Gaines% 8.9 % 11/02/2017 Cbc With Differential Ord2 [...] 1.75 K/ul 11/02/2017 Cbc With Differential Ord2 Gaines ABS# 0.3 K/ul 11/02/2017 Cbc With Differential Ord2 Eos ABS# 0.1 K/ul 11/02/2017 Cbc With Differential Ord2 Baso ABS# 0.0 K/ul 11/02/2017 Comp Metabolic Lzl762 NA 141 mEq/L 11/02/2017 Comp Metabolic Jmg328 K 4.0 mEq/L 11/02/2017 Comp Metabolic Zcg994 CL 104 mEq/L 11/02/2017 Comp Metabolic Ciw902 CO2 29.0 mEq/L 11/02/2017 Comp Metabolic Gqo025 AN ION GAP 12 11/02/2017 Comp Metabolic Ysx046 GL UCOSE 91 mg/dL 11/02/2017 Comp Metabolic Kzo136 Cr eat 0.7 mg/dL 11/02/2017 Comp Metabolic Upv006 eG FR 94 ml/min/1.73m2 11/02 Comp Metabolic Wfd891 BUN 18 mg/dL 11/02/2017 Comp Metabolic Hni990 B/ C Ratio 26.5 Ratio 11/02/2017 Comp Metabolic Vgt844 CA LCIUM 9.7 mg/dL 11/02/2017 Comp Metabolic Hue158 AL K PHOS 65 U/L 11/02/2017 Comp Metabolic Fco151 T(SGOT) 16 U/L 11/02/2017 Comp Metabolic Pjw849 AL T(SGPT) 17 U/L 11/02/2017 Comp Metabolic Dza488 BI LI T 0.4 mg/dL 11/02/2017 Comp Metabolic Xbt461 AL BUMIN 4.1 g/dL 11/02/2017 Comp Metabolic Gea129 TP RO 6.7 g/dL 11/02/2017 Comp Metabolic Tct506 GL OB 2.6 g/dL 11/02/2017 Comp Metabolic Ldl783 A/ G Ratio 1.6 Ratio 11/02/2017 Comp Metabolic Pjc932 Os mo 283 mOsmo 11/02/2017 Tsh Ord6 hTSH II 2.02 uIU/mL 01/27/2017 Comp Metabolic Wgp452 NA 141 mEq/L 01/27/2017 Comp Metabolic Bwm455 K 4.2 mEq/L 01/27/2017 Comp Metabolic Iow510 CL 103 mEq/L 01/27/2017 Comp Metabolic Ofj525 CO2 31.0 mEq/L 01/27/2017 Comp Metabolic Vug469 AN ION GAP 11 01/27/2017 Comp Metabolic Qju997 GL UCOSE 90 mg/dL 01/27/2017 Comp Metabolic Kiz906 Cr eat 0.6 mg/dL 01/27/2017 Comp Metabolic Jfl660 eG FR 101 ml/min/1.73m2 01/18 Comp Metabolic Yyh716 BUN 17 mg/dL 01/27/2017 Comp Metabolic Rpz424 B/ C Ratio 26.6 Ratio 01/27/2017 Comp Metabolic Dnu379 CA LCIUM 9.5 mg/dL 01/27/2017 Comp Metabolic Tvd123 AL K PHOS 73 U/L 01/27/2017 Comp Metabolic Vcd643 T(SGOT) 19 U/L 01/27/2017 Comp Metabolic Mhv641 AL T(SGPT) 20 U/L 01/27/2017 Comp Metabolic Yks803 BI LI T 0.5 mg/dL 01/27/2017 Comp Metabolic Qgt323 AL BUMIN 4.3 g/dL 01/27/2017 Comp Metabolic Laq599 TP RO 6.6 g/dL 01/27/2017 Comp Metabolic Wtk134 GL OB 2.3 g/dL 01/27/2017 Comp Metabolic Gfu241 A/ G Ratio 1.8 Ratio 01/27/2017 Comp Metabolic Gct127 Os mo 282 mOsmo 01/27/2017 Lipid Ord30 [...] 30.9 pg 01/27/2017 Cbc With Differential Ord2 Gaines% 11.8 % 01/27/2017 Cbc With Differential Ord2 [...] 1.72 K/ul 01/27/2017 Cbc With Differential Ord2 Gaines ABS# 0.4 K/ul 01/27/2017 Cbc With Differential [...] 40.8 % 01/22/2016 Cbc With Differential Ord2 Gaines% 8.6 % 01/22/2016 Cbc With Differential Ord2 [...] 1.66 K/ul 01/22/2016 Cbc With Differential Ord2 Gaines ABS# 0.4 K/ul 01/22/2016 Cbc With Differential Ord2 Eos ABS# 0.1 K/ul 01/22/2016 Cbc With Differential Ord2 Baso ABS# 0.1 K/ul 01/22/2016 Comp Metabolic Vos807 NA 141 mEq/L 01/22/2016 Comp Metabolic Yim466 K 4.2 mEq/L 01/22/2016 Comp Metabolic Ksz804 CL 105 mEq/L 01/22/2016 Comp Metabolic Tfm321 CO2 30.0 mEq/L 01/22/2016 Comp Metabolic Ycb954 AN ION GAP 10 01/22/2016 Comp Metabolic Vgf929 GL UCOSE 85 mg/dL 01/22/2016 Comp Metabolic Bpp329 Cr eat 0.6 mg/dL 01/22/2016 Comp Metabolic Skt863 eG FR 109 ml/min/1.73m2 07/2015 Comp Metabolic Xzy066 BUN 14 mg/dL 01/22/2016 Comp Metabolic Ghq241 B/ C Ratio 23.3 Ratio 01/22/2016 Comp Metabolic Jjx128 CA LCIUM 9.1 mg/dL 01/22/2016 Comp Metabolic Qly601 AL K PHOS 69 U/L 01/22/2016 Comp Metabolic Ggj242 T(SGOT) 16 U/L 01/22/2016 Comp Metabolic Brg309 AL T(SGPT) 15 U/L 01/22/2016 Comp Metabolic Dvp686 BI LI T 0.3 mg/dL 01/22/2016 Comp Metabolic Wds827 AL BUMIN 4.0 g/dL 01/22/2016 Comp Metabolic Gfz150 TP RO 6.8 g/dL 01/22/2016 Comp Metabolic Yrv491 GL OB 2.8 g/dL 01/22/2016 Comp Metabolic Twb812 A/ G Ratio 1.5 Ratio 01/22/2016 Comp Metabolic Gwg818 Os mo 281 mOsmo 01/22/2016 Tsh Ord6 [...] Ord2 RDW 14.1 % 01/17/2015 Comp Metabolic Sia137 NA 137 mEq/L 01/17/2015 Comp Metabolic Ifl452 K 4.1 mEq/L 01/17/2015 Comp Metabolic Enw643 CL 103 mEq/L 01/17/2015 Comp Metabolic Swo849 CO2 35.0 mEq/L 01/17/2015 Comp Metabolic Qtj722 AN ION GAP 3 01/17/2015 Comp Metabolic Zhv630 GL UCOSE 88 mg/dL 01/17/2015 Comp Metabolic Noe209 Cr eat 0.6 mg/dL 01/17/2015 Comp Metabolic Hta827 eG FR 107 ml/min/1.73m2 12/21 Comp Metabolic Nzm830 BUN 14 mg/dL 01/17/2015 Comp Metabolic Jkt663 B/ C Ratio 23.0 Ratio 01/17/2015 Comp Metabolic Gwk344 CA LCIUM 9.4 mg/dL 01/17/2015 Comp Metabolic Erk510 AL K PHOS 71 U/L 01/17/2015 Comp Metabolic Sqj234 T(SGOT) 17 U/L 01/17/2015 Comp Metabolic Dov900 AL T(SGPT) 14 U/L 01/17/2015 Comp Metabolic Gzr681 BI LI T 0.4 mg/dL 01/17/2015 Comp Metabolic Ize914 AL BUMIN 4.3 g/dL 01/17/2015 Comp Metabolic Ivi043 TP RO 7.0 g/dL 01/17/2015 Comp Metabolic Ceg053 GL OB 2.7 g/dL 01/17/2015 Comp Metabolic Jjy256 A/ G Ratio 1.6 Ratio 01/17/2015 Comp Metabolic Wqs244 Os mo 274 mOsmo 01/17/2015 CHEM 14 0878382 AST 15 U/L 01/03/2014 CHEM 14 8569472 ALT 10 IU/L 01/03/2014 CHEM 14 3004549 BUN 12 MG/DL 01/03/2014 CHEM 14 4262714 ALBUMIN 4.4 GM/DL 01/03/2014 CHEM 14 0319040 CHLORIDE 105 MMOL/L 01/03/2014 CHEM 14 0397242 BILI TOT 0.5 MG/DL 01/03/2014 CHEM 14 9866996 ALK PHOS 69 U/L 01/03/2014 CHEM 14 0027031 SODIUM 140 MMOL/L 01/03/2014 CHEM 14 0339807 CREATINI NE 0.66 MG/DL 01/03/2014 CHEM 14 1961100 CALCIUM 9.3 MG/DL 01/03/2014 CHEM 14 2489212 POTASSIUM 3.8 MMOL/L 01/03/2014 CHEM 14 9219740 PROT TOT 7.3 GM/DL 01/03/2014 CHEM 14 6632888 GLUCOSE 89 MG/DL 01/03/2014 CHEM 14 4546934 BICARB 31 MMOL/L 01/03/2014 CHEM 14 0985059 ANION GAP 4 MEQ/L 01/03/2014 CBC 3620313 WBC 3.8 10e9/L 01/03/2014 CBC 8039487 RBC 4.16 10e12/L 01/03/2014 CBC 6969006 HGB 12.8 g/dL 01/03/2014 CBC 0581122 HCT DET 38.8 % 01/03/2014 CBC 3911165 MCV 93.3 fL 01/03/2014 CBC 8467023 MCH 30.8 pg 01/03/2014 CBC 7477660 MCHC 33.0 g/dL 01/03/2014 CBC 1637498 PLT 206 10e9/L 01/03/2014 CBC 0949100 MPV 10.1 fL 01/03/2014 CBC 4004311 CHRISTINA % 42.3 % 01/03/2014 CBC 7843927 LY % 44.0 % 01/03/2014 CBC 0345621 MON % 9.5 % 01/03/2014 CBC 5234578 EOS % 2.9 % 01/03/2014 CBC 2364327 BASO % 1.3 % 01/03/2014 CBC 5679605 RDW 12.8 % 01/03/2014 CBC 4246834 ABS CHRISTINA 1.61 10e9/L 01/03/2014 CBC 2179637 ABS LYMPH 1.67 10e9/L 01/03/2014 CBC 0257184 ABS MONO 0.36 10e9/L 01/03/2014 CBC 0523261 ABS EOS 0.11 10e9/L 01/03/2014 CBC 1081436 ABS BASO 0.05 10e9/L 01/03/2014 CBC 2140597 RDW-SD 42.3 fL 01/03/2014 TSH 4037614 TSH 2.728 uIU/ML 01/03/2014 GFR CALC 2615594 GFR AA >60 ML/MIN 01/03/2014 GFR CALC 8610490 GFR NON -AA >60 ML/MIN 01/03/2014 GC/CHL PRB 2803476 CHLM PROBE NEG 12/29/2012 GC/CHL PRB 0678932 GC PA OBE NEG 12/29/2012 URINALYSIS NONAUTO W/O SCOPE 30186 Specific [place] 1.015 DateTime(Free Text in ) URINALYSIS NONAUTO W/O SCOPE 01516 PH 6.5 DateTime(Free Luis Eduardo t in ) URINALYSIS NONAUTO W/O SCOPE 73723 GLUCOSE DateTime(Free Text i n Apr) URINALYSIS NONAUTO W/O SCOPE 80005 Protein DateTime(Free Text i n Apr) URINALYSIS NONAUTO W/O SCOPE 20244 Blood 3+ DateTime(Free Text in Apr) URINALYSIS NONAUTO W/O SCOPE 73763 Bilirubin DateTime(Free Text i n Apr) URINALYSIS NONAUTO W/O SCOPE 84567 Ketones DateTime(Free Text i n Apr) URINALYSIS NONAUTO W/O SCOPE 67023 Urobilinogen DateTime(Free Text in ) URINALYSIS NONAUTO W/O SCOPE 88356 Nitrite + DateTime(Free Text in ) URINALYSIS NONAUTO W/O SCOPE 76557 Leukocytes DateTime(Fr ee Text in ) Review [...] CPT-4: J3301 03/12/2018 THER/PROPH/DIAG INJ SC/IM CPT-4: 21327 04/30/2017 TRIAMCINOLONE ACET I [place] NOS CPT-4: J3301 04/30/2017 TRIAMCINOLONE ACET I [place] NOS CPT-4: J3301 10/08/2015 TRIAMCINOLONE ACET I [place] NOS CPT-4: J3301 06/21/2015 ROCEPHIN, PER 250 MG CPT-4: J0696 06/21/2015 URINALYSIS NONAUTO W /O SCOPE CPT-4: 23824 01/18/2013 Vital Signs Date Vital 05/17/2018 Blood Pressure 1: 132/72 Code: 8480-6 BMI: 31.1 Code: 27460-2 Heart Rate 1: 82 bpm Height: 5'4" SpO2: 95% Weight: 184 lbs 03/12/2018 Blood Pressure 1: 140/80 Code: 8480-6 BMI: 31.3 Code: 43974-3 Heart Rate 1: 75 bpm Height: 5'4" SpO2: 98% Weight: 185 lbs 01/28/2018 Blood Pressure 1: 145/80 Code: 8480-6 BMI: 31.1 Code: 27037-9 Heart Rate 1: 73 bpm Height: 5'4" SpO2: 95% Weight: 184 lbs 11/05/2017 Blood Pressure 1: 140/82 Code: 8480-6 Blood Pressure 2: 130/78 Code: 8480-6 BMI: 30.6 Code: 39599-8 Heart Rate 1: 64 bpm Height: 5'4" SpO2: 97% Weight: 180 lbs 14 o z 07/10/2017 Blood Pressure 1: 124/72 Code: 8480-6 Heart Rate 1: 73 bpm Height: 5'4" SpO2: 99% Weight: 04/30/2017 Blood Pressure 1: 142/86 Code: 8480-6 BMI: 30.4 Code: 48317-3 Heart Rate 1: 57 bpm Height: 5'4" SpO2: 98% Temperature: 36.8 (C ) / 98.3 (F) Weight: 180 lbs 11/05/2016 Blood Pressure 1: 130/80 Code: 8480-6 BMI: 31.1 Code: 61897-4 Heart Rate 1: 68 bpm Height: 5'4" SpO2: 95% Weight: 184 lbs 11/01/2015 Blood Pressure 1: 124/76 Code: 8480-6 BMI: 30.1 Code: 33408-0 Heart Rate 1: 58 bpm Height: 5'4" SpO2: 97% Weight: 178 lbs 10/08/2015 Blood Pressure 1: 120/82 Code: 8480-6 BMI: 31.1 Code: 79817-8 Heart Rate 1: 71 bpm Height: 5'4" SpO2: 98% Weight: 184 lbs 06/21/2015 Blood Pressure 1: 142/90 Code: 8480-6 BMI: 23.0 Code: 76466-7 Heart Rate 1: 72 bpm Height: 5'4" SpO2: 92% Temperature: 36.6 (C ) / 97.8 (F) Weight: 136 lbs 06/15/2015 Blood Pressure 1: 138/72 Code: 8480-6 BMI: 23.0 Code: 05540-6 Heart Rate 1: 83 bpm Height: 5'4" SpO2: 96% Weight: 136 lbs 10/31/2014 Blood Pressure 1: 138/72 Code: 8480-6 BMI: 30.4 Code: 17047-2 Heart Rate 1: 69 bpm Height: 5'4" SpO2: 96% Weight: 180 lbs 11/21/2013 Blood Pressure 1: 128/82 Code: 8480-6 BMI: 29.4 Code: 39736-5 Heart Rate 1: 64 bpm Height: 5'4" Weight: 174 lbs 12/28/2012 Blood Pressure 1: 130/88 Code: 8480-6 BMI: 30.3 Code: 46419-2 Heart Rate 1: 60 bpm Height: 5'5" Weight: 182 lbs 09/30/2012 Blood Pressure 1: 126/78 Code: 8480-6 BMI: 30.1 Code: 74293-2 Heart Rate 1: 72 bpm Height: 5'5" [...] None well woman exam (40-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 P ATIENT, LEVEL III Diagnosis: Acute recurrent maxillary sinusitis[ICD10: J01.01] Diagnosis: Cough[ICD10: R05] [facility] CPT-4: 47503 05/17/2018 ([id number] 86916 EST. P ATIENT, LEVEL III Diagnosis: Acute recurrent maxillary sinusitis[ICD10: J01.01] Diagnosis: Other allergic rhinitis[ICD10: J30.89] Diagnosis: Cough[ICD10: R05] [facility] CPT-4: 21773 03/12/2018 53706 EST. PATIENT, LEVEL III Diagnosis: Cellulitis of left lower limb[ICD10: L03.116] [facility] CPT-4: 66315 01/28/2018 ([id number]) PREV VISIT E ST AGE 40-64 Diagnosis: Encounter for general adult medical examination without abnormal findings[ICD10: Z00.00] [facility] CPT-4: 93422 11/05/2017 88640 EST. PATIENT, LEVEL IV Diagnosis: Other acute sinusitis[ICD10: J01.80] Diagnosis: Other allergic rhinitis[ICD10: J30.89] [facility] CPT-4: 91135 07/10/2017 25755 EST. PATIENT, LEVEL IV Diagnosis: Other acute sinusitis[ICD10: J01.80] Diagnosis: Other allergic rhinitis[ICD10: J30.89] [facility] CPT-4: 71974 04/30/2017 ([id number]) PREV VISIT E ST AGE 40-64 Diagnosis: Encounter for general adult medical examination without abnormal findings[ICD10: Z00.00] [facility] CPT-4: 12360 11/05/2016 ([id number]) PREV VISIT E ST AGE 40-64 Diagnosis: Encounter for gynecological examination (general) (routine) without abnormal findings[ICD10: Z01.419] [facility] CPT-4: 21849 11/01/2015 ([id number]) 80596 EST. P ATIENT, LEVEL III Diagnosis: Insect bite (nonvenomous), right knee, initial encounter[ICD10: S80.261A] Diagnosis: Allergic rhinitis due to pollen[ICD10: J30.1] [facility] CPT-4: 09936 10/08/2015 ([id number]) 44738 EST. P ATIENT, LEVEL III Diagnosis: Acute recurrent maxillary sinusitis[ICD10: J01.01] Diagnosis: Acute bronchitis, unspecified[ICD10: J20.9] [facility] CPT-4: 79416 06/21/2015 ([id number]) 91411 EST. P ATIENT, LEVEL III Diagnosis: Low back pain[ICD10: M54.5] Diagnosis: Sacroiliitis, not elsewhere classified[ICD10: M46.1] [facility] CPT-4: 26929 06/15/2015 ([id number]) PREV VISIT E ST AGE 40-64 Diagnosis: Routine medical exam[ICD9: V70.0] [facility] CPT-4: 70206 10/31/2014 ([id number]) PREV VISIT E ST AGE 40-64 Diagnosis: Routine medical exam[ICD9: V70.0] [facility] CPT-4: 60867 11/21/2013 ([id number]) 56261 EST. P ATIENT, LEVEL III Diagnosis: Well woman exam with routine gynecological exam[ICD9: V72.31] Diagnosis: Polyp at cervical os[ICD9: 622.7] [facility] CPT-4: 85831 12/28/2012 ([id number]) OFFICE/OUTPA TIENT VISIT NEW Diagnosis: Routine medical exam[ICD9: V70.0] [facility] CPT-4: 48843 09/30/2012 Plan of Care Planned Activity Notes [...] show improvement. 03/12/2018 Appointment: Criselda Anderson WPtel: [address] [place], [place] [phone] (15 min) Moderate 03/12/2018 Patient Education: Patient [...] discharge. 01/28/2018 Appointment: Minoo Joshua WPtel: [phone] [facility] (15 min) Moderate 01/28/2018 Patient Education: Patient [...] for arthrotec. 11/05/2017 Appointment: Shanti Hoover WPtel: [phone] [facility] (15 min) Moderate 11/05/2017 Patient Education: Patient [...] spray. 07/10/2017 Appointment: Minoo Joshua WPtel: [phone] [facility] (15 min) Moderate 07/10/2017 Patient Education: Patient [...] allergy spray. 04/30/2017 Appointment: Minoo Joshua WPtel: [address] [place] [address] (15 min) Moderate 04/30/2017 Patient Education: Patient [...] renal functioning. 11/05/2016 Appointment: Shanti Hoover WPtel: [facility] Physical 11/05/2016 Patient Education: Patient Medication Summary Completed 11/05/2016 Patient Education: Obesity Completed 11/05/2016 Appointment: Shanti Hoover WPtel: [address] [place] [address] Well Woman 01/02/2016 Visit Plan: Well Adult [...] the office. 10/08/2015 Appointment: [facility] Anderson [facility]el[phone] (15 min) Moderate 10/08/2015 Patient Education: Patient Medication Summary Completed 10/08/2015 Patient Education: Obesity Completed 10/08/2015 Visit Plan: Sinusitis - Pt has acut e infection - pain in face, maxillary region, Pt informed to use decongestant, RX given to patient, sinus rinses also recommended. Call if symptoms do not show improvement. 06/21/2015 Appointment: Criselda Anderson [facility]Ptel[phone] (10 min) Simple 06/21/2015 Patient Education: [...] Completed 06/15/2015 Care Plan: SCREENINGMAMMOGRAPHYDIGITAL LOINC : 76127-5 Ordered 11/19/2014 Visit Plan: Well Adult - [...] renal functioning. 10/31/2014 Appointment: Shanti Hoover WPtel: [facility]2 [facility] Physical 10/31/2014 Patient Education: Patient Medication [...] renal functioning. 11/21/2013 Appointment: Shanti Hoover WPtel: [address] [place], [place] [phone] Well Woman 11/21/2013 Patient Education: Patient Medication Summary Completed 11/21/2013 Appointment: Shanti Hoover WPtel: [address] [place], [place] [phone] Lab Draw 01/18/2013 Patient Education: Patient Medication Summary Completed 01/18/2013 Visit Plan: Well Adult Female - exa m completed. Pap and gc/chlamydia and breast exam completed. Pt will be called with results of her testing. She was advised to continue with yearly annual exams. Pt referred to Dr Bolivar Sun for further evaluation of the large cervical polyp. 12/28/2012 Appointment: Shanti Hoover WPtel: [address] [place], [place] [phone] Well Woman 12/28/2012 Patient Education: Patient Medication Summary Completed 12/28/2012 Visit Plan: recommended well woman exam and labs. recommended starting multivitamin improved sleep hygeine 09/30/2012 Appointment: Shanti Hoover WPtel: [facility] [place] New Patient 09/30/2012 Patient Education: Patient [...]
--- OUTSIDE RECORDS SUMMARY | 2019-10-14 08:51 | XMS REPORT | CCD ---
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 Name Role Phone PP Unavailable CCM Unavailable Summary Purpose Interface Exchange Insurance Providers Payer name Policy type / Coverage type Covered democrat ID Effective Begin Date Effective End Date Blue Cross Blue Shield [facility] e Cross/Blue Shield [id number] 2015 Un known Family history Adopted Diagnosis Age At Onset No Family Disease Entered N/A Social History Social History Element Codes Description Effective Dates Marital status Unknown M arried 09/30/2012 Number of children Unknown 2 09/30/2012 Employment 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/30/[address]: 4658329 Quit less than 10 years ago 09/30/2012 [...] Instructions Augmentin 875 mg-125 mg tablet RxNorm: 944374 1 Tablet(s) PO BID 03/12/2018 03/18/2018 Active take a probioitic while on the abx Kenalog 40 mg/mL guevara pension for injection RxNorm: 0254309 1 Milliliter(s) Inj 03/12/2018 03/12/2018 In active doxycycline hyclate 100 mg capsule RxNorm: 1850162 1 Capsule(s) PO BID 01/28/2018 02/06/2018 In active dapsone 25 mg tablet RxNorm: 524311 2 Tablet(s) PO daily 01/28/2018 02/01/2018 Inactive diclofenac 50 mg-mis oprostol 200 mcg tablet,immed.and delayed release RxNorm: 823287 1 Tablet(s) PO BID 11/05/2017 03/04/2018 Inactive acyclovir 800 mg tablet RxNorm: 975616 1 Tablet(s) PO TID take at symptoms of c old sore, if no outbreak, take for 5 days, if breaks out, take for 10 days total 09/09/2017 10/08/2017 In active prednisone 10 mg tablet RxNorm: 012282 Tablet(s) PO 07/10/2017 No Stop Date Active 6,5, 4,3,2,1 Zithromax Z-Dawson 250 mg tablet RxNorm: 970352 1 Tablet(s) PO UD 07/10/2017 07/14/2017 Inactive zpack Augmentin 875 mg-125 mg tablet RxNorm: 820329 1 Tablet(s) PO BID 05/29/2017 05/28/2017 Inactive Augmentin 875 mg-125 mg tablet RxNorm: 945034 1 Tablet(s) PO BID 05/29/2017 06/07/2017 Inactive Kenalog 40 mg/mL guevara pension for injection RxNorm: 0553348 1 Milliliter(s) Inj 04/30/2017 04/30/2017 In active Keflex 500 mg capsule RxNorm: 926673 1 Capsule(s) PO TID 04/30/2017 05/09/2017 Inactive Vitamin D3 5,000 uni t tablet RxNorm: 306229 1 Tablet(s) PO daily 12/17/2016 No Stop Date Active Jublia 10 % topical solution with applicator RxNorm: 8763227 1 Application TOP da marshall 12/12/2016 06/09/2017 Inactive Jublia 10 % topical solution with applicator RxNorm: 7112128 1 Application TOP da marshall 12/12/2016 2016 Inactive acyclovir 800 mg tablet RxNorm: 794913 1 Tablet(s) PO TID take at symptoms of c old sore, if no outbreak, take for 5 days, if breaks out, take for 10 days total 09/25/2016 10/24/2016 In active Kenalog 40 mg/mL guevara pension for injection RxNorm: 8217113 Milliliter(s) Inj 10/08/2015 10/08/2015 In active doxycycline hyclate 100 mg tablet RxNorm: 734610 1 Tablet(s) PO BID 10/08/2015 10/17/2015 Inactive cefdinir 300 mg capsule RxNorm: 478079 1 Capsule(s) PO BID 06/25/2015 07/01/2015 Inactive cefdinir 300 mg capsule RxNorm: 925202 1 Capsule(s) PO BID 06/25/2015 06/24/2015 Inactive ceftriaxone 500 mg s olution for injection RxNorm: 2619001 Inj 06/21/2015 06/21/2015 Inactive Kenalog 40 mg/mL guevara pension for injection RxNorm: 9573384 Milliliter(s) Inj 06/21/2015 06/21/2015 In active Zithromax Z-Dawson 250 mg tablet RxNorm: 430699 1 Tablet(s) PO UD 06/21/2015 06/25/2015 Inactive zpack acyclovir 800 mg tablet RxNorm: 516553 1 Tablet(s) PO TID take at symptoms of c old sore, if no outbreak, take for 5 days, if breaks out, take for 10 days total 10/31/2014 11/29/2014 In active Cipro 500 mg tablet RxNorm: 175609 1 Tablet(s) PO BID 01/18/2013 01/17/2013 Inactive Cipro 500 mg tablet RxNorm: 201647 1 Tablet(s) PO BID 01/18/2013 01/20/2013 Inactive Ocuvite oral RxNorm: 430931 oral No Start Date Active krill oil 1,000 mg-1 70 mg-50 mg-80 mg capsule RxNorm: 1 Capsule(s) PO daily No Start Date Active Calcium 600 + D(3) oral RxNorm: 872196 oral No Start Date Active Vitamin D3 Oral RxNorm: Oral No Start Date 12/16/2016 Inactive flaxseed oil Oral RxNorm: Oral No Start Date 11/04/2016 Inactive Medication Administered Medication Codes Instruc tions Start Date Status Kenalog 40 mg/mL suspension for injection RxNorm: 9425839 1Milliliter 03/12/2018 N o longer Active Kenalog 40 mg/mL suspension for injection RxNorm: 4642944 1Milliliter 04/30/2017 N o longer Active Kenalog 40 mg/mL suspension for injection RxNorm: 0754243 Milliliter 10/08/2015 No longer Active Kenalog 40 mg/mL suspension for injection RxNorm: 1157421 Milliliter 06/21/2015 No longer Active ceftriaxone 500 mg solution for injection RxNorm: 1366133 06/21/2015 No longer A ctive Immunizations Vaccine Codes Date Status Influenza CVX: 141 01/22 completed Influenza CVX: 141 02/17 completed Tetanus, Diptheria, Pertussis CVX: 113 05/20/2011 completed Tetanus/Diptheria CVX: 113 05/20/2011 completed Assessments Condition Codes Effectiv e Dates Other allergic rhinitis ICD-10: J30. 89 ICD-9: 477.8 03/12/2018 Cough ICD-10: R05 ICD-9: 786.2 03/12/2018 Acute recurrent maxillary sinusitis ICD-10: J01.01 ICD-9: 461.0 03/12/2018 Cellulitis of left lower limb ICD-10 [...] For Visit Effective Dates Notes sinus congestion 03/12/2018 arthropod bite 01/28/2018 joint [...] Ord6 TSH (3rd IS) 1.73 uIU/mL 11/02/2017 Comp Metabolic Zfu501 NA 141 mEq/L 11/02/2017 Comp Metabolic Les907 K 4.0 mEq/L 11/02/2017 Comp Metabolic Gnn636 CL 104 mEq/L 11/02/2017 Comp Metabolic Slc124 CO2 29.0 mEq/L 11/02/2017 Comp Metabolic Jlq621 AN ION GAP 12 11/02/2017 Comp Metabolic Jze028 GL UCOSE 91 mg/dL 11/02/2017 Comp Metabolic Tfa582 Cr eat 0.7 mg/dL 11/02/2017 Comp Metabolic Rig179 eG FR 94 ml/min/1.73m2 11/02 Comp Metabolic Pex513 BUN 18 mg/dL 11/02/2017 Comp Metabolic Qqd771 B/ C Ratio 26.5 Ratio 11/02/2017 Comp Metabolic Ijb005 CA LCIUM 9.7 mg/dL 11/02/2017 Comp Metabolic Ggi655 AL K PHOS 65 U/L 11/02/2017 Comp Metabolic Wwz864 T(SGOT) 16 U/L 11/02/2017 Comp Metabolic Cyg401 AL T(SGPT) 17 U/L 11/02/2017 Comp Metabolic Rvy859 BI LI T 0.4 mg/dL 11/02/2017 Comp Metabolic Qsn543 AL BUMIN 4.1 g/dL 11/02/2017 Comp Metabolic Eau642 TP RO 6.7 g/dL 11/02/2017 Comp Metabolic Oyb432 GL OB 2.6 g/dL 11/02/2017 Comp Metabolic Uwk318 A/ G Ratio 1.6 Ratio 11/02/2017 Comp Metabolic Rbv804 Os mo 283 mOsmo 11/02/2017 Cbc With Differential Ord2 WBC 3.71 [...] 31.3 pg 11/02/2017 Cbc With Differential Ord2 [place]% 8.9 % 11/02/2017 Cbc With Differential Ord2 Eos% 3.5 % 11/02/2017 Cbc With Differential Ord2 MCHC 32.7 pg 11/02/2017 Cbc With Differential Ord2 Baso% 0.8 % 11/02/2017 Cbc With Differential Ord2 PLT 203 K/ul 11/02/2017 Cbc With Differential Ord2 RDW 13.0 % 11/02/2017 Cbc With Differential Ord2 Neut ABS# 1.47 K/ul 11/02/2017 Cbc With Differential Ord2 Lymph ABS# 1.75 K/ul 11/02/2017 Cbc With Differential Ord2 [place] ABS# 0.3 K/ul 11/02/2017 Cbc With Differential Ord2 Eos ABS# 0.1 K/ul 11/02/2017 Cbc With Differential Ord2 Baso ABS# 0.0 K/ul 11/02/2017 Tsh Ord6 hTSH II 2.02 uIU/mL 01/27/2017 Comp Metabolic Rmn308 NA 141 mEq/L 01/27/2017 Comp Metabolic Nzi671 K 4.2 mEq/L 01/27/2017 Comp Metabolic Hva041 CL 103 mEq/L 01/27/2017 Comp Metabolic Mew579 CO2 31.0 mEq/L 01/27/2017 Comp Metabolic Hne829 AN ION GAP 11 01/27/2017 Comp Metabolic Ngm658 GL UCOSE 90 mg/dL 01/27/2017 Comp Metabolic Tfc045 Cr eat 0.6 mg/dL 01/27/2017 Comp Metabolic Igf018 eG FR 101 ml/min/1.73m2 01/18 Comp Metabolic Evl165 BUN 17 mg/dL 01/27/2017 Comp Metabolic Gdv605 B/ C Ratio 26.6 Ratio 01/27/2017 Comp Metabolic Tqw588 CA LCIUM 9.5 mg/dL 01/27/2017 Comp Metabolic Bny513 AL K PHOS 73 U/L 01/27/2017 Comp Metabolic Pls625 T(SGOT) 19 U/L 01/27/2017 Comp Metabolic Nio883 AL T(SGPT) 20 U/L 01/27/2017 Comp Metabolic Hkf741 BI LI T 0.5 mg/dL 01/27/2017 Comp Metabolic Uyq704 AL BUMIN 4.3 g/dL 01/27/2017 Comp Metabolic Zsb370 TP RO 6.6 g/dL 01/27/2017 Comp Metabolic Zjm364 GL OB 2.3 g/dL 01/27/2017 Comp Metabolic Lik525 A/ G Ratio 1.8 Ratio 01/27/2017 Comp Metabolic Bwe918 Os mo 282 mOsmo 01/27/2017 Lipid Ord30 [...] 30.9 pg 01/27/2017 Cbc With Differential Ord2 [place]% 11.8 % 01/27/2017 Cbc With Differential Ord2 MCHC 33.0 pg 01/27/2017 Cbc With Differential Ord2 Eos% 4.0 % 01/27/2017 Cbc With Differential Ord2 PLT 211 K/ul 01/27/2017 Cbc With Differential Ord2 Baso% 1.2 % 01/27/2017 Cbc With Differential Ord2 Neut ABS# 1.15 K/ul 01/27/2017 Cbc With Differential Ord2 RDW 13.3 % 01/27/2017 Cbc With Differential Ord2 Lymph ABS# 1.72 K/ul 01/27/2017 Cbc With Differential Ord2 [place] ABS# 0.4 K/ul 01/27/2017 Cbc With Differential [...] 40.8 % 01/22/2016 Cbc With Differential Ord2 [place]% 8.6 % 01/22/2016 Cbc With Differential Ord2 MCH 30.9 pg 01/22/2016 Cbc With Differential Ord2 MCHC 32.8 pg 01/22/2016 Cbc With Differential Ord2 Eos% 3.4 % 01/22/2016 Cbc With Differential Ord2 PLT 224 K/ul 01/22/2016 Cbc With Differential Ord2 Baso% 1.5 % 01/22/2016 Cbc With Differential Ord2 RDW 13.3 % 01/22/2016 Cbc With Differential Ord2 Neut ABS# 1.86 K/ul 01/22/2016 Cbc With Differential Ord2 Lymph ABS# 1.66 K/ul 01/22/2016 Cbc With Differential Ord2 [place] ABS# 0.4 K/ul 01/22/2016 Cbc With Differential Ord2 Eos ABS# 0.1 K/ul 01/22/2016 Cbc With Differential Ord2 Baso ABS# 0.1 K/ul 01/22/2016 Comp Metabolic Obf098 NA 141 mEq/L 01/22/2016 Comp Metabolic Kck236 K 4.2 mEq/L 01/22/2016 Comp Metabolic Rbc495 CL 105 mEq/L 01/22/2016 Comp Metabolic Dni490 CO2 30.0 mEq/L 01/22/2016 Comp Metabolic Clb822 AN ION GAP 10 01/22/2016 Comp Metabolic Vok346 GL UCOSE 85 mg/dL 01/22/2016 Comp Metabolic Tnk013 Cr eat 0.6 mg/dL 01/22/2016 Comp Metabolic Kpw135 eG FR 109 ml/min/1.73m2 07/2015 Comp Metabolic Wkm365 BUN 14 mg/dL 01/22/2016 Comp Metabolic Zln379 B/ C Ratio 23.3 Ratio 01/22/2016 Comp Metabolic Xdu854 CA LCIUM 9.1 mg/dL 01/22/2016 Comp Metabolic Ojw729 AL K PHOS 69 U/L 01/22/2016 Comp Metabolic Nyu736 T(SGOT) 16 U/L 01/22/2016 Comp Metabolic Inp368 AL T(SGPT) 15 U/L 01/22/2016 Comp Metabolic Mzk250 BI LI T 0.3 mg/dL 01/22/2016 Comp Metabolic Zcz871 AL BUMIN 4.0 g/dL 01/22/2016 Comp Metabolic Hpb627 TP RO 6.8 g/dL 01/22/2016 Comp Metabolic Ejt426 GL OB 2.8 g/dL 01/22/2016 Comp Metabolic Qtp237 A/ G Ratio 1.5 Ratio 01/22/2016 Comp Metabolic Jgp290 Os mo 281 mOsmo 01/22/2016 Tsh Ord6 [...] Ord2 RDW 14.1 % 01/17/2015 Comp Metabolic Bpj854 NA 137 mEq/L 01/17/2015 Comp Metabolic Rfr174 K 4.1 mEq/L 01/17/2015 Comp Metabolic Mfu650 CL 103 mEq/L 01/17/2015 Comp Metabolic Pss126 CO2 35.0 mEq/L 01/17/2015 Comp Metabolic Fqc205 AN ION GAP 3 01/17/2015 Comp Metabolic Gmm581 GL UCOSE 88 mg/dL 01/17/2015 Comp Metabolic Mfu015 Cr eat 0.6 mg/dL 01/17/2015 Comp Metabolic Hnb263 eG FR 107 ml/min/1.73m2 12/21 Comp Metabolic Tbd599 BUN 14 mg/dL 01/17/2015 Comp Metabolic Bsm344 B/ C Ratio 23.0 Ratio 01/17/2015 Comp Metabolic Vir202 CA LCIUM 9.4 mg/dL 01/17/2015 Comp Metabolic Ydx815 AL K PHOS 71 U/L 01/17/2015 Comp Metabolic Yyc903 T(SGOT) 17 U/L 01/17/2015 Comp Metabolic Ygj998 AL T(SGPT) 14 U/L 01/17/2015 Comp Metabolic Zhr931 BI LI T 0.4 mg/dL 01/17/2015 Comp Metabolic Ufa591 AL BUMIN 4.3 g/dL 01/17/2015 Comp Metabolic Frs388 TP RO 7.0 g/dL 01/17/2015 Comp Metabolic Qyr995 GL OB 2.7 g/dL 01/17/2015 Comp Metabolic Fof052 A/ G Ratio 1.6 Ratio 01/17/2015 Comp Metabolic Bct376 Os mo 274 mOsmo 01/17/2015 CHEM 14 2091102 AST 15 U/L 01/03/2014 CHEM 14 5166831 ALT 10 IU/L 01/03/2014 CHEM 14 5590317 BUN 12 MG/DL 01/03/2014 CHEM 14 1708909 ALBUMIN 4.4 GM/DL 01/03/2014 CHEM 14 6909110 CHLORIDE 105 MMOL/L 01/03/2014 CHEM 14 2235119 BILI TOT 0.5 MG/DL 01/03/2014 CHEM 14 7327073 ALK PHOS 69 U/L 01/03/2014 CHEM 14 3537849 SODIUM 140 MMOL/L 01/03/2014 CHEM 14 5924254 CREATINI NE 0.66 MG/DL 01/03/2014 CHEM 14 6893369 CALCIUM 9.3 MG/DL 01/03/2014 CHEM 14 7926381 POTASSIUM 3.8 MMOL/L 01/03/2014 CHEM 14 1722227 PROT TOT 7.3 GM/DL 01/03/2014 CHEM 14 3021677 GLUCOSE 89 MG/DL 01/03/2014 CHEM 14 9000568 BICARB 31 MMOL/L 01/03/2014 CHEM 14 9713916 ANION GAP 4 MEQ/L 01/03/2014 CBC 5226198 WBC 3.8 10e9/L 01/03/2014 CBC 1333433 RBC 4.16 10e12/L 01/03/2014 CBC 0688925 HGB 12.8 g/dL 01/03/2014 CBC 2954394 HCT DET 38.8 % 01/03/2014 CBC 0760550 MCV 93.3 fL 01/03/2014 CBC 6795070 MCH 30.8 pg 01/03/2014 CBC 7821076 MCHC 33.0 g/dL 01/03/2014 CBC 3181525 PLT 206 10e9/L 01/03/2014 CBC 7505506 MPV 10.1 fL 01/03/2014 CBC 0535220 CHRISTINA % 42.3 % 01/03/2014 CBC 0173446 LY % 44.0 % 01/03/2014 CBC 2197741 MON % 9.5 % 01/03/2014 CBC 8134267 EOS % 2.9 % 01/03/2014 CBC 0065081 BASO % 1.3 % 01/03/2014 CBC 8812968 RDW 12.8 % 01/03/2014 CBC 9845431 ABS CHRISTINA 1.61 10e9/L 01/03/2014 CBC 9650677 ABS LYMPH 1.67 10e9/L 01/03/2014 CBC 0829788 ABS MONO 0.36 10e9/L 01/03/2014 CBC 5214717 ABS EOS 0.11 10e9/L 01/03/2014 CBC 4894182 ABS BASO 0.05 10e9/L 01/03/2014 CBC 3153285 RDW-SD 42.3 fL 01/03/2014 TSH 7355324 TSH 2.728 uIU/ML 01/03/2014 GFR CALC 9017958 GFR AA >60 ML/MIN 01/03/2014 GFR CALC 5941916 GFR NON -AA >60 ML/MIN 01/03/2014 GC/CHL PRB 1095608 CHLM PROBE NEG 12/29/2012 GC/CHL PRB 3737391 GC LA OBE NEG 12/29/2012 URINALYSIS NONAUTO W/O SCOPE 36729 Specific [place] 1.015 DateTime(Free Text in Aprima) URINALYSIS NONAUTO W/O SCOPE 59905 PH 6.5 DateTime(Free Luis Eduardo t in Aprima) URINALYSIS NONAUTO W/O SCOPE 64517 GLUCOSE DateTime(Free Text i n Aprima) URINALYSIS NONAUTO W/O SCOPE 10606 Protein DateTime(Free Text i n Aprima) URINALYSIS NONAUTO W/O SCOPE 80571 Blood 3+ DateTime(Free Text in Aprima) URINALYSIS NONAUTO W/O SCOPE 50733 Bilirubin DateTime(Free Text i n Aprima) URINALYSIS NONAUTO W/O SCOPE 05931 Ketones DateTime(Free Text i n Aprima) URINALYSIS NONAUTO W/O SCOPE 43029 Urobilinogen DateTime(Free Text in Aprima) URINALYSIS NONAUTO W/O SCOPE 91333 Nitrite + DateTime(Free Text in Aprima) URINALYSIS NONAUTO W/O SCOPE 02451 Leukocytes DateTime(Fr ee Text in Aprima) Review of Systems System Result Effective Dates Eyes No eye pain 018 Eyes No [...] None Full Exam - General 1995 Ears/Nose/Throat lips/teeth/gingiva Overall: benign lips 11/21/2013 None Full Exam - General 1994 Ears/Nose/Throat lips/teeth/gingiva Overall: normal dentition 11/21/2013 None Full Exam - General 1995 Ears/Nose/Throat oral cavity/pharynx/larynx Overall: hypopharynx benign 11/21/2013 [...] CPT-4: J3301 03/12/2018 THER/PROPH/DIAG INJ SC/IM CPT-4: 72286 04/30/2017 TRIAMCINOLONE ACET I [place] NOS CPT-4: J3301 04/30/2017 TRIAMCINOLONE ACET I [place] NOS CPT-4: J3301 10/08/2015 TRIAMCINOLONE ACET I [place] NOS CPT-4: J3301 06/21/2015 ROCEPHIN, PER 250 MG CPT-4: J0696 06/21/2015 URINALYSIS NONAUTO W /O SCOPE CPT-4: 64292 01/18/2013 Vital Signs Date Vital 03/12/2018 Blood Pressure 1: 140/80 Code: 8480-6 BMI: 31.3 Code: 50125-7 Heart Rate 1: 75 bpm Height: 5'4" SpO2: 98% Weight: 185 lbs 01/28/2018 Blood Pressure 1: 145/80 Code: 8480-6 BMI: 31.1 Code: 22554-1 Heart Rate 1: 73 bpm Height: 5'4" SpO2: 95% Weight: 184 lbs 11/05/2017 Blood Pressure 1: 140/82 Code: 8480-6 Blood Pressure 2: 130/78 Code: 8480-6 BMI: 30.6 Code: 49698-4 Heart Rate 1: 64 bpm Height: 5'4" SpO2: 97% Weight: 180 lbs 14 o z 07/10/2017 Blood Pressure 1: 124/72 Code: 8480-6 Heart Rate 1: 73 bpm Height: 5'4" SpO2: 99% Weight: 04/30/2017 Blood Pressure 1: 142/86 Code: 8480-6 BMI: 30.4 Code: 86532-9 Heart Rate 1: 57 bpm Height: 5'4" SpO2: 98% Temperature: 36.8 (C ) / 98.3 (F) Weight: 180 lbs 11/05/2016 Blood Pressure 1: 130/80 Code: 8480-6 BMI: 31.1 Code: 42133-7 Heart Rate 1: 68 bpm Height: 5'4" SpO2: 95% Weight: 184 lbs 11/01/2015 Blood Pressure 1: 124/76 Code: 8480-6 BMI: 30.1 Code: 55717-4 Heart Rate 1: 58 bpm Height: 5'4" SpO2: 97% Weight: 178 lbs 10/08/2015 Blood Pressure 1: 120/82 Code: 8480-6 BMI: 31.1 Code: 86835-7 Heart Rate 1: 71 bpm Height: 5'4" SpO2: 98% Weight: 184 lbs 06/21/2015 Blood Pressure 1: 142/90 Code: 8480-6 BMI: 23.0 Code: 04333-9 Heart Rate 1: 72 bpm Height: 5'4" SpO2: 92% Temperature: 36.6 (C ) / 97.8 (F) Weight: 136 lbs 06/15/2015 Blood Pressure 1: 138/72 Code: 8480-6 BMI: 23.0 Code: 34239-2 Heart Rate 1: 83 bpm Height: 5'4" SpO2: 96% Weight: 136 lbs 10/31/2014 Blood Pressure 1: 138/72 Code: 8480-6 BMI: 30.4 Code: 78314-7 Heart Rate 1: 69 bpm Height: 5'4" SpO2: 96% Weight: 180 lbs 11/21/2013 Blood Pressure 1: 128/82 Code: 8480-6 BMI: 29.4 Code: 22549-6 Heart Rate 1: 64 bpm Height: 5'4" Weight: 174 lbs 12/28/2012 Blood Pressure 1: 130/88 Code: 8480-6 BMI: 30.3 Code: 01380-4 Heart Rate 1: 60 bpm Height: 5'5" Weight: 182 lbs 09/30/2012 Blood Pressure 1: 126/78 Code: 8480-6 BMI: 30.1 Code: 18772-5 Heart Rate 1: 72 bpm Height: 5'5" Weight: 181 lbs Functional Status No Functional Status data History of Present Illness Symptom Name Status Resu lt Effective Date Notes sinus congestion Onset and Resolution sudden in [...] None well woman exam (40-65 years) 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 P ATIENT, LEVEL III Diagnosis: Acute recurrent maxillary sinusitis[ICD10: J01.01] Diagnosis: Other allergic rhinitis[ICD10: J30.89] Diagnosis: Cough[ICD10: R05] Criselda Hoover MD, [facility] CPT-4: 12152 03/12/2018 16857 EST. PATIENT, LEVEL III Diagnosis: Cellulitis of left lower limb[ICD10: L03.116] Minoo Hoover MD, [facility] CPT-4: 22391 01/28/2018 ([id number]) PREV VISIT E ST AGE 40-64 Diagnosis: Encounter for general adult medical examination without abnormal findings[ICD10: Z00.00] Shanti Hoover MD, [facility] CPT-4: 85492 11/05/2017 52531 EST. PATIENT, LEVEL IV Diagnosis: Other acute sinusitis[ICD10: J01.80] Diagnosis: Other allergic rhinitis[ICD10: J30.89] Minoo Hoover MD, [facility] CPT-4: 64598 07/10/2017 52158 EST. PATIENT, LEVEL IV Diagnosis: Other acute sinusitis[ICD10: J01.80] Diagnosis: Other allergic rhinitis[ICD10: J30.89] Minoo Hoover MD, [facility] CPT-4: 61773 04/30/2017 ([id number]) PREV VISIT E ST AGE 40-64 Diagnosis: Encounter for general adult medical examination without abnormal findings[ICD10: Z00.00] [facility] CPT-4: 55070 11/05/2016 ([id number]) PREV VISIT E AGE 40-64 Diagnosis: Encounter for gynecological examination (general) (routine) without abnormal findings[ICD10: Z01.419] [facility] CPT-4: 01419 11/01/2015 ([id number]) 83388 EST. P ATIENT, LEVEL III Diagnosis: Insect bite (nonvenomous), right knee, initial encounter[ICD10: S80.261A] Diagnosis: Allergic rhinitis due to pollen[ICD10: J30.1] [facility] CPT-4: 68760 10/08/2015 ([id number]) 46930 EST. P ATIENT, LEVEL III Diagnosis: Acute recurrent maxillary sinusitis[ICD10: J01.01] Diagnosis: Acute bronchitis, unspecified[ICD10: J20.9] [facility] CPT-4: 22699 06/21/2015 ([id number]) 82735 EST. P ATIENT, LEVEL III Diagnosis: Low back pain[ICD10: M54.5] Diagnosis: Sacroiliitis, not elsewhere classified[ICD10: M46.1] [facility] CPT-4: 65689 06/15/2015 ([id number]) PREV VISIT E AGE 40-64 Diagnosis: Routine medical exam[ICD9: V70.0] [facility] CPT-4: 25367 10/31/2014 ([id number]) PREV VISIT E AGE 40-64 Diagnosis: Routine medical exam[ICD9: V70.0] [facility] CPT-4: 09291 11/21/2013 ([id number]) 12029 EST. P ATIENT, LEVEL III Diagnosis: Well woman exam with routine gynecological exam[ICD9: V72.31] Diagnosis: Polyp at cervical os[ICD9: 622.7] [facility] CPT-4: 44456 12/28/2012 ([id number]) OFFICE/OUTPA TIENT VISIT NEW Diagnosis: Routine medical exam[ICD9: V70.0] [facility] CPT-4: 97818 09/30/2012 Plan of Care Planned Activity Notes C odes Status Date Visit Plan: Sinusitis - Pt has acut e infection - pain in face, maxillary region, Pt informed to use decongestant, RX given to patient, sinus rinses also recommended. Call if symptoms do not show improvement. 03/12/2018 Appointment: Criselda Anderson WPtel: [phone] [phone] (15 min) Moderate 03/12/2018 Patient Education: [...] discharge. 01/28/2018 Appointment[phone] (15 min) Moderate 01/28/2018 Patient Education: Patient [...] for arthrotec. 11/05/2017 Appointment: Shanti Hoover WPtel: [facility] (15 min) Moderate 11/05/2017 Patient Education: [...] allergy spray. 07/10/2017 Appointment: Minoo Joshua WPtel: [facility]5 [facility]66[facility] (15 min) Moderate 07/10/2017 Patient Education: Patient [...] allergy spray. 04/30/2017 Appointment: Minoo Joshua WPtel: [facility] (15 min) Moderate 04/30/2017 Patient Education: [...] renal functioning. 11/05/2016 Appointment: Shanti Hoover WPtel: [facility]5 [facility] Physical 11/05/2016 Patient Education: Patient Medication Summary Completed 11/05/2016 Patient Education: Obesity Completed 11/05/2016 Appointment: Shanti Hoover WPtel: [facility] Well Woman 01/02/2016 Visit Plan: Well [...] the office. 10/08/2015 Appointment: Criselda Anderson WPtel: [phone] (15 min) Moderate 10/08/2015 Patient Education: Patient Medication Summary Completed 10/08/2015 Patient Education: Obesity Completed 10/08/2015 Visit Plan: Sinusitis - Pt has acut e infection - pain in face, maxillary region, Pt informed to use decongestant, RX given to patient, sinus rinses also recommended. Call if symptoms do not show improvement. 06/21/2015 Appointment: Criselda Anderson WPtel: [facility]5 [phone] (10 min) Simple 06/21/2015 Patient Education: [...] Completed 06/15/2015 Care Plan: [employer] : [id number] Ordered 11/19/2014 Visit Plan: Well Adult - [...] renal functioning. 10/31/2014 Appointment: Shanti Hoover WPtel: [facility] Physical 10/31/2014 Patient Education: Patient Medication [...] renal functioning. 11/21/2013 Appointment: Shanti Hoover WPtel: [facility] Well Woman 11/21/2013 Patient Education: Patient Medication Summary Completed 11/21/2013 Appointment: Shanti Hoover WPtel: [address] [place], [place] [phone] Lab Draw 01/18/2013 Patient Education: Patient Medication Summary Completed 01/18/2013 Visit Plan: Well Adult Female - exa m completed. Pap and gc/chlamydia and breast exam completed. Pt will be called with results of her testing. She was advised to continue with yearly annual exams. Pt referred to Dr Bolivar Sun for further evaluation of the large cervical polyp. 12/28/2012 Appointment: [place] Shanti WPtel: [phone] [facility] Well Woman 12/28/2012 Patient Education: Patient Medication Summary Completed 12/28/2012 Visit Plan: recommended well woman exam and labs. recommended starting multivitamin improved sleep hygeine 09/30/2012 Appointment: [facility] Hoover [phone] New Patient 09/30/2012 Patient Education: Patient Medication [...] in the nasal steroid allergy spray. . Sinusitis - Pt has acute infection [...]
--- OUTSIDE RECORDS SUMMARY | 2019-10-14 08:52 | XMS REPORT | CCD ---
Author Author Laquita Hoover Organization Shanti Hoover MD, [facility] Address [address] [place] [address] Phone Care Team Providers Care Process Developer Name Role Phone PP Unavailable CCM Unavailable Summary Purpose Interface Exchange Insurance Providers Payer name Policy type / Coverage type Covered libertarian ID Effective Begin Date Effective End Date Blue Cross Blue Shield [facility] e Cross/Blue Shield [id number] 2015 Un known Family history Adopted Diagnosis Age At Onset No Family Disease Entered N/A Social History Social History Element Codes Description Effective Dates Marital status Unknown M arried 09/30/2012 Number of children Unknown 2 09/30/2012 Employment Unknown Oscar bauer employed via [employer] in [employer] 09/30/[address]: 3554066 Quit less than 10 years ago 09/30/2012 [...] Instructions Augmentin 875 mg-125 mg tablet RxNorm: 067198 1 Tablet(s) PO BID 03/12/2018 03/18/2018 Active take a probioitic while on the abx Kenalog 40 mg/mL guevara pension for injection RxNorm: 2655161 1 Milliliter(s) Inj 03/12/2018 03/12/2018 In active doxycycline hyclate 100 mg capsule RxNorm: 6884737 1 Capsule(s) PO BID 01/28/2018 02/06/2018 In active dapsone 25 mg tablet RxNorm: 608659 2 Tablet(s) PO daily 01/28/2018 02/01/2018 Inactive diclofenac 50 mg-mis oprostol 200 mcg tablet,immed.and delayed release RxNorm: 794949 1 Tablet(s) PO BID 11/05/2017 03/04/2018 Inactive acyclovir 800 mg tablet RxNorm: 720857 1 Tablet(s) PO TID take at symptoms of c old sore, if no outbreak, take for 5 days, if breaks out, take for 10 days total 09/09/2017 10/08/2017 In active prednisone 10 mg tablet RxNorm: 901091 Tablet(s) PO 07/10/2017 No Stop Date Active 6,5, 4,3,2,1 Zithromax Z-Dawson 250 mg tablet RxNorm: 040604 1 Tablet(s) PO UD 07/10/2017 07/14/2017 Inactive zpack Augmentin 875 mg-125 mg tablet RxNorm: 235867 1 Tablet(s) PO BID 05/29/2017 05/28/2017 Inactive Augmentin 875 mg-125 mg tablet RxNorm: 379536 1 Tablet(s) PO BID 05/29/2017 06/07/2017 Inactive Kenalog 40 mg/mL guevara pension for injection RxNorm: 3065807 1 Milliliter(s) Inj 04/30/2017 04/30/2017 In active Keflex 500 mg capsule RxNorm: 423061 1 Capsule(s) PO TID 04/30/2017 05/09/2017 Inactive Vitamin D3 5,000 uni t tablet RxNorm: 218834 1 Tablet(s) PO daily 12/17/2016 No Stop Date Active Jublia 10 % topical solution with applicator RxNorm: 7605187 1 Application TOP da marshall 12/12/2016 06/09/2017 Inactive Jublia 10 % topical solution with applicator RxNorm: 7943899 1 Application TOP da marshall 12/12/2016 2016 Inactive acyclovir 800 mg tablet RxNorm: 654452 1 Tablet(s) PO TID take at symptoms of c old sore, if no outbreak, take for 5 days, if breaks out, take for 10 days total 09/25/2016 10/24/2016 In active Kenalog 40 mg/mL guevara pension for injection RxNorm: 6890823 Milliliter(s) Inj 10/08/2015 10/08/2015 In active doxycycline hyclate 100 mg tablet RxNorm: 744830 1 Tablet(s) PO BID 10/08/2015 10/17/2015 Inactive cefdinir 300 mg capsule RxNorm: 663239 1 Capsule(s) PO BID 06/25/2015 07/01/2015 Inactive cefdinir 300 mg capsule RxNorm: 939008 1 Capsule(s) PO BID 06/25/2015 06/24/2015 Inactive ceftriaxone 500 mg s olution for injection RxNorm: 9158339 Inj 06/21/2015 06/21/2015 Inactive Kenalog 40 mg/mL guevara pension for injection RxNorm: 2287567 Milliliter(s) Inj 06/21/2015 06/21/2015 In active Zithromax Z-Dawson 250 mg tablet RxNorm: 220896 1 Tablet(s) PO UD 06/21/2015 06/25/2015 Inactive zpack acyclovir 800 mg tablet RxNorm: 109078 1 Tablet(s) PO TID take at symptoms of c old sore, if no outbreak, take for 5 days, if breaks out, take for 10 days total 10/31/2014 11/29/2014 In active Cipro 500 mg tablet RxNorm: 193128 1 Tablet(s) PO BID 01/18/2013 01/17/2013 Inactive Cipro 500 mg tablet RxNorm: 104930 1 Tablet(s) PO BID 01/18/2013 01/20/2013 Inactive Ocuvite oral RxNorm: 450275 oral No Start Date Active krill oil 1,000 mg-1 70 mg-50 mg-80 mg capsule RxNorm: 1 Capsule(s) PO daily No Start Date Active Calcium 600 + D(3) oral RxNorm: 668545 oral No Start Date Active Vitamin D3 Oral RxNorm: Oral No Start Date 12/16/2016 Inactive flaxseed oil Oral RxNorm: Oral No Start Date 11/04/2016 Inactive Medication Administered Medication Codes Instruc tions Start Date Status Kenalog 40 mg/mL suspension for injection RxNorm: 5119649 1Milliliter 03/12/2018 A ctive Kenalog 40 mg/mL suspension for injection RxNorm: 6741950 1Milliliter 04/30/2017 N o longer Active Kenalog 40 mg/mL suspension for injection RxNorm: 1903894 Milliliter 10/08/2015 No longer Active Kenalog 40 mg/mL suspension for injection RxNorm: 7998720 Milliliter 06/21/2015 No longer Active ceftriaxone 500 mg solution for injection RxNorm: 6558725 06/21/2015 No longer A ctive Immunizations Vaccine [...] 31.3 pg 11/02/2017 Cbc With Differential Ord2 [place]% 8.9 % 11/02/2017 Cbc With Differential Ord2 MCHC 32.7 pg 11/02/2017 Cbc With Differential Ord2 Eos% 3.5 % 11/02/2017 Cbc With Differential Ord2 Baso% 0.8 % 11/02/2017 Cbc With Differential Ord2 PLT 203 K/ul 11/02/2017 Cbc With Differential Ord2 Neut ABS# 1.47 K/ul 11/02/2017 Cbc With Differential Ord2 RDW 13.0 % 11/02/2017 Cbc With Differential Ord2 Lymph ABS# 1.75 K/ul 11/02/2017 Cbc With Differential Ord2 [place] ABS# 0.3 K/ul 11/02/2017 Cbc With Differential Ord2 Eos ABS# 0.1 K/ul 11/02/2017 Cbc With Differential Ord2 Baso ABS# 0.0 K/ul 11/02/2017 Comp Metabolic Txo864 NA 141 mEq/L 11/02/2017 Comp Metabolic Viu521 K 4.0 mEq/L 11/02/2017 Comp Metabolic Yop163 CL 104 mEq/L 11/02/2017 Comp Metabolic Ufc403 CO2 29.0 mEq/L 11/02/2017 Comp Metabolic Wvx593 AN ION GAP 12 11/02/2017 Comp Metabolic Vve953 GL UCOSE 91 mg/dL 11/02/2017 Comp Metabolic Nqt909 Cr eat 0.7 mg/dL 11/02/2017 Comp Metabolic Axb763 eG FR 94 ml/min/1.73m2 11/02 Comp Metabolic Qgw439 BUN 18 mg/dL 11/02/2017 Comp Metabolic Xmb953 B/ C Ratio 26.5 Ratio 11/02/2017 Comp Metabolic Zbk715 CA LCIUM 9.7 mg/dL 11/02/2017 Comp Metabolic Tep177 AL K PHOS 65 U/L 11/02/2017 Comp Metabolic Kub373 T(SGOT) 16 U/L 11/02/2017 Comp Metabolic Ijq743 AL T(SGPT) 17 U/L 11/02/2017 Comp Metabolic Qlj363 BI LI T 0.4 mg/dL 11/02/2017 Comp Metabolic Mjj444 AL BUMIN 4.1 g/dL 11/02/2017 Comp Metabolic Ree009 TP RO 6.7 g/dL 11/02/2017 Comp Metabolic Ryv728 GL OB 2.6 g/dL 11/02/2017 Comp Metabolic Kpu432 A/ G Ratio 1.6 Ratio 11/02/2017 Comp Metabolic Yer900 Os mo 283 mOsmo 11/02/2017 Tsh Ord6 hTSH II 2.02 uIU/mL 01/27/2017 Comp Metabolic Zgn172 NA 141 mEq/L 01/27/2017 Comp Metabolic Edw654 K 4.2 mEq/L 01/27/2017 Comp Metabolic Ycf197 CL 103 mEq/L 01/27/2017 Comp Metabolic Rui719 CO2 31.0 mEq/L 01/27/2017 Comp Metabolic Wjo139 AN ION GAP 11 01/27/2017 Comp Metabolic Iec748 GL UCOSE 90 mg/dL 01/27/2017 Comp Metabolic Geu926 Cr eat 0.6 mg/dL 01/27/2017 Comp Metabolic Zwh828 eG FR 101 ml/min/1.73m2 01/18 Comp Metabolic Gym489 BUN 17 mg/dL 01/27/2017 Comp Metabolic Fnv910 B/ C Ratio 26.6 Ratio 01/27/2017 Comp Metabolic Vcl255 CA LCIUM 9.5 mg/dL 01/27/2017 Comp Metabolic Ovb117 AL K PHOS 73 U/L 01/27/2017 Comp Metabolic Ekr510 T(SGOT) 19 U/L 01/27/2017 Comp Metabolic Uxx550 AL T(SGPT) 20 U/L 01/27/2017 Comp Metabolic Qyb793 BI LI T 0.5 mg/dL 01/27/2017 Comp Metabolic Tei348 AL BUMIN 4.3 g/dL 01/27/2017 Comp Metabolic Ntk984 TP RO 6.6 g/dL 01/27/2017 Comp Metabolic Ocg627 GL OB 2.3 g/dL 01/27/2017 Comp Metabolic Iwh044 A/ G Ratio 1.8 Ratio 01/27/2017 Comp Metabolic Set359 Os mo 282 mOsmo 01/27/2017 Lipid Ord30 CHOL 170 mg/dL 01/27/2017 Lipid Ord30 HDL 63.0 mg/dl 01/27/2017 Lipid Ord30 TRIG 57 mg/dL 01/27/2017 Lipid Ord30 LDL 96 mg/dL 01/27/2017 Lipid Ord30 C/HDL 2.7 Ratio 01/27/2017 Cbc With Differential Ord2 WBC 3.46 K/ul 01/27/2017 Cbc With Differential Ord2 RBC 4.21 M/ul 01/27/2017 Cbc With Differential Ord2 HGB 13.0 g/dl 01/27/2017 Cbc With Differential Ord2 Neut% 33.3 % 01/27/2017 Cbc With Differential Ord2 HCT 39.4 % 01/27/2017 Cbc With Differential Ord2 MCV 93.6 fl 01/27/2017 Cbc With Differential Ord2 Lymph% 49.7 % 01/27/2017 Cbc With Differential Ord2 MCH 30.9 pg 01/27/2017 Cbc With Differential Ord2 [place]% 11.8 % 01/27/2017 Cbc With Differential Ord2 Eos% 4.0 % 01/27/2017 Cbc With Differential Ord2 MCHC 33.0 pg 01/27/2017 Cbc With Differential Ord2 PLT 211 K/ul 01/27/2017 Cbc With Differential Ord2 Baso% 1.2 % 01/27/2017 Cbc With Differential Ord2 RDW 13.3 % 01/27/2017 Cbc With Differential Ord2 Neut ABS# 1.15 K/ul 01/27/2017 Cbc With Differential Ord2 Lymph ABS# 1.72 K/ul 01/27/2017 Cbc With Differential Ord2 [place] ABS# 0.4 K/ul 01/27/2017 Cbc With Differential [...] 30.9 pg 01/22/2016 Cbc With Differential Ord2 [place]% 8.6 % 01/22/2016 Cbc With Differential Ord2 Eos% 3.4 % 01/22/2016 Cbc With Differential Ord2 MCHC 32.8 pg 01/22/2016 Cbc With Differential Ord2 PLT 224 K/ul 01/22/2016 Cbc With Differential Ord2 Baso% 1.5 % 01/22/2016 Cbc With Differential Ord2 RDW 13.3 % 01/22/2016 Cbc With Differential Ord2 Neut ABS# 1.86 K/ul 01/22/2016 Cbc With Differential Ord2 Lymph ABS# 1.66 K/ul 01/22/2016 Cbc With Differential Ord2 [place] ABS# 0.4 K/ul 01/22/2016 Cbc With Differential Ord2 Eos ABS# 0.1 K/ul 01/22/2016 Cbc With Differential Ord2 Baso ABS# 0.1 K/ul 01/22/2016 Comp Metabolic Qye986 NA 141 mEq/L 01/22/2016 Comp Metabolic Bet172 K 4.2 mEq/L 01/22/2016 Comp Metabolic Hoy731 CL 105 mEq/L 01/22/2016 Comp Metabolic Ozn165 CO2 30.0 mEq/L 01/22/2016 Comp Metabolic Xzt577 AN ION GAP 10 01/22/2016 Comp Metabolic Fec998 GL UCOSE 85 mg/dL 01/22/2016 Comp Metabolic Qll909 Cr eat 0.6 mg/dL 01/22/2016 Comp Metabolic Jga489 eG FR 109 ml/min/1.73m2 07/2015 Comp Metabolic Lmf388 BUN 14 mg/dL 01/22/2016 Comp Metabolic Kyk893 B/ C Ratio 23.3 Ratio 01/22/2016 Comp Metabolic Yrn182 CA LCIUM 9.1 mg/dL 01/22/2016 Comp Metabolic Vqt003 AL K PHOS 69 U/L 01/22/2016 Comp Metabolic Tdp996 T(SGOT) 16 U/L 01/22/2016 Comp Metabolic Sjw058 AL T(SGPT) 15 U/L 01/22/2016 Comp Metabolic Bdh251 BI LI T 0.3 mg/dL 01/22/2016 Comp Metabolic Drk083 AL BUMIN 4.0 g/dL 01/22/2016 Comp Metabolic Ybn336 TP RO 6.8 g/dL 01/22/2016 Comp Metabolic Atp205 GL OB 2.8 g/dL 01/22/2016 Comp Metabolic Hrp946 A/ G Ratio 1.5 Ratio 01/22/2016 Comp Metabolic Dqn408 Os mo 281 mOsmo 01/22/2016 Tsh Ord6 [...] Ord2 RDW 14.1 % 01/17/2015 Comp Metabolic Kwj733 NA 137 mEq/L 01/17/2015 Comp Metabolic Msf233 K 4.1 mEq/L 01/17/2015 Comp Metabolic Cbf047 CL 103 mEq/L 01/17/2015 Comp Metabolic Chm684 CO2 35.0 mEq/L 01/17/2015 Comp Metabolic Hxq410 AN ION GAP 3 01/17/2015 Comp Metabolic Nzu516 GL UCOSE 88 mg/dL 01/17/2015 Comp Metabolic Bra996 Cr eat 0.6 mg/dL 01/17/2015 Comp Metabolic Brd444 eG FR 107 ml/min/1.73m2 12/21 Comp Metabolic Rrj309 BUN 14 mg/dL 01/17/2015 Comp Metabolic Rab012 B/ C Ratio 23.0 Ratio 01/17/2015 Comp Metabolic Xyn427 CA LCIUM 9.4 mg/dL 01/17/2015 Comp Metabolic Occ758 AL K PHOS 71 U/L 01/17/2015 Comp Metabolic Eth411 T(SGOT) 17 U/L 01/17/2015 Comp Metabolic Nxq863 AL T(SGPT) 14 U/L 01/17/2015 Comp Metabolic Wej259 BI LI T 0.4 mg/dL 01/17/2015 Comp Metabolic Cjx369 AL BUMIN 4.3 g/dL 01/17/2015 Comp Metabolic Zbv035 TP RO 7.0 g/dL 01/17/2015 Comp Metabolic Cya303 GL OB 2.7 g/dL 01/17/2015 Comp Metabolic Mkf289 A/ G Ratio 1.6 Ratio 01/17/2015 Comp Metabolic Jjt198 Os mo 274 mOsmo 01/17/2015 CHEM 14 7295079 AST 15 U/L 01/03/2014 CHEM 14 8485119 ALT 10 IU/L 01/03/2014 CHEM 14 9275466 BUN 12 MG/DL 01/03/2014 CHEM 14 1118439 ALBUMIN 4.4 GM/DL 01/03/2014 CHEM 14 9178420 CHLORIDE 105 MMOL/L 01/03/2014 CHEM 14 6346719 BILI TOT 0.5 MG/DL 01/03/2014 CHEM 14 1695257 ALK PHOS 69 U/L 01/03/2014 CHEM 14 3711444 SODIUM 140 MMOL/L 01/03/2014 CHEM 14 3481898 CREATINI NE 0.66 MG/DL 01/03/2014 CHEM 14 4920812 CALCIUM 9.3 MG/DL 01/03/2014 CHEM 14 2427744 POTASSIUM 3.8 MMOL/L 01/03/2014 CHEM 14 8389342 PROT TOT 7.3 GM/DL 01/03/2014 CHEM 14 2357038 GLUCOSE 89 MG/DL 01/03/2014 CHEM 14 6383895 BICARB 31 MMOL/L 01/03/2014 CHEM 14 3357163 ANION GAP 4 MEQ/L 01/03/2014 CBC 3834533 WBC 3.8 10e9/L 01/03/2014 CBC 0073566 RBC 4.16 10e12/L 01/03/2014 CBC 1334772 HGB 12.8 g/dL 01/03/2014 CBC 6707015 HCT DET 38.8 % 01/03/2014 CBC 3063154 MCV 93.3 fL 01/03/2014 CBC 0265400 MCH 30.8 pg 01/03/2014 CBC 4320208 MCHC 33.0 g/dL 01/03/2014 CBC 3780299 PLT 206 10e9/L 01/03/2014 CBC 2555154 MPV 10.1 fL 01/03/2014 CBC 3252083 CHRISTINA % 42.3 % 01/03/2014 CBC 2711297 LY % 44.0 % 01/03/2014 CBC 2748590 MON % 9.5 % 01/03/2014 CBC 5432892 EOS % 2.9 % 01/03/2014 CBC 9267051 BASO % 1.3 % 01/03/2014 CBC 9528522 RDW 12.8 % 01/03/2014 CBC 9072860 ABS CHRISTINA 1.61 10e9/L 01/03/2014 CBC 8909801 ABS LYMPH 1.67 10e9/L 01/03/2014 CBC 1453803 ABS MONO 0.36 10e9/L 01/03/2014 CBC 8836802 ABS EOS 0.11 10e9/L 01/03/2014 CBC 0709584 ABS BASO 0.05 10e9/L 01/03/2014 CBC 5806126 RDW-SD 42.3 fL 01/03/2014 TSH 6427808 TSH 2.728 uIU/ML 01/03/2014 GFR CALC 6703456 GFR AA >60 ML/MIN 01/03/2014 GFR CALC 6988405 GFR NON -AA >60 ML/MIN 01/03/2014 GC/CHL PRB 9606033 CHLM PROBE NEG 12/29/2012 GC/CHL PRB 7516389 GC OK OBE NEG 12/29/2012 URINALYSIS NONAUTO W/O SCOPE 33259 Specific [place] 1.015 DateTime(Free Text in Aprima) URINALYSIS NONAUTO W/O SCOPE 17078 PH 6.5 DateTime(Free Luis Eduardo t in Aprima) URINALYSIS NONAUTO W/O SCOPE 63217 GLUCOSE DateTime(Free Text i n Aprima) URINALYSIS NONAUTO W/O SCOPE 02683 Protein DateTime(Free Text i n Aprima) URINALYSIS NONAUTO W/O SCOPE 87505 Blood 3+ DateTime(Free Text in Aprima) URINALYSIS NONAUTO W/O SCOPE 25958 Bilirubin DateTime(Free Text i n Aprima) URINALYSIS NONAUTO W/O SCOPE 19550 Ketones DateTime(Free Text i n Aprima) URINALYSIS NONAUTO W/O SCOPE 76859 Urobilinogen DateTime(Free Text in Aprima) URINALYSIS NONAUTO W/O SCOPE 92506 Nitrite + DateTime(Free Text in Aprima) URINALYSIS NONAUTO W/O SCOPE 28367 Leukocytes DateTime(Fr ee Text in Aprima) Review [...] CPT-4: J3301 03/12/2018 THER/PROPH/DIAG INJ SC/IM CPT-4: 61082 04/30/2017 TRIAMCINOLONE ACET I [place] NOS CPT-4: J3301 04/30/2017 TRIAMCINOLONE ACET I [place] NOS CPT-4: J3301 10/08/2015 TRIAMCINOLONE ACET I [place] NOS CPT-4: J3301 06/21/2015 ROCEPHIN, PER 250 MG CPT-4: J0696 06/21/2015 URINALYSIS NONAUTO W /O SCOPE CPT-4: 96084 01/18/2013 Vital Signs Date Vital 03/12/2018 Blood Pressure 1: 140/80 Code: 8480-6 BMI: 31.3 Code: 08743-7 Heart Rate 1: 75 bpm Height: 5'4" SpO2: 98% Weight: 185 lbs 01/28/2018 Blood Pressure 1: 145/80 Code: 8480-6 BMI: 31.1 Code: 50742-3 Heart Rate 1: 73 bpm Height: 5'4" SpO2: 95% Weight: 184 lbs 11/05/2017 Blood Pressure 1: 140/82 Code: 8480-6 Blood Pressure 2: 130/78 Code: 8480-6 BMI: 30.6 Code: 45996-0 Heart Rate 1: 64 bpm Height: 5'4" SpO2: 97% Weight: 180 lbs 14 o z 07/10/2017 Blood Pressure 1: 124/72 Code: 8480-6 Heart Rate 1: 73 bpm Height: 5'4" SpO2: 99% Weight: 04/30/2017 Blood Pressure 1: 142/86 Code: 8480-6 BMI: 30.4 Code: 34454-1 Heart Rate 1: 57 bpm Height: 5'4" SpO2: 98% Temperature: 36.8 (C ) / 98.3 (F) Weight: 180 lbs 11/05/2016 Blood Pressure 1: 130/80 Code: 8480-6 BMI: 31.1 Code: 72073-9 Heart Rate 1: 68 bpm Height: 5'4" SpO2: 95% Weight: 184 lbs 11/01/2015 Blood Pressure 1: 124/76 Code: 8480-6 BMI: 30.1 Code: 09428-8 Heart Rate 1: 58 bpm Height: 5'4" SpO2: 97% Weight: 178 lbs 10/08/2015 Blood Pressure 1: 120/82 Code: 8480-6 BMI: 31.1 Code: 34542-5 Heart Rate 1: 71 bpm Height: 5'4" SpO2: 98% Weight: 184 lbs 06/21/2015 Blood Pressure 1: 142/90 Code: 8480-6 BMI: 23.0 Code: 39921-1 Heart Rate 1: 72 bpm Height: 5'4" SpO2: 92% Temperature: 36.6 (C ) / 97.8 (F) Weight: 136 lbs 06/15/2015 Blood Pressure 1: 138/72 Code: 8480-6 BMI: 23.0 Code: 58468-5 Heart Rate 1: 83 bpm Height: 5'4" SpO2: 96% Weight: 136 lbs 10/31/2014 Blood Pressure 1: 138/72 Code: 8480-6 BMI: 30.4 Code: 11170-4 Heart Rate 1: 69 bpm Height: 5'4" SpO2: 96% Weight: 180 lbs 11/21/2013 Blood Pressure 1: 128/82 Code: 8480-6 BMI: 29.4 Code: 89458-2 Heart Rate 1: 64 bpm Height: 5'4" Weight: 174 lbs 12/28/2012 Blood Pressure 1: 130/88 Code: 8480-6 BMI: 30.3 Code: 18094-7 Heart Rate 1: 60 bpm Height: 5'5" Weight: 182 lbs 09/30/2012 Blood Pressure 1: 126/78 Code: 8480-6 BMI: 30.1 Code: 83956-2 Heart Rate 1: 72 bpm Height: 5'5" [...] None well woman exam (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 P ATIENT, LEVEL III Diagnosis: Acute recurrent maxillary sinusitis[ICD10: J01.01] Diagnosis: Other allergic rhinitis[ICD10: J30.89] Diagnosis: Cough[ICD10: R05] Criselda Hoover MD, [facility] CPT-4: 02268 03/12/2018 [id number] EST. PATIENT, LEVEL III Diagnosis: Cellulitis of left lower limb[ICD10: L03.116] Minoo Hoover MD, [facility] CPT-4: 04086 01/28/2018 ([id number]) PREV VISIT E AGE 40-64 Diagnosis: Encounter for general adult medical examination without abnormal findings[ICD10: Z00.00] Shanti Hoover MD, [facility] CPT-4: 43638 11/05/2017 72892 EST. PATIENT, LEVEL IV Diagnosis: Other acute sinusitis[ICD10: J01.80] Diagnosis: Other allergic rhinitis[ICD10: J30.89] Minoo Hoover MD, [facility] CPT-4: 31668 07/10/2017 57700 EST. PATIENT, LEVEL IV Diagnosis: Other acute sinusitis[ICD10: J01.80] Diagnosis: Other allergic rhinitis[ICD10: J30.89] Minoo Hoover MD, [facility] CPT-4: 78848 04/30/2017 ([id number]) PREV VISIT E ST AGE 40-64 Diagnosis: Encounter for general adult medical examination without abnormal findings[ICD10: Z00.00] [facility] CPT-4: 91814 11/05/2016 ([id number]) PREV VISIT E AGE 40-64 Diagnosis: Encounter for gynecological examination (general) (routine) without abnormal findings[ICD10: Z01.419] [facility] CPT-4: 86980 11/01/2015 ([id number]) 74815 EST. P ATIENT, LEVEL III Diagnosis: Insect bite (nonvenomous), right knee, initial encounter[ICD10: S80.261A] Diagnosis: Allergic rhinitis due to pollen[ICD10: J30.1] [facility] CPT-4: 05185 10/08/2015 ([id number]) 65747 EST. P ATIENT, LEVEL III Diagnosis: Acute recurrent maxillary sinusitis[ICD10: J01.01] Diagnosis: Acute bronchitis, unspecified[ICD10: J20.9] [facility] CPT-4: 89109 06/21/2015 ([id number]) 83525 EST. P ATIENT, LEVEL III Diagnosis: Low back pain[ICD10: M54.5] Diagnosis: Sacroiliitis, not elsewhere classified[ICD10: M46.1] [facility] CPT-4: 56623 06/15/2015 ([id number]) PREV VISIT E AGE 40-64 Diagnosis: Routine medical exam[ICD9: V70.0] [facility] CPT-4: 37611 10/31/2014 ([id number]) PREV VISIT E AGE 40-64 Diagnosis: Routine medical exam[ICD9: V70.0] [facility] CPT-4: 96553 11/21/2013 ([id number]) 32928 EST. P ATIENT, LEVEL III Diagnosis: Well woman exam with routine gynecological exam[ICD9: V72.31] Diagnosis: Polyp at cervical os[ICD9: 622.7] [facility] CPT-4: 45038 12/28/2012 ([id number]) OFFICE/OUTPA TIENT VISIT NEW Diagnosis: Routine medical exam[ICD9: V70.0] Shanti Hoover MD, [facility] CPT-4: 85186 09/30/2012 Plan of Care Planned Activity Notes C odes Status Date Patient Education: Patient Medication Summary Completed 03/12/2018 Appointment: Minoo Joshua WPtel: [phone] [facility] (15 min) Moderate 01/28/2018 Patient Education: Patient Medication Summary Completed 01/28/2018 Patient Education: Patient Medication Summary Completed 2017 Appointment: Shanti Hoover WPtel: [phone] [facility] (15 min) Moderate 11/05/2017 Patient Education: Patient Medication Summary Completed 11/05/2017 Appointment: Minoo Joshua WPtel: [phone] [facility] (15 min) Moderate 07/10/2017 Patient Education: Patient Medication Summary Completed 07/10/2017 Appointment: Minoo Joshua WPtel: [phone] [facility] [place] (15 min) Moderate 04/30/2017 Patient Education: Patient Medication Summary Completed 04/30/2017 Appointment: Shanti Hoover WPtel: [phone] [facility] Physical 11/05/2016 Patient Education: Patient Medication Summary Completed 11/05/2016 Patient Education: Obesity Completed 11/05/2016 Appointment: Shanti Hoover WPtel: [phone] [facility] [place] Well Woman 01/02/2016 Patient Education: Patient Medication Summary Completed 11/01/2015 Patient Education: Obesity Completed 11/01/2015 Care Plan: PAP Pending 11/01/2015 Appointment: Criselda Anderson WPtel: [phone] [phone] [place] (15 min) Moderate 10/08/2015 Patient Education: Patient Medication Summary Completed 10/08/2015 Patient Education: Obesity Completed 10/08/2015 [phone] (10 min) Simple 06/21/2015 Patient Education: Patient Medication Summary Completed 06/21/2015 Appointment: (30 min) Complex 06/15/2015 Patient Education: Patient Medication Summary Completed 06/15/2015 Care Plan: SCREENINGMAMMOGRAPHYDIGITAL LOINC : 58468-1 Ordered 11/19/2014 Appointment: Shanti Hoover WPtel: [facility] Physical 10/31/2014 Patient Education: Patient Medication Summary Completed 10/31/2014 Appointment: Shanti Hoover WPtel: [facility] Well Woman 11/21/2013 Patient Education: Patient Medication Summary Completed 11/21/2013 App[facility]ment: [facility] Hoover [facility] [facility] 01/18/2013 Patient Education: Patient Medication Summary Completed 01/18/2013 Appointment: Sh[facility] Hoover [facility]Ptel[facility] [facility] 12/28/2012 Patient Education: Patient Medication Summary Completed 12/28/2012 App[facility]ment: Sh[facility] Hoover [facility]Ptel[facility] [facility] 09/30/2012 Patient Education: Patient Medication Summary Completed 09/30/2012 Instructions No Instructions
--- OUTSIDE RECORDS SUMMARY | 2019-10-14 08:53 | XMS REPORT | Continuity of Care Document ---
Author Organization Unknown Address Unknown Phone Unavailable Allergies Active Description Code Type Severity Reaction Onset Reported/Identified Relationship to Patient Clinical Status Yes No Known Drug Allergies [id number] Drug Allergy Unknown N/A 10/06/2019 Medications Medication Packaging Start Date St op Date Route Dosage Sig RESTASIS 017 instill 1 drop by ophthalmic route every 12 hours into affected eye(s) Problems Date Dx Coded Attending Type Code Diagnosis Diagnosed By 12/29/2011 Ot 211.3 12/29/2011 Ot 562.10 12/29/2011 Ot V76.51 11/17/2014 JAKUB STEPHENS, RUTHIE Callahan Ot 733.90 11/17/2014 JAKUB STEPHENS, RUTHIE Callahan Ot 781.91 11/17/2014 JAKUB STEPHENS, RUTHIE Callahan Ot V76.12 11/17/2014 JAKUB STEPHENS, RUTHIE Callahan Ot V82.81 12/21/2014 Ot V76.12 12/21/2014 Ot 793.82 12/21/2014 Ot V76.12 12/21/2014 JAKUB STEPHENS, RUTHIE Callahan Ot V76.12 12/21/2014 JAKUB STEPHENS, RUTHIE Callahan Ot V76.12 12/21/2014 ZACHERY NAPIER DO S Ot 621.0 12/21/2014 ZACHERY NAPIER DO Ot 626.2 12/21/2014 SHASHI ANDERSON Ot V76.12 12/21/2014 JAKUB STEPHENS, RUTHIE Callahan Ot 733.90 12/21/2014 JAKUB STEPHENS, RUTHIE Callahan Ot 781.91 12/21/2014 JAKUB STEPHENS, RUTHIE Callahan Ot V76.12 12/21/2014 RUTHIE HOOVER MD Ot V82.81 01/30/2015 Ot 610.0 01/30/2015 Ot V72.84 01/30/2015 Ot 610.0 06/23/[address] gallardo eye syndrome of bilateral lacrimal glands 06/23/2016 W 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 06/23/2016 W H25.093 Ot her age-related incipient cataract, bilateral 06/27/[address] y eye syndrome of bilateral lacrimal glands 06/27/2016 W 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 06/27/2016 W H25.093 Ot her age-related incipient cataract, bilateral 11/21/2016 Ot 793.82 INC ONCLUSIVE MAMMOGRAM 11/21/2016 Ot V76.12 OTH SCREEN MAMMO- MALIGN NEOPLASM OF [place]AHBAZ 11/21/2016 RUTHIE HOOVER MD Ot V76.12 OTH SCREEN MAMMO-MALIGN NEOPLASM OF [place] 11/21/2016 RUTHIE HOOVER MD Ot V76.12 OTH SCREEN MAMMO-MALIGN NEOPLASM OF [place] 11/21/2016 FENECH DO, ZACHERY S Ot 621.0 POLYP OF CORPUS UTERI 11/21/2016 FENECH DO, ZACHERY S Ot 626.2 EXCESSIVE MENSTRUATION 11/21/2016 SHASHI ANDERSON Ot V76.12 OTH SCREEN MAMMO-MALIGN NEOPLASM OF [place] 11/21/2016 RUTHIE HOOVER MD Ot 733.90 BONE CARTILAGE DIS NOS 11/21/2016 RUTHIE HOOVER MD Ot 781.91 LOSS OF HEIGHT 11/21/2016 RUTHIE HOOVER MD Ot V76.12 OTH SCREEN MAMMO-MALIGN NEOPLASM OF [place]Z 11/21/2016 RUTHIE HOOVER MD Ot V82.81 SCREENING FOR OSTEOPOROSIS 11/26/2016 Ot 793.82 INC ONCLUSIVE MAMMOGRAM 11/26/2016 Ot V76.12 OTH SCREEN MAMMO- MALIGN NEOPLASM OF [place]Z 11/26/2016 RUTHIE HOOVER MD Ot V76.12 OTH SCREEN MAMMO-MALIGN NEOPLASM OF [place]Z 11/26/2016 RUTHIE HOOVER MD Ot V76.12 OTH SCREEN MAMMO-MALIGN NEOPLASM OF [place] 11/26/2016 FENECH DO, ZACHERY S Ot 621.0 POLYP OF CORPUS UTERI 11/26/2016 FENECH DO, ZACHERY S Ot 626.2 EXCESSIVE MENSTRUATION 11/26/2016 SHASHI ANDERSON Ot V76.12 OTH SCREEN MAMMO-MALIGN NEOPLASM OF [place] 11/26/2016 RUTHIE HOOVER MD Ot 733.90 BONE CARTILAGE DIS NOS 11/26/2016 RUTHIE HOOVER MD Ot 781.91 LOSS OF HEIGHT 11/26/2016 RUTHIE HOOVER MD Ot V76.12 OTH SCREEN MAMMO-MALIGN NEOPLASM OF [place] 11/26/2016 RUTHIE HOOVER MD Ot V82.81 SCREENING FOR OSTEOPOROSIS 11/27/2016 Ot 793.82 INC ONCLUSIVE MAMMOGRAM 11/27/2016 Ot V76.12 OTH SCREEN MAMMO- MALIGN NEOPLASM OF [place]Z 11/27/2016 RUTHIE HOOVER MD Ot V76.12 OTH SCREEN MAMMO-MALIGN NEOPLASM OF [place] 11/27/2016 RUTHIE HOOVER MD Ot V76.12 OTH SCREEN MAMMO-MALIGN NEOPLASM OF [place] 11/27/2016 FENECH DO, ZACHERY S Ot 621.0 POLYP OF CORPUS UTERI 11/27/2016 FENECH DO, ZACHERY S Ot 626.2 EXCESSIVE MENSTRUATION 11/27/2016 SHASHI ANDERSON Ot V76.12 OTH SCREEN MAMMO-MALIGN NEOPLASM OF [place] 11/27/2016 RUTHIE HOOVER MD Ot 733.90 BONE CARTILAGE DIS NOS 11/27/2016 RUTHIE HOOVER MD Ot 781.91 LOSS OF HEIGHT 11/27/2016 RUTHIE HOOVER MD Ot V76.12 OTH SCREEN MAMMO-MALIGN NEOPLASM OF [place] 11/27/2016 RUTHIE HOOVER MD Ot V82.81 SCREENING FOR OSTEOPOROSIS 11/28/2016 SHASHI ANDERSON Ot M85.89 OTH DISRD OF BONE DENSITY AND STRUCTURE, 11/28/2016 SHASHI ANDERSON Ot Z12.31 ENCNTR SCREEN MAMMOGRAM FOR MALIGNANT NE 01/14/2017 SHASHI ANDERSONP Ot M85.89 OTH DISRD OF BONE DENSITY AND STRUCTURE, 01/14/2017 SHASHI ANDERSON Ot Z12.31 ENCNTR SCREEN MAMMOGRAM FOR MALIGNANT NE 12/10/2017 JACOB YORK MD Ot D12. 8 BENIGN NEOPLASM OF RECTUM 12/10/2017 JACOB YORK MD Ot K57. 30 DVRTCLOS OF LG INT W/O PERFORATION OR AB 12/10/2017 JACOB YORK MD Ot K63. 5 POLYP OF COLON 12/10/2017 JAYLEN STEPHENS, JACOB Lala Ot Z12. 11 ENCOUNTER FOR SCREENING FOR MALIGNANT NE 12/12/2017 JACOB YORK MD Ot D12. 8 BENIGN NEOPLASM OF RECTUM 12/12/2017 JAYLEN STEPHENS, JACOB Lala Ot K57. 30 DVRTCLOS OF LG INT W/O PERFORATION OR AB 12/12/2017 JACOB YORK MD Ot K63. 5 POLYP OF COLON 12/12/2017 JACOB YORK MD Ot Z12. 11 ENCOUNTER FOR SCREENING FOR MALIGNANT NE 02/01/2018 JACOB YORK MD Ot D12. 8 BENIGN NEOPLASM OF RECTUM 02/01/2018 JAYLEN STEPHENS, JACOB Lala Ot K57. 30 DVRTCLOS OF LG INT W/O PERFORATION OR AB 02/01/2018 JACOB YORK MD Ot K63. 5 POLYP OF COLON 02/01/2018 JACOB YORK MD Ot Z12. 11 ENCOUNTER FOR SCREENING FOR MALIGNANT NE 12/23/2018 RUTHIE HOOVER MD Ot Z12.31 ENCNTR SCREEN MAMMOGRAM FOR MALIGNANT NE 01/26/2019 ELVIRA ANDREW APRN Ot N63.10 UNSPECIFIED LUMP IN THE RIGHT BREAST, UN 08/01/2019 W J01.01 Acu te recurrent maxillary sinusitis Anderson, Shashi 08/01/2019 W J30.89 Oth er allergic rhinitis Anderson, Shashi 08/03/2019 W J01.01 Acu te recurrent maxillary sinusitis Anderson, Shashi 08/03/2019 W J30.89 Oth er allergic rhinitis Anderson, Shashi 08/04/2019 W J20.9 Acut e bronchitis Anderson, Shashi 08/04/2019 W R05 Cough Anderson, Shashi 08/04/2019 W J20.9 Acut e bronchitis Anderson, Shashi 08/04/2019 W R05 Cough Anderson, Shashi 09/19/2019 W Z00.00 Enc ounter for general adult medical examination without abnormal findings Ruthie Hoover Procedures Code Description [place] [address] EYE EXAM, NEW PATIENT 06/23/2016 Results Test Result Range Blood CBC with ordered manual differenti al panel - 04/16/17 10:09 Blood leukocytes automated count (number/volume) 4.5 10*3/uL 4.3-11.0 Blood erythrocytes automated count (number/volume) 4.18 10*6/uL 4.35-5.85 Venous blood hemoglobin measurement (mass/volume) 12.9 g/dL 11.5-16.0 Blood hematocrit (volume fraction) 39 % 35-52 Automated erythrocyte mean corpuscular volume 93 [ foz_us] 80-99 Automated erythrocyte mean corpuscular h emoglobin (mass per erythrocyte) 31 pg 25-34 Automated erythrocyte mean corpuscular h emoglobin concentration measurement (mass/volume) 33 g/dL 32-36 Automated erythrocyte distribution width ratio 12. 9 % 10.0- 14.5 Automated blood platelet count (count/volume) 218 10*3/uL 130-400 Automated blood platelet mean volume measurement 9.3 [foz_us] 7.4-10.4 Automated blood neutrophils/100 leukocytes 40 % 42-75 Automated blood lymphocytes/100 leukocytes 46 % 12-44 Blood monocytes/100 leukocytes 8 % NRG Automated blood eosinophils/100 leukocytes 4 % 0-10 Automated blood basophils/100 leukocytes 2 % 0-10 Blood neutrophils automated count (number/volume) 1.8 10*3 1.8-7.8 Blood lymphocytes automated count (number/volume) 2.1 10*3 1.0-4.0 Blood monocytes automated count (number/volume) 0. 4 10*3 0.0-1.0 Automated eosinophil count 0.2 10*3/uL 0 .0-0.3 Automated blood basophil count (count/volume) 0.1 10*3/uL 0.0-0.1 Manual blood segmented neutrophils/100 leukocytes 37 % NRG Blood band neutrophils/100 leukocytes 0 % NRG Manual blood lymphocytes/100 leukocytes 50 % NRG Manual eosinophils/100 leukocytes in nose 3 % NRG Manual blood basophils/100 leukocytes 0 % NRG Blood lymphocytes variant/100 leukocytes 2 % NRG Blood ovalocytes detection by light microscopy SLI T NRG Automated reticulocyte percentage - 03/21 12/04 10:09 Blood reticulocytes count (number/volume) 39 10*9/ L 24-90 Blood reticulocytes/100 erythrocytes 0.94 % 0.50-2.40 Coronavirus SARS-CoV-2 SO 2018 - 0 07:50 Coronavirus Ab [Units/volume] in Serum Negative Negative Encounters ACCT No. Visit Date/Time Discharge Status Pt. Type Provider Facility Loc./Unit Complaint 0000 11/05/2016 12:08:13 11/05/2016 23:59:5 9 CLS Outpatient [id number] 08/01/2019 10:21:42 Document Registration [id number] 06/30/2016 17:01:17 Document Registration [id number] 06/23/2016 14:00:00 Document Registration [id number] 10/11/2019 05:38:00 020 15:38:00 DIS Outpatient JACOB YORK MD [facility] PREOP COLONOSCOPY [id number] 12/23/2018 08:50:00 019 23:59:59 CLS Outpatient ELVIRA ANDREW APRN [facility] RAD RT BREAST NODULE [id number] 12/14/2018 10:28:00 019 23:59:59 CLS Outpatient RUTHIE HOOVER MD [facility] RAD SCREENING [id number] 12/10/2017 10:11:00 018 23:59:59 CLS Outpatient RUTHIE HOOVER MD [facility] RAD SCREENING [id number] 11/27/2017 08:45:00 018 23:59:59 CLS Outpatient JACOB YORK MD [facility] ENDO SCREENING [id number] 04/16/2017 09:48:00 017 23:59:59 CLS Outpatient ELVIRA ANDREW APRN [facility] LAB LOW WBC [id number] 11/27/2016 11:10:00 017 23:59:59 CLS Outpatient SHASHI ANDERSON [facility] RAD OSTEOPENIA, SCR EENING [id number] 11/02/2014 08:52:00 015 23:59:59 CLS Outpatient RUTHIE HOOVER MD [facility] RAD SCREENING,LOSS OF HEIG HT, POST MENOPAUSEL [id number] 11/02/2013 09:54:00 014 23:59:59 CLS Outpatient SHASHI ANDERSON [facility] RAD SCREENING [id number] 01/18/2013 12:49:00 23:59:59 CLS Outpatient QUYEN JOHNSON, ZACHERY S [facility] RAD ENDOMETRIAL POLYPS, ME NORRHAGIA [id number] 10/13/2012 09:46:00 23:59:59 CLS Outpatient RUTHIE HOOVER MD [facility] RAD ROUTINE [id number] 10/11/2012 07:00:00 23:59:59 CLS Outpatient RUTHIE HOOVER MD [facility] LAB SCREENING [id number] 10/14/2019 09:30:00 P AHMET YORK MD, JACOB Lala [facility] ENDO HX OF COLON POLYPS [id number] 01/30/2015 08:49:00 Document Registration [id number] 02/24/2012 09:54:00 Document Registration [id number] 12/26/2011 08:03:00 Document Registration [id number] 08/19/2011 11:16:00 Document Registration [id number] 06/17/2011 07:20:00 Document Registration [id number] 12/06/2009 13:29:00 Document Registration
[2019-10-14] MEDS ORDERED: MIDAZOLAM 5 MG/5 ML (VERSED) VIAL ONE (09:43)
[2019-10-14] MEDS ORDERED: fentaNYL INJECTION 100 MCG/2 ML AMP ONE (09:43)
[2019-10-14] MEDS ORDERED: LIDOCAINE JELLY 2% 6 ML SYRINGE ONE (09:43)
--- NOTE | 2019-10-14 15:31 | OPERATIVE REPORT ---
DATE OF SERVICE: COLONOSCOPY SUMMARY INDICATION FOR THE PROCEDURE: Surveillance colonoscopy due to history of colon polyps. DESCRIPTION OF PROCEDURE: The patient was placed in the left lateral decubitus position. Prior to undergoing colonoscopy, a digital rectal evaluation was performed. Anal sphincter tone was normal and the perianal reflexes were intact. No abnormalities were noted on digital inspection of the anal canal or distal rectal vault. The colonoscope was then inserted into the rectum and under direct visualization advanced to the cecum. The cecum was identified by identification of the ileocecal valve and cecal strap. Photographic documentation was obtained. Careful inspection was made as the colonoscope was withdrawn. The quality of the prep was good. FINDINGS: There was no evidence for internal or external hemorrhoids. The rectum was unremarkable. There is no evidence for recurrence of previous sessile serrated adenoma previously removed from the rectosigmoid junction. Mild diverticular disease with haustral hypertrophy was noted in the sigmoid colon without evidence for diverticulitis. No other sigmoid colonic abnormalities were appreciated. The descending colon, splenic flexure, transverse colon, hepatic flexure, ascending colon and cecum were unremarkable. ASSESSMENT: No evidence for neoplasia was identified today. I would advise increasing screening interval to five years. The patient again exhibited mild diverticular disease confined to the sigmoid colon without evidence for diverticulitis. I thank you for the referral of this pleasant lady. Job ID: [id number] DocumentID: [id number] Dictated Date: 10/14/2019 10:18:22 Licensed Weigher Date: 10/14/2019 15:30:21 Dictated By: JACOB YORK MD
== END 2019-10-14 10:50 | disposition home or self-care (01) ==
LOC: ENDO 08:33
PROVIDERS: ATTEND Internal Medicine
DX: Z12.11 Encounter for screening for malignant neoplasm of colon (principal); K57.30 Diverticulosis of large intestine without perforation or abscess without bleeding; K63.89 Other specified diseases of intestine; F41.9 Anxiety disorder, unspecified; F32.9 Major depressive disorder, single episode, unspecified; M19.90 Unspecified osteoarthritis, unspecified site; Z79.899 Other long term (current) drug therapy; Z90.89 Acquired absence of other organs; Z87.891 Personal history of nicotine dependence; Z86.010 Personal history of colon polyps

== ENCOUNTER → 2020-01-20 | Outpatient (CLI) | payer OTHER ==
[2020-01-20 12:00] LABS: ALANINE AMINOTRANSFERASE 27 U/L (0-55); ALBUMIN 4.3 GM/DL (3.2-4.5); ALKALINE PHOSPHATASE 87 U/L (40-136); BILIRUBIN,TOTAL 0.4 MG/DL (0.1-1.0); BUN/CREATININE RATIO 26; CALCIUM 9.1 MG/DL (8.5-10.1); CARBON DIOXIDE 24 MMOL/L (21-32); CHLORIDE 105 MMOL/L (98-107); CREATININE SERUM 0.76 MG/DL (0.60-1.30); GFR ESTIMATED > 60; GLUCOSE 93 MG/DL (70-105); POTASSIUM 4.3 MMOL/L (3.6-5.0); SODIUM 141 MMOL/L (135-145); TOTAL PROTEIN 7.4 GM/DL (6.4-8.2)
== END ==
LOC: LAB 10:47
PROVIDERS: ATTEND Nurse Practitioner Family
DX: M25.50 Pain in unspecified joint (principal); W57.XXXA Bitten or stung by nonvenomous insect and other nonvenomous arthropods, initial encounter
CPT/HCPCS: 36415; 80053; 86618; 86666; 86668; 86757

== ENCOUNTER → 2021-02-20 | Outpatient (CLI) | payer OTHER ==
--- NOTE | 2021-02-20 13:57 | Diagnostic Imaging Report ---
INDICATION: Right breast nodules, followup. COMPARISON: Correlation is made with prior mammograms from 12/14/2018 and 12/10/2017. TECHNIQUE: 2D and 3D bilateral diagnostic mammography was performed with CAD. FINDINGS: Both breasts are heterogeneously dense, limiting the sensitivity of mammography. There is an enlarging circumscribed nodule in the outer right breast approximately 4-5 cm from the nipple. The retroareolar nodule with internal calcifications appears to be fairly similar. No other masses are seen. The left breast is unremarkable. The axillae are unremarkable. IMPRESSION: Enlarging nodule in the outer right breast 5 cm from the nipple. Further evaluation with ultrasound is recommended. In addition, an ultrasound followup of the partially calcified nodule in the retroareolar right breast is recommended and will be performed today. ACR BI-RADS Category 0: Incomplete. (Needs additional imaging evaluation). Result letter will be mailed to the patient. Note: At least 10% of breast cancer is not imaged by mammography. Dictated by: Dictated on workstation # [id number]
--- NOTE | 2021-02-20 14:51 | Diagnostic Imaging Report ---
Indication: Right breast nodules. Correlation is made to diagnostic mammogram earlier same day as well as prior right breast ultrasound from 12/23/2018. Retroareolar hypoechoic nodules are again noted, similar in size to prior exam. One nodule measures 7 mm x 7 mm x 6 mm. 2nd nodule which contains internal calcifications measures 7 mm x 6 mm x 9 mm. This nodule measures 1 to 2 mm larger when compared with study 2 years earlier. There is a cyst at the 9:00 location, 4 cm from the nipple measuring 9 mm x 8 mm x 9 mm. This likely accounts for the new mammographic density. A smaller cyst at the 12:00 location 3 cm from the nipple measures 6 mm x 4 mm. No new solid mass is detected. IMPRESSION: BI-RADS Category 3 1. New cysts at the 9:00 location right breast, accounting for the density noted mammographically. 2. Solid retroareolar nodules, as described. The nodule with internal calcifications does measure slightly larger when compared with 2 years earlier. Follow-up ultrasound in 6 months is recommended to show continued stability. ACR BI-RADS Category 3: Probably benign findings. Dictated by: Dictated on workstation # [id number]
== END ==
LOC: RAD 13:25
PROVIDERS: ATTEND Family Medicine
DX: N60.01 Solitary cyst of right breast (principal); N63.11 Unspecified lump in the right breast, upper outer quadrant
CPT/HCPCS: 76642; 77066; G0279; 77062

== ENCOUNTER → 2021-04-04 | Outpatient (CLI) | payer OTHER ==
--- NOTE | 2021-04-04 12:19 | Diagnostic Imaging Report ---
CLINICAL INDICATION: Patient with chronic sinusitis and pressure. EXAM: Axial CT scan of the maxillofacial structures without IV contrast. Coronal and sagittal reformations were performed. Auto Exposure Controls were utilized during the CT exam to meet ALARA standards for radiation dose reduction. COMPARISON: None. FINDINGS: PARANASAL SINUSES: FRONTAL: Unremarkable. ETHMOID: Unremarkable. MAXILLARY: Unremarkable. SPHENOID: Unremarkable. OTHER PARANASAL SINUS FINDINGS: None. NASAL SEPTUM: There is 4 mm of rightward nasal septal deviation. VISUALIZED TEMPORAL BONE STRUCTURES: Unremarkable. BONY STRUCTURES: Unremarkable. EXTRACRANIAL SOFT TISSUE/ ORBITS: Unremarkable. IMPRESSION: There is mild rightward nasal septal deviation. Otherwise, unremarkable maxillofacial CT scan. Paranasal sinuses are clear. Dictated by: Dictated on workstation # [id number]
== END ==
LOC: RAD 11:15
PROVIDERS: ATTEND Otolaryngology Otolaryngology/Facial Plastic Surgery
DX: J34.2 Deviated nasal septum (principal); J32.9 Chronic sinusitis, unspecified
CPT/HCPCS: 70486

== ENCOUNTER 2021-04-05 11:16 | Outpatient (CLI) | payer OTHER | END 2021-04-05 11:32 | LOC: SLEEP 11:16 | PROVIDERS: ATTEND Otolaryngology Otolaryngology/Facial Plastic Surgery | DX: G47.33 Obstructive sleep apnea (adult) (pediatric) (principal) | CPT/HCPCS: G0399 ==

== ENCOUNTER → 2021-09-11 | Outpatient (CLI) | payer OTHER ==
--- NOTE | 2021-09-11 11:47 | Diagnostic Imaging Report ---
INDICATION: Followup right breast nodules. COMPARISON: Correlation is made with the prior right breast ultrasound from 02/20/2021. FINDINGS: Retroareolar hypoechoic nodules are again noted. One nodule measures 6 mm x 4 mm x 6 mm compared with 7 mm x 7 mm x 6 mm on prior exam. The hypoechoic nodule with calcification is similar in size at 7 mm x 5 mm x 9 mm compared with 7 mm x 6 mm x 9 mm on the prior exam. No new nodules are detected. IMPRESSION: Stable retroareolar right breast nodules. An additional followup in 6 months is recommended to show continued stability. ACR BI-RADS Category 3: Probably benign findings. Dictated by: Dictated on workstation # [id number]
== END ==
LOC: RAD 10:30
PROVIDERS: ATTEND Family Medicine
DX: N63.10 Unspecified lump in the right breast, unspecified quadrant (principal)

== ENCOUNTER → 2021-09-17 | Outpatient (RCR) | payer OTHER | END | disposition home or self-care (01) | PROVIDERS: ATTEND Nurse Practitioner Family | DX: M54.50 Low back pain, unspecified (principal) ==

== ENCOUNTER 2021-10-16 14:58 | Outpatient (RCR) | payer OTHER | END 2021-10-17 | disposition home or self-care (01) | PROVIDERS: ATTEND Nurse Practitioner Family | DX: M54.50 Low back pain, unspecified (principal) ==

== ENCOUNTER 2021-10-31 08:55 | Outpatient (RCR) | payer OTHER | END 2021-11-17 | disposition home or self-care (01) | PROVIDERS: ATTEND Nurse Practitioner Family | DX: M54.50 Low back pain, unspecified (principal) ==

== ENCOUNTER → 2022-05-29 | Outpatient (CLI) | payer BC, OTHER ==
--- NOTE | 2022-05-29 14:04 | Diagnostic Imaging Report ---
Indication: Six-month follow-up right breast nodules. Correlation is made with prior mammograms 02/20/2021 and 12/14/2018. 2-D and 3-D bilateral diagnostic mammography was performed. Both breasts remain heterogeneously dense, limiting sensitivity of mammography. Partially calcified nodule in the retroareolar right breast is stable. The 2nd nodule in the lateral aspect of the right breast at anterior to mid depth has decreased in size since the prior exam. No new mass is detected. Axillae are unremarkable. IMPRESSION: BI-RADS Category 0. Stable partially calcified retroareolar nodule with decrease in size of non-calcified circumscribed nodule in the outer right breast when compared with examination from February 2021. Sonographic follow-up of the right breast nodules is recommended and is being performed today. Dictated by: Dictated on workstation # [id number]
--- NOTE | 2022-05-29 14:57 | Diagnostic Imaging Report ---
Indication: Six-month follow-up right breast nodules. Correlation is made with prior right breast ultrasounds dating back to 2019 as well as diagnostic mammogram performed earlier today. Sonographic interrogation of the retroareolar right breast was performed. Hypoechoic nodule 1 cm from the nipple is noted measuring 6 mm x 3 mm x 4 mm, similar to prior exam. There is a 2nd hypoechoic nodule with internal calcifications measuring 6mm x 4 mm x 9 mm. This too is similar in size to prior exam however margins appear to be somewhat angular and less defined than prior exams. No new mass is detected. IMPRESSION: BI-RADS Category 4 1. 2 nodules retroareolar right breast. One nodule is stable in size and appearance. 2nd nodule with internal calcifications does have a more angular appearing margins on today's study. Tissue sampling would be recommended. This would be amenable to ultrasound-guided core biopsy. ACR BI-RADS Category 4: Suspicious abnormality. Dictated by: Dictated on workstation # [id number]
== END ==
LOC: RAD 13:33
PROVIDERS: ATTEND Family Medicine
DX: N63.10 Unspecified lump in the right breast, unspecified quadrant (principal)
CPT/HCPCS: 76642; 77066; G0279; 77062

== ENCOUNTER → 2022-06-18 | Outpatient (CLI) | payer BC ==
[~2022-06-18] VITALS: Ht 162.6 cm; Wt 86.4 kg
[~2022-06-18] MED LIST changes: +LIDOCAINE 1% INJ 30 ML (XYLOCAINE) VIAL INJ ONE
--- NOTE | 2022-06-18 12:26 | Diagnostic Imaging Report ---
INDICATION: Right breast nodule. Patient presents for ultrasound-guided core biopsy. DETAILS OF THE PROCEDURE: The patient was brought to the sonographic suite and placed on the table in the supine position. Ultrasound imaging of the right breast was performed to evaluate for an appropriate entry site. The right breast was then prepped and draped in the usual sterile fashion. A small amount of 1% lidocaine was utilized for local anesthesia. A total of 4 core biopsies was obtained of the hypoechoic nodule with internal microcalcifications in the retroareolar right breast utilizing a 14-gauge Achieve needle. A marker clip was then deployed. Hemostasis was obtained using manual compression. The patient tolerated the procedure well and was sent for a post procedure mammogram in satisfactory condition. IMPRESSION: Successful ultrasound guided core biopsy of the hypoechoic nodule in the retroareolar right breast with microcalcifications. Pathology results are currently pending. Dictated by: Dictated on workstation # [id number]
--- NOTE | 2022-06-18 12:40 | Diagnostic Imaging Report ---
INDICATION: Right breast nodule, status post ultrasound-guided biopsy. TECHNIQUE: Unilateral right 2D CC and ML mammography was performed after the patient underwent an ultrasound-guided biopsy. FINDINGS: There is a marker clip slightly cephalad and slightly medial to the nodule that was biopsied, likely owing to slight clip migration. IMPRESSION: Marker clip placement, status post ultrasound-guided right breast nodule core biopsy. Dictated by: Dictated on workstation # [id number]
== END ==
LOC: RAD 10:15
PROVIDERS: ATTEND Family Medicine
DX: N63.10 Unspecified lump in the right breast, unspecified quadrant (principal); Z98.82 Breast implant status
CPT/HCPCS: 19083; 77065; G0279

== ENCOUNTER → 2022-09-17 | Outpatient (RCR) | payer BC ==
[~2022-09-17] MED LIST changes: -LIDOCAINE 1% INJ 30 ML (XYLOCAINE) VIAL INJ ONE
== END | disposition home or self-care (01) ==
PROVIDERS: ATTEND Family Medicine
DX: M54.50 Low back pain, unspecified (principal); R53.1 Weakness

== ENCOUNTER 2022-10-13 09:46 | Outpatient (RCR) | payer BC | END 2022-10-17 | disposition home or self-care (01) | PROVIDERS: ATTEND Family Medicine | DX: M54.16 Radiculopathy, lumbar region (principal); R53.1 Weakness ==

== ENCOUNTER → 2022-12-09 | Outpatient (CLI) | payer BC ==
--- NOTE | 2022-12-09 09:06 | Diagnostic Imaging Report ---
EXAMINATION: Left hip unilateral 2 or 3 views (w/pelvis when done) HISTORY: Low back pain COMPARISON: None available. FINDINGS: Alignment is normal. No fracture is seen. Joint spaces are normal. IMPRESSION: 1. No fracture. Dictated by: Dictated on workstation # [id number]
--- NOTE | 2022-12-09 11:35 | Diagnostic Imaging Report ---
CLINICAL INDICATIONS: Patient with left hip and low back pain which is chronic. EXAM: MRI of the lumbar spine performed without IV contrast. Sequences include sagittal T2, sagittal T1, sagittal T2 fat-sat, and axial T2. COMPARISON: None. FINDINGS: There is no acute lumbar spine fracture. There are Modic type II degenerative signal changes involving the L4-S1 levels. There is no significant paraspinal soft tissue abnormality. The visualized portions of the distal thoracic spinal cord, conus medullaris, and cauda equina nerve roots are unremarkable. The conus medullaris tip is seen at the lower L2 vertebral body level. There is no significant paraspinal soft tissue abnormality. There are hypertrophic spurs throughout the visualized lower thoracic spine and lumbar spine. T12-L1: Unremarkable. L1-L2: There is mild bilateral facet arthropathy. There is no significant central spinal canal or neural foramen narrowing. L2-L3: There is a diffuse disk bulge with mild loss of disk space height. There is moderate bilateral facet arthropathy. There is mild to moderate central canal stenosis. There is mild left neural foramen narrowing and moderate right neural foramen narrowing. L3-L4: There is grade 1 anterolisthesis of L3 on L4. There is a mild diffuse disk bulge. There is severe bilateral facet arthropathy with hypertrophic changes on the right. There is ligament flavum buckling. There is severe central canal stenosis and moderate to severe bilateral neural foramen narrowing. L4-L5: There is grade 1 anterolisthesis of L4 on L5. There is diffuse disk bulge with moderate to severe loss of disk space height. There is severe bilateral facet arthropathy/hypertrophy. There is severe central canal stenosis, moderate right neural foramen narrowing and severe left neural foramen narrowing. L5-S1: There is diffuse disk bulge with severe loss of disk space height. There is severe bilateral facet arthropathy. There is no significant central canal stenosis. There is severe bilateral neural foramen narrowing. IMPRESSION: 1: There is no acute lumbar spine fracture. 2: There is severe multilevel lumbar spine degenerative disk disease which is described in detail above. Dictated by: Dictated on workstation # [id number]
== END ==
LOC: RAD 08:00
PROVIDERS: ATTEND Family Medicine
DX: M47.816 Spondylosis without myelopathy or radiculopathy, lumbar region (principal); M51.36 Other intervertebral disc degeneration, lumbar region; M48.061 Spinal stenosis, lumbar region without neurogenic claudication; M43.16 Spondylolisthesis, lumbar region; M47.817 Spondylosis without myelopathy or radiculopathy, lumbosacral region; M51.37 Other intervertebral disc degeneration, lumbosacral region; M48.07 Spinal stenosis, lumbosacral region
CPT/HCPCS: 72148; 73502

== ENCOUNTER → 2022-12-16 | Outpatient (CLI) | payer BC ==
--- NOTE | 2022-12-16 15:21 | Diagnostic Imaging Report ---
INDICATION: Postmenopausal screening COMPARISON: DEXA scan on 11/27/2016 FINDINGS: AP Spine L1-L4: [BMD (g/cm2): 1.069] [T-Score: -1.1] [Z-Score: -0.1] [BMD Previous: 1.1352] [BMD % Change: -5.6*] LT Hip Neck: [BMD (g/cm2): 0.801] [T-Score: -1.7] [Z-Score: -0.6] LT Hip Total: [BMD (g/cm2):0.809] [T-Score:-1.6] [Z-Score: -0.8] [BMD Previous: 0.837] [BMD % Change: -3.3] RT Hip Neck: [BMD (g/cm2):0.847] [T-Score:-1.4] [Z-Score:-0.3] RT Hip Total: [BMD (g/cm2):0.828] [T-score:-1.4] [Z-Score:-0.6] [BMD Previous:0.882] [BMD % Change:-6.1*] *Indicates significant change from prior examination based on 95% confidence level. World Health Organization criteria for BMD interpretation classify patients as Normal (T-score at or above -1.0), Osteopenic (T-score between -1.0 and -2.5) or Osteoporotic (T-score at or below -2.5). LIMITATIONS AND MODIFICATION: None. FRACTURE RISK (FRAX SCORE): The ten year probability of (%): Major Osteoporotic Fracture: [9.4] Hip Fracture: [1.2] IMPRESSION: 1. Osteopenia (Low bone mass). 2. Bone mineral density has decreased by a statistically significant amount, as detailed above. 3. See below National Osteoporosis Foundation guidelines on when to potentially initiate pharmacologic therapy. Based on the National Osteoporosis Foundation Guidelines, pharmacologic treatment should be initiated in any of the following, unless clinical conditions suggest otherwise: * Any patient with prior fragility fracture of the hip or vertebrae. A spine fracture indicates 5X risk for subsequent spine fracture and 2X risk for subsequent hip fracture. * Osteoporosis (T-score <-2.5). * Postmenopausal women and men age 50 and older with low bone mass/osteopenia (T-score between -1.0 and -2.5) by DXA and 10-year major osteoporotic fracture greater than 20% or a 10-year probability of hip fracture greater than 3%. These fracture risks are supplied above in the FRAX score, if applicable. * Clinician judgement and/or patient preferences may indicate treatment for people with 10-year fracture probabilities above or below these levels. Dictated by: Dictated on workstation # [id number]
== END ==
LOC: RAD 12:30
PROVIDERS: ATTEND Family Medicine
DX: M85.89 Other specified disorders of bone density and structure, multiple sites (principal); N95.1 Menopausal and female climacteric states
CPT/HCPCS: 77080